=== PATIENT | male | born 1970 | race Caucasian/White ===

== ENCOUNTER → 2022-11-01 13:54 | Outpatient (BNVA) | payer OTHER, SELFPAY | PROVIDERS: PCP Internal Medicine; Visit Provider Internal Medicine Pulmonary Disease | DX: R93.89 Abnormal findings on diagnostic imaging of other specified body structures (principal); J43.9 Emphysema, unspecified | CPT/HCPCS: 99202 ==

== ENCOUNTER 2022-11-09 13:36 | Outpatient (REF) | payer OTHER, SELFPAY ==
--- NOTE | 2022-11-09 14:51 | PFT_ITS ---
FLOWS: FEV1 94% of predicted at 3.97 L. FVC 102% of predicted at 5.62 L. FEV1 to FVC ratio of 0.71. The patient declined bronchodilator testing. LUNG VOLUMES: Total lung capacity 105% of predicted at 8.03 L. Residual volume 102% of predicted at 2.32 L. Slow vital capacity 107% of predicted at 5.70 L. Expiratory reserve volume 110% of predicted at 1.84 L. Diffusion capacity is mildly decreased. IMPRESSION: No obstructive or restrictive ventilatory defect. The patient declined bronchodilator testing. Decreased diffusion capacity suggests emphysema. Marvin Lopez MD AP/MODL / [id number]
== END 2022-11-09 13:37 | disposition home or self-care (01) ==
LOC: HO.RESP 13:36
PROVIDERS: PCP Internal Medicine; Visit Provider Internal Medicine Pulmonary Disease
DX: J43.9 Emphysema, unspecified (principal)
CPT/HCPCS: 94010; 94727; 94729

== ENCOUNTER 2022-11-22 15:00 | Outpatient (REF) | payer OTHER, SELFPAY ==
--- NOTE | ~2022-11-22 | CT_ITS ---
EXAMINATION: CT CHEST WITHOUT CONTRAST CLINICAL INFORMATION: Abnormal findings on diagnostic imaging of site. COMPARISON: None TECHNIQUE: Multidetector volumetric CT imaging of the chest was done. Axial MIP volume rendering provided. Sagittal and coronal reformatted images were obtained. This CT examination was performed using dose optimization techniques as appropriate, variously including the following: *Automated exposure control. *Adjustment of mA and/or kV according to patient size (this includes techniques or standardized protocols for targeted exams where dose is matched to indication/reason for exam; i.e. extremities or head). *Use of iterative reconstruction technique. DLP: 198 mGy-cm FINDINGS: FICTION AND NONFICTION AUTHOR: Unremarkable. LUNGS: The lungs are well expanded and clear of acute pneumonic process. There are 2 mm nodule right upper lobe axial image 200/7, 2 new nodule right upper lobe axial image 228/7, new punctate reticular nodular changes right upper lobe laterally axial image 224/7, scattered punctate calcifications in both lower lobe posterior segments. There is an ill-defined density right lower lobe posterior lung and subpleural location right posterior pleural thickening. The ill-defined density measures 2.8 x 2.40 cm on axial image 302/7 and approximately 5 cm in craniocaudal length. There is central focal air or necrosis. This may represent a resolving infiltrate or centrally necrotic nodule. Small bullous changes are seen in the left lower lobe. Chronic atelectatic changes are seen in the right lung base. MEDIASTINUM: Heart size and the great vessels are normal caliber. Thyroid gland appears surgically removed. Central trachea and the bronchi are widely patent. No abnormal size mediastinal lymph nodes seen. No pericardial effusion. CORONARY ARTERY CALCIFICATION: None visualized on this study. PLEURA: There is no pleural effusion. No pleural mass or thickening. AXILLA: There are small shotty lymph nodes in the axilla. The chest wall is unremarkable. UPPER ABDOMEN: Visualized liver, spleen, pancreas and bilateral adrenal glands unremarkable. OSSEOUS STRUCTURES: No lytic or sclerotic process seen. CT/CT chest wo IV con IMPRESSION: 1. Ill-defined nodule/mass-like density right lower lobe with central gas collection, question necrosis. Differential diagnosis includes resolving infiltrate versus underlying nodule. 2. There are several additional small nodules seen in the right upper lobe. There is scarring right lung base, bullous changes in the left lower lobe posterior segment. 3. No abnormal mediastinal or axillary lymphadenopathy. Fleischner guidelines were followed.
== END 2022-11-22 15:01 | disposition home or self-care (01) ==
LOC: HO.CT 15:00
PROVIDERS: PCP Internal Medicine; Visit Provider Internal Medicine Pulmonary Disease
DX: R93.89 Abnormal findings on diagnostic imaging of other specified body structures (principal)
CPT/HCPCS: 71250

== ENCOUNTER → 2022-12-12 11:22 | Outpatient (BNVA) | payer OTHER, SELFPAY | PROVIDERS: PCP Internal Medicine; Visit Provider Internal Medicine Pulmonary Disease | DX: J85.2 Abscess of lung without pneumonia (principal); J43.9 Emphysema, unspecified; R93.89 Abnormal findings on diagnostic imaging of other specified body structures | CPT/HCPCS: 99212 ==

== ENCOUNTER 2023-02-18 12:47 | Outpatient (REF) | payer OTHER, SELFPAY ==
--- NOTE | ~2023-02-18 | CT_ITS ---
EXAMINATION: CT CHEST WITHOUT CONTRAST CLINICAL INFORMATION: Follow-up right lower lobe nodule COMPARISON: Previous chest CT most October 2020 TECHNIQUE: Multidetector volumetric CT imaging of the chest was done. Axial MIP volume rendering provided. Sagittal and coronal reformatted images were obtained. This CT examination was performed using dose optimization techniques as appropriate, variously including the following: *Automated exposure control *Adjustment of mA and/or kV according to patient size (this includes techniques or standardized protocols for targeted exams where dose is matched to indication/reason for exam; i.e. extremities or head) *Use of iterative reconstruction technique DLP: 189 mGy-cm FINDINGS: LUNGS: There is an irregularly-shaped peripheral or subpleural nodule/mass in the posterior superior segment of the right lower lobe. Superiorly this measures 1.4 x 1.8 cm axial image 24 series 3 compared to 1.8 x 2.4 cm on prior exam and is still cavitary. More inferiorly this appears more solid with areas of central calcification measuring 0.6 x 0.8 cm axial image 28 series 4 compared to 1 x 1 cm in AP and transverse dimension on prior exam. Longitudinally this area measures 4.8 cm sagittal reconstructed image 79 compared to 5.5 cm on prior exam. There is volume loss to the right lower lobe. There is evidence of emphysema. There is a focal cystic change in the left lower lobe. There are small calcified and noncalcified nodules or micronodules that are stable. Largest nodule is a 3 mm calcified right middle lobe nodule axial image 326 series 5. MEDIASTINUM: The thyroid gland has been removed. The mediastinum is otherwise normal. CORONARY ARTERY CALCIFICATION: None visualized on this study. PLEURA: There is no pleural effusion. No pleural mass or thickening. AXILLA: No lymphadenopathy. UPPER ABDOMEN: Multiple left renal cysts. OSSEOUS STRUCTURES: Degenerative changes of the spine. CT/CT chest wo IV con IMPRESSION: Slight interval decrease in size in the irregularly-shaped elongated partially cavitary nodule/mass in the posterior superior segment of the right lower lobe compared to October 2022. Volume loss to the right lower lobe. Emphysema. Stable small pulmonary nodules. Fleischner guidelines were followed.
== END 2023-02-18 12:48 | disposition home or self-care (01) ==
LOC: HO.CT 12:47
PROVIDERS: PCP Internal Medicine; Visit Provider Internal Medicine Pulmonary Disease
DX: J85.2 Abscess of lung without pneumonia (principal); R93.89 Abnormal findings on diagnostic imaging of other specified body structures
CPT/HCPCS: 71250

== ENCOUNTER → 2023-03-01 11:19 | Outpatient (BNVA) | payer OTHER, SELFPAY | PROVIDERS: PCP Internal Medicine; Visit Provider Internal Medicine Pulmonary Disease | DX: J43.9 Emphysema, unspecified (principal); J85.2 Abscess of lung without pneumonia; R93.89 Abnormal findings on diagnostic imaging of other specified body structures; Z87.891 Personal history of nicotine dependence; Z80.1 Family history of malignant neoplasm of trachea, bronchus and lung; G47.33 Obstructive sleep apnea (adult) (pediatric); Z99.89 Dependence on other enabling machines and devices | CPT/HCPCS: 99212 ==

== ENCOUNTER 2023-04-12 10:19 | Outpatient (REF) | payer OTHER, SELFPAY ==
--- NOTE | ~2023-04-12 | CT_ITS ---
EXAMINATION: CT CHEST WITHOUT CONTRAST CLINICAL INFORMATION: Lung abscess COMPARISON: Previous chest CT October and January 2023 TECHNIQUE: Multidetector volumetric CT imaging of the chest was done. Axial MIP volume rendering provided. Sagittal and coronal reformatted images were obtained. This CT examination was performed using dose optimization techniques as appropriate, variously including the following: *Automated exposure control *Adjustment of mA and/or kV according to patient size (this includes techniques or standardized protocols for targeted exams where dose is matched to indication/reason for exam; i.e. extremities or head) *Use of iterative reconstruction technique DLP: 216 mGy-cm FINDINGS: LUNGS: There is a partially cavitary lesion in the superior segment of the right lower lobe. Superiorly this appears cavitary and does not appear changed in size. Inferiorly this appears more solid and is increased in size for example measuring maximum 2.7 x 1.8 cm in transverse and AP dimension axial image 293 series 5 compared to 1.4 x 2.5 cm in maximum AP and transverse dimension axial image 250 series 5 on January 2023 exam. There are small associated calcifications. There is associated bronchiectasis extending to this region. There is adjacent retraction of the right major fissure. There is evidence of emphysema. There are cystic or bullous changes seen in the lungs, largest in the peripheral or subpleural posterior left lower lobe. There are scattered areas of mild focal bronchiectasis, increased peribronchial attenuation and small peribronchial nodules just of airways disease. MEDIASTINUM: The thyroid gland has been removed. No enlarged hilar or mediastinal lymph nodes. Normal heart size. No pericardial effusion. CORONARY ARTERY CALCIFICATION: None visualized on this study. PLEURA: There is no pleural effusion. No pleural mass or thickening. AXILLA: No lymphadenopathy. UPPER ABDOMEN: Large multiloculated cyst in the upper pole of the left kidney. Small punctate 1 mm calcification in the upper pole of the left kidney. OSSEOUS STRUCTURES: Degenerative changes of the spine. CT/CT chest wo IV con IMPRESSION: Partially solid partially cystic or cavitary lesion in the superior segment of the right lower lobe. Interval increase in size in the inferior more solid component compared to most recent exam January 2023. There are small associated calcifications and focal bronchiectasis. Emphysema and cystic changes in the lungs. Evidence of mild airways disease. Fleischner guidelines were followed.
== END 2023-04-12 10:20 | disposition home or self-care (01) ==
LOC: HO.CT 10:19
PROVIDERS: PCP Internal Medicine; Visit Provider Internal Medicine Pulmonary Disease
DX: J85.2 Abscess of lung without pneumonia (principal)
CPT/HCPCS: 71250

== ENCOUNTER → 2023-04-16 10:17 | Outpatient (BNVA) | payer OTHER, SELFPAY | PROVIDERS: PCP Internal Medicine; Visit Provider Internal Medicine Pulmonary Disease | DX: R93.89 Abnormal findings on diagnostic imaging of other specified body structures (principal); J43.9 Emphysema, unspecified | CPT/HCPCS: 99212 ==

== ENCOUNTER → 2023-04-24 14:49 | Outpatient (BNVA) | payer OTHER, SELFPAY | PROVIDERS: PCP Internal Medicine; Referring Provider Internal Medicine Pulmonary Disease; Visit Provider Surgery | DX: R93.89 Abnormal findings on diagnostic imaging of other specified body structures (principal); J98.4 Other disorders of lung | CPT/HCPCS: 99202 ==

== ENCOUNTER 2023-05-07 09:51 | Day surgery (SDC) | payer OTHER, SELFPAY ==
[2023-05-07] VITALS (7 sets, daily range): BP systolic 110–127; BP diastolic 73–78; PULSE 68–84; RESP 14–18; TEMP 36.4–37.1; O2SAT 95–97; BMI 24.3
--- NOTE | ~2023-05-07 | XR_ITS ---
EXAMINATION: XR CHEST CLINICAL INFORMATION: Post right lung biopsy. COMPARISON: None available. TECHNIQUE: Frontal view of the chest was obtained. FINDINGS: There is no visible pneumothorax status post right lung biopsy. The lungs are well-expanded and clear. The heart size and pulmonary vascularity is normal. No gross bony abnormality seen. XR/XR chest 1V IMPRESSION: No visible pneumothorax status post right lung biopsy.
--- NOTE | ~2023-05-07 | XR_ITS ---
EXAMINATION: XR CHEST CLINICAL INFORMATION: 1 hour follow-up post right lung biopsy. COMPARISON: Immediate post lung biopsy chest x-ray at 2:10 PM TECHNIQUE: Frontal view of the chest was obtained. FINDINGS: Post right lung biopsy there is no visible pneumothorax. The lungs are clear. Heart size and the great vessels are normal caliber. No gross bony abnormality seen. XR/XR chest 1V IMPRESSION: Post right lung biopsy there is no visible pneumothorax. No change from the earlier chest x-ray.
--- NOTE | ~2023-05-07 | CT_ITS ---
PROCEDURE: CT GUIDED BIOPSY, LUNG CLINICAL INFORMATION: Right lower lobe lung mass COMPARISON: None available. TECHNIQUE: Patient was placed in a lateral decubitus position on the CT gantry. Cross-sectional images of the leg were obtained. A site on the right mid back was identified and marked and the area was sterilely prepped and draped. There was an unclear question of a lidocaine allergy. Since there were no lidocaine alternatives available at the time of the procedure, we elected to give a very small amount of lidocaine to start. There was no local or systemic reaction and we therefore proceeded to anesthetize with more lidocaine at the skin surface and up until the edge of the pleura. The right lower lobe lung mass was accessed with a 17-gauge coaxial needle under CT fluoroscopy guidance. 2 18-gauge core biopsy needle samples were then obtained. One sample was placed in formalin for pathology and the other simple was placed in a sterile container to be sent for culture and sensitivity. The needle was removed. Hemostasis was achieved with manual compression and a sterile dressing was applied. Post biopsy CT image does not demonstrate any evidence of pneumothorax or any other complication. The patient tolerated the procedure well. This CT examination was performed using dose optimization techniques as appropriate, variously including the following: *Automated exposure control *Adjustment of mA and/or kV according to patient size (this includes techniques or standardized protocols for targeted exams where dose is matched to indication/reason for exam; i.e. extremities or head) *Use of iterative reconstruction technique Medications for conscious sedation: The patient received intravenous conscious sedation under my direct supervision. A registered nurse monitored the patient and the patient's vital signs throughout the procedure. The total sedation was 30 minutes. A total of 0.5 mg of Versed and 25 mcg fentanyl was given for good effect. DLP: 119 mGy-cm FINDINGS: Right lower lobe lung mass biopsied as above. CT/CT biopsy lung RT IMPRESSION: Technically successful biopsy of right lower lobe lung mass as detailed above.
[2023-05-07 10:21] LABS: MANUAL DIFF FLAG NO
[2023-05-07 10:34] LABS: Basophils Absolute Auto 0.1 X10*3/uL (0.0-0.2); Eosinophils Absolute Auto 0.2 X10*3/uL (0.0-0.4); Eosinophils Percent Auto 2.9 % (0-4); Hemoglobin 17.9 g/dl (14.0-18.0); Imm Gran Abs Auto 0.01 X10*3/uL (0.00-0.03); Imm Gran Pct Auto 0.2 % (0.0-0.4); Lymphocytes Absolute Auto 1.2 X10*3/uL (1.2-4.9); Lymphocytes Percent Auto 19.2 % (20-40); Mean Corpuscular HGB Conc 33.8 g/dl (31.0-36.0); Mean Corpuscular Hemoglobin 28.5 pg (27.0-33.0); Mean Corpuscular Volume 84.3 fL (80.0-98.0); Mean Platelet Volume 10.3 fL (9.4-12.4); Monocytes Absolute Auto 0.6 X10*3/uL (0.1-1.2); Monocytes Percent Auto 9.5 % (2-11); Neutrophils Absolute Auto 4.3 x10*3/uL (2.0-8.3); Neutrophils Percent Auto 67.2 % (45-73); Platelet Count 146 X10*3/uL (160-400); Red Blood Count 6.29 X10*6/uL (4.60-5.80); Red Cell Distribution Width 13.2 % (11.0-16.0); White Blood Count 6.3 X10*3/uL (4.8-10.8)
[2023-05-07 10:35] LABS: Prothrombin Time 11.8 SEC (10.0-13.1)
[2023-05-07 10:38] LABS: Partial Thromboplastin Time 38.5 SEC (26.0-36.4)
[2023-05-07 10:47] LABS: Anion Gap 13 (12-20); Blood Urea Nitrogen 22 mg/dL (9-16); Carbon Dioxide 25 mmol/L (22-29); Chloride 107 mmol/L (96-108); Creatinine Clr Calc Pharmacy 87.7; Estimated Glomerular Filt Rate > 60; Potassium 3.9 mmol/L (3.3-5.1); Sodium 141 mmol/L (135-145)
== END 2023-05-07 15:50 | disposition home or self-care (01) ==
LOC: HO.SSS 09:52
PROVIDERS: Radiology Diagnostic Radiology; PCP Internal Medicine; Visit Provider Surgery
DX: R91.8 Other nonspecific abnormal finding of lung field (principal); Z87.891 Personal history of nicotine dependence
CPT/HCPCS: 32408; 36415; 71045; 80051; 82565; 84520; 85025; 85610; 85730; 87070; 87073; 87076; 87205; 88305; 99152; 99153; J2250; J3010

== ENCOUNTER → 2023-05-07 11:50 | Outpatient (BNV) | payer OTHER, SELFPAY | PROVIDERS: PCP Internal Medicine; Visit Provider Student in an Organized Health Care Education/Training Program | DX: R91.8 Other nonspecific abnormal finding of lung field (principal) | CPT/HCPCS: 32408 ==

== ENCOUNTER 2023-05-14 10:24 | Outpatient (AMB) | payer OTHER, SELFPAY ==
--- NOTE | 2023-05-14 10:37 | MHC.OFFVIS ---
Intake Vital Signs 05/14/23 10:38 Height 6 ft 1 in Weight 185 lb 3.013 oz BMI 24.4 BP 120/78 Pulse 102 H Pulse Oximetry (%) 98 Intake Visit Reasons: follow up CT scan Intake Note: pt was recently referred to thoracic surgeon. pt states he has been coughing up blood since he finished the antibiotics. Allergies diphenhydramine [From Benadryl] Allergy (Severe, Verified 05/14/23 10:38) sob lidocaine Adverse Reaction (Verified 05/14/23 10:38) Rash novacane Allergy (Uncoded 05/07/23 10:40) Rash HPI follow up CT scan HPI Details 52-year-old gentleman, 60 pack-year smoker, quit 2008, with underlying family history of lung cancer, referred for evaluation of abnormal CT chest obtained for evaluation of small volume hemoptysis that occurred in the beginning of September of 2022 associated with upper respiratory infection versus a as community-acquired pneumonia with no further recurrence of hemoptysis thereafter.? Patient denies prior episodes of hemoptysis.? Patient also denies any other pulmonary concerns complaints.? He does have underlying obstructive sleep apnea currently on CPAP therapy. After the last office visit patient was evaluated by thoracic surgery and had biopsy of his lung lesion that was negative for malignancy. Patient is scheduled to follow-up with thoracic surgery to discuss further treatment options. He does complain of recurrenceOf minor hemoptysis and worsening phlegm after finishing his antibiotic regimen. [facility] Surgical History (Updated 04/24/23 @ 15:35 by Daniel Holt MD) History of thyroidectomy Family History (Updated 04/24/23 @ 15:07 by DOUG Lacey) Maternal Grandfather Lung cancer Father Cancer of appendix Prostate cancer Paternal Uncle Prostate cancer Paternal Grandfather Prostate cancer Review of Systems Const Denies daytime sleepiness, Denies excessive sweating, Denies fatigue, Denies fever(s), Denies lethargy, Denies malaise, Denies night sweats, Denies snoring and Denies weight loss Eyes Denies blurry vision and Denies itchy eyes ENT Denies nasal congestion, Denies post nasal drip, Denies sinus pain, Denies sinus pressure and Denies other ( Thrush) Card Denies chest pain, Denies pedal edema, Denies dyspnea, Denies orthopnea and Denies paroxysmal nocturnal dyspnea Resp Reports cough, Reports hemoptysis ( Minor), Reports excessive phlegm production, Denies dyspnea, Denies snoring and Denies wheezing GI Denies abdominal pain and Denies heartburn Musc Denies myalgias, Denies arthralgias and Denies joint swelling Skin/Breast Denies rash Neuro Denies memory loss and Denies seizure-like activity Psych Denies abnormal sleep pattern, Denies anxiety and Denies memory loss Endo Denies excessive sweating, Denies fatigue and Denies heat intolerance Brendon/Lymph Denies easy bruising Aller/Immun Denies itchy eyes, Denies seasonal rhinorrhea and Denies wheezing Physical Exam Vital Signs: Last Vital Signs Pulse 102 H 05/14/23 10:38 BP 120/78 05/14/23 10:38 Pulse Ox 98 05/14/23 10:38 BMI result Body Mass Index 24.4 Const General: no acute distress and alert Nutritional Appearance: not obese Orientation/consciousness: Other orientation findings ( oriented) HEENT Head: Yes atraumatic Eyes General: appearance normal, both eyes and all related structures Sclerae: sclerae normal EOM: EOMs intact bilaterally Neck Neck: Yes supple Lymphatic: no lymphadenopathy noted Resp Effort & Inspection: normal respiratory effort and no use of accessory muscles Auscultation: clear to auscultation bilaterally Cardio Rate: regular rate Rhythm: regular rhythm Heart sounds: no gallops, no murmurs and no rubs Skin General skin exam: other ( warm) Extrem General: No clubbing, No cyanosis and No edema Assessment & Plan Assessment & Plan (1) Emphysema lung: Code(s): J43.9 - Emphysema, unspecified Plan: essentially symptomatic, will continue to monitor clinically. (2) Pulmonary abscess: Code(s): J85.2 - Abscess of lung without pneumonia Plan: suboptimal response so several courses of antibiotics. Now status post biopsy with no malignancy noted. Patient is scheduled to discuss further treatment options with thoracic surgery. Will restart on suppressive antibiotic at this time. Medications: New amoxicillin-pot clavulanate 875-125 mg 1 tab PO BID 56 tabs 0RF 28 days Discontinued cefuroxime axetil Discontinued Reason: Doctor's Order 500 mg PO BID 56 tabs 0RF 28 days Coding Level of Care Code Est Pt Level 4 (58305) Diagnoses Emphysema lung J43.9 Pulmonary abscess J85.2
[2023-05-14 10:38] VITALS: BP 120/78; PULSE 102; O2SAT 98; BMI 24.4
== END 2023-05-14 11:07 | disposition home or self-care (01) ==
PROVIDERS: PCP Internal Medicine; Visit Provider Internal Medicine Pulmonary Disease
DX: J43.9 Emphysema, unspecified (principal); J85.2 Abscess of lung without pneumonia
CPT/HCPCS: 99214

== ENCOUNTER → 2023-05-14 10:24 | Outpatient (BNVA) | payer OTHER, SELFPAY | PROVIDERS: PCP Internal Medicine; Visit Provider Internal Medicine Pulmonary Disease | DX: J43.9 Emphysema, unspecified (principal); J85.2 Abscess of lung without pneumonia; G47.33 Obstructive sleep apnea (adult) (pediatric); E89.0 Postprocedural hypothyroidism; Z80.1 Family history of malignant neoplasm of trachea, bronchus and lung; Z99.89 Dependence on other enabling machines and devices | CPT/HCPCS: 99212 ==

== ENCOUNTER 2023-05-17 10:53 | Outpatient (AMB) | payer OTHER, SELFPAY ==
--- NOTE | 2023-05-17 11:04 | MHC.OFFVIS ---
Intake Vital Signs 05/17/23 11:05 Height 6 ft 1 in Weight 186 lb BMI 24.5 BP 120/75 Blood Pressure Location Rt brachial Position Sitting Pulse 68 Intake Visit Reasons: Follow Up CT BX results Intake Note: Patient here for f/u CT scan. Lung bx 05-07-23. Audiology Director Required: No Accompanied by: Mother Allergies diphenhydramine [From Benadryl] Allergy (Severe, Verified 05/17/23 11:07) sob lidocaine Adverse Reaction (Verified 05/17/23 11:07) Rash novacane Allergy (Uncoded 05/17/23 11:07) Rash HPI HPI Comments History of Present Illness Details Patient presents with his follow-up. Status post IR lung biopsy was demonstrates no malignancy and inflammatory/infectious etiology. PFSH Surgical History History of thyroidectomy Family History Maternal Grandfather Lung cancer Father Cancer of appendix Prostate cancer Paternal Uncle Prostate cancer Paternal Grandfather Prostate cancer Physical Exam Vital Signs: Last Vital Signs Pulse 68 05/17/23 11:05 BP 120/75 05/17/23 11:05 BMI result Body Mass Index 24.5 Chest Other: Chest breath sounds bilaterally, HS 1 in 2 GI Other: Abdomen soft, benign Assessment & Plan Assessment & Plan (1) Cavitating mass in right lower lung lobe: Comment: Lengthy discussion was had with the patient's family regarding right thoracotomy, right lower lobe wedge resection or possible lobectomy based on intraoperative findings. The concern his to avoid entering this cavity during surgery to minimize spillage. This is why open approach is being undertaken as opposed to thoracoscopy. Risks, benefits, alternatives of the right mini thoracotomy and wedge resection/lobectomy reviewed with the patient and his family and included but not limited to bleeding, infection, recurrence, numbness, pain, scarring, and patient wishes to proceed. All questions were answered. Arrangements will be made for this. PFTs are currently ordered. Code(s): J98.4 - Other disorders of lung Orders: Orders PFT pulmonary function test Today J98.4 - Other disorders of lung Coding Level of Care Code New Pt Level 5 (39395) Diagnoses Cavitating mass in right lower lung lobe J98.4
[2023-05-17 11:05] VITALS: BP 120/75; PULSE 68; BMI 24.5
== END 2023-05-17 11:24 | disposition home or self-care (01) ==
PROVIDERS: PCP Internal Medicine; Visit Provider Surgery
DX: J98.4 Other disorders of lung (principal)
CPT/HCPCS: 99215

== ENCOUNTER → 2023-05-17 10:53 | Outpatient (BNVA) | payer OTHER, SELFPAY | PROVIDERS: PCP Internal Medicine; Visit Provider Surgery | DX: J98.4 Other disorders of lung (principal) | CPT/HCPCS: 99212 ==

== ENCOUNTER 2023-05-31 09:35 | Inpatient (IN) | payer OTHER, SELFPAY ==
[2023-05-24 13:28] VITALS: BP 124/73; PULSE 66; RESP 16; O2SAT 98; BMI 24.5
--- NOTE | 2023-05-24 13:48 | P.CONAN_ITS ---
Documented by User: Shalini Paige NP 05/24/23 14:31 HPI - Anesthesia Eval Consult details Narrative: 52yo M for Bronchoscopy Fiberoptic, Thoracotomy,RLL Lobectomy Nonmalignant RLL mass Reports + vague symptoms (body aches, fatigue, vertigo, rare chest pain) but able to exercise on treadmill. Recent PCP eval with EKG (pending fax) PONV as child. None after thyroidectomy and femur surgery PMFSH Active Problems Active Problems: All Active Problems (Updated 05/24/23 @ 13:43 by Aida Rogers RN) Abnormal CT scan, chest (Acute) Emphysema lung (Acute) Pulmonary abscess (Acute) Cavitating mass in right lower lung lobe (Acute) Past Medical History Medical History (Updated 05/24/23 @ 14:59 by Aida Rogers, JAMILAH) Constipation Coughing up blood Dermatitis Hx of bacterial pneumonia Hx of thyroid cancer Low vitamin D level OCD (obsessive compulsive disorder) LUDIN on CPAP PONV (postoperative nausea and vomiting) Schizoaffective disorder Vertigo Family History Family History Maternal Grandfather Lung cancer Father Cancer of appendix Prostate cancer Paternal Uncle Prostate cancer Paternal Grandfather Prostate cancer Family history of problems with anesthesia: No Surgical History Surgical History (Updated 05/24/23 @ 13:56 by Aida Rogers RN) History of lung biopsy History of surgery on lower extremity History of thyroidectomy Hx of colonoscopy History of Problems with Anesthesia: Yes (Remote hx PONV, Vertigo after colonoscopy) Social History Social History Are you a primary wound care center consultant to a significant other at home: No Do you presently have visiting nurse or other home services: Yes (3 x week mental health nurse visits) Patient Tobacco Use Status: Former Tobacco user Quit Date: 2009 Tobacco use type: Cigarette Advance Directives: No Advance Directives Information Provided: Yes Meds Allergies Allergy/AdvReac Type Severity Reaction Status Date / Time diphenhydramine Allergy Intermediate Shortness Verified 05/24/23 13:27 [From Benadryl] of Breath Home Medications Medication Instructions Recorded Confirmed Last Taken Type clozapine 100 mg tablet (Clozaril) 100 mg PO BEDTIME 11/01/22 05/24/23 05/30/23 History levothyroxine 125 mcg capsule 125 mcg PO DAILY 11/01/22 05/24/23 05/31/23 History montelukast 10 mg tablet 10 mg PO BEDTIME 11/01/22 05/31/23 Unknown History Fiber Gummies PO BEDTIME 05/24/23 Unknown History acetaminophen 325 mg tablet 650 mg PO Q4-6H PRN Pain 05/24/23 05/31/23 Unknown History cholecalciferol (vitamin D3) 1,250 1,250 mcg PO .QWEEKTUESDAY 05/24/23 05/31/23 Unknown History mcg (50,000 unit) capsule polyethylene glycol 3350 17 gram 17 g PO BEDTIME 05/24/23 05/31/23 Unknown History oral powder packet (Miralax) Exam Exam Date and Time: May 24, 2023 1348 Height,Weight and Vital Signs: Height 6 ft 1 in Weight 84.368 kg Last Vital Signs Pulse 66 05/24/23 13:28 Resp 16 05/24/23 13:28 BP 124/73 05/24/23 13:28 Pulse Ox 98 05/24/23 13:28 O2 Del Method Room Air 05/24/23 13:28 Pertinent Lab Results Pertinent Lab Results: Laboratory Tests 05/07/23 05/07/23 10:17 10:17 WBC 6.3 Hgb 17.9 Hct 53.0 H Plt Count 146 L Sodium 141 Potassium 3.9 Chloride 107 Carbon Dioxide 25 BUN 22 H Creatinine 1.10 Airway Mallampati Class: I TM Dist: >3cm Neck ROM: Full Loose/Missing/Broken Teeth: Yes (Upper right molar pulled) Heart: RRR Lungs: CTAB Assessment and Plan Assessment Anesthesia Assessment: Anesthesia Plan Discussed and PAT Visit Final Anesthetic Review Family History of Problems with Anesthesia: No History of Problems with Anesthesia: Yes (Remote hx PONV, Vertigo after colonoscopy) Documented by User: Delvis Ricci MD 05/31/23 09:20 [facility] Past Medical History Medical History (Updated 05/24/23 @ 14:59 by Aida Rogers RN) Constipation Coughing up blood Dermatitis Hx of bacterial pneumonia Hx of thyroid cancer Low vitamin D level OCD (obsessive compulsive disorder) LUDIN on CPAP PONV (postoperative nausea and vomiting) Schizoaffective disorder Vertigo Family History Family History Maternal Grandfather Lung cancer Father Cancer of appendix Prostate cancer Paternal Uncle Prostate cancer Paternal Grandfather Prostate cancer Surgical History Surgical History (Updated 05/24/23 @ 13:56 by Aida Rogers RN) History of lung biopsy History of surgery on lower extremity History of thyroidectomy Hx of colonoscopy Social History Social History Are you a primary wound care center consultant to a significant other at home: No Do you presently have visiting nurse or other home services: Yes (3 x week mental health nurse visits) Patient Tobacco Use Status: Former Tobacco user Quit Date: 2009 Tobacco use type: Cigarette Advance Directives: No Advance Directives Information Provided: Yes Meds Allergies Allergy/AdvReac Type Severity Reaction Status Date / Time diphenhydramine Allergy Intermediate Shortness Verified 05/24/23 13:27 [From Benadyuniorl] of Breath Home Medications Medication Instructions Recorded Confirmed Last Taken Type clozapine 100 mg tablet (Clozaril) 100 mg PO BEDTIME 11/01/22 05/24/23 05/30/23 History levothyroxine 125 mcg capsule 125 mcg PO DAILY 11/01/22 05/24/23 05/31/23 History montelukast 10 mg tablet 10 mg PO BEDTIME 11/01/22 05/31/23 Unknown History Fiber Gummies PO BEDTIME 05/24/23 Unknown History acetaminophen 325 mg tablet 650 mg PO Q4-6H PRN Pain 05/24/23 05/31/23 Unknown History cholecalciferol (vitamin D3) 1,250 1,250 mcg PO .QWEEKTDAY 05/24/23 05/31/23 Unknown History mcg (50,000 unit) capsule polyethylene glycol 3350 17 gram 17 g PO BEDTIME 05/24/23 05/31/23 Unknown History oral powder packet (Miralax) Assessment and Plan Assessment Anesthesia Assessment: Chart Reviewed Final Anesthetic Review NPO: Yes ASA Class: III Final Preanesthetic Review: No Changes in Pt Med Stat, Meds/Allgs Chart Reviewed, Consent Obtained/Reviewed and Anes Risks/Benef Reviewed Patient Risk: Intermediate Procedure Risk: Intermediate Anesthetic Plan Anesthetic Plan: GA, Epidural and Agree w/ Assess. and Plan Disposition: Standard PACU
[2023-05-31] VITALS (27 sets, daily range): BP systolic 91–165; BP diastolic 55–118; PULSE 66–110; RESP 12–18; TEMP 36.2–36.4; O2SAT 88–98
--- NOTE | ~2023-05-31 | XR_ITS ---
EXAMINATION: XR CHEST CLINICAL INFORMATION: Follow-up status post segmental lobectomy. COMPARISON: Previous day TECHNIQUE: Frontal view of the chest was obtained. FINDINGS: Right chest tube terminates slightly more superiorly within the right hemithorax. No appreciable pneumothorax. Chain sutures project over the right hilar region. No pleural effusion. Left basilar subsegmental atelectasis. No acute osseous abnormalities. XR/XR chest 1V IMPRESSION: * Right chest tube terminates slightly more superiorly within the right hemithorax. * No appreciable pneumothorax.
--- NOTE | ~2023-05-31 | CT_ITS ---
EXAMINATION: CT ANGIOGRAM OF THE CHEST WITH AND WITHOUT CONTRAST (CT PULMONARY ANGIOGRAM FOR PE) CLINICAL INFORMATION: Reason for Exam s/p left segmental lobectomy COMPARISON: Chest radiograph from 06/04/2023 TECHNIQUE: Prior to contrast administration, noncontrast localization images were obtained. Subsequently, multidetector volumetric imaging was performed from the thoracic inlet to below the diaphragms following the administration of 80 mL Omnipaque 350 intravenous contrast. No contrast reaction reported Sagittal, coronal, and MIP oblique sagittal reformatted images were obtained on the CT workstation, uploaded to PACS, and reviewed. This CT examination was performed using dose optimization techniques as appropriate, variously including the following: *Automated exposure control *Adjustment of mA and/or kV according to patient size (this includes techniques or standardized protocols for targeted exams where dose is matched to indication/reason for exam; i.e. extremities or head) *Use of iterative reconstruction technique Total exam dose-length product 203 mGy-cm FINDINGS: QUALITY OF STUDY/CONTRAST BOLUS: Satisfactory. PULMONARY ARTERIES: No pulmonary emboli. Main pulmonary disease enlarged suggesting elements of pulmonary arterial hypertension. THORACIC AORTA: No aneurysm. LUNG/PLEURA: Edematous changes. Postsurgical changes in the right infrahilar and right medial lung base. Interval development of consolidative opacities in the right lung base may reflect atelectasis versus evolving infectious/inflammatory etiology. Similar consolidative opacities noted in the posterior aspect of the left lower lobe. Redemonstration of small right apical pneumothorax. Right pleural effusion. Bronchiectasis redemonstrated. No new enlarged or suspicious pulmonary nodules or masses are noted. MEDIASTINUM: Heart is not enlarged. No pericardial effusion. Coronary artery calcifications are noted. No enlarged lymph nodes per size criteria. Thyroid appears surgically absent. No evidence of septal bowing or right heart strain. CHEST WALL/AXILLA: No axillary or internal mammary lymphadenopathy. Subcutaneous emphysema along the right chest wall, postsurgical in nature. OSSEOUS STRUCTURES: The level degenerative changes of the thoracolumbar spine. UPPER ABDOMEN: Redemonstration of partially visualized large multiloculated cystic focus involving the left renal upper. Small hiatal hernia. No reflux of contrast into the hepatic veins to suggest elevated right heart pressures. CT/CT angio chest PE protocol IMPRESSION: 1. No pulmonary emboli. 2. Postsurgical changes in the right infrahilar and right medial lung base. 3. Interval development of consolidative opacities in the right lung base may reflect atelectasis versus evolving infectious/inflammatory etiology. Similar consolidative opacities noted in the posterior aspect of the left lower lobe. 4. Redemonstration of small right apical pneumothorax. 5. Right pleural effusion. 6. Bronchiectasis redemonstrated. 7. Redemonstration of partially visualized large multiloculated cystic focus involving the left renal upper. 8. Small hiatal hernia.
--- NOTE | ~2023-05-31 | XR_ITS ---
EXAMINATION: XR CHEST CLINICAL INFORMATION: Follow-up chest tube removal COMPARISON: Examination of the previous day. TECHNIQUE: AP upright portable view of the chest was obtained. 0904 hours. FINDINGS: Previously noted right chest tube has been removed. There is evidence of a small right apical pneumothorax. There are postsurgical changes seen medially. Linear atelectasis noted at the right base. There are postsurgical changes at the left thoracic inlet. Small blunting in the left costophrenic angle is suggestive of a pleural reaction or effusion. Small subcutaneous emphysema observed in the right lateral chest wall at the thoracic inlet and more inferiorly, not appreciably changed. XR/XR chest 1V IMPRESSION: Right chest tube has been removed. Linear atelectatic change at the right base. Small right apical pneumothorax. Left basilar pleural thickening or effusion.
--- NOTE | ~2023-05-31 | XR_ITS ---
EXAMINATION: XR CHEST CLINICAL INFORMATION: Status post thoracotomy, follow-up. COMPARISON: 05/07/2023 and 05/31/2023 chest radiographs. TECHNIQUE: Frontal view of the chest was obtained. FINDINGS: Support devices: Right-sided chest tube with tip overlying of the right upper lobe medially. Mild linear markings are again seen in the right midlung without interval change. No overt pneumothorax. The left lung is clear. The heart and mediastinal structures are unremarkable. The right chest and neck subcutaneous emphysema is again seen without significant change. XR/XR chest 1V IMPRESSION: 1. Mild linear atelectasis versus scarring in the right midlung without significant change. No overt pneumothorax. 2. Right chest and neck subcutaneous emphysema without significant change.
--- NOTE | ~2023-05-31 | XR_ITS ---
EXAMINATION: XR CHEST CLINICAL INFORMATION: Chest tube removal. Follow-up. COMPARISON: Chest 06/04/2023 TECHNIQUE: Frontal view of the chest was obtained. FINDINGS: The lungs are hypoexpanded with tiny right apical residual pneumothorax suspected. The right chest tube has been removed. There is mild haziness in the right lung base likely pleural thickening or effusion. The left lung is clear. Heart size and pulmonary vascularity is normal. No gross bony abnormality seen. Very small right neck subcutaneous emphysema. XR/XR chest 1V IMPRESSION: Right chest tube has been removed with a tiny right apical pneumothorax suspected. Mild haziness in right lung base likely from pleural effusion or thickening..
--- NOTE | ~2023-05-31 | XR_ITS ---
EXAMINATION: XR CHEST CLINICAL INFORMATION: Chest tube COMPARISON: Previous chest x-ray most recent 06/01/2023 TECHNIQUE: Frontal view of the chest was obtained. FINDINGS: Right chest tube is unchanged in position. There is a small right apical pneumothorax. This measures 1.9 cm at the right lung apex. This does not appear appreciably changed in size from prior exam. There is a small amount of right neck and chest wall subcutaneous emphysema. The cardiac and mediastinal contours are stable. The lung volumes are low. Surgical clips over the right lung. Surgical clips in the cervicothoracic inlet region. There is bilateral airspace disease at the lung bases are suggestive of atelectasis or pneumonia. No pleural effusion. Degenerative changes of the spine. XR/XR chest 1V IMPRESSION: Stable position of right chest tube. Stable small right apical pneumothorax. Postsurgical changes to the right lung. Question bibasilar atelectasis or small infiltrates.
--- NOTE | 2023-05-31 04:40 | MHC.SHP ---
Pre-Procedural Eval Section A Date of Service: 05/31/23 The patient is an INPATIENT: Yes Changes since office visit: No Cold of Flu in the past 2 weeks, No New Medical Problems, No Changes in Medication and No Patient answered all questions The History & Physical has been completed within 30 days and I have reviewed it.: Yes Section B Chief Complaint: Other disorders of lung Allergies: Allergies Allergy/AdvReac Type Severity Reaction Status Date / Time diphenhydramine Allergy Intermediate Shortness Verified 05/24/23 13:27 [From Benadryl] of Breath Plan I have reviewed the history and physical and performed a pertinent physical examination on my patient. No changes have occurred unless specified. Time Spent With Patient Time: Total time managing care of this patient today ____ minutes.
--- NOTE | 2023-05-31 07:13 | PC.NURSE ---
pt with hx of ocd/schizoaffective disorder would not get undressed and stating he does not want to go through surgery. RN's x2 and family encouraging pt. Text to Dr. Holt to come see pt. will come to see him. here in waiting room. Pt sx of coughing up blood. explaining procedure. Pt still reluctant. encouraging to improvement of sx.
--- NOTE | 2023-05-31 07:20 | PC.NURSE ---
agreed to plan of one step at a time come into room, then to bathroom to void and undress.
[2023-05-31] MEDS: Lactated Ringers 1,000 ML 100 ML IVCONT (07:47)
[2023-05-31] MEDS: ceFAZolin Sodium/Dextrose,Iso 2 GM/50 ML PIGGYBACK IV (08:35)
--- OUTSIDE RECORDS SUMMARY | 2023-05-31 09:43 | XMS_ITS | Continuity of Care Document ---
Author Name Unknown Organization [facility] Address [address] [place] [address]- Care Team Providers Care Clarification Operator Name Role Phone Elijah Aguilar MD Primary Care Physician [phone] Encounter [facility] Date(s): 04/26/23 - 05/03/23 [facility] [address] [place], [place] [address] Encounter Diagnosis Lung mass; Dr Lopez; possible abscess(Discharge Diagnosis) - 04/26/23 Constipation(Discharge Diagnosis) - 04/26/23 Attending Physician: Elijah Aguilar MD Allergies, Adverse Reactions, Alerts Substance Reaction Severity Status diphenhydrAMINE Active Risperdal 1 Active Valium Active Trilafon Active Prozac Active Paxil Active Colace Rash Active Haldol Active Effexor Active Zyprexa Active Geodon Active Abilify Active Benedryl Allergy Sinus feels like hes ch oking vomiting Active clonazePAM Active LORazepam Active 1Reports only allergic to risperdal consta Immunizations Given and Recorded Vaccine Date Status Refusal Reason influenza virus vaccine, inactivated 08/15/22 Doug rded influenza virus vaccine, inactivated 07/23/21 Doug rded influenza virus vaccine, inactivated 07/20/20 Doug rded influenza virus vaccine, inactivated 08/27/19 Doug rded influenza virus vaccine, inactivated 07/17/18 Doug rded influenza virus vaccine, inactivated 08/02/16 Doug rded influenza virus vaccine, inactivated 08/26/15 Doug rded influenza virus vaccine, inactivated 07/30/14 Doug rded influenza virus vaccine, inactivated 09/08/13 Doug rded influenza virus vaccine, inactivated 07/23/12 Doug rded influenza virus vaccine, inactivated 07/18/11 Doug rded influenza virus vaccine, inactivated 1/10/11 Doug rded influenza virus vaccine, inactivated 08/02/10 Doug rded influenza virus vaccine, inactivated 07/19/09 Doug rded influenza virus vaccine, inactivated 1 10/01/06 Gi carlos enrique SARS-CoV-2 (COVID-19) mRNA BNT-162b2 vac 10/26/21 Recorded SARS-CoV-2 (COVID-19) mRNA-1273 vaccine 03/07/21 R ecorded SARS-CoV-2 (COVID-19) mRNA-1273 vaccine 02/07/21 R ecorded pneumococcal 23-valent vaccine 11/06/10 Recorded tetanus/diphtheria/pertussis, acel(Tdap) 11/06/10 Recorded Influenza Virus Vaccine (oldterm) 2 09/08/08 Given Influenza Inactive (IM) (oldterm) 3 09/08/07 Given 1Admin Note: sanofi pasteur no contraindications 2Admin Note: manager fine dining Sanofi Pasteur no contraindications 3Admin Note: SANOFI PASTEUR Medications acetaminophen 500 mg oral tablet 2 tablet = 1,000 mg, By Mouth, 2 times a day, PRN Pain , Mild, 1000 Unknown, Oral, 1 Refill(s), Take 2 Tablets by mouth 2 times daily as needed for Pain., # 100 tablet, 0 Refills, Maintenance, 03/15/22 9:50:00 EDT, Tablet, [facility]/pharmacy #[id number], Partial... Start Date: 03/15/22 Status: Ordered Clozaril 100 mg oral tablet 1 tablet = 100 mg, By Mouth, Daily at bedtime, 0 Refills, Maintenance, 03/01/19 20:34:52 EDT Start Date: 03/01/19 Status: Ordered Freestyle Lancets See Instructions, # 100 each, Refills 5, Tot. Refills 5, Maintenance, use once daily as directed for Type 2 Diabetes Mellitus, 01/19/23 10:56:00 EDT, Supply, 185, cm, 10/08/22 13:24:00 EST, Height, 84.8, kg, 10/02/22 23:42:00 EST, Dry Weight Start Date: 01/19/23 Stop Date: 07/18/23 Status: Ordered levothyroxine 125 mcg (0.125 mg) oral tablet 1 tablet = 125 mcg, By Mouth, Daily, # 90 tablet, 1 Refills, Maintenance, 02/22/23 15:57:00 EDT, Tablet, [facility]/pharmacy #[id number], Partial fill upon patient request if the prescription is for a schedule IIopioid drug., 185, cm, 10/08/22 13:24:00 EST, Heigh... Start Date: 02/22/23 Status: Ordered montelukast 10 mg oral tablet 10 mg, 1, tablet, By Mouth, Daily, 90 each, TAKE 1 TABLET BY MOUTH EVERYDAY AT BEDTIME, # 90 tablet, Refills 3, Tot. Refills 3, Maintenance, 08/23/22 17:59:00 EDT, Route to Pharmacy Electronically, [facility]/pharmacy #[id number], Partial fill upon patient request... Start Date: 08/23/22 Status: Ordered Polyethylene Glycol 3350 17 Unknown, Oral, 1 Refill(s), Take 17 g by mouth as needed., 0 Refills, 03/14/22 16:13:00 EDT, Partial fill upon patient request if the prescription is for a schedule II opioid drug. Start Date: 03/14/22 Status: Ordered triamcinolone 0.1% topical cream 1 application, Topically, 2 times a day, PRN rash, # 30 Gm, 0 Refills, Maintenance, 10/08/22 13:33:00 EST, Cream, [facility]/pharmacy #[id number], Partial fill upon patient request if the prescription is for a schedule II opioid drug., 1 application Topically 2 ti... Start Date: 10/08/22 Status: Ordered Problem List Condition Confirmation Course Effective Dates Status H ealth Status Informant Asthma Confirmed 03/28/09 Active Carpal tunnel syndrome Confirmed 10/29/11 Active Chronic back pain Confirmed Active Constipation Confirmed Active Gastritis - EGD 01/16 Confirmed Active History of diabetes mellitus Confirmed 10/13/13 Active Hearing loss Confirmed 02/26/19 Active H/o thyroid CA; Dr Maloney surgery, then radiactive remnant ablation Confirmed 09/02/09 Active Hyperlipidemia Confirmed 03/28/09 Active Hypothyroidism Confirmed 07/20/10 Active Mild cognitive impairment Confirmed Active Nephrolithiasis Confirmed Active Lung mass; Dr Lopez; possible abscess Confirmed Active Multiple nodules of lung Confirmed 09/25/10 Active Polyp of colon Confirmed 08/31/20 Active Colon polyp Confirmed Active Elevated red blood cell count; [facility] Confirmed Active Schizoaffective disorder Confirmed 03/25/09 Active Sleep apnea Confirmed 11/26/14 Active Tachycardia Confirmed 06/15/13 Active Diagnosis Diagnosis Type Effective Dates Health Status Clinical Service Informant Lung mass; Dr Lopez; possible abscess Discharge Diagnosis 04/26/23 Constipation Discharge Diagnosis 04/26/23 Vital Signs Most recent to oldest [Reference Range]: 1 Height 185 cm (04/26/23 9:44 AM) Weight 83.9 kg (04/26/23 9:44 AM) Oxygen Saturation [94-100 %] 97 % (04/26/23 9:44 AM) Pulse Rate [55-90 bpm] 62 bpm (04/26/23 9:44 AM) Body Mass Index [18.5-24.99 kg/m2] 24.51 kg/m2 (04/26/23 9:44 AM) Blood Pressure [90-138/55-84 mm Hg] 114/ 77mm Hg (04/26/23 9:44 AM) Respiratory Rate [16-30 br/min] 18 br/mi n (04/26/23 9:44 AM) Temperature [96.8-100.4 DegF] 97.8 DegF (04/26/23 9:44 AM) Mode of Delivery (Oxygen) Room air (04/26/23 9:44 AM) Blood pressure sites Arm, left (04/26/23 9:44 AM) Temperature Route Temporal (04/26/23 9:44 AM) Dry Weight 83.9 kg (04/26/23 9:44 AM) Weight Obtained Via Standing scale (04/26/23 9:44 AM) Dry Weight Obtained Via Standing scale (04/26/23 9:44 AM) Social History Social History Type Response Smoking Status Former smoker, quit more than 30 days ago; Tobacco use times per day: 3 pk/d; quit 09/05; entered on: 04/04/22 Sex EKG study * Event Display: ECG 12-Lead Authored Date: Please click on pdf link to open report * Event Display: ECG 12-Lead Authored Date: Ventricular Rate: 67 BPM Atrial Rate: 67 BPM P-R Interval: 180 ms QRS Duration: 94 ms Q-T Interval: 418 ms QTC Calculation(Bazett): 441 ms P [place]: 38 degrees R [place]: -21 degrees T [place]: 48 degrees Normal sinus rhythm Poor R wave progression in V1-V2 may be normal variant or due to septal infarct or misplaced leads Abnormal ECG When compared with ECG of 05-AUG-2020 17:19, No significant change was found Confirmed by KARLENE CUADRA MD ([id number]) on 04/28/2023 6:34:22 PM [place]: KARLENE CUADRA MD Patient Care team information Care Team Personnel Name: Elijah Aguilar MD Position: S Physician - Primary Care Member Role: PCP Address: Address: [address] [place] [address] Name: Rob Quijano RN Position: S RN Member Role: Primary Care Nurse Name: Peter Ceron RN Position: S RN Member Role: Primary Care Nurse Name: Sheryl Kumar RN Position: S RN Member Role: Primary Care Nurse Care Team Related Persons Name: KAI COOL Address: [address] [address] Name: DAISY COOL Address: [place] [address]
--- OUTSIDE RECORDS SUMMARY | 2023-05-31 09:43 | XMS_ITS | Continuity of Care Document ---
Author Name Unknown Organization [facility] Address [address] [place] [address]- Care Team Providers Care Plan Rep Name Role Phone Elijah Aguilar MD Primary Care Physician Encounter [facility] Date(s): 10/19/22 - 10/26/22 [facility] [address] [place] [address]- Encounter Diagnosis Hemoptysis(Discharge Diagnosis) - 10/20/22 Lung mass(Discharge Diagnosis) - 10/20/22 Rash(Discharge Diagnosis) - 10/20/22 Attending Physician: Elijah Aguilar MD Allergies, Adverse Reactions, Alerts Substance Reaction Severity Status diphenhydrAMINE Active Risperdal 1 Active Prozac Active Colace Rash Active Effexor Active LORazepam Active clonazePAM Active Valium Active Trilafon Active Paxil Active Haldol Active Zyprexa Active Geodon Active Abilify Active Benedryl Allergy Sinus feels like hes ch oking vomiting Active 1Reports only allergic to risperdal consta [...] 07/18/11 Doug rded influenza virus vaccine, inactivated 11/06/10 Doug rded influenza virus vaccine, inactivated 08/02/10 [...] Note: sanofi pasteur no contraindications 2Admin Note: 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 Start Date: 03/15/22 Status: Ordered Clozaril 100 mg oral tablet 1 tablet = 100 mg, By Mouth, Daily at bedtime, 0 Refills, Maintenance, 03/01/19 20:34:52 EDT Start Date: 03/01/19 Status: Ordered levothyroxine 125 mcg (0.125 mg) oral tablet 1 tablet = 125 mcg, By Mouth, Daily, # 90 tablet, 1 Refills, Maintenance, 06/21/22 19:27:00 EDT, Tablet, [facility]/pharmacy #[id number], Partial fill upon patient request if the prescription is for a schedule IIopioid drug., 186, cm, 06/12/22 10:37:00 EDT, Jacob... Start Date: 06/21/22 Status: Ordered montelukast 10 mg oral tablet 10 mg, 1, tablet, By Mouth, Daily, 90 each, TAKE 1 TABLET BY MOUTH EVERYDAY AT BEDTIME, # 90 tablet, Refills 3, Tot. Refills 3, Maintenance, 08/23/22 17:59:00 EDT, Route to Pharmacy Electronically, [facility]/pharmacy #[id number], Partial fill upon patient request... Start [...] 0 Refills, Maintenance, 10/08/22 13:33:00 EST, Cream, [facility]/pharmacy #[id number], Partial fill upon patient request if the prescription is for a schedule II opioid drug., 1 application Topically 2 ti... Start Date: 10/08/22 Status: Ordered Problem List Condition Confirmation Course Effective Dates Status H ealth Status Informant Asthma Confirmed 03/28/09 Active Carpal tunnel syndrome Confirmed 10/29/11 Active Chronic back pain Confirmed Active Constipation Confirmed Active Diabetes mellitus with renal manifestation Confirmed Active Gastritis - EGD 01/16 Confirmed Active Hearing loss Confirmed 02/26/19 Active H/o thyroid CA; Dr Maloney surgery, then radiactive remnant ablation Confirmed 09/02/09 Active Hyperlipidemia Confirmed 03/28/09 Active Hypothyroidism Confirmed 07/20/10 Active Mild cognitive impairment Confirmed Active Multiple nodules of lung Confirmed 09/25/10 Active Polyp of colon Confirmed 08/31/20 Active Colon polyp Confirmed Active Elevated red blood cell count Confirmed Active Retinopathy due to diabetes mellitus Confirmed 10/13/13 Active Schizoaffective disorder Confirmed 03/25/09 Active Sleep apnea Confirmed 11/26/14 Active Tachycardia Confirmed 06/15/13 Active Diagnosis Diagnosis Type Effective Dates Health Status Clini veto Service Informant Hemoptysis Discharge Diagnosis 10/20/22 Lung mass Discharge Diagnosis 10/20/22 Rash Discharge Diagnosis 10/20/22 Social History Social History Type Response Smoking Status Former smoker, quit more than 30 days ago; Tobacco use times per day: 3 pk/d; quit 09/05; entered on: 04/04/22 Sex Patient Care team information Care Team Personnel Name: Elijah Aguilar MD Position: [facility] Primary Care Physician Member Role: PCP Address: Address: [address] [place] [id number] Name: Rob Quijano RN Position: [facility] RN Member Role: Primary Care Nurse Name: Jie ASKEW, Peter Alegria Position: [facility] RN Member Role: Primary Care Nurse Name: Sheryl Kumar RN Position: [facility] RN Member Role: Primary Care Nurse Care Team Related Persons Name: KAI COOL Address: home [address] [place] [id number] Name: DAISY COOL Address: [place] [address]
--- OUTSIDE RECORDS SUMMARY | 2023-05-31 09:43 | XMS_ITS | Continuity of Care Document ---
Author Name Unknown Organization [facility] Address [address] [place] [address]- Care Team Providers Care Authorizer Name Role Phone Elijah Aguilar MD Primary Care Physician [phone] Encounter [facility] Date(s): 03/17/22 - 04/16/22 [facility] [address] [place], [place] [address] Allergies, Adverse Reactions, Alerts Substance Reaction Severity Status diphenhydrAMINE Active Risperdal Active Trilafon Active Prozac Active Paxil Active Colace Rash Active Haldol Active Effexor Active Zyprexa Active Geodon Active Abilify Active Benedryl Allergy Sinus feels like hes ch oking vomiting Active Immunizations Given and Recorded Vaccine Date Status Refusal Reason SARS-CoV-2 (COVID-19) mRNA BNT-162b2 vac 10/26/21 Recorded influenza virus vaccine, inactivated 07/23/21 Doug rded [...] 1 10/01/06 Gi carlos enrique SARS-CoV-2 (COVID-19) mRNA-1273 vaccine 03/07/21 R ecorded SARS-CoV-2 (COVID-19) mRNA-1273 vaccine 02/07/21 R ecorded pneumococcal 23-valent vaccine 11/06/10 Recorded tetanus/diphtheria/pertussis, acel(Tdap) 11/06/10 Recorded Influenza Virus Vaccine (oldterm) 2 09/08/08 Given Influenza Inactive (IM) (oldterm) 3 09/08/07 Given 1Admin Note: sanofi pasteur no contraindications 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 Start Date: 03/15/22 Status: Ordered Clozaril 100 mg oral tablet 1 tablet = 100 mg, By Mouth, Daily at bedtime, 0 Refills, Maintenance, 03/01/19 20:34:52 EDT Start Date: 03/01/19 Status: Ordered fluticasone-salmeterol 500 mcg-50 mcg inhalation powder 1 Unknown, Inhalation, 1 Refill(s), Inhale 1 Puff into the lungs every 12 hours for 360 days., Refills 0, 03/14/22 16:12:00 EDT Start Date: 03/14/22 Status: Ordered levothyroxine 0.137 mg oral tablet 1 tablet = 137 mcg, By Mouth, Daily, # 90 tablet, 1 Refills, Maintenance, 03/30/22 16:42:00 EDT, Tablet, [id number], Partial fill upon patient request if the prescription is for a schedule IIopioid drug., 183, cm, 03/14/22 15:32:00 EDT, Heigh... Start Date: 03/30/22 Status: Ordered levothyroxine 137 mcg (0.137 mg) oral capsule 1 capsule = 137 mcg, By Mouth, Daily, # 90 capsule, 0 Refills, Maintenance, 03/17/22 15:02:00 EDT, Capsule, [id number], Partial fill upon patient request if the prescription is for a scheduleII opioid drug., 183, cm, 03/14/22 15:32:00 EDT, He... Start Date: 03/17/22 Status: Ordered montelukast 10 mg oral tablet 90 each, TAKE 1 TABLET BY MOUTH EVERYDAY AT BEDTIME, Refills 0, 03/14/22 19:28:00 EDT, Partial fillupon patient request if the prescription is for a schedule II opioid drug. Start Date: 03/14/22 Status: Ordered Polyethylene Glycol 3350 17 Unknown, Oral, 1 Refill(s), Take 17 g by mouth as needed., 0 Refills, 03/14/22 16:13:00 EDT, Partial fill upon patient request if the prescription is for a schedule II opioid drug. Start Date: 03/14/22 Status: Ordered Problem List Condition Effective Dates Status Health Status Inform ant Allergic condition(Confirmed) 01/07/22 Active Asthma(Confirmed) 03/28/09 Active Carpal tunnel syndrome(Confirmed) 10/29/11 Active Chronic back pain(Confirmed) Active Constipation(Confirmed) Active Diabetes mellitus with renal manifestation(Confirmed) Active Gastritis - EGD 01/16(Confirmed) Active Hearing loss(Confirmed) 02/26/19 Active H/o thyroid CA; Dr Amara mello, then radiactive remnant ablation(Confirmed) 09/02/09 Active Hyperlipidemia(Confirmed) 03/28/09 Active Hypothyroidism(Confirmed) 07/20/10 Active Mild cognitive impairment(Confirmed) Active Multiple nodules of lung(Confirmed) 09/25/10 Active Polyp of colon(Confirmed) 08/31/20 Active Colon polyp(Confirmed) Active Elevated red blood cell count(Confirmed) Active 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) 10/13/13 Active Schizoaffective disorder(Confirmed) 03/25/09 Active Sleep apnea(Confirmed) 11/26/14 Active Tachycardia(Confirmed) 06/15/13 Active Social History Social History Type Response Smoking Status Former smoker, quit more than 30 days ago; Tobacco use times per day: 3 pk/d; quit 09/05; entered on: 04/04/22 Sex
--- OUTSIDE RECORDS SUMMARY | 2023-05-31 09:43 | XMS_ITS | Continuity of Care Document ---
Author Name Unknown Organization [facility] Address [address] [place] [address]- Care Team Providers Care Off Premise Service Representative Name Role Phone Elijah Aguilar MD Primary Care Physician [phone] Encounter [facility] Date(s): 03/14/22 - 03/21/22 [facility] [address] [place] [place] [address] Encounter Diagnosis Constipation(Discharge Diagnosis) - 03/14/22 Diabetes mellitus(Discharge Diagnosis) - 03/14/22 Schizoaffective disorder(Discharge Diagnosis) - 03/14/22 Attending Physician: Elijah Aguilar MD Allergies, Adverse Reactions, Alerts Substance Reaction Severity Status diphenhydrAMINE Active Risperdal Active Trilafon Active Prozac Active Paxil Active Colace Rash Active Haldol Active Effexor Active Zyprexa Active Geodon Active Abilify Active Benedryl Allergy Sinus feels like hes ch oking vomiting Active Immunizations Given and Recorded Vaccine Date Status Refusal Reason Influenza Virus Vaccine (oldterm) 1 09/08/08 Given Influenza Inactive (IM) (oldterm) 2 09/08/07 Given influenza virus vaccine, inactivated 3 10/01/06 Gi carlos enrique 1Admin Note: roads supervisor Sanofi Pasteur no contraindications 2Admin Note: SANOFI PASTEUR 3Admin Note: sanofi pasteur no contraindications Medications acetaminophen 500 mg oral tablet 2 [...] EDT Start Date: 03/14/22 Status: Ordered levothyroxine 137 mcg (0.137 mg) oral capsule 1 capsule = 137 mcg, By Mouth, Daily, # 90 capsule, 0 Refills, Maintenance, 03/17/22 15:02:00 EDT, Capsule, [facility]/pharmacy #[id number], Partial fill upon patient request [...] 03/28/09 Active Carpal tunnel syndrome(Confirmed) 10/29/11 Active Constipation(Confirmed) Active Cyst of kidney(Confirmed) 12/22/14 Active Diabetes mellitus(Confirmed) Active Gastroduodenitis(Confirmed) Active Hearing loss(Confirmed) 02/26/19 Active History of malignant neoplas m of thyroid(Confirmed) 09/02/09 Active Hyperlipidemia(Confirmed) 03/28/09 Active Hypothyroidism(Confirmed) 07/20/10 Active Multiple nodules of lung(Confirmed) 09/25/10 Active Polyp of colon(Confirmed) 08/31/20 Active Elevated red blood cell count(Confirmed) Active 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) 10/13/13 Active Schizoaffective disorder(Confirmed) 1994 Active Schizoaffective disorder(Confirmed) 03/25/09 Active Sleep apnea(Confirmed) 11/26/14 Active Tachycardia(Confirmed) 06/15/13 Active Diagnosis Diagnosis Type Effective Dates Health Status Clinical Service Informant Constipation Discharge Diagnosis 03/14/22 Diabetes mellitus Discharge Diagnosis 03/14/22 Schizoaffective disorder Discharge Diagnosis 03/14/22 Vital Signs Most recent to oldest [Reference Range]: 1 Height 183 cm (03/14/22 3:32 PM) Weight 85.5 kg (03/14/22 3:32 PM) Oxygen Saturation [94-100 %] 96 % (03/14/22 3:32 PM) Pulse Rate [55-90 bpm] 68 bpm (03/14/22 3:32 PM) Body Mass Index [18.5-24.99] 25.53 *H* (03/14/22 3:32 PM) Blood Pressure [90-138/55-84 mm Hg] 122/ 74mm Hg (03/14/22 3:32 PM) Blood pressure sites Arm, left (03/14/22 3:32 PM) Social History Social History Type Response Smoking Status Never (less than 100 in lifetime) entered on: 10/13/18 Sex
--- OUTSIDE RECORDS SUMMARY | 2023-05-31 09:43 | XMS_ITS | Continuity of Care Document ---
Author Name Unknown Organization [facility] Address [address] [place] [address]- Care Team Providers Care Hull Builder Name Role Phone Elijah Aguilar MD Primary Care Physician Encounter [facility] Date(s): 08/13/22 - 08/20/22 [facility] [address] [place], [place] [address] Attending Physician: Elijah Aguilar MD Allergies, Adverse Reactions, Alerts Substance Reaction Severity Status diphenhydrAMINE Active Risperdal 1 Active Valium Active Trilafon Active Prozac Active Paxil Active Colace Rash Active Haldol Active Effexor Active Zyprexa Active Geodon Active Abilify Active Benedryl Allergy Sinus feels like hes ch oking vomiting Active LORazepam Active clonazePAM Active 1Reports only allergic to risperdal consta [...] Note: sanofi pasteur no contraindications 2Admin Note: hall director Sanofi Pasteur no contraindications 3Admin Note: SANOFI PASTEUR Medications acetaminophen 500 mg oral tablet 2 tablet = 1,000 mg, By Mouth, 2 times a day, PRN Pain , Mild, 1000 Unknown, Oral, 1 Refill(s), Take 2 Tablets by mouth 2 times daily as needed for Pain., # 100 tablet, 0 Refills, Maintenance, 03/15/22 9:50:00 EDT, Tablet, [facility]/pharmacy #[id number], Partial... Start Date: 03/15/22 Status: Ordered Clozaril 100 mg oral tablet 1 tablet = 100 mg, By Mouth, Daily at bedtime, 0 Refills, Maintenance, 03/01/19 20:34:52 EDT Start Date: 03/01/19 Status: Ordered levothyroxine 125 mcg (0.125 mg) oral tablet 1 tablet = 125 mcg, By Mouth, Daily, # 90 tablet, 1 Refills, Maintenance, 06/21/22 19:27:00 EDT, Tablet, [facility]/pharmacy #[id number], Partial fill upon patient request if the prescription is for a schedule IIopioid drug., 186, cm, 06/12/22 10:37:00 EDT, aJcob... Start Date: 06/21/22 Status: Ordered montelukast 10 mg oral tablet 90 each, TAKE 1 TABLET BY MOUTH EVERYDAY AT BEDTIME, Refills 0, 03/14/22 19:28:00 EDT, Partial fillupon patient request if the prescription is for a schedule II opioid drug. Start Date: 03/14/22 Status: Ordered Nystop 555567 u/gm powder 1 application, Topically, 2 times a day, # 60 Gm, 0 Refills, Maintenance, 08/13/22 17:40:00 EDT, Powder, [facility]/pharmacy #[id number], Partial fill upon patient request if the prescription is for a schedule IIopioid drug., 1 application Topically 2 times a day... Start Date: 08/13/22 Status: Ordered Polyethylene Glycol 3350 17 Unknown, Oral, 1 Refill(s), Take 17 g by mouth as needed., 0 Refills, 03/14/22 16:13:00 EDT, Partial fill upon patient request if the prescription is for a schedule II opioid drug. Start Date: 03/14/22 Status: Ordered Problem List Condition Confirmation Course [...] Confirmed 11/26/14 Active Tachycardia Confirmed 06/15/13 Active Vital Signs Most recent to oldest [Reference Range]: 1 Height 186 cm (08/13/22 4:26 PM) Weight 84.6 kg (08/13/22 4:26 PM) Oxygen Saturation [94-100 %] 97 % (08/13/22 4:26 PM) Pulse Rate [55-90 bpm] 90 bpm (08/13/22 4:26 PM) Body Mass Index [18.5-24.99 kg/m2] 24.45 kg/m2 (08/13/22 4:26 PM) Blood Pressure [90-138/55-84 mm Hg] 106/ 62mm Hg (08/13/22 4:26 PM) Blood pressure sites Arm, left (08/13/22 4:26 PM) Social History Social History Type Response Smoking Status Former smoker, quit more than 30 days ago; Tobacco use times per day: 3 pk/d; quit 09/05; entered on: 04/04/22 Sex Patient Care team information Personnel Name: Elijah Aguilar MD Address: Address: [address] [place] [address]
--- OUTSIDE RECORDS SUMMARY | 2023-05-31 09:43 | XMS_ITS | Continuity of Care Document ---
Author Name Unknown Organization [facility] Address [address] [place] [address]- Care Team Providers Care Pre Press Manager Name Role Phone Elijah Aguilar MD Primary Care Physician Encounter [facility] Date(s): 12/03/22 - 01/02/23 [facility] [address] [place], [place] [address] Allergies, Adverse Reactions, Alerts Substance Reaction [...] Note: sanofi pasteur no contraindications 2Admin Note: claims manager Sanofi Pasteur no contraindications 3Admin Note: SANOFI PASTEUR Medications acetaminophen 500 mg oral tablet 2 tablet = 1,000 mg, By Mouth, 2 times a day, PRN Pain , Mild, 1000 Unknown, Oral, 1 Refill(s), Take 2 Tablets by mouth 2 times daily as needed for Pain., # 100 tablet, 0 Refills, Maintenance, 03/15/22 9:50:00 EDT, Tablet, [facility]/pharmacy #[id number], Partial... Start Date: 03/15/22 Status: Ordered Clozaril 100 mg oral tablet 1 tablet = 100 mg, By Mouth, Daily at bedtime, 0 Refills, Maintenance, 03/01/19 20:34:52 EDT Start Date: 03/01/19 Status: Ordered levothyroxine 125 mcg (0.125 mg) oral tablet 1 tablet = 125 mcg, By Mouth, Daily, # 90 tablet, 1 Refills, Maintenance, 06/21/22 19:27:00 EDT, Tablet, [facility]/pharmacy #[id number], Partial fill upon patient request [...] 08/23/22 17:59:00 EDT, Route to Pharmacy Electronically, [facility]/pharmacy #[id number], Partial fill upon patient request... [...] 0 Refills, Maintenance, 10/08/22 13:33:00 EST, Cream, [id number], Partial fill upon patient request if the prescription is for a schedule II opioid drug., 1 application Topically 2 ti... Start Date: 10/08/22 Status: Ordered Problem List Condition Confirmation Course Effective Dates Status H ealth Status Informant Asthma Confirmed 03/28/09 Active Carpal tunnel syndrome Confirmed 10/29/11 Active Chronic back pain Confirmed Active Constipation Confirmed Active Renal cyst Confirmed Active Diabetes mellitus with renal manifestation Confirmed Active Gastritis - EGD 01/16 Confirmed Active Hearing loss Confirmed 02/26/19 Active H/o thyroid CA; Dr Maloney surgery, then radiactive remnant ablation Confirmed 09/02/09 Active Hyperlipidemia Confirmed 03/28/09 Active Hypothyroidism Confirmed 07/20/10 Active Mild cognitive impairment Confirmed Active Lung mass; Dr Lopez; possible abscess Confirmed Active Multiple nodules of lung Confirmed 09/25/10 Active Polyp of colon Confirmed 08/31/20 Active Colon polyp Confirmed Active Elevated red blood cell count; [facility] Confirmed Active Retinopathy due to diabetes mellitus Confirmed 10/13/13 Active Schizoaffective disorder Confirmed 03/25/09 Active Sleep apnea Confirmed 11/26/14 Active Tachycardia Confirmed 06/15/13 Active Social History Social History Type Response Smoking Status Former smoker, quit more than 30 days ago; Tobacco use times per day: 3 pk/d; quit 09/05; entered on: 04/04/22 Sex Patient Care team information Care Team Personnel Name: Elijah Aguilar MD Position: [facility] Primary Care Physician Member Role: PCP Address: Address: [address] [place] [id number] Name: Rob Quijano RN Position: S RN Member Role: Primary Care Nurse Name: Peter Ceron RN Position: [facility] RN Member Role: Primary Care Nurse Name: Sheryl Kumar RN Position: [facility] RN Member Role: Primary Care Nurse Care Team Related Persons Name: KAI COOL Address: [address] [address] Name: DAISY COOL Address: [place] [address]
--- OUTSIDE RECORDS SUMMARY | 2023-05-31 09:43 | XMS_ITS | Continuity of Care Document ---
Author Name Unknown Organization [facility] Address [address] [place] [address]- Care Team Providers Care Haz Tech Name Role Phone Elijah Aguilar MD Primary Care Physician [phone] Encounter [facility] Date(s): 02/22/23 - 03/24/23 [facility] [address] [place], [place] [address] Allergies, Adverse Reactions, Alerts Substance Reaction Severity [...] Note: sanofi pasteur no contraindications 2Admin Note: historiography professor Sanofi Pasteur no contraindications 3Admin Note: SANOFI PASTEUR Medications acetaminophen 500 mg oral tablet 2 tablet = 1,000 mg, By Mouth, 2 times a day, PRN Pain , Mild, 1000 Unknown, Oral, 1 Refill(s), Take 2 Tablets by mouth 2 times daily as needed for Pain., # 100 tablet, 0 Refills, Maintenance, 03/15/22 9:50:00 EDT, Tablet, [facility]/pharmacy #[id number], Partial... Start Date: [...] 1 Refills, Maintenance, 02/22/23 15:57:00 EDT, Tablet, [id number], Partial fill upon [...] 08/23/22 17:59:00 EDT, Route to Pharmacy Electronically, [facility]/pharmacy #[id number], Partial fill upon [...] 0 Refills, Maintenance, 10/08/22 13:33:00 EST, Cream, [facility]/pharmacy #[id number], Partial fill upon [...] Confirmed Active Elevated red blood cell count; [facility] Hematology Confirmed Active Retinopathy due to diabetes [...] Team Personnel Name: Elijah Aguilar MD Position: [facility] Physician - Primary Care Member Role: PCP Address: Address: [address] [place] [id number] Name: Rob Quijano RN Position: S RN Member Role: Primary Care Nurse Name: Peter Ceron RN Position: [facility] RN Member Role: Primary Care Nurse Name: Sheryl Kumar RN Position: [facility] RN Member Role: Primary Care Nurse Care Team Related Persons Name: KAI COOL Address: [address] [address] Name: DAISY COOL Address: [place] [address]
--- OUTSIDE RECORDS SUMMARY | 2023-05-31 09:43 | XMS_ITS | Continuity of Care Document ---
Author Name Unknown Organization [facility] Address [address] [place] [address]- Care Team Providers Care Arts And Sciences Dean Name Role Phone Elijah Aguilar MD Primary Care Physician Encounter [facility] Date(s): 07/03/22 - 08/02/22 [facility] [address] [place], [place] [address] Attending Physician: Admtr, Ar8 Admitting Physician: Admtr, Ar8 Referring Physician: Admtr, Ar8 Allergies, Adverse Reactions, Alerts Substance Reaction Severity Status diphenhydrAMINE Active Risperdal 1 Active Valium Active clonazePAM Active Trilafon Active Prozac Active Paxil Active Colace Rash Active Haldol Active Effexor Active Zyprexa Active Geodon Active Abilify Active Benedryl Allergy Sinus feels like hes ch oking vomiting Active LORazepam Active 1Reports only allergic to [...] Note: sanofi pasteur no contraindications 2Admin Note: 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 Start Date: 06/21/22 Status: Ordered montelukast 10 [...] Personnel Name: Elijah Aguilar MD Address: Address: [address] [place] [address]
--- OUTSIDE RECORDS SUMMARY | 2023-05-31 09:43 | XMS_ITS | Continuity of Care Document ---
Author Name Unknown Organization [facility] Address [address] [place] [address]- Care Team Providers Care Manager Registration Name Role Phone Elijah Aguilar MD Primary Care Physician Encounter [facility] Date(s): 04/22/22 - 05/22/22 [facility] [address] [place], [place] [address] Allergies, Adverse Reactions, Alerts Substance Reaction Severity [...] Note: sanofi pasteur no contraindications 2Admin Note: book trimmer Sanofi Pasteur no contraindications 3Admin Note: SANOFI PASTEUR Medications acetaminophen 500 mg oral tablet 2 tablet = 1,000 mg, By Mouth, 2 times a day, PRN Pain , Mild, 1000 Unknown, Oral, 1 Refill(s), Take 2 Tablets by mouth 2 times daily as needed for Pain., # 100 tablet, 0 Refills, Maintenance, 03/15/22 9:50:00 EDT, Tablet, [facility] #[id number], Partial... Start Date: 03/15/22 Status: Ordered [...] mcg, By Mouth, Daily, # 90 tablet, 0 Refills, Maintenance, 04/22/22 17:22:00 EDT, Tablet, [facility]/pharmacy #[id number], Partial fill upon patient request if the prescription is for a schedule IIopioid drug., 183, cm, 04/04/22 8:10:00 EDT, Height... Start Date: 04/22/22 Status: Ordered montelukast 10 mg oral tablet [...]
--- OUTSIDE RECORDS SUMMARY | 2023-05-31 09:43 | XMS_ITS | Continuity of Care Document ---
Author Name Unknown Organization [facility] Address [address] [place] [address]- Care Team Providers Care Weight Count Operator Name Role Phone Elijah Aguilar MD Primary Care Physician En[place] [facility] Date(s): 11/10/19 - 11/17/[address] [address]- [facility] Attending Physician: Shnoa Jackson MD Allergies, Adverse Reactions, Alerts Substance Reaction Severity Status diphenhydrAMINE Active Risperdal Active Trilafon Active Prozac Active Paxil Active Haldol Active Effexor Active Zyprexa Active Geodon Active Abilify Active Benedryl Allergy Sinus feels like hes ch oking vomiting Active Immunizations Given and Recorded Vaccine Date Status Refusal Reason Influenza Virus Vaccine (oldterm) 1 09/08/08 Given Influenza Inactive (IM) (oldterm) 2 09/08/07 Given influenza virus vaccine, inactivated 3 10/01/06 Gi carlos enrique 1Admin Note: yoga teacher Sanofi Pasteur no contraindications 2Admin Note: SANOFI PASTEUR 3Admin Note: sanofi pasteur no contraindications Medications Advair Diskus 500 mcg-50 mcg inhalation powder 1 puffs, Inhalation, Every 12 hours, 0 Refills, Maintenance Start Date: 02/16/10 Status: Ordered clonazePAM 0.5 mg oral tablet 1 tablet = 0.5 mg, By Mouth, 2 times a day, take in AM and early-mid evening, # 60 tablet, 1 Refills, Maintenance, 05/28/17 11:10:26, Tablet Start Date: 05/28/17 Stop Date: 07/27/17 Status: Ordered Clozaril 100 mg oral tablet 1 tablet = 100 mg, By Mouth, Daily at bedtime, 0 Refills, Maintenance, 03/01/19 20:34:52 EDT Start Date: 03/01/19 Status: Ordered Clozaril 25 mg oral tablet 1/2 tab, By Mouth, Daily, PRN Anxiety, 0 Refills, Maintenance, 03/01/19 20:35:20 EDT Start Date: 03/01/19 Status: Ordered Diltiazem Hydrochloride CD 240 mg/24 hours oral capsule, extended release 1 capsule = 240 mg, By Mouth, Daily, # 30 capsule, 0 Refills, Maintenance Start Date: 07/04/11 Status: Ordered Flonase = 50 mcg, Daily, 0 Refills, Maintenance Start Date: 02/16/10 Status: Ordered ibuprofen 600 mg oral tablet 600 mg, 1, tablet, By Mouth, Every 6 hours, # 40 tablet, Refills 0, Maintenance, 05/24/16 10:35:31 Start Date: 05/24/16 Status: Ordered levothyroxine 175 mcg (0.175 mg) oral tablet See Instructions, 1 tablet By Mouth Saturday-, 1/2 tablet on Sundays, # 30 tablet, 5 Refills, Maintenance, 06/26/16 10:34:00, Tablet Start Date: 06/26/16 Status: Ordered montelukast 10 mg oral tablet 10 mg, 1, tablet, By Mouth, Daily in PM, # 30 tablet, Refills 0, Maintenance, 05/24/16 10:35:55 Start Date: 05/24/16 Status: Ordered multivitamin Multiple Vitamins oral liquid 1 tablet, By Mouth, Daily, # 30 tablet, 0 Refills, Maintenance, Tablet Start Date: 01/03/10 Status: Ordered Test Strips See Instructions, # 100 application, Refills 11, Tot. Refills 11, Maintenance, Strips for freestyleLite. Test 2-3 times a day, 11/28/11 10:23:56 Start Date: 11/28/11 Status: Ordered Tylenol 325 mg oral tablet 650 mg, 2, tablet, By Mouth, Every 6 hours, Refills 0, Maintenance, 05/24/16 10:37:47 Start Date: 05/24/16 Status: Ordered Problem List Condition Effective Dates Status Health Status Inform ant Asthma--persistent(Confirmed) 1993 Active Diabetes mellitus(Confirmed) Active Schizoaffective disorder(Confirmed) 1994 Active Schizoaffective Disorder, Ch ronic with Acute Exacerbation(Confirmed) 04/08/11 Active Sleep apnea(Confirmed) 2004 Active TOBACCO USE DISORDER(Confirmed) 1993 Active Schizophrenia 295.90(Confirmed) 04/06/11 Active Social History Social History Type Response Smoking Status Never (less than 100 in lifetime) entered on: 10/13/18 Sex
--- OUTSIDE RECORDS SUMMARY | 2023-05-31 09:43 | XMS_ITS | Continuity of Care Document ---
Author Name Unknown Organization [facility] Address [address] [place] [address]- Care Team Providers Care Freight Manager Name Role Phone Elijah Aguilar MD Primary Care Physician Encounter [facility] Date(s): 10/02/22 - 02/05/23 [facility] [address] [place] [address]- Discharge Disposition: A-D/C Home Attending Physician: Radha Ramos MD Admitting Physician: Radha Ramos MD Referring Physician: Elijah Aguilar MD Allergies, Adverse Reactions, Alerts Substance Reaction Severity Status diphenhydrAMINE Active Risperdal 1 Active Valium Active Geodon Active clonazePAM Active Trilafon Active Prozac Active Paxil Active Colace Rash Active Haldol Active Effexor Active Zyprexa Active Abilify Active Benedryl Allergy Sinus feels [...] Note: sanofi pasteur no contraindications 2Admin Note: 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 Start Date: [...] 1 Refills, Maintenance, 06/21/22 19:27:00 EDT, Tablet, [facility]/pharmacy #[id number], Partial fill upon [...] 08/23/22 17:59:00 EDT, Route to Pharmacy Electronically, [facility]/pharmacy #[id number], Partial fill upon [...] 0 Refills, Maintenance, 10/08/22 13:33:00 EST, Cream, [facility]/pharmacy #[id number], Partial fill upon [...] Confirmed Active Elevated red blood cell count; [facility] Confirmed Active Retinopathy due to [...] Team Personnel Name: Elijah Aguilar MD Position: [facility] Primary Care Physician Member Role: PCP Address: Address: [address] [place] [address] Name: Rob Quijano RN Position: [facility] RN Member Role: Primary Care Nurse Name: Peter Ceron RN Position: [facility] RN Member Role: Primary Care Nurse Name: Sheryl Kumar RN Position: [facility] RN Member Role: Primary Care Nurse Care Team Related Persons Name: KAI COOL Address: [address] [address] Name: DAISY COOL Address: [place] [address]
--- OUTSIDE RECORDS SUMMARY | 2023-05-31 09:43 | XMS_ITS | Continuity of Care Document ---
Author Name Unknown Organization [facility] Address [address] [place] [address]- Care Team Providers Care Command Post Superintendent Name Role Phone Elijah Aguilar MD Primary Care Physician [facility]counter [facility] Date(s): 04/18/22 - 05/18/22 [facility] [address] [place], [place] [address] Allergies, Adverse Reactions, Alerts [...] Note: sanofi pasteur no contraindications 2Admin Note: java programmer Sanofi Pasteur no contraindications 3Admin Note: SANOFI PASTEUR Medications acetaminophen 500 mg oral tablet 2 tablet = 1,000 mg, By Mouth, 2 times a day, PRN Pain , Mild, 1000 Unknown, Oral, 1 Refill(s), Take 2 Tablets by mouth 2 times daily as needed for Pain., # 100 tablet, 0 Refills, Maintenance, 03/15/22 9:50:00 EDT, Tablet, [facility]/pharmacy #[id number], Partial... Start Date: 03/15/22 Status: Ordered [...] 0 Refills, Maintenance, 04/22/22 17:22:00 EDT, Tablet, [facility]/pharmacy #[id number], Partial fill upon patient request if [...]
--- OUTSIDE RECORDS SUMMARY | 2023-05-31 09:43 | XMS_ITS | Continuity of Care Document ---
Author Name Unknown Organization [facility] Address [address] [place] [address]- Care Team Providers Care Hand Mixer Name Role Phone Elijah Aguilar MD Primary Care Physician Encounter [facility] Date(s): 10/02/22 - 11/01/[address] [address]- Attending Physician: Gold Call Admitting Physician: AdmGold olson Referring Physician: AdmtrGold Allergies, Adverse Reactions, Alerts Substance Reaction Severity Status diphenhydrAMINE Active Benedryl Allergy Sinus feels like hes ch oking vomiting Active clonazePAM Active Risperdal 1 Active Valium Active Trilafon Active Prozac Active Paxil Active Colace Rash Active Haldol Active Effexor Active Zyprexa Active Geodon Active Abilify Active LORazepam Active 1Reports only allergic to [...] Note: sanofi pasteur no contraindications 2Admin Note: condominium association manager Sanofi Pasteur no contraindications 3Admin Note: SANOFI PASTEUR Medications acetaminophen 500 mg oral tablet 2 tablet = 1,000 mg, By Mouth, 2 times a day, PRN Pain , Mild, 1000 Unknown, Oral, 1 Refill(s), Take 2 Tablets by mouth 2 times daily as needed for Pain., # 100 tablet, 0 Refills, Maintenance, 03/15/22 9:50:00 EDT, Tablet, [facility]/pharmacy #[id number], Partial... Start Date: 03/15/22 [...] 08/23/22 17:59:00 EDT, Route to Pharmacy Electronically, [facility]/pharmacy #[id number], Partial fill upon patient request... Start [...] 0 Refills, Maintenance, 10/08/22 13:33:00 EST, Cream, [facility]/pharmacy #[id number], Partial fill upon patient [...] Team Personnel Name: Elijah Aguilar MD Position: [facility] Primary Care Physician Member Role: PCP Address: Address: [address] [place] [address] Name: Rob Quijano RN Position: S RN Member Role: Primary Care Nurse Name: Jie ASKEW, Peter Alegria Position: S RN Member Role: Primary Care Nurse Name: Sheryl Kumar RN Position: [facility] RN Member Role: Primary Care Nurse Care Team Related Persons Name: KAI COOL Address: [address] [address] Name: DAISY COOL Address: [place] [address]
--- OUTSIDE RECORDS SUMMARY | 2023-05-31 09:43 | XMS_ITS | Continuity of Care Document ---
Author Name Unknown Organization [facility] Address [address] [place] [address]- Care Team Providers Care Community Health Worker Name Role Phone Elijah Aguilar MD Primary Care Physician [facility]counter [facility] Date(s): 09/30/22 - 10/30/22 [facility] [address] [place], [place] [address] Allergies, Adverse Reactions, Alerts Substance Reaction [...] Refusal Reason influenza virus vaccine, inactivated 08/15/22 Duog rded influenza virus vaccine, inactivated 07/23/21 Doug [...] Note: sanofi pasteur no contraindications 2Admin Note: spanisher Sanofi Pasteur no contraindications 3Admin Note: SANOFI PASTEUR Medications acetaminophen 500 mg oral tablet 2 tablet = 1,000 mg, By Mouth, 2 times a day, PRN Pain , Mild, 1000 Unknown, Oral, 1 Refill(s), Take 2 Tablets by mouth 2 times daily as needed for Pain., # 100 tablet, 0 Refills, Maintenance, 03/15/22 9:50:00 EDT, Tablet, [facility]/pharmacy #[id number], Partial... Start Date: 03/15/22 Status: Ordered Clozaril 100 mg oral tablet 1 tablet = 100 mg, By Mouth, Daily at bedtime, 0 Refills, Maintenance, 03/01/19 20:34:52 EDT Start Date: 03/01/19 Status: Ordered levothyroxine 125 mcg (0.125 mg) oral tablet 1 tablet = 125 mcg, By Mouth, Daily, # 90 tablet, 1 Refills, Maintenance, 06/21/22 19:27:00 EDT, Tablet, [facility]/pharmacy #[id number], Partial fill upon [...] 08/23/22 17:59:00 EDT, Route to Pharmacy Electronically, [facility]/pharmacy #[id number], Partial fill upon [...] Team Personnel Name: Elijah Aguilar MD Position: [facility] Primary Care Physician Member Role: PCP Address: Address: [address] [place] [id number] Name: Rob Quijano RN Position: S RN Member Role: Primary Care Nurse Name: Jie ASKEW, Peter Alegria Position: S RN Member Role: Primary Care Nurse Name: Sheryl Kumar RN Position: [facility] RN Member Role: Primary Care Nurse Care Team Related Persons Name: KAI COOL Address: [address] [address] Name: DAISY COOL Address: [place] [address]
--- OUTSIDE RECORDS SUMMARY | 2023-05-31 09:43 | XMS_ITS | Continuity of Care Document ---
Author Name Unknown Organization [facility] Address [address] [place] [address]- Care Team Providers Care Projection Welding Machine Operator Name Role Phone Elijah Aguilar MD Primary Care Physician Encounter [facility] Date(s): 03/19/22 - 04/18/22 [facility] [address] [place], [place] [address] Allergies, Adverse Reactions, Alerts Substance Reaction [...] Note: sanofi pasteur no contraindications 2Admin Note: hydraulic lift operator Sanofi Pasteur no contraindications 3Admin Note: SANOFI PASTEUR Medications acetaminophen 500 mg oral tablet 2 tablet = 1,000 mg, By Mouth, 2 times a day, PRN Pain , Mild, 1000 Unknown, Oral, 1 Refill(s), Take 2 Tablets by mouth 2 times daily as needed for Pain., # 100 tablet, 0 Refills, Maintenance, 03/15/22 9:50:00 EDT, Tablet, [facility]/pharmacy #[id number], Partial... Start Date: 03/15/22 Status: [...] 1 Refills, Maintenance, 03/30/22 16:42:00 EDT, Tablet, [facility]/pharmacy #[id number], Partial fill upon patient request if the prescription is for a schedule IIopioid drug., 183, cm, 03/14/22 15:32:00 EDT, Heigh... Start Date: 03/30/22 Status: Ordered montelukast 10 mg oral tablet [...]
--- OUTSIDE RECORDS SUMMARY | 2023-05-31 09:43 | XMS_ITS | Continuity of Care Document ---
Author Name Unknown Organization [facility] Address [address] [place] [address]- Care Team Providers Care Occupational Health Physiotherapist Name Role Phone Elijah Aguilar MD Primary Care Physician Encounter [facility] Date(s): 09/30/22 - 10/30/22 [facility] [address], [place] [address] Allergies, Adverse Reactions, Alerts Substance [...] Note: sanofi pasteur no contraindications 2Admin Note: core mounter Sanofi Pasteur no contraindications 3Admin Note: SANOFI PASTEUR Medications acetaminophen 500 mg oral tablet 2 tablet = 1,000 mg, By Mouth, 2 times a day, PRN Pain , Mild, 1000 Unknown, Oral, 1 Refill(s), Take 2 Tablets by mouth 2 times daily as needed for Pain., # 100 tablet, 0 Refills, Maintenance, 03/15/22 9:50:00 EDT, Tablet, [facility]/pharmacy #[id number], Partial... Start Date: 03/15/22 Status: Ordered Clozaril 100 mg oral tablet 1 tablet = 100 mg, By Mouth, Daily at bedtime, 0 Refills, Maintenance, 03/01/19 20:34:52 EDT Start Date: 03/01/19 Status: Ordered levothyroxine 125 mcg (0.125 mg) oral tablet 1 tablet = 125 mcg, By Mouth, Daily, # 90 tablet, 1 Refills, Maintenance, 06/21/22 19:27:00 EDT, Tablet, [facility]/pharmacy #[id number], Partial fill upon patient request if [...] 08/23/22 17:59:00 EDT, Route to Pharmacy Electronically, [facility]/pharmacy #[id number], Partial fill upon patient request... Start [...] Team Personnel Name: Elijah Aguilar MD Position: [facility] Primary Care Physician Member Role: PCP Address: Address: [address] [place] [id number] Name: Rob Quijano RN Position: S RN Member Role: Primary Care Nurse Name: Jie ASKEW, Peter Alegria Position: S RN Member Role: Primary Care Nurse Name: Sheryl Kumar RN Position: [facility] RN Member Role: Primary Care Nurse Care Team Related Persons Name: KAI COOL Address: [address] [address] Name: DAISY COOL Address: [place] [address]
--- OUTSIDE RECORDS SUMMARY | 2023-05-31 09:43 | XMS_ITS | Continuity of Care Document ---
Author Name Unknown Organization [facility] Address [address] [place] [address]- Care Team Providers Care Personal Financial Representative Name Role Phone Not on Staff, PCP Primary Care Physician Unavail able Encounter [facility] Date(s): 03/09/22 - 03/10/[address] [address]- Discharge Disposition: A-D/C Home Attending Physician: Ajit FRANCES, Lindsay Clayton Admitting Physician: Lindsay Fong MD Referring Physician: Not on Staff, Referring MD Allergies, Adverse Reactions, Alerts Substance Reaction [...] 3 10/01/06 Gi carlos enrique 1Admin Note: rough rounder machine Sanofi Pasteur no contraindications 2Admin Note: SANOFI [...] DISORDER(Confirmed) 1993 Active Schizophrenia 295.90(Confirmed) 04/06/11 Active Vital Signs Most recent to oldest [Reference Range]: 1 2 3 Height 183 cm (03/10/22 1:59 AM) 183 cm (03/10/22 12:35 AM) 183 cm (03/09/22 11:50 PM) Weight 87.4 kg (03/10/22 1:59 AM) 87.4 kg (03/10/22 12:35 AM) 87.4 kg (03/09/22 11:50 PM) Oxygen Saturation [94-100 %] 98 % (03/10/22 1:59 AM) 97 % (03/10/22 12:35 AM) 98 % (03/09/22 11:50 PM) Pulse Rate [55-90 bpm] 68 bpm (03/10/22 1:59 AM) 84 bpm (03/10/22 12:35 AM) 75 bpm (03/09/22 11:50 PM) Body Mass Index [18.5-24.99] 26.1 *H* (03/10/22 1:59 AM) 26.1 *H* (03/10/22 12:35 AM) 26.1 *H* (03/09/22 11:50 PM) Blood Pressure [90-138/55-84 mm Hg] 90/52mm Hg (03/10/22 1:59 AM) 134/80mm Hg (03/10/22 12:35 AM) 124/82mm Hg (03/09/22 11:50 PM) Respiratory Rate [16-30 br/min] 16 br/min (03/10/22 1:59 AM) 20 br/min (03/10/22 12:35 AM) 16 br/min (03/09/22 11:50 PM) Temperature [96.8-100.4 DegF] 97.7 DegF (03/10/22 1:59 AM) 97.9 DegF (03/09/22 9:17 PM) Liters per Minute 0 L/min (03/10/22 1:59 AM) 0 L/min (03/09/22 11:50 PM) Mode of Delivery (Oxygen) Room air (03/10/22 1:59 AM) Room air (03/10/22 12:35 AM) Room air (03/09/22 11:50 PM) Blood pressure sites Arm, right (03/10/22 1:59 AM) Arm, right (03/09/22 11:50 PM) Arm, left (03/09/22 9:15 PM) Temperature Route Oral (03/10/22 1:59 AM) Temporal (03/09/22 9:17 PM) Dry Weight 87.4 kg (03/10/22 1:59 AM) 87.4 kg (03/10/22 12:35 AM) 87.4 kg (03/09/22 11:50 PM) Weight Obtained Via Standing scale (03/09/22 9:15 PM) Dry Weight Obtained Via Standing scale (03/09/22 9:15 PM) Social History Social History Type Response Smoking Status Never (less than 100 in lifetime) entered on: 10/13/18 Sex
--- OUTSIDE RECORDS SUMMARY | 2023-05-31 09:44 | XMS_ITS | Continuity of Care Document ---
Author Name Unknown Organization [facility] Address [address] [place] [address]- Care Team Providers Care Meat Smoker Name Role Phone Elijah Aguilar MD Primary Care Physician [phone] [facility]counter [facility] Date(s): 04/25/22 - 05/25/22 [facility] [address] [place], [place] [address] Allergies, Adverse Reactions, Alerts Substance Reaction [...] Note: sanofi pasteur no contraindications 2Admin Note: target developer Sanofi Pasteur no contraindications 3Admin Note: SANOFI PASTEUR Medications acetaminophen 500 mg oral tablet 2 tablet = 1,000 mg, By Mouth, 2 times a day, PRN Pain , Mild, 1000 Unknown, Oral, 1 Refill(s), Take 2 Tablets by mouth 2 times daily as needed for Pain., # 100 tablet, 0 Refills, Maintenance, 03/15/22 9:50:00 EDT, Tablet, [facility]/pharmacy #[id number], Partial... Start Date: 03/15/22 Status: Ordered [...] 0 Refills, Maintenance, 04/22/22 17:22:00 EDT, Tablet, [facility]/pharmacy #[id number], Partial fill upon patient request if [...]
--- OUTSIDE RECORDS SUMMARY | 2023-05-31 09:44 | XMS_ITS | Continuity of Care Document ---
Author Name Unknown Organization [facility] Address [address] [place] [address]- Care Team Providers Care Weed Sprayer Name Role Phone Jeff FRANCES, Elijah Primary Care Physician [phone] Encounter [facility] Date(s): 10/19/22 - 11/18/22 [facility] [address] [place] [address]- Attending Physician: AdmGold olson Admitting Physician: AdmtrGold Referring Physician: Admtr, Ar8 Allergies, Adverse Reactions, Alerts Substance Reaction Severity Status diphenhydrAMINE Active Risperdal 1 Active clonazePAM Active LORazepam Active Valium Active Trilafon Active Prozac Active [...] Note: sanofi pasteur no contraindications 2Admin Note: human resources recruiter Sanofi Pasteur no contraindications 3Admin Note: SANOFI PASTEUR Medications acetaminophen 500 mg oral tablet 2 tablet = 1,000 mg, By Mouth, 2 times a day, PRN Pain , Mild, 1000 Unknown, Oral, 1 Refill(s), Take 2 Tablets by mouth 2 times daily as needed for Pain., # 100 tablet, 0 Refills, Maintenance, 03/15/22 9:50:00 EDT, Tablet, [facility]/pharmacy #[id number], Partial... Start Date: 03/15/22 Status: [...] 08/23/22 17:59:00 EDT, Route to Pharmacy Electronically, [facility]/pharmacy #[id number], Partial fill upon patient request... [...] 0 Refills, Maintenance, 10/08/22 13:33:00 EST, Cream, [facility]/pharmacy #[id number], Partial fill upon patient request [...] cognitive impairment Confirmed Active Lung mass; Dr Lopez Confirmed Active Multiple nodules of lung Confirmed [...] pk/d; quit 09/05; entered on: 04/04/22 Sex Note * Event Display: CT Scan Abdomen, Non- Authored Date: Patient Care team information Care Team Personnel Name: Elijah Aguilar MD Position: [facility] Primary Care Physician Member Role: PCP Address: Address: [address] [place] [address]- Name: Rob Quijano RN Position: S RN Member Role: Primary Care Nurse Name: Peter Ceron RN Position: S RN Member Role: Primary Care Nurse Name: Sheryl Kumar RN Position: S RN Member Role: Primary Care Nurse Care Team Related Persons Name: KAI COOL Address: [address] [address] Name: DAISY COOL Address: [place] [address]
--- OUTSIDE RECORDS SUMMARY | 2023-05-31 09:44 | XMS_ITS | Continuity of Care Document ---
Author Name Unknown Organization [facility] Address [address] [place] [address]- Care Team Providers Care Systems Integration Advisor Name Role Phone Jeff FRANCES, Elijah Primary Care Physician [facility]counter [facility] Date(s): 10/17/22 - 11/16/22 [facility] [address] [place], [place] [address] Allergies, Adverse Reactions, Alerts Substance Reaction Severity [...] Note: sanofi pasteur no contraindications 2Admin Note: baker operator automatic Sanofi Pasteur no contraindications 3Admin Note: SANOFI PASTEUR Medications acetaminophen 500 mg oral tablet 2 tablet = 1,000 mg, By Mouth, 2 times a day, PRN Pain , Mild, 1000 Unknown, Oral, 1 Refill(s), Take 2 Tablets by mouth 2 times daily as needed for Pain., # 100 tablet, 0 Refills, Maintenance, 03/15/22 9:50:00 EDT, Tablet, [facility]/pharmacy #[id number], Partial... Start Date: 03/15/22 Status: Ordered Clozaril 100 mg oral tablet 1 tablet = 100 mg, By Mouth, Daily at bedtime, 0 Refills, Maintenance, 03/01/19 20:34:52 EDT Start Date: 03/01/19 Status: Ordered levothyroxine 125 mcg (0.125 mg) oral tablet 1 tablet = 125 mcg, By Mouth, Daily, # 90 tablet, 1 Refills, Maintenance, 06/21/22 19:27:00 EDT, Tablet, [facility]/pharmacy #[id number], Partial fill upon patient request if the prescription is for a schedule IIopioid drug., 186, cm, 06/12/22 10:37:00 EDT, Hemable... Start Date: 06/21/22 Status: Ordered montelukast 10 mg oral tablet 10 mg, 1, tablet, By Mouth, Daily, 90 each, TAKE 1 TABLET BY MOUTH EVERYDAY AT BEDTIME, # 90 tablet, Refills 3, Tot. Refills 3, Maintenance, 08/23/22 17:59:00 EDT, Route to Pharmacy Electronically, [facility]/pharmacy #[id number], Partial fill upon patient request... Start [...] Team Personnel Name: Elijah Aguilar MD Position: [facility] Primary Care Physician Member Role: PCP Address: Address: [address] [place] [id number] Name: Rob Quijano RN Position: [facility] RN Member Role: Primary Care Nurse Name: Jie ASKEW, Peter Alegria Position: [facility] RN Member Role: Primary Care Nurse Name: Sheryl Kumar RN Position: [facility] RN Member Role: Primary Care Nurse Care Team Related Persons Name: KAI COOL Address: [address] [address] Name: DAISY COOL Address: [place] [address]
--- OUTSIDE RECORDS SUMMARY | 2023-05-31 09:44 | XMS_ITS | Continuity of Care Document ---
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 car welder Sanofi Pasteur no contraindications 3Admin Note: SANOFI [...] Team Personnel Name: Elijah Aguilar MD Position: [facility] Primary Care Physician Member Role: PCP Address: Address: [address] [place] [id number] Name: Rob Quijano RN Position: [facility] RN Member Role: Primary Care Nurse Name: Jie ASKEW, Peter Alegria Position: [facility] RN Member Role: Primary Care Nurse Name: Sheryl Kumar RN Position: [facility] RN Member Role: Primary Care Nurse Care Team Related Persons Name: KAI COOL Address: [address] [address] Name: DAISY COOL Address: [place] [address]
--- OUTSIDE RECORDS SUMMARY | 2023-05-31 09:44 | XMS_ITS | Continuity of Care Document ---
Author Name Unknown Organization [facility] Address [address] [place] [address]- Care Team Providers Care Substitute School Nurse Name Role Phone Elijah Aguilar MD Primary Care Physician Encounter [facility] Date(s): 04/12/22 - 05/12/22 [facility] [address] [place], [place] [address] Allergies, Adverse Reactions, Alerts [...] sanofi pasteur no contraindications 2Admin Note: java lead Sanofi Pasteur no contraindications 3Admin Note: SANOFI PASTEUR Medications acetaminophen 500 mg oral tablet 2 tablet = 1,000 mg, By Mouth, 2 times a day, PRN Pain , Mild, 1000 Unknown, Oral, 1 Refill(s), Take 2 Tablets by mouth 2 times daily as needed for Pain., # 100 tablet, 0 Refills, Maintenance, 03/15/22 9:50:00 EDT, Tablet, [facility]/pharmacy #[id number], Partial... Start Date: 03/15/22 Status: [...] 0 Refills, Maintenance, 04/22/22 17:22:00 EDT, Tablet, [facility]/pharmacy #[id number], Partial fill upon patient request [...]
--- OUTSIDE RECORDS SUMMARY | 2023-05-31 09:44 | XMS_ITS | Continuity of Care Document ---
Author Name Unknown Organization [facility] Address [address] [place] [address]- Care Team Providers Care Home Health Travel Pt Name Role Phone Elijah Aguilar MD Primary Care Physician [phone] Encounter [facility] Date(s): 07/03/22 - 07/10/22 [facility] [address] [place], [place] [address] Attending Physician: Geovanny Nichols MD Allergies, Adverse Reactions, Alerts Substance Reaction [...] Note: sanofi pasteur no contraindications 2Admin Note: doll surgeon Sanofi Pasteur no contraindications 3Admin Note: SANOFI PASTEUR Medications acetaminophen 500 mg oral tablet 2 tablet = 1,000 mg, By Mouth, 2 times a day, PRN Pain , Mild, 1000 Unknown, Oral, 1 Refill(s), Take 2 Tablets by mouth 2 times daily as needed for Pain., # 100 tablet, 0 Refills, Maintenance, 03/15/22 9:50:00 EDT, Tablet, [facility]/pharmacy #[id number], Partial... Start Date: 03/15/22 Status: Ordered [...] 1 Refills, Maintenance, 06/21/22 19:27:00 EDT, Tablet, [facility]/pharmacy #[id number], Partial fill upon patient request if [...] Effective Dates Status Health Status Inform ant Asthma(Confirmed) 03/28/09 Active Carpal tunnel syndrome(Confirmed) 10/29/11 [...] Sleep apnea(Confirmed) 11/26/14 Active Tachycardia(Confirmed) 06/15/13 Active Vital Signs Most recent to oldest [Reference Range]: 1 Height 186 cm (07/03/22 1:17 PM) Weight 88.2 kg (07/03/22 1:17 PM) Oxygen Saturation [94-100 %] 97 % (07/03/22 1:17 PM) Pulse Rate [55-90 bpm] 72 bpm (07/03/22 1:17 PM) Body Mass Index [18.5-24.99] 25.49 *H* (07/03/22 1:17 PM) Blood Pressure [90-138/55-84 mm Hg] 130/ 82mm Hg (07/03/22 1:17 PM) Blood pressure sites Arm, left (07/03/22 1:17 PM) Weight Obtained Via Standing scale (07/03/22 1:17 PM) Social History Social History Type Response Smoking Status Former smoker, quit more than 30 days ago; Tobacco use times per day: 3 pk/d; quit 09/05; entered on: 04/04/22 Sex Care Team Personnel Name: Elijah Aguilar MD Address: [address] [place] [address]
--- OUTSIDE RECORDS SUMMARY | 2023-05-31 09:44 | XMS_ITS | Continuity of Care Document ---
Author Name Unknown Organization [facility] Address [address] [place] [address]- Care Team Providers Care Tipple Worker Name Role Phone Elijah Aguilar MD Primary Care Physician [phone] Encounter [facility] Date(s): 10/10/22 - 11/09/22 [facility] [address] [place], [place] [address] Allergies, Adverse Reactions, Alerts Substance Reaction Severity Status diphenhydrAMINE Active Risperdal 1 Active Colace Rash Active Haldol Active Abilify Active Benedryl Allergy Sinus feels like hes ch oking vomiting Active LORazepam Active clonazePAM Active Valium Active Trilafon Active Prozac Active Paxil Active Effexor Active Zyprexa Active Geodon Active 1Reports only allergic to risperdal consta [...] Note: sanofi pasteur no contraindications 2Admin Note: speech language specialist Sanofi Pasteur no contraindications 3Admin Note: [...] Team Personnel Name: Elijah Aguilar MD Position: [facility] Primary Care Physician Member Role: PCP Address: Address: [address] [place] [id number] Name: Rob Quijano RN Position: [facility] RN Member Role: Primary Care Nurse Name: Peter Ceron RN Position: [facility] ED RN W/OE and Tasks Member Role: Primary Care Nurse Name: Sheryl Kumar RN Position: [facility] RN Member Role: Primary Care Nurse Care Team Related Persons Name: KAI COOL Address: [address] [address] Name: DAISY COOL Address: [place] [address]
--- OUTSIDE RECORDS SUMMARY | 2023-05-31 09:44 | XMS_ITS | Continuity of Care Document ---
Author Name Unknown Organization [facility] Address [address] [place] [address]- Care Team Providers Care Vending Machine Collector Name Role Phone Jeff FRANCES, Elijah Primary Care Physician [phone] Encounter [facility] Date(s): 08/21/22 - 09/20/22 [facility] [address] [place], [place] [address] Allergies, Adverse Reactions, [...] Note: sanofi pasteur no contraindications 2Admin Note: drawbridge tender Sanofi Pasteur no contraindications 3Admin Note: SANOFI PASTEUR Medications acetaminophen 500 mg oral tablet 2 tablet = 1,000 mg, By Mouth, 2 times a day, PRN Pain , Mild, 1000 Unknown, Oral, 1 Refill(s), Take 2 Tablets by mouth 2 times daily as needed for Pain., # 100 tablet, 0 Refills, Maintenance, 03/15/22 9:50:00 EDT, Tablet, [facility]/pharmacy #[id number], Partial... Start Date: 03/15/22 Status: Ordered Clozaril 100 mg oral tablet 1 tablet = 100 mg, By Mouth, Daily at bedtime, 0 Refills, Maintenance, 03/01/19 20:34:52 EDT Start Date: 03/01/19 Status: Ordered levothyroxine 125 mcg (0.125 mg) oral tablet 1 tablet = 125 mcg, By Mouth, Daily, # 90 tablet, 1 Refills, Maintenance, 06/21/22 19:27:00 EDT, Tablet, [facility]/pharmacy #[id number], Partial fill upon patient request [...] 08/23/22 17:59:00 EDT, Route to Pharmacy Electronically, [facility]/pharmacy #[id number], Partial fill upon patient request... Start Date: 08/23/22 Status: Ordered Nystop 042487 u/gm powder 1 application, Topically, 2 times a day, # 60 Gm, 0 Refills, Maintenance, 08/13/22 17:40:00 EDT, Powder, [facility]/pharmacy [id number], Partial fill upon patient request [...] Team Personnel Name: Elijah Aguilar MD Position: [facility] Primary Care Physician Member Role: PCP Address: Address: [address] [place] [id number] Name: Rob Quijano RN Position: S RN Member Role: Primary Care Nurse Name: Peter Ceron RN Position: S RN Member Role: Primary Care Nurse Name: Sheryl Kumar RN Position: S RN Member Role: Primary Care Nurse Care Team Related Persons Name: KAI COOL Address: [address] [address] Name: DAISY COOL Address: [place] [address]
--- OUTSIDE RECORDS SUMMARY | 2023-05-31 09:44 | XMS_ITS | Continuity of Care Document ---
Author Name Unknown Organization [facility] Address [address] [place] [address]- Care Team Providers Care Steep Tender Name Role Phone Elijah Aguilar MD Primary Care Physician Encounter [facility] Date(s): 08/13/22 - 01/24/23 [facility] [address] [place], [place] [address] Attending Physician: Elijah Aguilar MD Allergies, Adverse Reactions, Alerts Substance Reaction Severity Status diphenhydrAMINE Active Valium Active Geodon Active clonazePAM Active Risperdal 1 Active Trilafon Active Prozac Active Paxil Active [...] Note: sanofi pasteur no contraindications 2Admin Note: instructor dancing Sanofi Pasteur no contraindications 3Admin Note: SANOFI PASTEUR Medications acetaminophen 500 mg oral tablet 2 tablet = 1,000 mg, By Mouth, 2 times a day, PRN Pain , Mild, 1000 Unknown, Oral, 1 Refill(s), Take 2 Tablets by mouth 2 times daily as needed for Pain., # 100 tablet, 0 Refills, Maintenance, 03/15/22 9:50:00 EDT, Tablet, [facility]/pharmacy #[id number], Partial... Start Date: 03/15/22 [...] 1 Refills, Maintenance, 06/21/22 19:27:00 EDT, Tablet, [facility]/pharmacy #[id number], Partial fill upon patient [...] 08/23/22 17:59:00 EDT, Route to Pharmacy Electronically, [facility]/pharmacy #[id number], Partial fill upon patient [...] 0 Refills, Maintenance, 10/08/22 13:33:00 EST, Cream, [facility]/pharmacy #[id number], Partial fill upon patient [...] Confirmed Active Elevated red blood cell count; [facility] Hematology Confirmed Active Retinopathy due to [...] Team Personnel Name: Elijah Aguilar MD Position: [facility] Primary Care Physician Member Role: PCP Address: Address: [address] [place] [address] Name: Rob Quijano RN Position: [facility] RN Member Role: Primary Care Nurse Name: Jie ASKEW, Peter Alegria Position: [facility] RN Member Role: Primary Care Nurse Name: Sheryl Kumar RN Position: [facility] RN Member Role: Primary Care Nurse Care Team Related Persons Name: KAI COOL Address: [address] [address] Name: DAISY COOL Address: [place] [address]
--- OUTSIDE RECORDS SUMMARY | 2023-05-31 09:44 | XMS_ITS | Continuity of Care Document ---
Author Name Unknown Organization [facility] Address [address] [place] [address]- Care Team Providers Care Oral Hygienist Name Role Phone Elijah Aguilar MD Primary Care Physician Encounter [facility] Date(s): 01/07/23 - 02/06/23 [facility] [address] [place], [place] [address] Allergies, Adverse Reactions, Alerts Substance Reaction Severity [...] Note: sanofi pasteur no contraindications 2Admin Note: physician obstetrician Sanofi Pasteur no contraindications 3Admin Note: SANOFI PASTEUR Medications acetaminophen 500 mg oral tablet 2 tablet = 1,000 mg, By Mouth, 2 times a day, PRN Pain , Mild, 1000 Unknown, Oral, 1 Refill(s), Take 2 Tablets by mouth 2 times daily as needed for Pain., # 100 tablet, 0 Refills, Maintenance, 03/15/22 9:50:00 EDT, Tablet, [facility]/pharmacy #[id number], Partial... Start Date: 03/15/22 Status: [...] 08/23/22 17:59:00 EDT, Route to Pharmacy Electronically, [facility]/pharmacy #[id number], Partial fill upon patient request... [...] 0 Refills, Maintenance, 10/08/22 13:33:00 EST, Cream, [facility]/pharmacy #[id number], Partial fill upon patient request [...] Confirmed Active Elevated red blood cell count; [facility] Hematology Confirmed Active Retinopathy due [...] Team Personnel Name: Elijah Aguilar MD Position: [facility] Primary Care Physician Member Role: PCP Address: Address: [address] [place] [id number] Name: Rob Quijano RN Position: S RN Member Role: Primary Care Nurse Name: Peter Ceron RN Position: [facility] RN Member Role: Primary Care Nurse Name: Sheryl Kumar RN Position: [facility] RN Member Role: Primary Care Nurse Care Team Related Persons Name: KAI COOL Address: [address] [address] Name: DAISY COOL Address: [place] [address]
--- OUTSIDE RECORDS SUMMARY | 2023-05-31 09:44 | XMS_ITS | Continuity of Care Document ---
Author Name Unknown Organization [facility] Address [address] [place] [address]- Care Team Providers Care Medical Economics Consultant Name Role Phone Elijah Aguilar MD Primary Care Physician Encounter [facility] Date(s): 08/05/20 - 08/05/[address] [address]- [facility] Discharge Disposition: A-D/C Home Attending Physician: Lakhwinder Flores MD Admitting Physician: Lakhwinder Flores MD Referring Physician: Not on Staff, Referring [...] 3 10/01/06 Gi carlos enrique 1Admin Note: brine tank tender Sanofi Pasteur no contraindications 2Admin Note: SANOFI [...] oldest [Reference Range]: 1 2 3 Height 186 cm (08/05/20 6:50 PM) 186 cm (08/05/20 6:05 PM) 186 cm (08/05/20 3:20 PM) Weight 99.2 kg (08/05/20 6:50 PM) 99.2 kg (08/05/20 3:20 PM) Oxygen Saturation [94-100 %] 97 % (08/05/20 6:50 PM) 98 % (08/05/20 3:20 PM) Pulse Rate [55-90 bpm] 95 bpm *H* (08/05/20 6:50 PM) 80 bpm (08/05/20 3:20 PM) Body Mass Index [18.5-24.99] 28.67 *H* (08/05/20 6:50 PM) Blood Pressure [90-138/55-84 mm Hg] 131/82mm Hg (08/05/20 6:50 PM) 123/78mm Hg (08/05/20 3:20 PM) Respiratory Rate [16-30 br/min] 16 br/min (08/05/20 6:50 PM) 18 br/min (08/05/20 3:20 PM) Temperature [96.8-100.4 DegF] 98.3 DegF (08/05/20 3:20 PM) Mode of Delivery (Oxygen) Room air (08/05/20 6:50 PM) Temperature Route Temporal (08/05/20 3:20 PM) Dry Weight 99.2 kg (08/05/20 6:50 PM) 99.2 kg (08/05/20 3:20 PM) Dry Weight Obtained Via Standing scale (08/05/20 3:20 PM) Social History Social History Type Response Smoking Status Never (less than 100 in lifetime) entered on: 10/13/18 Sex
--- OUTSIDE RECORDS SUMMARY | 2023-05-31 09:44 | XMS_ITS | Continuity of Care Document ---
Author Name Unknown Organization [facility] Address [address] [place] [address]- Care Team Providers Care Parts Washer Name Role Phone Elijah Aguilar MD Primary Care Physician [facility]counter [facility] Date(s): 04/24/22 - 05/24/22 [facility] [address] [place], [place] [address] Allergies, Adverse Reactions, Alerts Substance [...] Note: sanofi pasteur no contraindications 2Admin Note: medical staff assistant Sanofi Pasteur no contraindications 3Admin Note: SANOFI PASTEUR Medications acetaminophen 500 mg oral tablet 2 tablet = 1,000 mg, By Mouth, 2 times a day, PRN Pain , Mild, 1000 Unknown, Oral, 1 Refill(s), Take 2 Tablets by mouth 2 times daily as needed for Pain., # 100 tablet, 0 Refills, Maintenance, 03/15/22 9:50:00 EDT, Tablet, [facility]/pharmacy #[id number], Partial... Start Date: 03/15/22 Status: Ordered [...] 0 Refills, Maintenance, 04/22/22 17:22:00 EDT, Tablet, [facility]/pharmacy #[id number], Partial fill upon patient request if [...]
--- OUTSIDE RECORDS SUMMARY | 2023-05-31 09:44 | XMS_ITS | Continuity of Care Document ---
Author Name Unknown Organization [facility] Address [address] [place] [address]- Care Team Providers Care Arts Administrator Or Manager Name Role Phone Elijah Aguilar MD Primary Care Physician [phone] Encounter [facility] Date(s): 10/01/22 - 10/31/22 [facility] [address] [place], [place] [address] Allergies, Adverse Reactions, Alerts Substance Reaction Severity Status diphenhydrAMINE Active Risperdal 1 Active Valium Active Trilafon Active Prozac Active Haldol Active Zyprexa Active Abilify Active clonazePAM Active Paxil Active Colace Rash Active Effexor Active Geodon Active Benedryl Allergy Sinus feels like hes [...] Note: sanofi pasteur no contraindications 2Admin Note: director of broadcast Sanofi Pasteur no contraindications 3Admin Note: SANOFI PASTEUR Medications acetaminophen 500 mg oral tablet 2 tablet = 1,000 mg, By Mouth, 2 times a day, PRN Pain , Mild, 1000 Unknown, Oral, 1 Refill(s), Take 2 Tablets by mouth 2 times daily as needed for Pain., # 100 tablet, 0 Refills, Maintenance, 03/15/22 9:50:00 EDT, Tablet, [facility]/pharmacy #[id number], Partial... Start Date: 03/15/22 Status: Ordered Clozaril 100 mg oral tablet 1 tablet = 100 mg, By Mouth, Daily at bedtime, 0 Refills, Maintenance, 03/01/19 20:34:52 EDT Start Date: 03/01/19 Status: Ordered levothyroxine 125 mcg (0.125 mg) oral tablet 1 tablet = 125 mcg, By Mouth, Daily, # 90 tablet, 1 Refills, Maintenance, 06/21/22 19:27:00 EDT, Tablet, [facility]/pharmacy #[id number], Partial fill upon patient [...] 08/23/22 17:59:00 EDT, Route to Pharmacy Electronically, [facility]/pharmacy #[id number], Partial fill upon patient [...] Team Personnel Name: Elijah Aguilar MD Position: [facility] Primary Care Physician Member Role: PCP Address: Address: [address] [place] [id number] Name: Rob Quijano RN Position: S RN Member Role: Primary Care Nurse Name: Jie ASKEW, Peter Alegria Position: S RN Member Role: Primary Care Nurse Name: Sheryl Kumar RN Position: [facility] RN Member Role: Primary Care Nurse Care Team Related Persons Name: KAI COOL Address: [address] [address] Name: DAISY COOL Address: [place] [address]
--- OUTSIDE RECORDS SUMMARY | 2023-05-31 09:44 | XMS_ITS | Continuity of Care Document ---
Author Name Unknown Organization [facility] Address [address] [place] [address]- Care Team Providers Care Cupola Patcher Helper Name Role Phone Elijah Aguilar MD Primary Care Physician [place] [facility] Date(s): 06/12/22 - 06/19/22 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 Sanofi Pasteur no contraindications 3Admin Note: SANOFI [...] 0 Refills, Maintenance, 04/22/22 17:22:00 EDT, Tablet, [id number], Partial fill upon [...] Effective Dates Health Status Clinical Service Informant Skin lesion Discharge Diagnosis 06/17/22 Hypothyroidism Discharge Diagnosis 06/17/22 Chronic back pain Discharge Diagnosis 06/17/22 Vital Signs Most recent to oldest [Reference Range]: 1 Height 186 cm (06/12/22 10:37 AM) Weight 86.2 kg (06/12/22 10:37 AM) Oxygen Saturation [94-100 %] 98 % (06/12/22 10:37 AM) Pulse Rate [55-90 bpm] 65 bpm (06/12/22 10:37 AM) Body Mass Index [18.5-24.99] 24.92 (06/12/22 10:37 AM) Blood Pressure [90-138/55-84 mm Hg] 122/ 72mm Hg (06/12/22 10:37 AM) Blood pressure sites Arm, left (06/12/22 10:37 AM) Social History Social History Type Response Smoking Status Former smoker, quit more than 30 days ago; Tobacco use times per day: 3 pk/d; quit 09/05; entered on: 04/04/22 Sex
--- OUTSIDE RECORDS SUMMARY | 2023-05-31 09:44 | XMS_ITS | Continuity of Care Document ---
Author Name Unknown Organization [facility] Address [address] [place] [address]- Care Team Providers Care Senior Care Manager Name Role Phone Elijah Aguilar MD Primary Care Physician Encounter [facility] Date(s): 04/28/22 - 04/28/[address] [address]- Discharge Disposition: A-D/C Home Attending Physician: Wilson Bearden MD Admitting Physician: Wilson Bearden MD Referring Physician: Not on Staff, Referring MD Allergies, Adverse Reactions, Alerts Substance Reaction Severity Status diphenhydrAMINE Active Risperdal 1 Active Valium Active Geodon Active Benedryl Allergy Sinus feels like hes ch oking vomiting Active Trilafon Active Prozac Active Paxil Active Colace Rash Active Haldol Active Effexor Active Zyprexa Active Abilify Active 1Reports only allergic to risperdal consta [...] Note: sanofi pasteur no contraindications 2Admin Note: 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 Start Date: 03/15/22 Status: Ordered Augmentin 875 mg-125 mg oral tablet 1 tablet, By Mouth, Every 12 hours, for 7 days, # 14 tablet, 0 Refills, Acute 05/05/22 16:31:00 EDT, 04/28/22 16:31:00 EDT, Tablet, [id number], Partial fill upon patient request if the prescription is for a schedule II opioid drug., 186, cm, 0... Start Date: 04/28/22 Stop Date: 05/05/22 Status: Ordered Clozaril 100 mg oral tablet [...] oldest [Reference Range]: 1 Height 186 cm (04/28/22 3:59 PM) Weight 85.5 kg (04/28/22 3:59 PM) Oxygen Saturation [94-100 %] 99 % (04/28/22 3:59 PM) Pulse Rate [55-90 bpm] 77 bpm (04/28/22 3:59 PM) Blood Pressure [90-138/55-84 mm Hg] 136/ 83mm Hg (04/28/22 3:59 PM) Respiratory Rate [16-30 br/min] 18 br/mi n (04/28/22 3:59 PM) Temperature [96.8-100.4 DegF] 97.5 DegF (04/28/22 3:59 PM) Mode of Delivery (Oxygen) Room air (04/28/22 3:59 PM) Temperature Route Temporal (04/28/22 3:59 PM) Dry Weight 85.5 kg (04/28/22 3:59 PM) Social History Social History Type Response Smoking Status Former smoker, quit more than 30 days ago; Tobacco use times per day: 3 pk/d; quit 09/05; entered on: 04/04/22 Sex
--- OUTSIDE RECORDS SUMMARY | 2023-05-31 09:44 | XMS_ITS | Continuity of Care Document ---
Author Name Unknown Organization [facility] Address [address] [place] [address]- Care Team Providers Care Retail Event Assistant Name Role Phone Jeff FRANCES, Elijah Primary Care Physician [facility] Date(s): 09/17/22 - 10/17/22 [facility] [address] [place], [place] [address] Allergies, Adverse Reactions, Alerts Substance [...] sanofi pasteur no contraindications 2Admin Note: medical appointment clerk Sanofi Pasteur no contraindications 3Admin Note: SANOFI PASTEUR Medications acetaminophen 500 mg oral tablet 2 tablet = 1,000 mg, By Mouth, 2 times a day, PRN Pain , Mild, 1000 Unknown, Oral, 1 Refill(s), Take 2 Tablets by mouth 2 times daily as needed for Pain., # 100 tablet, 0 Refills, Maintenance, 03/15/22 9:50:00 EDT, Tablet, [facility]/pharmacy #[id number], Partial... Start Date: 03/15/22 Status: Ordered Clozaril 100 mg oral tablet 1 tablet = 100 mg, By Mouth, Daily at bedtime, 0 Refills, Maintenance, 03/01/19 20:34:52 EDT Start Date: 03/01/19 Status: Ordered levothyroxine 125 mcg (0.125 mg) oral tablet 1 tablet = 125 mcg, By Mouth, Daily, # 90 tablet, 1 Refills, Maintenance, 06/21/22 19:27:00 EDT, Tablet, [facility]/pharmacy #[id number], Partial fill upon patient request [...] 08/23/22 17:59:00 EDT, Route to Pharmacy Electronically, [id number], Partial fill upon patient request... Start [...] Care Physician Member Role: PCP Address: Address: [address] [place] [id number] Name: Rob Quijano RN Position: S RN Member Role: Primary Care Nurse Name: Peter Ceron RN Position: S RN Member Role: Primary Care Nurse Name: Sheryl Kumar RN Position: [facility] RN Member Role: Primary Care Nurse Care Team Related Persons Name: KAI COOL Address: [address] [address] Name: DAISY COOL Address: [place] [address]
--- OUTSIDE RECORDS SUMMARY | 2023-05-31 09:44 | XMS_ITS | Continuity of Care Document ---
Author Name Unknown Organization [facility] ter Address [address] [place] [address]- Care Team Providers Care Casing Builder Name Role Phone Elijah Aguilar MD Primary Care Physician [phone] Encounter [facility] [place] Date(s): 12/09/19 - 12/09/[address] [address] [facility] Attending Physician: Shona Jackson MD Allergies, Adverse Reactions, Alerts Substance [...] 3 10/01/06 Gi carlos enrique 1Admin Note: fundraiser Sanofi Pasteur no contraindications 2Admin Note: SANOFI [...]
--- OUTSIDE RECORDS SUMMARY | 2023-05-31 09:44 | XMS_ITS | Continuity of Care Document ---
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) - 01/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 Attending Physician: Elijah Aguilar MD Allergies, Adverse Reactions, Alerts Substance Reaction Severity Status diphenhydrAMINE Active Risperdal 1 Active Valium Active clonazePAM Active LORazepam Active Trilafon Active Prozac Active Paxil Active [...] Note: sanofi pasteur no contraindications 2Admin Note: 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 [...] 0 Refills, Maintenance, 10/08/22 13:33:00 EST, Cream, [facility]/pharmacy #[id number], Partial fill upon patient [...] Confirmed Active Elevated red blood cell count; [facility] Hematology Confirmed Active Retinopathy due to diabetes mellitus Confirmed 10/13/13 Active Schizoaffective disorder Confirmed 03/25/09 Active Sleep apnea Confirmed 11/26/14 Active Tachycardia Confirmed 06/15/13 Active Diagnosis Diagnosis Type Effective Dates Health Status Clinical Service Informant Lung mass; Dr Lopez; possible abscess Discharge Diagnosis 01/18/23 Dizziness Discharge Diagnosis 01/19/23 Renal cyst Discharge Diagnosis 01/19/23 Retinopathy due to diabetes mellitus Discharge Diagnosis 01/19/23 Social History Social History Type Response Smoking Status Former smoker, quit more than 30 days ago; Tobacco use times per day: 3 pk/d; quit 09/05; entered on: 04/04/22 Sex Patient Care team information Care Team Personnel Name: Elijah Aguilar MD Position: [facility] Primary Care Physician Member Role: PCP Address: Address: [address] [place] [address] Name: Rob Quijano RN Position: [facility] RN Member Role: Primary Care Nurse Name: Peter Ceron RN Position: [facility] RN Member Role: Primary Care Nurse Name: Sheryl Kumar RN Position: [facility] RN Member Role: Primary Care Nurse Care Team Related Persons Name: KAI COOL Address: [address] [address] Name: DAISY COOL Address: [place] [address]
--- OUTSIDE RECORDS SUMMARY | 2023-05-31 09:44 | XMS_ITS | Continuity of Care Document ---
Author Name Unknown Organization [facility] Address [address] [place] [address]- Care Team Providers Care Rubber Curer Name Role Phone Elijah Aguilar MD Primary Care Physician Encounter [facility] Date(s): 05/03/22 - 06/02/22 [facility] [address] [place], [place] [address] Attending Physician: Admtr, Ar8 Admitting Physician: Admtr, Ar8 Referring Physician: Admtr, Ar8 Allergies, Adverse Reactions, Alerts Substance Reaction Severity Status diphenhydrAMINE Active Risperdal 1 Active Valium Active Geodon Active LORazepam Active clonazePAM Active Benedryl Allergy Sinus feels like hes [...] Note: sanofi pasteur no contraindications 2Admin Note: 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
--- OUTSIDE RECORDS SUMMARY | 2023-05-31 09:44 | XMS_ITS | Continuity of Care Document ---
Author Name Unknown Organization [facility] ter Address [address] [place] [address]- Care Team Providers Care Anime Artist Name Role Phone Elijah Aguilar MD Primary Care Physician [place] [facility] [place] 09/15/20 - 10/21/[address] [address]- Attending Physician: Elijah Aguilar MD Admitting Physician: Elijah Aguilar MD Referring Physician: Elijah Aguilar MD Allergies, Adverse Reactions, Alerts Substance Reaction Severity Status diphenhydrAMINE Active Risperdal Active Prozac Active Paxil Active Haldol Active Zyprexa Active Abilify Active Benedryl Allergy Sinus feels like hes ch oking vomiting Active Geodon Active Trilafon Active Effexor Active Immunizations Given and Recorded Vaccine Date Status Refusal Reason Influenza Virus Vaccine (oldterm) 1 09/08/08 Given Influenza Inactive (IM) (oldterm) 2 09/08/07 Given influenza virus vaccine, inactivated 3 10/01/06 Gi carlos enrique 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
--- OUTSIDE RECORDS SUMMARY | 2023-05-31 09:44 | XMS_ITS | Continuity of Care Document ---
Author Name Unknown Organization [facility] Address [address] [place] [address]- Care Team Providers Care Filer And Sander Name Role Phone Elijah Aguilar MD Primary Care Physician [phone] Encounter [facility] Date(s): 01/07/23 - 02/06/23 [facility] [address] [place], [place] [address] Allergies, Adverse Reactions, Alerts Substance Reaction Severity Status diphenhydrAMINE Active Valium Active Paxil Active Colace Rash Active Benedryl Allergy Sinus feels like hes ch oking vomiting Active LORazepam Active clonazePAM Active Risperdal 1 Active Trilafon Active Prozac Active Haldol Active Effexor Active Zyprexa Active Geodon Active Abilify Active 1Reports only allergic to [...] Note: sanofi pasteur no contraindications 2Admin Note: optical dispenser Sanofi Pasteur no contraindications 3Admin Note: SANOFI PASTEUR Medications acetaminophen 500 mg oral tablet 2 tablet = 1,000 mg, By Mouth, 2 times a day, PRN Pain , Mild, 1000 Unknown, Oral, 1 Refill(s), Take 2 Tablets by mouth 2 times daily as needed for Pain., # 100 tablet, 0 Refills, Maintenance, 03/15/22 9:50:00 EDT, Tablet, [facility]/pharmacy #[id number], Partial... Start Date: 03/15/22 Status: [...] 17:59:00 EDT, Route to Pharmacy Electronically, [facility]/pharmacy #[id number], Partial fill upon patient request... [...] 0 Refills, Maintenance, 10/08/22 13:33:00 EST, Cream, [facility]/pharmacy #[id number], Partial fill upon patient request [...] Confirmed Active Elevated red blood cell count; [facility] Hematology Confirmed Active Retinopathy due to [...] Team Personnel Name: Elijah Aguilar MD Position: [facility] Primary Care Physician Member Role: PCP Address: Address: [address] [place] [address] Name: Rob Quijano RN Position: S RN Member Role: Primary Care Nurse Name: Peter Ceron RN Position: [facility] RN Member Role: Primary Care Nurse Name: Sheryl Kumar RN Position: [facility] RN Member Role: Primary Care Nurse Care Team Related Persons Name: KAI COOL Address: [address] [address] Name: DAISY COOL Address: [place] [address]
--- OUTSIDE RECORDS SUMMARY | 2023-05-31 09:45 | XMS_ITS | Continuity of Care Document ---
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/pharmacy #[id number], Partial... Start Date: 03/15/22 Status: Ordered Clozaril 100 mg oral tablet 1 tablet = 100 mg, By Mouth, Daily at bedtime, 0 Refills, Maintenance, 03/01/19 20:34:52 EDT Start Date: 03/01/19 Status: Ordered levothyroxine 125 mcg (0.125 mg) oral tablet 1 tablet = 125 mcg, By Mouth, Daily, # 90 tablet, 1 Refills, Maintenance, 06/21/22 19:27:00 EDT, Tablet, [facility]/pharmacy #[id number], Partial fill upon patient request if [...] 08/23/22 17:59:00 EDT, Route to Pharmacy Electronically, [facility]/pharmacy #[id number], Partial fill upon patient request... Start Date: 08/23/22 Status: Ordered Nystop 207882 u/gm powder 1 application, Topically, 2 times a day, # 60 Gm, 0 Refills, Maintenance, 08/13/22 17:40:00 EDT, Powder, [facility]/pharmacy #[id number], Partial fill upon patient request if [...] Personnel Name: Elijah Aguilar MD Position: [facility] Primary Care Physician Member Role: PCP Address: Address: [address], [place] [address] Name: Rob Quijano RN Position: S RN Member Role: Primary Care Nurse Name: Peter Ceron RN Position: S RN Member Role: Primary Care Nurse Name: Sheryl Kumar RN Position: [facility] RN Member Role: Primary Care Nurse Care Team Related Persons Name: KAI COOL Address: [address] [address] Name: DAISY COOL Address: [place] [address]
--- OUTSIDE RECORDS SUMMARY | 2023-05-31 09:45 | XMS_ITS | Continuity of Care Document ---
Author Name Unknown Organization [facility] Address [address] [address]- Care Team Providers Care Route Carrier Name Role Phone Elijah Aguilar MD Primary Care Physician Encounter [facility] [id number] Date(s): 12/18/22 - 01/17/23 [facility] [address] [facility] [address] [place] [address] Attending Physician: Admtr, Ar8 Admitting [...] Note: sanofi pasteur no contraindications 2Admin Note: staff developer Sanofi Pasteur no contraindications 3Admin Note: [...] Refills, Maintenance, 06/21/22 19:27:00 EDT, Tablet, [facility]/pharmacy #[id number], Partial [...] Confirmed Active Elevated red blood cell count; [facility] Hematology Confirmed Active Retinopathy due to [...] Personnel Name: Elijah Aguilar MD Position: S Primary Care Physician Member Role: PCP Address: Address: [address] Name: Rob Quijano RN Position: S RN Member Role: Primary Care Nurse Name: Peter Ceron RN Position: S RN Member Role: Primary Care Nurse Name: Sheryl Kumar RN Position: S RN Member Role: Primary Care Nurse Care Team Related Persons Name: KAI COOL Address: [address] [address] Name: DAISY COOL Address: [place] [address]
--- OUTSIDE RECORDS SUMMARY | 2023-05-31 09:45 | XMS_ITS | Continuity of Care Document ---
Author Name Unknown Organization [facility] Address [address] [place] [address]- Care Team Providers Care Dolly Pusher Name Role Phone Elijah Aguilar MD Primary Care Physician [phone] Encounter [facility] Date(s): 05/01/22 - 05/31/22 [facility] [address] [place], [place] [address] Allergies, Adverse Reactions, Alerts Substance [...] Note: sanofi pasteur no contraindications 2Admin Note: fluxer Sanofi Pasteur no contraindications 3Admin Note: SANOFI PASTEUR Medications acetaminophen 500 mg oral tablet 2 tablet = 1,000 mg, By Mouth, 2 times a day, PRN Pain , Mild, 1000 Unknown, Oral, 1 Refill(s), Take 2 Tablets by mouth 2 times daily as needed for Pain., # 100 tablet, 0 Refills, Maintenance, 03/15/22 9:50:00 EDT, Tablet, [facility]/pharmacy #[id number], Partial... Start Date: 03/15/22 Status: Ordered [...] 0 Refills, Maintenance, 04/22/22 17:22:00 EDT, Tablet, [facility]/pharmacy #[id number], Partial fill upon patient request if [...]
--- OUTSIDE RECORDS SUMMARY | 2023-05-31 09:45 | XMS_ITS | Continuity of Care Document ---
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 Start Date: 03/15/22 Status: Ordered Augmentin 875 mg-125 mg oral tablet 1 tablet, By Mouth, Every 12 hours, for 7 days, # 14 tablet, 0 Refills, Acute 05/05/22 16:31:00 EDT, 04/28/22 16:31:00 EDT, Tablet, [facility]/pharmacy #[id number], Partial fill upon patient request [...] 0 Refills, Maintenance, 04/22/22 17:22:00 EDT, Tablet, [facility]/pharmacy #[id number], Partial fill upon patient request [...]
--- OUTSIDE RECORDS SUMMARY | 2023-05-31 09:45 | XMS_ITS | Continuity of Care Document ---
Author Name Unknown Organization [facility] Address [address] [place] [address]- Care Team Providers Care Swimming Pool Serviceperson Name Role Phone Elijah Aguilar MD Primary Care Physician [phone] Encounter [facility] Date(s): 05/03/22 - 05/10/22 [facility] [address] [place], [place] [address] Encounter Diagnosis Cellulitis of sacral region(Discharge Diagnosis) - 05/03/22 Attending Physician: Forrest Guerra Allergies, Adverse Reactions, Alerts Substance Reaction Severity [...] Doug rded influenza virus vaccine, inactivated 08/02/16 Dogu rded influenza virus vaccine, inactivated 08/26/15 Doug [...] Note: sanofi pasteur no contraindications 2Admin Note: vp ad sales west Sanofi Pasteur no contraindications 3Admin Note: SANOFI [...] Effective Dates Health Status Clinical Service Informant Cellulitis of sacral region Discharge Diagnosis 05/03/22 Vital Signs Most recent to oldest [Reference Range]: 1 Height 186 cm (05/03/22 4:10 PM) Weight 85.8 kg (05/03/22 4:10 PM) Oxygen Saturation [94-100 %] 99 % (05/03/22 4:10 PM) Pulse Rate [55-90 bpm] 72 bpm (05/03/22 4:10 PM) Body Mass Index [18.5-24.99] 24.8 (05/03/22 4:10 PM) Blood Pressure [90-138/55-84 mm Hg] 130/ 74mm Hg (05/03/22 4:10 PM) Respiratory Rate [16-30 br/min] 16 br/mi n (05/03/22 4:10 PM) Temperature [96.8-100.4 DegF] 97.7 DegF (05/03/22 4:10 PM) Mode of Delivery (Oxygen) Room air (05/03/22 4:10 PM) Blood pressure sites Arm, left (05/03/22 4:10 PM) Temperature Route Temporal (05/03/22 4:10 PM) Weight Obtained Via Standing scale (05/03/22 4:10 PM) Social History Social History Type Response Smoking Status Former smoker, quit more than 30 days ago; Tobacco use times per day: 3 pk/d; quit 09/05; entered on: 04/04/22 Sex
--- OUTSIDE RECORDS SUMMARY | 2023-05-31 09:45 | XMS_ITS | Continuity of Care Document ---
Author Name Unknown Organization [facility] Address [address] [place] [address]- Care Team Providers Care Waxed Bag Machine Operator Name Role Phone Elijah Aguilar MD Primary Care Physician Encounter [facility] Date(s): 01/27/23 - 02/26/23 [facility] [address] [place], [place] [address] Allergies, Adverse Reactions, Alerts Substance Reaction Severity Status diphenhydrAMINE Active Valium Active Colace Rash Active clonazePAM Active Risperdal 1 Active Trilafon [...] Note: sanofi pasteur no contraindications 2Admin 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 Start Date: [...] 08/23/22 17:59:00 EDT, Route to Pharmacy Electronically, [facility]/pharmacy #[id number], Partial fill upon [...] 0 Refills, Maintenance, 10/08/22 13:33:00 EST, Cream, [facility]/pharmacy #[id number], Partial fill upon [...] Confirmed Active Elevated red blood cell count; [facility] Hematology Confirmed Active Retinopathy due to [...] Team Personnel Name: Elijah Aguilar MD Position: [facility] Primary Care Physician Member Role: PCP Address: Address: [address] [place] [id number] Name: Rob Quijano RN Position: S RN Member Role: Primary Care Nurse Name: Peter Ceron RN Position: [facility] RN Member Role: Primary Care Nurse Name: Sheryl Kumar RN Position: [facility] RN Member Role: Primary Care Nurse Care Team Related Persons Name: KAI COOL Address: [address] [address] Name: DAISY COOL Address: [place] [address]
--- OUTSIDE RECORDS SUMMARY | 2023-05-31 09:45 | XMS_ITS | Continuity of Care Document ---
Author Name Unknown Organization [facility] Address [address] [place] [address]- Care Team Providers Care Epic Cadence Specialists Name Role Phone Elijah Aguilar MD Primary Care Physician Encounter [facility] Date(s): 12/29/22 - 01/28/23 [facility] [address] [place], [place] [address] Allergies, Adverse Reactions, Alerts Substance Reaction Severity Status diphenhydrAMINE Active Risperdal 1 Active Valium Active Trilafon Active Prozac Active Colace Rash Active Haldol Active Zyprexa Active Geodon Active Benedryl Allergy Sinus feels like hes ch oking vomiting Active LORazepam Active clonazePAM Active Abilify Active Paxil Active Effexor Active 1Reports only allergic to risperdal consta Immunizations Given and Recorded Vaccine Date Status Refusal Reason influenza virus vaccine, inactivated 08/15/22 Doug rded influenza virus vaccine, inactivated 07/23/21 Doug rded influenza virus vaccine, inactivated 07/20/20 Doug rded influenza virus vaccine, inactivated 08/27/19 Doug rded influenza virus vaccine, inactivated 07/17/18 Doug rded influenza virus vaccine, inactivated 08/02/16 Odug rded influenza virus vaccine, inactivated 08/26/15 Doug rded influenza virus vaccine, inactivated 07/30/14 Dogu rded influenza virus vaccine, inactivated 09/08/13 Doug [...] Note: sanofi pasteur no contraindications 2Admin Note: 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 Start Date: 03/15/22 Status: [...] EDT, Route to Pharmacy Electronically, [facility]/pharmacy #[id number], Partial fill upon patient request... [...] Maintenance, 10/08/22 13:33:00 EST, Cream, [facility]/pharmacy #[id number], Partial fill upon patient request [...] Confirmed Active Elevated red blood cell count; [facility] Hematology Confirmed Active Retinopathy due to [...] Team Personnel Name: Elijah Aguilar MD Position: [facility] Primary Care Physician Member Role: PCP Address: Address: [address] [place] [address] [address] Name: Rob Quijano RN Position: S RN Member Role: Primary Care Nurse Name: Peter Ceron RN Position: [facility] RN Member Role: Primary Care Nurse Name: Sheryl Kumar RN Position: [facility] RN Member Role: Primary Care Nurse Care Team Related Persons Name: KAI COOL Address: [address] [address] Name: DAISY COOL Address: [place] [address]
--- OUTSIDE RECORDS SUMMARY | 2023-05-31 09:45 | XMS_ITS | Continuity of Care Document ---
Author Name Unknown Organization [facility] Address [address] [place] [address]- Care Team Providers Care Tenderizer Tender Name Role Phone Elijah Aguilar MD Primary Care Physician [phone] Encounter [facility] Date(s): 03/13/22 - 04/12/22 [facility] [address] [place], [place] [address] Allergies, Adverse Reactions, Alerts Substance Reaction [...] Note: sanofi pasteur no contraindications 2Admin Note: nursing program coordinator Sanofi Pasteur no contraindications 3Admin Note: [...]
--- OUTSIDE RECORDS SUMMARY | 2023-05-31 09:45 | XMS_ITS | Continuity of Care Document ---
Author Name Unknown Organization [facility] Address [address] [address]- Care Team Providers Care Investigator Cash Shortage Name Role Phone Elijah Aguilar MD Primary Care Physician Encounter [facility] Date(s): 10/26/22 - 01/17/23 [facility] [address] [place] [address] Attending Physician: Bronwyn Maxwell MD Admitting Physician: Bronwyn Maxwell MD Referring Physician: Elijah Aguilar MD Allergies, [...] Note: sanofi pasteur no contraindications 2Admin Note: 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 cementer Sanofi Pasteur no contraindications 3Admin Note: SANOFI [...] 0 Refills, Maintenance, 10/08/22 13:33:00 EST, Cream, [facility]/pharmacy #[id number], Partial fill upon [...] Confirmed Active Elevated red blood cell count; [facility] Hematology Confirmed Active Retinopathy due to [...] Care Physician Member Role: PCP Address: Address: [address] [address]- [place] Name: Rob Quijano RN Position: S RN Member Role: Primary Care Nurse Name: Jie ASKEW, Peter Alegria Position: S RN Member Role: Primary Care Nurse Name: Sheryl Kumar RN Position: S RN Member Role: Primary Care Nurse Care Team Related Persons Name: KAI COOL Address: [address] [address] Name: DAISY COOL Address: [place] [address]
--- OUTSIDE RECORDS SUMMARY | 2023-05-31 09:45 | XMS_ITS | Continuity of Care Document ---
Author Name Unknown Organization [facility] Address [address] [place] [address]- Care Team Providers Care Interior Horticulturist Name Role Phone Elijah Aguilar MD Primary Care Physician Encounter [facility] Date(s): 04/22/22 - 05/22/22 [facility] [address] [place], [place] [address] Allergies, Adverse Reactions, Alerts Substance Reaction Severity [...] Note: sanofi pasteur no contraindications 2Admin Note: fuel assembler Sanofi Pasteur no contraindications 3Admin Note: SANOFI PASTEUR Medications acetaminophen 500 mg oral tablet 2 tablet = 1,000 mg, By Mouth, 2 times a day, PRN Pain , Mild, 1000 Unknown, Oral, 1 Refill(s), Take 2 Tablets by mouth 2 times daily as needed for Pain., # 100 tablet, 0 Refills, Maintenance, 03/15/22 9:50:00 EDT, Tablet, [facility]/pharmacy #[id number], Partial... Start Date: 03/15/22 Status: Ordered [...] 0 Refills, Maintenance, 04/22/22 17:22:00 EDT, Tablet, [facility]/pharmacy #[id number], Partial fill upon patient request if [...]
--- OUTSIDE RECORDS SUMMARY | 2023-05-31 09:45 | XMS_ITS | Continuity of Care Document ---
Author Name Unknown Organization [facility] Address [address] [place] [address]- Care Team Providers Care Infectious Disease Physician Name Role Phone Elijah Aguilar MD Primary Care Physician Encounter [facility] Date(s): 10/02/22 - 10/02/[address] [address]- Discharge Disposition: A-D/C Home Attending Physician: Claudine Voss MD Admitting Physician: Claudine Voss MD Referring Physician: Not on Staff, Referring [...] Note: sanofi pasteur no contraindications 2Admin Note: mechanical oxidizer Sanofi Pasteur no contraindications 3Admin Note: SANOFI PASTEUR Medications acetaminophen 500 mg oral tablet 2 tablet = 1,000 mg, By Mouth, 2 times a day, PRN Pain , Mild, 1000 Unknown, Oral, 1 Refill(s), Take 2 Tablets by mouth 2 times daily as needed for Pain., # 100 tablet, 0 Refills, Maintenance, 03/15/22 9:50:00 EDT, Tablet, [facility]/pharmacy #[id number], Partial... Start Date: 03/15/22 Status: Ordered Augmentin 500 mg-125 mg oral tablet 1 tablet, By Mouth, Every 8 hours, for 7 days, # 21 tablet, 0 Refills, Acute 10/09/22 23:25:00 EST,10/02/22 23:25:00 EST, Tablet, [facility]/pharmacy #[id number], Partial fill upon patient request if the prescription is for a schedule II opioid drug., 185, cm, 12... Start Date: 10/02/22 Stop Date: 10/09/22 Status: Ordered Clozaril 100 mg oral tablet 1 tablet = 100 mg, By Mouth, Daily at bedtime, 0 Refills, Maintenance, 03/01/19 20:34:52 EDT Start Date: 03/01/19 Status: Ordered doxycycline hyclate 100 mg oral capsule 1 capsule = 100 mg, By Mouth, Every 12 hours, for 7 days, # 14 capsule, 0 Refills, Acute 10/09/22 23:25:00 EST, 10/02/22 23:25:00 EST, Capsule, [facility]/pharmacy #[id number], Partial fill upon patient request if the prescription is for a schedule II opioid drug.... Start Date: 10/02/22 Stop Date: 10/09/22 Status: Ordered levothyroxine 125 mcg (0.125 mg) oral tablet 1 tablet = 125 mcg, By Mouth, Daily, # 90 tablet, 1 Refills, Maintenance, 06/21/22 19:27:00 EDT, Tablet, [facility]/pharmacy #[id number], Partial fill upon patient request if the prescription is for a schedule IIopioid drug., 186, cm, 06/12/22 10:37:00 EDT, [facility] Start Date: 06/21/22 Status: Ordered montelukast 10 mg oral tablet 10 mg, 1, tablet, By Mouth, Daily, 90 each, TAKE 1 TABLET BY MOUTH EVERYDAY AT BEDTIME, # 90 tablet, Refills 3, Tot. Refills 3, Maintenance, 08/23/22 17:59:00 EDT, Route to Pharmacy Electronically, [facility]/pharmacy #[id number], Partial fill upon patient [...] Active Retinopathy due to diabetes mellitus Confirmed 12/17/13 Active Schizoaffective disorder Confirmed 03/25/09 Active Sleep apnea Confirmed 11/26/14 Active Tachycardia Confirmed 06/15/13 Active Results Radiology Reports * Exam Date Time Procedure Performing Provider Status 10/02/22 7:19 PM Chest 2 Views Frontal and Lat Maribell Dodge; Rowena (Verified) Notes: (Chest 2 Views Frontal and Lat) Reason For Exam: Cough RESULT: Chest 2 Views Frontal and Lat Chest 2 Views Frontal and Lat Hx of Present Illness: Pt arrives with cough, fatigue, abd pain and hemoptysis for 2 weeks. Pt denies faver chills. Pt also reports LLQ pain.; Reason: Cough; Clinical Question(s): Other: COMPARISON: 05/17/2018 FINDINGS: LINES AND TUBES: None. LUNGS AND PLEURA: Low lung volumes with mild basilar atelectasis. Lungs are otherwise clear with no consolidation. No pleural effusion. No pneumothorax. HEART, MEDIASTINUM AND JONAS: Heart is normal in size. Normal mediastinal and hilar contour. BONES AND SOFT TISSUES: No acute abnormality. IMPRESSION: No acute abnormality. WSN: [id number] Ordering Physician: Ke Sarmiento Dictated By: Naga Taveras MD Dictated Date/Time: 10/02/22 7:23 pm Reviewed By: Naga Taveras MD Signed By: Naga Taveras MD Signed Date/Time: 10/02/22 7:23 pm Transcribed By: RAMON Transcribed Date/Time: 10/02/22 7:22 pm Vital Signs Most recent to oldest [Reference Range]: 1 2 3 Height 185 cm (10/02/22 11:42 PM) 185 cm (10/02/22 8:54 PM) 185 cm (10/02/22 5:45 PM) Weight 84.8 kg (10/02/22 11:42 PM) 84.8 kg (10/02/22 8:54 PM) 84.8 kg (10/02/22 5:45 PM) Oxygen Saturation [94-100 %] 94 % (10/02/22 11:42 PM) 94 % (10/02/22 8:54 PM) 96 % (10/02/22 5:44 PM) Pulse Rate [55-90 bpm] 81 bpm (10/02/22 11:42 PM) 79 bpm (10/02/22 8:54 PM) 89 bpm (10/02/22 5:44 PM) Body Mass Index [18.5-24.99 kg/m2] 24.78 kg/m2 (10/02/22 11:42 PM) 24.78 kg/m2 (10/02/22 8:54 PM) 24.78 kg/m2 (10/02/22 5:44 PM) Blood Pressure [90-138/55-84 mm Hg] 115/79mm Hg (10/02/22 11:42 PM) 118/76mm Hg (10/02/22 8:54 PM) 138/74mm Hg (10/02/22 5:44 PM) Respiratory Rate [16-30 br/min] 17 br/min (10/02/22 11:42 PM) 16 br/min (10/02/22 8:54 PM) 16 br/min (10/02/22 5:44 PM) Temperature [96.8-100.4 DegF] 97.8 DegF (10/02/22 11:42 PM) 97.6 DegF (10/02/22 8:54 PM) 98 DegF (10/02/22 5:44 PM) Mode of Delivery (Oxygen) Room air (10/02/22 11:42 PM) Room air (10/02/22 8:54 PM) Room air (10/02/22 5:44 PM) Blood pressure sites Arm, left (10/02/22 11:42 PM) Arm, left (10/02/22 8:54 PM) Arm, left (10/02/22 5:44 PM) Temperature Route Temporal (10/02/22 11:42 PM) Temporal (10/02/22 8:54 PM) Oral (10/02/22 5:44 PM) Dry Weight 84.8 kg (10/02/22 11:42 PM) 84.8 kg (10/02/22 8:54 PM) 84.8 kg (10/02/22 5:45 PM) Weight Obtained Via Standing scale (10/02/22 5:44 PM) Social History Social History Type Response Smoking Status Former smoker, quit more than 30 days ago; Tobacco use times per day: 3 pk/d; quit 09/05; entered on: 04/04/22 Sex Note * Claudine Voss MD: PERFORM, SIGN, VERIFY Event Display: Patient Education Handout Authored Date: * Claudine Voss MD: PERFORM Event Display: Patient Education Leaflets Authored Date: What Is Pneumonia? ?? [id number] What Is Pneumonia? Pneumonia is a serious lung infection. It can affect 1 or both lungs. Many cases of pneumonia are caused by bacteria or viruses. Fungi may also cause pneumonia, but this is less common. You may get pneumonia??after an illness, such as a cold, flu, or bronchitis. Those most at risk forpneumonia include babies, children, older adults, smokers, and people with long-term (chronic) health problems or weak immune systems. Healthy lungs ??? Air travels in and out of the lungs through tubes called airways. ??? The tubes branch into smaller passages called bronchioles.??These end in tiny sacs called alveoli. ??? Blood vessels surrounding the alveoli??take oxygen into the bloodstream. At the same time, the alveoli remove carbon dioxide (a waste gas) from the blood. The carbon dioxide is then exhaled. ?? When you have pneumonia ??? Pneumonia causes the bronchioles and the alveoli to fill with excess mucus or pus and become inflamed. ??? Your body???s response may be to cough. This can help clear out the fluid. ??? The fluid (mucus) you cough up may look green or dark yellow. ??? The excess mucus may make you feel short of breath. ??? The inflammation and infection may give you a fever. ?? What are the symptoms? Symptoms of pneumonia can come without warning. At first, you may think you have a cold or flu. But??symptoms may get worse quickly,??turning into pneumonia. Symptoms can be different for bacterial and viral pneumonia. They may be mild or severe. Common symptoms may include: ??? Severe cough with green or yellow mucus that doesn't get better, or gets worse ??? Fever and chills ??? Upset stomach (n ausea), vomiting or diarrhea ??? Loss of appetite ??? Shortness of breath with normal daily activities ??? Increased heart rate ??? Chest pain or discomfort??when breathing in or coughing ??? Headache ??? A lot of sweating and clammy skin ??? Severe tiredness (fatigue) ?? Last Reviewed Date: 2021 ?? [employer]. All rights reserved. This information is not intended as a substitute for professional medical care. Always follow your healthcare professional's instructions. ?? * Bipin FRANCES, Claudine Borja: PERFORM Event Display: Patient Education Leaflets Authored Date: [id number] Pneumonia (Adult) ?? [id number] Pneumonia (Adult) Pneumonia is an infection inside the lungs. It's in the small air sacs (alveoli). It may be caused by a virus, fungus, or bacteria. Pneumonia caused by bacteria??is treated with an antibiotic medicine. Severe cases may need to be treated in the hospital. Milder cases can be treated at home. Symptoms may include fever, chills, and cough (dry or with phlegm). You may have a headache, muscle weakness, trouble breathing, and pain. These symptoms often get worse in the first 2 days. But they often start to get better in the first week of treatment. Home care Follow these guidelines when caring for yourself at home: ??? Get plenty of rest. Take naps as needed. Don???t let yourself get too tired when you go back to your activities. Go back to activities asdirected by your healthcare provider. ??? Stop smoking. This is the most important step you can take to help treat pneumonia. If you need help to stop, talk with your healthcare provider. ??? Stay away from secondhand smoke. Don???t let anyone smoke in your home or your car. ??? Wash your hands often with soap and clean, running water. Rub for at least 20 seconds. Make sure to clean under your nails and between your fingers. When you can't wash your hands, use hand director of sleep with at least 60% al cohol. ??? Cover your mouth and nose when coughing or sneezing. Use a tissue or the inside of your elbow. Don't cough or sneeze into your hands. Throw used tissues away. Be sure to wash your hands after coughing, sneezing, or blowing your nose. ??? Limit close contact with other people while you are sick. ??? Stay away from crowds during cold and flu season. Consider wearing a mask in crowds. ???Use pain medicine as directed. You may use acetaminophen or ibuprofen to control fever or pain, unless another medicine was prescribed. If you have chronic liver or kidney disease, talk with your healthcare provider before using these medicines. Also talk with your provider if you???ve had a stomach ulcer or bleeding in your stomach or intestines. Don???t give aspirin to a child younger than age 19 unless directed by the provider. Taking aspirin can put a child at risk for Miguel Angel syndrome. This is a rare but very serious disorder. It most often affects the brain and the liver. ??? Drink plenty of water and other fluids. This can make mucus thinner and easier to cough up. Ask your healthcare provider how much water you should drink. For many people, 6 to 8 glasses (8 ounces each) a day is a good goal. Other fluids include sport drinks, sodas without caffeine, juices, tea, or soup. If you also have heart or kidney disease, check with your provider before you drink extra fluids. ??? Eat asyou are able. You may not feel hungry, so a light diet is fine. Follow the treatment plan as advised by your healthcare provider. ??? Take medicines as instructed by your healthcare provider. If you were given an antibiotic medicine, take it until it's all gone, even if you are feeling better aftera few days. ??? Try to stay away from air pollution. If you live in an area with air pollution, track the Air Quality Index (AQI) reports. Plan your outdoor activities when air quality is OK. ?? Follow-up care Follow up with your healthcare provider in the next 2 to 3 days, or as advised. Following up with your provider as directed is important to make sure you are getting better. You may need more tests if you aren't getting better. Take steps to prevent future infections. Ask your healthcare provider what vaccines are right for you and when to get them. This may include the influenza (flu), COVID-19, and pneumococcal vaccines. ?? Call 911 Call 911if any of these occur: ??? Unable to speak or swallow ??? Lips or skin looks blue, purple, or tony ??? Feeling dizzy ??? Fainting ??? Unable to be awake or aware ??? Feeling of doom ??? Trouble breathing or wheezing ??? Shortness of breath gets worse or doesn't get better with treatment ???Rapid breathing (more than 25 breaths per minute) ??? Coughing up blood ??? Chest pain gets worse with breathing or doesn't get better with treatment ?? When to get medical advice Call your healthcare provider right away if any of these occur: ??? You don???t get better in the first 2 to 3 days of treatment ??? Fever of??100.4??F (38??C) or higher, or as directed by your healthcare provider ??? Shaking chills ??? Cough with phlegm that doesn't get better, or get worse ??? Shortness of breath with activities ??? Weakness, dizziness, or fainting that gets worse ??? Thirst ordry mouth that gets worse ??? Sinus pain, headache, or a stiff neck ??? Chest pain with breathing or coughing ??? Symptoms that get worse or don't get better ?? Last Reviewed Date: 2021 ?? [id number] [employer]. All rights reserved. This information is not intended as a substitute for professional medical care. Always follow your healthcare professional's instructions. ?? * BHSPowerscribe , CIS S: TRANSCRIBE Naga Taveras MD: VERIFY Event Display: Result: Authored Date: [id number] Chest 2 Views Frontal and Lat Hx of Present Illness: Pt arrives with cough, fatigue, abd pain and hemoptysis for 2 weeks. Pt denies faver chills. Pt also reports LLQ pain.; Reason: Cough; Clinical Question(s): Other: COMPARISON: 05/17/2018 FINDINGS: LINES AND TUBES: None. LUNGS AND PLEURA: Low lung volumes with mild basilar atelectasis. Lungs are otherwise clear with no consolidation. No pleural effusion. No pneumothorax. HEART, MEDIASTINUM AND JONAS: Heart is normal in size. Normal mediastinal and hilar contour. BONES AND SOFT TISSUES: No acute abnormality. IMPRESSION: No acute abnormality. WSN: [id number] Ordering Physician: Ke Sarmiento Dictated By: Naga Taveras MD Dictated Date/Time: 10/02/22 7:23 pm Reviewed By: Naga Taveras MD Signed By: Naga Taveras MD Signed Date/Time: 10/02/22 7:23 pm Transcribed By: RAMON Transcribed Date/Time: 10/02/22 7:22 pm Patient Care team information Care Team Personnel Name: Elijah Aguilar MD Position: [facility] Primary Care Physician Member Role: PCP Address: Address: [address] [place] [address]- Name: Rob Quijano RN Position: [facility] RN Member Role: Primary Care Nurse Name: Peter Ceron RN Position: [facility] RN Member Role: Primary Care Nurse Name: Sheryl Kumar RN Position: [facility] RN Member Role: Primary Care Nurse Name: Alaina Toledo Position: [facility] ED OA Member Role: ED Associate Name: Marlen Jimenez RN Position: [facility] ED RN W/OE and Tasks Member Role: Patient Care Provider Name: Claudine Voss MD Position: [facility] ED Medicine MD Member Role: Admitting Physician Address: Address: [address] [place] [address] [place] [address]- Care Team Related Persons Name: KAI COOL Address: home [address] [place] [id number] Name: DAISY COOL Address: [place] [address]
--- OUTSIDE RECORDS SUMMARY | 2023-05-31 09:45 | XMS_ITS | Continuity of Care Document ---
Author Name Unknown Organization [facility] [place] [place] [facility] Address [address] [place] [address]- Care Team Providers Care Desulfurizer Operator Name Role Phone Elijah Aguilar MD Primary Care Physician [phone] [facility]counter [facility] Date(s): 10/08/22 - 10/15/[address] [facility] [address] [place] [address]- Encounter Diagnosis Abnormal chest CT(Discharge Diagnosis) - 10/08/22 Elevated red blood cell count(Discharge Diagnosis) - 10/08/22 Weight loss(Discharge Diagnosis) - 10/08/22 Rash(Discharge Diagnosis) - 10/08/22 Constipation(Discharge Diagnosis) - 10/08/22 Attending Physician: Elijah Aguilar MD Allergies, Adverse [...] Doug rded influenza virus vaccine, inactivated 07/23/12 Duog rded influenza virus vaccine, inactivated 07/18/11 Doug [...] Note: sanofi pasteur no contraindications 2Admin Note: first assistant Sanofi Pasteur no contraindications 3Admin Note: [...] 08/23/22 17:59:00 EDT, Route to Pharmacy Electronically, [facility]/pharmacy #[id number], Partial fill upon patient request... [...] 0 Refills, Maintenance, 10/08/22 13:33:00 EST, Cream, [facility]/pharmacy #[id number], Partial fill upon patient request [...] Effective Dates Health Status Clinical Service Informant Abnormal chest CT Discharge Diagnosis 10/08/22 Elevated red blood cell count Discharge Diagnosis 10/08/22 Weight loss Discharge Diagnosis 10/08/22 Rash Discharge Diagnosis 10/08/22 Constipation Discharge Diagnosis 10/08/22 Vital Signs Most recent to oldest [Reference Range]: 1 2 Height 185 cm (10/08/22 1:24 PM) 185 cm (10/08/22 1:15 PM) Weight 84.0 kg (10/08/22 1:15 PM) Oxygen Saturation [94-100 %] 96 % (10/08/22 1:24 PM) 68 % *L* (10/08/22 1:15 PM) Pulse Rate [55-90 bpm] 68 bpm (10/08/22 1:24 PM) 96 bpm *H* (10/08/22 1:15 PM) Body Mass Index [18.5-24.99 kg/m2] 24.54 kg/m2 (10/08/22 1:15 PM) Blood Pressure [90-138/55-84 mm Hg] 104/ 72mm Hg (10/08/22 1:15 PM) Blood pressure sites Arm, left (10/08/22 1:15 PM) Social History Social History Type Response Smoking Status Former smoker, quit more than 30 days ago; Tobacco use times per day: 3 pk/d; quit 09/05; entered on: 04/04/22 Sex Note * Ptaricia Almendarez: PERFORM, SIGN, VERIFY Event Display: Patient Education/Instruction Authored Date: [id number] [facility] *[facility] Clinical Summary Name MARLEN COOL Age 52 Years 1970 PCP Elijah Aguilar MD PCP Visit Date 10/08/2022 13:00:00 Additional Instructions: Scheduled Appointments?? Future Appointments ?*[facility] ?[address]??[place],??[place],??[address] ?Phone:??--?Fax:??-- ?Appt. Date:??11/19/2022?2:00 PM ?Scheduled Provider:??Elijah Aguilar MD ?*[facility] ?[address]??[place],??[place],??[address] ?Phone:??--?Fax:??-- ?Appt. Date:??12/25/2022?11:15 AM ?Scheduled Provider:??Elijah Aguilar MD Follow-Up Instructions ?? Diagnosis Abnormal weight loss; Other abnormality of red blood cells; Rash and other nonspecific skin eruption; Abnormal findings on diagnostic imaging of other specified body structures; Constipation, unspecified Medications: Please continue your medications until treatment is completed or stopped by your provider. Discuss any questions related to medications with your provider. New Medications [facility]/pharmacy #[id number], [address] [place], [place] [id number], [phone] Triamcinolone Topical (triamcinolone 0.1% topical cream) 1 bob Topically twice a day as needed rash. Refills: 0. Next Dose: Medications to Continue with No Changes These medications were not printed or sent to your pharmacy Acetaminophen (acetaminophen 500 mg oral tablet) 2 tab(s) Oral twice a day as needed Pain , Mild. 1000 Unknown, Oral, 1 Refill(s), Take 2 Tablets by mouth 2 times daily as needed for Pain.. Refills: 0. Next Dose: Amoxicillin-Clavulanate (Augmentin 500 mg-125 mg oral tablet) 1 tab(s) Oral every 8 hours for 7 Days. Refills: 0. Next Dose: Clozapine (Clozaril 100 mg oral tablet) 1 tab(s) Oral Daily at Bedtime. Next Dose: Doxycycline (doxycycline hyclate 100 mg oral capsule) 1 capsule Oral every 12 hours for 7 Days. Refills: 0. Next Dose: Levothyroxine (levothyroxine 125 mcg (0.125 mg) oral tablet) 1 tab(s) Oral Daily. Refills: 1. Next Dose: Montelukast (montelukast 10 mg oral tablet) 1 tab(s) Oral Daily. 90 each, TAKE 1 TABLET BY MOUTH EVERYDAY AT BEDTIME. Refills: 3. Next Dose: Polyethylene Glycol 3350 17 Unknown, Oral, 1 Refill(s), Take 17 g by mouth as needed.. Next Dose: Allergy Info:?? clonazePAM; LORazepam; Benedryl Allergy Sinus; Abilify; Geodon; Zyprexa; Effexor; Haldol; Colace; Paxil; Prozac; Trilafon; Valium; Risperdal; diphenhydrAMINE Medications Given This Visit Future Orders ?No future orders Vital Signs Height 185 cm Weight 84.0 kg BMI 24.54 kg/m2 Blood Pressure 104 mm Hg/72 mm Hg Temperature Pulse Rate 68 bpm Respiratory Rate 02 Sat Mode of Delivery 96 %/ You can now view a summary of your hospital visit from the comfort of your home through a free online portal called [employer]. [employer] is a website that allows you to securely view your medical information including discharge summary, medications and follow-up visits. ??You can alsosend a secure electronic message to your doctor???s office to request appointments, renew medications or just ask a question. You can enroll at [email or web address] or register during your next office visit. Disclaimer:?? The information provided is of a general nature and is intended to be used in conjunction with the recommendations and advice of your health care practitioner. ??Every effort has been made to ensure that the information provided is accurate and complete at the time it is provided to you however, as your needs change, or, as new ??information becomes available, different or additional instructions may be required. If you have questions, please consult with your primary care provider or pharmacist, as appropriate. ??This information is not intended to serve as substitution for assessment and evaluation by a qualified health care provider. If you do not have a primary care provider, you may find a [facility] provider by calling [facility] [employer] at [phone]. For information about the plan of care including goals and instructions for your diagnosis, please see the patient education orders section of this document. Patient Education Materials?? The content of this educational material or handout may have been modified, supplemented, or adapted from its original content and format to support your individualized medical care. Patient Care team information Care Team Personnel Name: Elijah Aguilar MD Position: [facility] Primary Care Physician Member Role: PCP Address: Address: [address] [place] [address] Name: Rob Quijano RN Position: S RN Member Role: Primary Care Nurse Name: Peter Ceron RN Position: S RN Member Role: Primary Care Nurse Name: Sheryl Kumar RN Position: S RN Member Role: Primary Care Nurse Care Team Related Persons Name: KAI COOL Address: home [address] [place] [id number] Name: DAISY COOL Address: [place] [address]
--- OUTSIDE RECORDS SUMMARY | 2023-05-31 09:45 | XMS_ITS | Continuity of Care Document ---
Author Name Unknown Organization [facility] Address [address] [place] [address]- Care Team Providers Care House Principal Name Role Phone Elijah Aguilar MD Primary Care Physician [facility]counter [facility] Date(s): 10/03/22 - 11/02/22 [facility] [address] [place], [place] [address] Allergies, Adverse Reactions, Alerts Substance Reaction [...] Note: sanofi pasteur no contraindications 2Admin Note: oncology coordinator Sanofi Pasteur no contraindications 3Admin Note: [...] 1 Refills, Maintenance, 06/21/22 19:27:00 EDT, Tablet, [facility]/pharmacy #[id number], Partial fill [...] Team Personnel Name: Elijah Aguilar MD Position: [facility] Primary Care Physician Member Role: PCP Address: Address: [address] [place] [id number] Name: Rob Quijano RN Position: S RN Member Role: Primary Care Nurse Name: Jie ASKEW, Peter Alegria Position: S RN Member Role: Primary Care Nurse Name: Sheryl Kumar RN Position: [facility] RN Member Role: Primary Care Nurse Care Team Related Persons Name: KAI COOL Address: [address] [address] Name: DAISY COOL Address: [place] [address]
--- OUTSIDE RECORDS SUMMARY | 2023-05-31 09:45 | XMS_ITS | Continuity of Care Document ---
Author Name Unknown Organization [facility] Address [address] [place] [address]- Care Team Providers Care Veneer Clipper Name Role Phone Elijah Aguilar MD Primary Care Physician [phone] Encounter [facility] [place] Date(s): 12/10/22 - 01/09/23 [facility] [address] [place] [address] Allergies, Adverse Reactions, Alerts Substance Reaction Severity Status diphenhydrAMINE Active Risperdal 1 Active Valium Active Haldol Active Zyprexa Active Geodon Active Benedryl Allergy Sinus feels like hes ch oking vomiting Active LORazepam Active clonazePAM Active Trilafon Active Prozac Active Paxil Active Colace Rash Active Effexor Active Abilify Active 1Reports only allergic to [...] Doug rded influenza virus vaccine, inactivated 1 12/5/06 Gi carlos enrique SARS-CoV-2 (COVID-19) mRNA BNT-162b2 vac 10/26/21 Recorded SARS-CoV-2 (COVID-19) mRNA-1273 vaccine 03/07/21 R ecorded SARS-CoV-2 (COVID-19) mRNA-1273 vaccine 02/07/21 R ecorded pneumococcal 23-valent vaccine 11/06/10 Recorded tetanus/diphtheria/pertussis, acel(Tdap) 11/06/10 Recorded Influenza Virus Vaccine (oldterm) 2 09/08/08 Given Influenza Inactive (IM) (oldterm) 3 09/08/07 Given 1Admin Note: sanofi pasteur no contraindications 2Admin Note: consulting networking engineer Sanofi Pasteur no contraindications 3Admin Note: SANOFI PASTEUR Medications acetaminophen 500 mg oral tablet 2 tablet = 1,000 mg, By Mouth, 2 times a day, PRN Pain , Mild, 1000 Unknown, Oral, 1 Refill(s), Take 2 Tablets by mouth 2 times daily as needed for Pain., # 100 tablet, 0 Refills, Maintenance, 03/15/22 9:50:00 EDT, Tablet, [facility]/pharmacy #[id number], Partial... Start Date: 03/15/22 Status: Ordered Clozaril 100 mg oral tablet 1 tablet = 100 mg, By Mouth, Daily at bedtime, 0 Refills, Maintenance, 03/01/19 20:34:52 EDT Start Date: 03/01/19 Status: Ordered levothyroxine 125 mcg (0.125 mg) oral tablet 1 tablet = 125 mcg, By Mouth, Daily, # 90 tablet, 1 Refills, Maintenance, 06/21/22 19:27:00 EDT, Tablet, [facility]/pharmacy #[id number], Partial fill upon patient request [...] 08/23/22 17:59:00 EDT, Route to Pharmacy Electronically, [facility]/pharmacy #[id number], Partial fill upon patient request... [...] Confirmed Active Elevated red blood cell count; [facility] Confirmed Active Retinopathy due [...] Name: Elijah Aguilar MD Position: [facility] Primary Care Physician Member Role: PCP Address: Address: [address] [place] [address] Name: Rob Quijano RN Position: S RN Member Role: Primary Care Nurse Name: Jie ASKEW, Peter Alegria Position: S RN Member Role: Primary Care Nurse Name: Sheryl Kumar RN Position: S RN Member Role: Primary Care Nurse Care Team Related Persons Name: KAI COOL Address: [address] [address] Name: DAISY COOL Address: [place] [address]
--- OUTSIDE RECORDS SUMMARY | 2023-05-31 09:45 | XMS_ITS | Continuity of Care Document ---
Author Name Unknown Organization [facility] Address [address] [place] [address]- Care Team Providers Care Tube Splicer Name Role Phone Elijah Aguilar MD Primary Care Physician Encounter [facility] [place] Date(s): 04/04/22 - 04/11/22 [facility] [address] [place] [address]- Encounter Diagnosis Constipation(Discharge Diagnosis) - 04/08/22 Chronic back pain(Discharge Diagnosis) - 04/08/22 Dry skin(Discharge Diagnosis) - 04/08/22 Diabetes mellitus with renal manifestation(Discharge Diagnosis) - 04/08/22 Hypothyroidism(Discharge Diagnosis) - 04/08/22 Attending Physician: Elijah Aguilar MD Allergies, Adverse [...] Note: sanofi pasteur no contraindications 2Admin Note: commission sales associate Sanofi Pasteur no contraindications 3Admin Note: SANOFI [...] 03/25/09 Active Sleep apnea(Confirmed) 11/26/14 Active Tachycardia(Confirmed) 8/19/13 Active Diagnosis Diagnosis Type Effective Dates Health Status Clinical Service Informant Constipation Discharge Diagnosis 04/08/22 Chronic back pain Discharge Diagnosis 04/08/22 Dry skin Discharge Diagnosis 04/08/22 Diabetes mellitus with renal manifestation Discharge Diagnosis 04/08/22 Hypothyroidism Discharge Diagnosis 04/08/22 Procedures Procedure Date Related Diagnosis Body Site Status Excision of dermatofibroma - L shoulder 02/06/19 Completed Completion thyroidectomy 04/21/10 Completed Right lobectomy of thyroid gland 2009 Completed Operative procedure on femur - L Completed Vital Signs Most recent to oldest [Reference Range]: 1 Height 183 cm (04/04/22 8:10 AM) Weight 87.7 kg (04/04/22 8:10 AM) Oxygen Saturation [94-100 %] 98 % (04/04/22 8:10 AM) Pulse Rate [55-90 bpm] 88 bpm (04/04/22 8:10 AM) Body Mass Index [18.5-24.99] 26.19 *H* (04/04/22 8:10 AM) Blood Pressure [90-138/55-84 mm Hg] 108/ 68mm Hg (04/04/22 8:10 AM) Mode of Delivery (Oxygen) Room air (04/04/22 8:10 AM) Blood pressure sites Arm, left (04/04/22 8:10 AM) Weight Obtained Via Standing scale (04/04/22 8:10 AM) Social History Social History Type Response Smoking Status Former smoker, quit more than 30 days ago; Tobacco use times per day: 3 pk/d; quit 09/05; entered on: 04/04/22 Sex
--- OUTSIDE RECORDS SUMMARY | 2023-05-31 09:45 | XMS_ITS | Continuity of Care Document ---
Author Name Unknown Organization [facility] Address [address] [place] [address]- Care Team Providers Care Lining Stitcher Name Role Phone Elijah Aguilar MD Primary Care Physician [place] [facility] [place] 03/12/22 - 04/11/22 [facility] [address] [place], [place] [address] Allergies, Adverse Reactions, Alerts Substance Reaction [...] Note: sanofi pasteur no contraindications 2Admin Note: optimization manager Sanofi Pasteur no contraindications 3Admin Note: [...]
--- OUTSIDE RECORDS SUMMARY | 2023-05-31 09:45 | XMS_ITS | Continuity of Care Document ---
Author Name Unknown Organization [facility] Address [address] [place] [address]- Care Team Providers Care Pcas Name Role Phone Elijah Aguilar MD Primary Care Physician [phone] [place] [facility] [place]s): 10/08/22 - 01/27/23 [facility] [address] [place], [place] [address] Attending Physician: Elijah Aguilar MD Allergies, Adverse Reactions, Alerts Substance Reaction Severity Status diphenhydrAMINE Active Valium Active Trilafon Active Geodon Active Benedryl Allergy Sinus feels like hes ch oking vomiting Active clonazePAM Active Risperdal 1 Active Prozac Active Paxil Active Colace Rash Active Haldol Active Effexor Active Zyprexa Active Abilify Active LORazepam Active 1Reports only [...] Note: sanofi pasteur no contraindications 2Admin Note: customer logistics manager Sanofi Pasteur no contraindications 3Admin Note: SANOFI PASTEUR Medications acetaminophen 500 mg oral tablet 2 tablet = 1,000 mg, By Mouth, 2 times a day, PRN Pain , Mild, 1000 Unknown, Oral, 1 Refill(s), Take 2 Tablets by mouth 2 times daily as needed for Pain., # 100 tablet, 0 Refills, Maintenance, 03/15/22 9:50:00 EDT, Tablet, [facility]/pharmacy #[id number], Partial... Start Date: 03/15/22 Status: [...] 1 Refills, Maintenance, 06/21/22 19:27:00 EDT, Tablet, [facility]/pharmacy #[id number], Partial fill upon patient request [...] 08/23/22 17:59:00 EDT, Route to Pharmacy Electronically, [facility]/pharmacy #[id number], Partial fill upon patient request... [...] 0 Refills, Maintenance, 10/08/22 13:33:00 EST, Cream, [facility]/pharmacy #[id number], Partial fill upon patient request [...] Confirmed Active Elevated red blood cell count; [facility] Confirmed Active Retinopathy due to diabetes mellitus Confirmed 10/13/13 Active Schizoaffective disorder Confirmed 03/25/09 Active Sleep apnea Confirmed 11/26/14 Active Tachycardia Confirmed 8/19/13 Active Social History Social History Type Response Smoking Status Former smoker, quit more than 30 days ago; Tobacco use times per day: 3 pk/d; quit 09/05; entered on: 04/04/22 Sex Patient Care team information Care Team Personnel Name: Elijah Aguilar MD Position: [facility] Primary Care Physician Member Role: PCP Address: Address: [address] [place] [address] Name: Rob Quijano RN Position: [facility] RN Member Role: Primary Care Nurse Name: Jie ASKEW, Peter Alegria Position: [facility] RN Member Role: Primary Care Nurse Name: Sheryl Kumar RN Position: [facility] RN Member Role: Primary Care Nurse Care Team Related Persons Name: KAI COOL Address: [address] [address] Name: DAISY COOL Address: [place] [address]
--- OUTSIDE RECORDS SUMMARY | 2023-05-31 09:45 | XMS_ITS | Continuity of Care Document ---
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 Start Date: 03/15/22 Status: [...] 1 Refills, Maintenance, 06/21/22 19:27:00 EDT, Tablet, [facility]/pharmacy #[id number], Partial fill upon patient request [...] Team Personnel Name: Elijah Aguilar MD Address: [address] [place] [address]
--- OUTSIDE RECORDS SUMMARY | 2023-05-31 09:45 | XMS_ITS | Continuity of Care Document ---
Author Name Unknown Organization [facility] Address [address] [place] [address]- Care Team Providers Care Inseamer Name Role Phone Elijah Aguilar MD Primary Care Physician Encounter [facility] [place] Date(s): 03/16/22 - 04/15/22 [facility] [address] [place], [place] [address] Allergies, Adverse Reactions, Alerts Substance [...] Note: sanofi pasteur no contraindications 2Admin Note: dye stand loader Sanofi Pasteur no contraindications 3Admin Note: SANOFI [...]
--- OUTSIDE RECORDS SUMMARY | 2023-05-31 09:46 | XMS_ITS | Continuity of Care Document ---
Author Name Unknown Organization [facility] Address [address] [place] [address]- Care Team Providers Care Marketing Development Representative Name Role Phone Elijah Aguilar MD Primary Care Physician [phone] Encounter [facility] [place] Date(s): 10/02/22 - 11/01/22 [facility] [address] [place], [place] [address] Allergies, Adverse Reactions, Alerts Substance Reaction [...] Note: sanofi pasteur no contraindications 2Admin Note: molecular pathologist Sanofi Pasteur no contraindications 3Admin Note: SANOFI PASTEUR Medications acetaminophen 500 mg oral tablet 2 tablet = 1,000 mg, By Mouth, 2 times a day, PRN Pain , Mild, 1000 Unknown, Oral, 1 Refill(s), Take 2 Tablets by mouth 2 times daily as needed for Pain., # 100 tablet, 0 Refills, Maintenance, 03/15/22 9:50:00 EDT, Tablet, [facility]/pharmacy #[id number], Partial... Start Date: 03/15/22 Status: Ordered Clozaril 100 mg oral tablet 1 tablet = 100 mg, By Mouth, Daily at bedtime, 0 Refills, Maintenance, 03/01/19 20:34:52 EDT Start Date: 03/01/19 Status: Ordered levothyroxine 125 mcg (0.125 mg) oral tablet 1 tablet = 125 mcg, By Mouth, Daily, # 90 tablet, 1 Refills, Maintenance, 06/21/22 19:27:00 EDT, Tablet, [facility]/pharmacy #[id number], Partial fill upon patient [...] EDT, Route to Pharmacy Electronically, [facility]/pharmacy #[id number], Partial fill upon patient [...] Physician Member Role: PCP Address: Address: [address] [place] [id number] Name: Rob Quijano RN Position: S RN Member Role: Primary Care Nurse Name: Jie ASKEW, Peter Alegria Position: S RN Member Role: Primary Care Nurse Name: Sheryl Kumar RN Position: [facility] RN Member Role: Primary Care Nurse Care Team Related Persons Name: KAI COOL Address: [address] [address] Name: DAISY COOL Address: [place] [address]
--- OUTSIDE RECORDS SUMMARY | 2023-05-31 09:46 | XMS_ITS | Continuity of Care Document ---
Author Name Unknown Organization [facility] Address [address] [place] [address]- Care Team Providers Care Medical Information Officer Name Role Phone Elijah Aguilar MD Primary Care Physician [phone] Encounter [facility] Date(s): 09/25/22 - 10/02/22 [facility] [address] [place] [address]- Encounter Diagnosis Elevated red blood cell count(Discharge Diagnosis) - 09/25/22 Weight loss(Discharge Diagnosis) - 09/30/22 Attending Physician: Elijah Aguilar MD Allergies, Adverse [...] Note: sanofi pasteur no contraindications 2Admin Note: egg caser Sanofi Pasteur no contraindications 3Admin Note: SANOFI PASTEUR Medications acetaminophen 500 mg oral tablet 2 tablet = 1,000 mg, By Mouth, 2 times a day, PRN Pain , Mild, 1000 Unknown, Oral, 1 Refill(s), Take 2 Tablets by mouth 2 times daily as needed for Pain., # 100 tablet, 0 Refills, Maintenance, 03/15/22 9:50:00 EDT, Tablet, [facility]/pharmacy #[id number], Partial... Start Date: 03/15/22 Status: Ordered Augmentin 500 mg-125 mg oral tablet 1 tablet, By Mouth, Every 8 hours, for 7 days, # 21 tablet, 0 Refills, Acute 10/09/22 23:25:00 EST,10/02/22 23:25:00 EST, Tablet, [facility]/pharmacy #[id number], Partial fill upon patient [...] 10/09/22 23:25:00 EST, 10/02/22 23:25:00 EST, Capsule, [facility]/pharmacy #[id number], Partial fill upon patient request if the prescription is for a schedule II opioid drug.... Start Date: 10/02/22 Stop Date: 10/09/22 Status: Ordered levothyroxine 125 mcg (0.125 mg) oral tablet 1 tablet = 125 mcg, By Mouth, Daily, # 90 tablet, 1 Refills, Maintenance, 06/21/22 19:27:00 EDT, Tablet, [facility]/pharmacy #[id number], Partial fill upon patient [...] 17:59:00 EDT, Route to Pharmacy Electronically, [facility]/pharmacy #[id number], Partial fill upon patient [...] Diagnosis Diagnosis Type Effective Dates Health Status Cl inical Service Informant Elevated red blood cell count Discharge Diagnosis 09/25/22 Weight loss Discharge Diagnosis 09/30/22 Vital Signs Most recent to oldest [Reference Range]: 1 Height 186 cm (09/25/22 4:37 PM) Weight 85.3 kg (09/25/22 4:37 PM) Oxygen Saturation [94-100 %] 97 % (09/25/22 4:37 PM) Pulse Rate [55-90 bpm] 75 bpm (09/25/22 4:37 PM) Body Mass Index [18.5-24.99 kg/m2] 24.66 kg/m2 (09/25/22 4:37 PM) Blood Pressure [90-138/55-84 mm Hg] 108/ 73mm Hg (09/25/22 4:37 PM) Mode of Delivery (Oxygen) Room air (09/25/22 4:37 PM) Blood pressure sites Arm, left (09/25/22 4:37 PM) Weight Obtained Via Standing scale (09/25/22 4:37 PM) Social History Social History Type Response Smoking Status Former smoker, quit more than 30 days ago; Tobacco use times per day: 3 pk/d; quit 09/05; entered on: 04/04/22 Sex Patient Care team information Care Team Personnel Name: Elijah Aguilar MD Position: [facility] Primary Care Physician Member Role: PCP Address: Address: [address] [place] [address] Name: Rob Quijano RN Position: S RN Member Role: Primary Care Nurse Name: Peter Ceron RN Position: S RN Member Role: Primary Care Nurse Name: Sheryl Kumar RN Position: S RN Member Role: Primary Care Nurse Care Team Related Persons Name: KAI COOL Address: home [address] [place] [id number] Name: DAISY COOL Address: [place] [address]
--- OUTSIDE RECORDS SUMMARY | 2023-05-31 09:46 | XMS_ITS | Continuity of Care Document ---
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 Start Date: 03/15/22 [...] 1 Refills, Maintenance, 06/21/22 19:27:00 EDT, Tablet, [facility]/pharmacy #[id number], Partial fill upon patient [...] Team Personnel Name: Elijah Aguilar MD Address: [address] [place] [address]
--- NOTE | 2023-05-31 10:51 | PHA.MEDREC ---
Pharmacy Consult ? Medication Reconciliation Pharmacy has completed the medication reconciliation. Reviewed med rec done by nursing.
[2023-05-31] MEDS: fentaNYL citrate/PF 100 MCG/2 ML VIAL 25 MCG IVPUSH ×3 (11:21→12:13)
--- NOTE | 2023-05-31 12:13 | P.OP_ITS ---
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 Type of Anesth. Double-lumen general Indication for surgery: [] Patient underwent bronchoscopy which helped assist anesthesia and placement of a double-lumen tube. Also no gross endoluminal pathology was demonstrated. Intraoperative findings demonstrated an isolated mass type process involving the superior segment right lower lobe. No other gross intrathoracic pathology demonstrated. Findings: [] Patient brought to the operating room, placed on operative table supine position, after adequate level of double-lumen general anesthesia was induced, patient was placed in left lateral decubitus position. Bronchoscopy was performed with findings noted above. Right chest was prepped and draped in usual sterile fashion. A small posterior lateral incision approximately 2 fingerbreadths below the scapular tip, this carried down through skin, subcutaneous tissue, and latissimus dorsi muscle. Serratus anterior muscle was retracted anteriorly and preserved throughout the procedure. Sixth intercostal space was opened along the of her margin the 7th rib and packs and retractors placed to enhance exposure along with transection of the posterior 6th rib. Findings were as noted. Inferior pulmonary ligament was taken down using Bovie and inferior pulmonary vein was identified. The tributary to this from the superior segment right lower lobe was identified, skeletonized, isolated, and transected using endoscopic vascular stapler. Next the bronchus intermedius was identified and 2 segments of superior segmenta l bronchi were identified, skeletonized, and transected using heavy wire green TA staplers, and uneventfully transected. Next the superior segmental arterial branch to the superior segment from the main pulmonary artery was identified, skeletonized, and uneventfully transected using vascular stapler. Fissures and segmentectomy were completed using PAM staplers. Specimen was sent to pathology. Chest cavity was filled with saline and remaining lung reinflated with no obvious air leaks demonstrated. Through a separate anterior stab wound incision, 28 Latvian chest tube was entered into the thoracic cavity and this was secured to skin using 0 silk suture. Chest wound was closed the following manner; over and over 1. Dexon sutures x4 were used to reapproximate the ribs. 1. Running 1 Dexon was used to reapproximate latissimus dorsi muscle. Running deep dermal 2-0 Vicryl sutures followed by running subcuticular 4-0 Vicryl suture were placed. Steri-Strips and dressings were applied. Chest tube was connected to Pleur-evac and lung re- expanded with no air leak demonstrated. Sponge, needle, instrument counts reported correct. Patient tolerated the procedure well and was uneventfully extubated and transferred directly to recovery room in stable condition. EBL minimal
[2023-05-31] MEDS: Lactated Ringers 1,000 ML 80 ML IVCONT (16:14)
[2023-05-31] MEDS: Acetaminophen 1,000 MG/100 ML PIGGYBACK 400 MG IV ×2 (16:15→19:43)
[2023-05-31 16:30] LABS: Glucose, Whole Blood 139 mg/dL (60-115)
--- NOTE | 2023-05-31 18:58 | PC.NURSE ---
Addendum entered by Esteban Nielsen RN 05/31/23 19:22: @ approx 1600, patient coughed up a quarter size red blood clot. Dr Holt made aware - to be expected to cough up small amt from trauma of surgery and intubation. Original Note: Received patient at approx 1300 from PACU to room 253. patient alert and oriented, pain tolerable at 6 or 7 out of 10. Slow speech. Vitals stable. Dressing viewed with DOLL SURGEON Yelitza, small blood stain noted on window dressing / epidural insertion site. Also, small stain noted on back of right chest dressing. Right lateral chest tube draining bloody drainage. Chest tube to -20 cm suction. 02sat mid to high 90's on 2 liters nasal cannula. Monitoring patient per policy and MD order for epidural med being given.
--- NOTE | 2023-05-31 19:34 | PC.NURSE ---
18:00 Dr. Wright administered bupivacaine bolus via epidural to test epidural function and placement. Epidural placement confirmed by anesthesia MD. 18:32 Epidural fentanyl gtt titrated by Dr. Wright at bedside, rate increased to 10. Pharmacy notified.
--- NOTE | 2023-05-31 19:52 | P.HPCC_ITS ---
History of Present Illness Date of Service: 05/31/23 Chief Complaint: pain management The patient is a 52-year-old male, Past medical history of? history of thyroid cancer, emphysema, LUDIN, 60 pack-year smoker, quit 2008,? who presented today for a right mini thoracotomy, right lower lobe superior segmentectomy, bronchoscopy with Dr Holt for lung mass. Post procedure on epidural drip.? Due to drip patient required ICU admission Review of Systems Review of Systems: Constitutional: No weight loss, fever, chills, weakness or fatigue. Eyes: No visual loss, blurred vision, double vision or yellow sclera ENT: No hearing loss, sneezing, congestion, runny nose or sore throat. Respiratory: (+)Dyspnea, + hemoptysis. No cough Cardiovascular: No chest pain,. No palpitations, edema. Gastrointestinal: No anorexia, nausea, vomiting or diarrhea. No abdominal pain or blood in stool. Genitourinary: No burning micturition. No urinary frequency or incontinence. Neurologic: No headache, dizziness, syncope, unilateral weakness, ataxia, numbness or tingling in the extremities. No change in bowel or bladder control. Musculoskeletal: No muscle pain, back pain, joint pain or stiffness. Hematologic/Lymphatics: No bleeding or bruising. No painful lymph nodes. Skin: No rash or itching. Endocrine: No reports of sweating. No cold or heat intolerance. No polyuria or polydipsia. [facility] Past Medical History Medical History (Updated 05/31/23 @ 20:09 by Phoenix Palma NP) Constipation Coughing up blood Dermatitis Hx of bacterial pneumonia Hx of thyroid cancer Low vitamin D level OCD (obsessive compulsive disorder) LUDIN on CPAP PONV (postoperative nausea and vomiting) Schizoaffective disorder Vertigo Family History Family History Maternal Grandfather Lung cancer Father Cancer of appendix Prostate cancer Paternal Uncle Prostate cancer Paternal Grandfather Prostate cancer Surgical History Surgical History (Updated 05/24/23 @ 13:56 by Aida Rogers RN) History of lung biopsy History of surgery on lower extremity History of thyroidectomy Hx of colonoscopy Social History Social History Household Members: None Housing: Apartment Are you a primary healthcare insurance sales agent to a significant other at home: No Do you presently have visiting nurse or other home services: Yes (3 DAYS A WEEK) Patient Tobacco Use Status: Former Tobacco user Quit Date: 2009 Tobacco use type: Cigarette Use of substances other than those prescribed or required for medical reasons: No Have you been hit, kicked, punched, or otherwise hurt by someone within the past year? If so, by whom?: No Do you feel safe in your current relationship?: No Current Relationship Is there a partner from a previous relationship who is making you feel unsafe now?: No Are you made to feel afraid or neglected: No Spiritual Healthcare Practices: N/A Islam Healthcare Practices: N/A Cultural Healthcare Practices: N/A Are you DNR?: No Advance Directives: No Advance Directives Information Provided: Yes Advance Directives on File: No Do you have thoughts of harming others: None Do you have a plan to hurt others: No Plan Recently lost weight without trying: Yes How much weight loss: 34pounds or more Eating poorly because of decreased appetite: Yes Nutrition screen score: 7 Nutrition Risks: No Nutritional Risk Poor oral hygiene: No Meds Allergies Allergy/AdvReac Type Severity Reaction Status Date / Time diphenhydramine Allergy Intermediate Shortness Verified 05/24/23 13:27 [From Benadryl] of Breath Active Medications: Current Medications Docusate Sodium (Docusate Sodium 100 Mg Capsule) 100 mg PO BID PRN PRN Reason: Constipation Acetaminophen (Ofirmev) 1,000 mg in 100 mls @ 400 mls/hr IV Q6H [facility] Last Admin: 05/31/23 19:43 Dose: 400 mls/hr Lactated Ringer's (Lr) 1,000 mls @ 80 mls/hr IVCONT .[id number] [facility] Last Admin: 05/31/23 16:14 Dose: 80 mls/hr Fentanyl/Bupivacaine HCl (Epidural Fentanyl 500 Mcg/Bupiv 0.0625%) 250 mls @ 0 mls/hr EPIDURAL .Q0M [facility]; Protocol Last Admin: 05/31/23 18:32 Dose: 10 mls/hr Levothyroxine Sodium (Levothyroxine Sodium 125 Mcg Tablet) 125 mcg PO DAILY@0600 [facility] Montelukast Sodium (Montelukast Sodium 10 Mg Tablet) 10 mg PO BEDTIME [facility] Naloxone HCl (Naloxone Hcl 0.4 Mg/Ml Vial) 0.4 mg IVPUSH Q5M PRN PRN Reason: resp depression or unresponsiv Psyllium Hydrophilic Mucilloid (Psyllium Seed 3.4 Gm Powd.Pack) 3.4 gm PO BEDTIME [facility] Home Medications Medication Instructions Recorded Confirmed Last Taken Type clozapine 100 mg tablet (Clozaril) 100 mg PO BEDTIME 11/01/22 05/24/23 05/30/23 History levothyroxine 125 mcg capsule 125 mcg PO DAILY 11/01/22 05/24/23 05/31/23 History montelukast 10 mg tablet 10 mg PO BEDTIME 11/01/22 05/31/23 Unknown History Fiber Gummies 1 tab PO BEDTIME 05/24/23 05/31/23 Unknown History acetaminophen 325 mg tablet 650 mg PO Q4-6H PRN Pain 05/24/23 05/31/23 Unknown History cholecalciferol (vitamin D3) 1,250 1,250 mcg PO .QWEEKT05/24/23 05/31/23 Unknown History mcg (50,000 unit) capsule polyethylene glycol 3350 17 gram 17 g PO BEDTIME 05/24/23 05/31/23 Unknown History oral powder packet (Miralax) Physical Exam Vital Signs: Vital Signs: Last Vital Signs Temp 97.2 F 05/31/23 12:55 Pulse 75 05/31/23 19:00 Resp 13 05/31/23 19:00 BP 95/65 05/31/23 19:00 Pulse Ox 94 05/31/23 19:00 O2 Del Method Room Air 05/31/23 19:00 O2 Flow Rate 35 05/31/23 14:00 FiO2 30 05/31/23 14:00 BMI result Body Mass Index 24.5 ?General:? Alert oriented x3 no acute distress.? Speaking full sentences.? Speech is well articulated, thought process is coherent.? Following all commands. ?HEENT:? Head is normocephalic, atraumatic, pupils equal round reactive to light accommodation bilaterally.? Extraocular movements appear intact.? Buccal mucosa is normal, Neck is supple without lymphadenopathy. ?Cardiac:? Clear S1-S2, no murmurs rubs or gallops. ?Pulmonary:? Dim Right lower,all other lobes Clear to auscultation, no wheezes, rales or rhonchi. ?Abdomen:? ?Abdomen soft, non-tender, non-distended. Normal bowel sounds. No pulsatile mass. No hepatosplenomegaly. ?Musculoskeletal:Decrease sensation to lower extremities, unable to move due to epidural drip. ?Neurologic:? No other focal deficits ?Skin:? Intact, no lesions, edema, erythema, clubbing or cyanosis.? No ulcers. Vascular:? 2+ pulses upper and lower extremities distally.? Results Labs Labs: Laboratory Results - last 24 hr 05/31/23 05/31/23 08:04 16:25 POC Glucose 139 H Blood Type A Positive Antibody Screen NEGATIVE Assessment and Plan (1) Cavitating mass in right lower lung lobe: Status: Acute (2) Acute post-thoracotomy pain: Status: Acute (3) Pulmonary abscess: Status: Acute (4) Emphysema lung: Status: Acute Plan Right Lung Mass: status post right mini thoracotomy, right lower lobe superior segmentectomy, bronchoscopy with Dr Holt. Final pathology pending. On epidural drip, being managed by anesthesia Critical care time x 30 min Discussed with attending Dr Mcghee Time Spent With Patient Time: Total time managing care of this patient today ____ minutes.
[2023-05-31] MEDS: Montelukast Sodium 10 MG TABLET PO (20:31)
[2023-05-31] MEDS: polyethylene glycoL 3350 17 GM POWD.PACK PO (20:32)
[2023-06-01] VITALS (27 sets, daily range): BP systolic 90–115; BP diastolic 50–74; PULSE 54–87; RESP 10–17; TEMP 36–36.7; O2SAT 90–98; BMI 28.4
[2023-06-01 00:03] LABS: Glucose, Whole Blood 141 mg/dL (60-115)
[2023-06-01] MEDS: Acetaminophen 1,000 MG/100 ML PIGGYBACK 400 MG IV ×4 (01:14→22:04)
[2023-06-01] MEDS: Lactated Ringers 1,000 ML 80 ML IVCONT ×2 (04:25→16:13)
[2023-06-01 05:21] LABS: VBG Base Excess 1.4 mmol/L; VBG HCO3 25 mmol/L (22-26); VBG pCO2 39 mmHg; VBG pH 7.41 (7.32-7.43); VBG pO2 63 mmHg
[2023-06-01 05:23] LABS: MANUAL DIFF FLAG NO
[2023-06-01 05:26] LABS: Venous Blood Gas Refer to POC result
[2023-06-01 05:27] LABS: Basophils Percent Auto 0.1 % (0-2); Eosinophils Percent Auto 0.1 % (0-4); Hematocrit 43.3 % (42.0-52.0); Hemoglobin 14.7 g/dl (14.0-18.0); Imm Gran Abs Auto 0.05 X10*3/uL (0.00-0.03); Imm Gran Pct Auto 0.3 % (0.0-0.4); Lymphocytes Absolute Auto 0.5 X10*3/uL (1.2-4.9); Lymphocytes Percent Auto 3.2 % (20-40); Mean Corpuscular HGB Conc 33.9 g/dl (31.0-36.0); Mean Corpuscular Hemoglobin 28.9 pg (27.0-33.0); Mean Corpuscular Volume 85.1 fL (80.0-98.0); Mean Platelet Volume 10.5 fL (9.4-12.4); Monocytes Absolute Auto 1.1 X10*3/uL (0.1-1.2); Monocytes Percent Auto 6.3 % (2-11); Neutrophils Absolute Auto 15.1 x10*3/uL (2.0-8.3); Platelet Count 142 X10*3/uL (160-400); Red Blood Count 5.09 X10*6/uL (4.60-5.80); Red Cell Distribution Width 13.3 % (11.0-16.0); White Blood Count 16.8 X10*3/uL (4.8-10.8)
[2023-06-01 05:41] LABS: Anion Gap 14 (12-20); Blood Urea Nitrogen 17 mg/dL (9-16); Calcium 8.7 mg/dL (8.4-10.2); Carbon Dioxide 22 mmol/L (22-29); Chloride 108 mmol/L (96-108); Creatinine Clr Calc Pharmacy 107.2; Estimated Glomerular Filt Rate > 60; Glucose Fasting 144 mg/dL (60-99); Glucose Random 143 mg/dL (60-115); Magnesium 2.1 mg/dL (1.6-2.6); Phosphorus 3.7 mg/dL (2.7-4.5); Potassium 4.1 mmol/L (3.3-5.1); Sodium 140 mmol/L (135-145)
[2023-06-01] MEDS: HYDROmorphone HCl 0.5 MG/0.5 ML SYRINGE 0.25 MG IVPUSH ×2 (05:43→06:34)
[2023-06-01] MEDS: Hydrocortisone Sod Succ/PF 100 MG VIAL 25 MG IVPUSH (06:34)
[2023-06-01] MEDS: Levothyroxine Sodium 125 MCG TABLET PO (07:10)
--- NOTE | 2023-06-01 08:00 | HO.POSTANES ---
Post Anesthesia Evaluation Post Anesthesia Evaluation Date of Service: 06/01/23 Vital Signs: Vital Signs Temp Pulse Resp BP Pulse Ox O2 Del Method O2 Flow Rate 06/01/23 07:00 98 F 66 15 101/64 94 CPAP 21 06/01/23 02:00 64 15 98/57 L 93 CPAP 06/01/23 01:00 98.1 F 69 17 101/59 L 93 CPAP 06/01/23 00:00 69 15 110/60 94 Room Air 05/31/23 23:00 69 14 102/58 L 94 Room Air 05/31/23 22:00 74 17 106/63 93 Room Air 05/31/23 21:01 69 15 105/62 93 Room Air 06/01/23 06:00 59 12 98/58 L 94 CPAP 06/01/23 05:00 97.3 F 61 13 90/53 L 92 CPAP 06/01/23 04:00 60 12 92/55 L 93 CPAP 06/01/23 03:00 60 12 97/57 L 92 CPAP FiO2 06/01/23 07:00 06/01/23 02:00 21 06/01/23 01:00 21 06/01/23 00:00 05/31/23 23:00 05/31/23 22:00 05/31/23 21:01 06/01/23 06:00 21 06/01/23 05:00 21 06/01/23 04:00 21 06/01/23 03:00 21 Anesthesia: General Endotracheal-GETA Mental Status: Awake Pain Control: Satisfactory (Thoracic epidural running, the basal rate increased from 7ml/h to 10ml/h, bolus of 10 ml bupivacaine 0.125% was given at 7:50 am to address the pain increasing from 5/10 to 8/10, also 2 doses of 0.25 mg dilaudid were given previously, pt remains stable with good response in pain scores) Nausea/Vomiting: None Hydration: Adequate Anesthesia-Related Issues: No Anes. Related Issues
--- NOTE | 2023-06-01 08:04 | PC.NURSE ---
Addendum entered by Kamaljit Rangel RN 06/01/23 19:02: Patient transferred to recliner with three assistants, some mild lightheadedness once in chair, associated sinus bradycardia in range 54-59, some associated mild nausea, SPO2 dropped to 89% on RA, placed to 2 LPM nasal cannula, and discussed with quinten FRANCES and critical care MD, and notified surgery MD that 160 ccs of sanguineous drainage had drained to CT from 07:00 to 17:00. CBC checked per MD, Hgb stable. Kera-carlo with effect. Recommendations to recline chair were refused by patient, reported feeling better. Respiratory rate dropped to 9 times per minute while patient napping, 12-14 while awake, MD notified, continue to monitor. Addendum entered by Kamaljit Rangel RN 06/01/23 14:34: After pain had lowered to 0 for 13:00, pain increased about 13:45, notified Dr. Kyle FRANCES with new order for 0.5 mg IVP dilaudid, adminisered with effect. Original Note: Assumed care at 07:00. Patient alert and oriented x4, pain reported to be 8/10 right distal chest, tight, worse with anxiety and movement. MD notified, Dr. Wright to bedside and bolused patient with 10 ccs of epidural 0.125% Bupivacaine with effect, f/u vital signs stable, and patient reports no pain. Continuing to monitor.
--- NOTE | 2023-06-01 09:02 | P.PNGS_ITS ---
Subjective Subjective Date of Service: 06/01/23 Interval history: postoperative day 1 following right mini thoracotomy, right inferior lobe superior segmentectomy and bronchoscopy for a right lower lobe abscess with bronchiectasis. Patient reports feeling comfortable minimal incisional pain at this time. Physical Exam Vital Signs: Vital Signs: Last Vital Signs Temp 97 F 06/01/23 08:00 Pulse 68 06/01/23 08:00 Resp 17 06/01/23 08:00 BP 98/61 06/01/23 08:00 Pulse Ox 92 06/01/23 08:00 O2 Del Method Room Air 06/01/23 08:00 O2 Flow Rate 21 06/01/23 07:00 FiO2 21 06/01/23 06:00 BMI result Body Mass Index 28.4 Const: General: comfortable Nutritional Appearance: well nourished Orientation/consciousness: patient oriented x3 HEENT: Head: Yes normocephalic Chest: Other: Chest incision is clean, dry, and intact. Chest tube site intact without drainage. No air leak identified. Serosanguineous discharge within pleural VAC. Resp: Effort & Inspection: normal respiratory effort, no audible wheezes, no cough and no respiratory distress Skin: General skin exam: no rashes or lesions noted Neuro: General: patient oriented x3 Extrem: General: No edema Objective Data Active Medications Clozapine (Clozapine 100 Mg Tablet) 100 mg PO BEDTIME [facility] Docusate Sodium (Docusate Sodium 100 Mg Capsule) 100 mg PO BID PRN PRN Reason: Constipation Hydromorphone HCl (Hydromorphone Hcl 0.5 Mg/0.5 Ml Syringe) 0.25 mg IVPUSH ONCE PRN; Protocol PRN Reason: If pain is > 6 after initial dos Last Admin: 06/01/23 06:34 Dose: 0.25 mg Documented By: ANTHONY Acetaminophen (Ofirmev) 1,000 mg in 100 mls @ 400 mls/hr IV Q6H [facility] Last Infusion: 06/01/23 06:28 Dose: 0 mls/hr Documented By: ANTHONY Lactated Ringer's (Lr) 1,000 mls @ 80 mls/hr IVCONT .[id number] [facility] Last Admin: 06/01/23 04:25 Dose: 80 mls/hr Documented By: ANTHONY Fentanyl/Bupivacaine HCl (Epidural Fentanyl 500 Mcg/Bupiv 0.0625%) 250 mls @ 0 mls/hr EPIDURAL .Q0M [facility]; Protocol Last Admin: 05/31/23 18:32 Dose: 10 mls/hr Documented By: EUGENIE Comments: titrated by Dr. Dewey, Anesthesia MD Levothyroxine Sodium (Levothyroxine Sodium 125 Mcg Tablet) 125 mcg PO DAILY@0600 [facility] Last Admin: 06/01/23 07:10 Dose: 125 mcg Documented By: NERISSA Montelukast Sodium (Montelukast Sodium 10 Mg Tablet) 10 mg PO BEDTIME [facility] Last Admin: 05/31/23 20:31 Dose: 10 mg Documented By: ANTHONY Naloxone HCl (Naloxone Hcl 0.4 Mg/Ml Vial) 0.4 mg IVPUSH Q5M PRN PRN Reason: resp depression or unresponsiv Polyethylene Glycol (Polyethylene Glycol 3350 17 Gm Powd.Pack) 17 gm PO DAILY PRN PRN Reason: Constipation Last Admin: 05/31/23 20:32 Dose: 17 gm Documented By: ANTHONY Psyllium Hydrophilic Mucilloid (Psyllium Seed 3.4 Gm Powd.Pack) 3.4 gm PO BEDTIME [facility] Last Admin: 05/31/23 20:31 Dose: 3.4 gm Documented By: ANTHONY Labs 06/01/23 05:16 06/01/23 05:16 Labs: Laboratory Results - last 24 hr 05/31/23 05/31/23 06/01/23 16:25 23:59 05:11 MCV MCH MCHC RDW Plt Count MPV Immature Gran % (Auto) Neut % (Auto) Lymph % (Auto) [place] % (Auto) Eos % (Auto) Baso % (Auto) Lymph # (Auto) [place] # (Auto) Eos # (Auto) Baso # (Auto) Abs Immat Gran (auto) Absolute Neuts (auto) Absolute Nucleated RBC Nucleated RBC % (auto) VBG pH 7.41 VBG pCO2 39 VBG pO2 63 VBG HCO3 25 VBG O2 Saturation 91.0 VBG Base Excess 1.4 Anion Gap Estim Creat Clear Calc Estimated GFR POC Glucose 139 H 141 H Random Glucose Fasting Glucose Calcium Phosphorus Magnesium 06/01/23 06/01/23 05:16 05:16 MCV 85.1 MCH 28.9 MCHC 33.9 RDW 13.3 Plt Count 142 L MPV 10.5 Immature Gran % (Auto) 0.3 Neut % (Auto) 90.0 H Lymph % (Auto) 3.2 L [place] % (Auto) 6.3 Eos % (Auto) 0.1 Baso % (Auto) 0.1 Lymph # (Auto) 0.5 L [place] # (Auto) 1.1 Eos # (Auto) 0.0 Baso # (Auto) 0.0 Abs Immat Gran (auto) 0.05 H Absolute Neuts (auto) 15.1 H Absolute Nucleated RBC 0.000 Nucleated RBC % (auto) 0.0 VBG pH VBG pCO2 VBG pO2 VBG HCO3 VBG O2 Saturation VBG Base Excess Anion Gap 14 Estim Creat Clear Calc 107.2 Estimated GFR > 60 POC Glucose Random Glucose 143 H Fasting Glucose 144 H Calcium 8.7 Phosphorus 3.7 Magnesium 2.1 Procedures Date of Service Date of Service: 06/01/23 Progress Note: A&P Assessment and plan (1) Pulmonary abscess: Status: Acute Plan 53-year-old male patient with a right lower lobe lung abscess status post mini thoracotomy with right lower lobe superior segmentectomy and bronchoscopy. Patient tolerated the procedure well. Epidural remains in place and is functioning well. Encouraged incentive spirometry. Will stay in ICU for pain control with epidural in place. Time Spent With Patient Time: Total time managing care of this patient today ____ minutes. Quality Stroke Does the patient have a stroke diagnosis?: No VTE Prior VTE?: No VTE Risk Level:: Surgical - moderate VTE Device Contraindication: N/A - Device Ordered VTE Drug Contraindication: Treatment Not Indicated
--- NOTE | 2023-06-01 12:00 | MHC.CM.PN ---
Met w/pt to discuss d/c planning needs: pt is s/p thoracotomy receiving post op care in ICU. He has a chest tube and is making good clinical progress. Pt states he resides alone, has [facility] for skilled RN visits, has no DME and self describes as independent w/ADL's. His mother and sister assist w/transportation needs. Pt requesting a return to home w/existing VNA services: referral made. HCP at home and at PCP (Dr. Prater) office. Family to transport to home. CM to follow for changes in d/c needs.
[2023-06-01 12:02] LABS: Glucose, Whole Blood 142 mg/dL (60-115)
[2023-06-01] MEDS: HYDROmorphone HCl 0.5 MG/0.5 ML SYRINGE IVPUSH (13:58)
[2023-06-01 17:22] LABS: MANUAL DIFF FLAG NO
[2023-06-01 18:04] LABS: Glucose, Whole Blood 118 mg/dL (60-115)
[2023-06-01 18:15] LABS: Basophils Percent Auto 0.1 % (0-2); Eosinophils Percent Auto 0.2 % (0-4); Hematocrit 44.1 % (42.0-52.0); Hemoglobin 14.5 g/dl (14.0-18.0); Imm Gran Abs Auto 0.06 X10*3/uL (0.00-0.03); Imm Gran Pct Auto 0.4 % (0.0-0.4); Lymphocytes Absolute Auto 0.9 X10*3/uL (1.2-4.9); Lymphocytes Percent Auto 5.4 % (20-40); Mean Corpuscular HGB Conc 32.9 g/dl (31.0-36.0); Mean Corpuscular Hemoglobin 28.4 pg (27.0-33.0); Mean Corpuscular Volume 86.3 fL (80.0-98.0); Mean Platelet Volume 10.6 fL (9.4-12.4); Monocytes Absolute Auto 1.3 X10*3/uL (0.1-1.2); Monocytes Percent Auto 7.5 % (2-11); Neutrophils Absolute Auto 14.4 x10*3/uL (2.0-8.3); Neutrophils Percent Auto 86.4 % (45-73); Platelet Count 148 X10*3/uL (160-400); Red Blood Count 5.11 X10*6/uL (4.60-5.80); Red Cell Distribution Width 13.9 % (11.0-16.0); White Blood Count 16.7 X10*3/uL (4.8-10.8)
--- NOTE | 2023-06-01 20:01 | P.PNCC_ITS ---
Subjective Subjective Date of Service: 06/01/23 Interval History: The patient is a 52-year-old male, Past medical history of? history of thyroid cancer, emphysema, LUDIN, 60 pack-year smoker, quit 2008, ? postoperative day 1 following right mini thoracotomy, right? inferior lobe superior segmentectomy and bronchoscopy by Dr Holt for a right lower lobe abscess with bronchiectasis. In ICU for pain management requiring Epidural drip No acute overnight events Critical Care Time (minutes): 30 Physical Exam Vital Signs: Vital Signs: Last Vital Signs Temp 97 F 06/01/23 11:47 Pulse 68 06/01/23 19:00 Resp 13 06/01/23 19:00 BP 106/57 L 06/01/23 19:00 Pulse Ox 98 06/01/23 19:00 O2 Del Method Room Air 06/01/23 19:00 O2 Flow Rate 21 06/01/23 07:00 FiO2 21 06/01/23 06:00 BMI result Body Mass Index 28.4 ?General:? Alert oriented x3 no acute distress.? Speaking full sentences.? Speech is well articulated, thought process is coherent.? Following all commands. ?HEENT:? Head is normocephalic, atraumatic, pupils equal round reactive to light accommodation bilaterally.? Extraocular movements appear intact.? Buccal mucosa is normal, Neck is supple without lymphadenopathy. ?Cardiac:? Clear S1-S2, no murmurs rubs or gallops. ?Pulmonary:? Dim Right lower,all other lobes Clear to auscultation, no wheezes, rales or rhonchi. Right chest tube intact, draining serosang fluid ?Abdomen:? ?Abdomen soft, non-tender, non-distended. Normal bowel sounds. No pulsatile mass. No hepatosplenomegaly. ?Musculoskeletal: Up in chair, moving extremities bilaterally. ?Neurologic:? No other focal deficits ?Skin:? Intact, no lesions, edema, erythema, clubbing or cyanosis.? No ulcers. Vascular:? 2+ pulses upper and lower extremities distally.? Objective Data Labs 06/01/23 17:11 06/01/23 05:16 Labs: Laboratory Results - last 24 hr 05/31/23 06/01/23 06/01/23 23:59 05:11 05:16 WBC 16.8 H RBC 5.09 Hgb 14.7 Hct 43.3 MCV 85.1 MCH 28.9 MCHC 33.9 RDW 13.3 Plt Count 142 L MPV 10.5 Immature Gran % (Auto) 0.3 Neut % (Auto) 90.0 H Lymph % (Auto) 3.2 L [place] % (Auto) 6.3 Eos % (Auto) 0.1 Baso % (Auto) 0.1 Lymph # (Auto) 0.5 L [place] # (Auto) 1.1 Eos # (Auto) 0.0 Baso # (Auto) 0.0 Abs Immat Gran (auto) 0.05 H Absolute Neuts (auto) 15.1 H Absolute Nucleated RBC 0.000 Nucleated RBC % (auto) 0.0 VBG pH 7.41 VBG pCO2 39 VBG pO2 63 VBG HCO3 25 VBG O2 Saturation 91.0 VBG Base Excess 1.4 Sodium Potassium Chloride Carbon Dioxide Anion Gap BUN Creatinine Estim Creat Clear Calc Estimated GFR POC Glucose 141 H Random Glucose Fasting Glucose Calcium Phosphorus Magnesium 06/01/23 06/01/23 06/01/23 05:16 11:53 17:11 WBC 16.7 H RBC 5.11 Hgb 14.5 Hct 44.1 MCV 86.3 MCH 28.4 MCHC 32.9 RDW 13.9 Plt Count 148 L MPV 10.6 Immature Gran % (Auto) 0.4 Neut % (Auto) 86.4 H Lymph % (Auto) 5.4 L [place] % (Auto) 7.5 Eos % (Auto) 0.2 Baso % (Auto) 0.1 Lymph # (Auto) 0.9 L [place] # (Auto) 1.3 H Eos # (Auto) 0.0 Baso # (Auto) 0.0 Abs Immat Gran (auto) 0.06 H Absolute Neuts (auto) 14.4 H Absolute Nucleated RBC 0.000 Nucleated RBC % (auto) 0.0 VBG pH VBG pCO2 VBG pO2 VBG HCO3 VBG O2 Saturation VBG Base Excess Sodium 140 Potassium 4.1 Chloride 108 Carbon Dioxide 22 Anion Gap 14 BUN 17 H Creatinine 0.89 Estim Creat Clear Calc 107.2 Estimated GFR > 60 POC Glucose 142 H Random Glucose 143 H Fasting Glucose 144 H Calcium 8.7 Phosphorus 3.7 Magnesium 2.1 06/01/23 18:00 WBC RBC Hgb Hct MCV MCH MCHC RDW Plt Count MPV Immature Gran % (Auto) Neut % (Auto) Lymph % (Auto) [place] % (Auto) Eos % (Auto) Baso % (Auto) Lymph # (Auto) [place] # (Auto) Eos # (Auto) Baso # (Auto) Abs Immat Gran (auto) Absolute Neuts (auto) Absolute Nucleated RBC Nucleated RBC % (auto) VBG pH VBG pCO2 VBG pO2 VBG HCO3 VBG O2 Saturation VBG Base Excess Sodium Potassium Chloride Carbon Dioxide Anion Gap BUN Creatinine Estim Creat Clear Calc Estimated GFR POC Glucose 118 H Random Glucose Fasting Glucose Calcium Phosphorus Magnesium Progress Note: A&P Assessment and plan (1) Acute post-thoracotomy pain: Status: Acute (2) Cavitating mass in right lower lung lobe: Status: Acute (3) Emphysema lung: Status: Acute Plan Right lower lobe lung abscess- Postop day 1 post mini thoracotomy with right lower lobe superior segmentectomy and bronchoscopy byDr Holt. Epidural drip remains in place.? Will stay in ICU for pain control with epidural in place. Quality Stroke Does the patient have a stroke diagnosis?: No VTE Prior VTE?: No VTE Risk Level:: Surgical - moderate VTE Device Contraindication: N/A - Device Ordered VTE Drug Contraindication: Treatment Not Indicated
[2023-06-01] MEDS: polyethylene glycoL 3350 17 GM POWD.PACK PO (22:01)
[2023-06-01] MEDS: Montelukast Sodium 10 MG TABLET PO (22:02)
[2023-06-01] MEDS: cloZAPine 100 MG TABLET PO (22:08)
[2023-06-02] VITALS (27 sets, daily range): BP systolic 96–121; BP diastolic 58–77; PULSE 52–85; RESP 10–24; TEMP 36.1–36.9; O2SAT 90–96; BMI 28.4
[2023-06-02 00:41] LABS: Glucose, Whole Blood 112 mg/dL (60-115)
[2023-06-02] MEDS: Lactated Ringers 1,000 ML 80 ML IVCONT ×2 (04:30→15:57)
[2023-06-02] MEDS: Acetaminophen 1,000 MG/100 ML PIGGYBACK 400 MG IV ×4 (04:31→22:30)
[2023-06-02 05:12] LABS: VBG Base Excess 4.2 mmol/L; VBG HCO3 29 mmol/L (22-26); VBG pCO2 47 mmHg; VBG pO2 51 mmHg
[2023-06-02 05:13] LABS: Venous Blood Gas Refer to POC result
[2023-06-02 05:17] LABS: MANUAL DIFF FLAG NO
[2023-06-02 05:22] LABS: Basophils Percent Auto 0.2 % (0-2); Eosinophils Absolute Auto 0.2 X10*3/uL (0.0-0.4); Eosinophils Percent Auto 1.2 % (0-4); Hematocrit 39.5 % (42.0-52.0); Hemoglobin 13.1 g/dl (14.0-18.0); Imm Gran Abs Auto 0.05 X10*3/uL (0.00-0.03); Imm Gran Pct Auto 0.4 % (0.0-0.4); Lymphocytes Absolute Auto 1.1 X10*3/uL (1.2-4.9); Lymphocytes Percent Auto 8.5 % (20-40); Mean Corpuscular HGB Conc 33.2 g/dl (31.0-36.0); Mean Corpuscular Hemoglobin 28.4 pg (27.0-33.0); Mean Corpuscular Volume 85.7 fL (80.0-98.0); Mean Platelet Volume 10.4 fL (9.4-12.4); Monocytes Absolute Auto 1.1 X10*3/uL (0.1-1.2); Monocytes Percent Auto 8.9 % (2-11); Neutrophils Absolute Auto 10.4 x10*3/uL (2.0-8.3); Neutrophils Percent Auto 80.8 % (45-73); Platelet Count 131 X10*3/uL (160-400); Red Blood Count 4.61 X10*6/uL (4.60-5.80); White Blood Count 12.8 X10*3/uL (4.8-10.8)
[2023-06-02 05:39] LABS: Anion Gap 13 (12-20); Blood Urea Nitrogen 17 mg/dL (9-16); Calcium 8.2 mg/dL (8.4-10.2); Carbon Dioxide 25 mmol/L (22-29); Chloride 107 mmol/L (96-108); Creatinine Clr Calc Pharmacy 125.2; Estimated Glomerular Filt Rate > 60; Glucose Random 127 mg/dL (60-115); Phosphorus 2.5 mg/dL (2.7-4.5); Potassium 4.1 mmol/L (3.3-5.1); Sodium 141 mmol/L (135-145)
[2023-06-02] MEDS: Levothyroxine Sodium 125 MCG TABLET PO (06:03)
--- NOTE | 2023-06-02 08:11 | PM.PNGS ---
Subjective Subjective Date of Service: 06/02/23 Interval history: Patient had a reasonably good night reports pain of 1-2/10 this morning. Physical Exam Vital Signs: Vital Signs: Last Vital Signs Temp 97.0 F 06/02/23 06:00 Pulse 63 06/02/23 07:00 Resp 20 06/02/23 07:00 BP 96/59 L 06/02/23 07:00 Pulse Ox 92 06/02/23 07:00 O2 Del Method CPAP 06/02/23 07:00 O2 Flow Rate 2 06/02/23 01:00 FiO2 21 06/01/23 06:00 BMI result Body Mass Index 28.4 Const: General: no acute distress Nutritional Appearance: well nourished Orientation/consciousness: patient oriented x3 Chest: Other: Chest wounds are clean and intact, small amount of staining around the chest tube. No air leak and minimal serosang output in pleurevac. GI: Inspection: Yes normal to inspection Neuro: General: patient oriented x3 Extrem: General: No edema Objective Data Active Medications Clozapine (Clozapine 100 Mg Tablet) 100 mg PO BEDTIME [facility] Last Admin: 06/01/23 22:08 Dose: 100 mg Documented By: ANTHONY Docusate Sodium (Docusate Sodium 100 Mg Capsule) 100 mg PO BID PRN PRN Reason: Constipation Hydromorphone HCl (Hydromorphone Hcl 0.5 Mg/0.5 Ml Syringe) 0.25 mg IVPUSH ONCE PRN; Protocol PRN Reason: If pain is > 6 after initial dos Last Admin: 06/01/23 06:34 Dose: 0.25 mg Documented By: ANTHONY Lactated Ringer's (Lr) 1,000 mls @ 80 mls/hr IVCONT .[id number] [facility] Last Admin: 06/02/23 04:30 Dose: 80 mls/hr Documented By: ANTHONY Fentanyl/Bupivacaine HCl (Epidural Fentanyl 500 Mcg/Bupiv 0.0625%) 250 mls @ 0 mls/hr EPIDURAL .Q0M [facility]; Protocol Last Admin: 06/01/23 11:01 Dose: 10 mls/hr Documented By: NERISSA Acetaminophen (Ofirmev) 1,000 mg in 100 mls @ 400 mls/hr IV Q6H [facility] Last Infusion: 06/02/23 04:51 Dose: 0 mls/hr Documented By: ANTHONY Levothyroxine Sodium (Levothyroxine Sodium 125 Mcg Tablet) 125 mcg PO DAILY@0600 [facility] Last Admin: 06/02/23 06:03 Dose: 125 mcg Documented By: ANTHONY Montelukast Sodium (Montelukast Sodium 10 Mg Tablet) 10 mg PO BEDTIME [facility] [place] Last Admin: 06/01/23 22:02 Dose: 10 mg Documented By: ANTHONY Naloxone HCl (Naloxone Hcl 0.4 Mg/Ml Vial) 0.4 mg IVPUSH Q5M PRN PRN Reason: resp depression or unresponsiv Polyethylene Glycol (Polyethylene Glycol 3350 17 Gm Powd.Pack) 17 gm PO DAILY PRN PRN Reason: Constipation Last Admin: 06/01/23 22:01 Dose: 17 gm Documented By: ANTHONY Psyllium Hydrophilic Mucilloid (Psyllium Seed 3.4 Gm Powd.Pack) 3.4 gm PO BEDTIME [facility] [place] Last Admin: 06/01/23 22:01 Dose: 3.4 gm Documented By: ANTHONY Labs 06/02/23 05:06 06/02/23 05:06 Labs: Laboratory Results - last 24 hr 06/01/23 06/01/23 06/01/23 11:53 17:11 18:00 MCV 86.3 MCH 28.4 MCHC 32.9 RDW 13.9 Plt Count 148 L MPV 10.6 Immature Gran % (Auto) 0.4 Neut % (Auto) 86.4 H Lymph % (Auto) 5.4 L [place] % (Auto) 7.5 Eos % (Auto) 0.2 Baso % (Auto) 0.1 Lymph # (Auto) 0.9 L [place] # (Auto) 1.3 H Eos # (Auto) 0.0 Baso # (Auto) 0.0 Abs Immat Gran (auto) 0.06 H Absolute Neuts (auto) 14.4 H Absolute Nucleated RBC 0.000 Nucleated RBC % (auto) 0.0 VBG pH VBG pCO2 VBG pO2 VBG HCO3 VBG O2 Saturation VBG Base Excess Anion Gap Estim Creat Clear Calc Estimated GFR POC Glucose 142 H 118 H Random Glucose Calcium Phosphorus Magnesium 06/02/23 06/02/23 06/02/23 00:37 05:01 05:06 MCV 85.7 MCH 28.4 MCHC 33.2 RDW 14.0 Plt Count 131 L MPV 10.4 Immature Gran % (Auto) 0.4 Neut % (Auto) 80.8 H Lymph % (Auto) 8.5 L [place] % (Auto) 8.9 Eos % (Auto) 1.2 Baso % (Auto) 0.2 Lymph # (Auto) 1.1 L [place] # (Auto) 1.1 Eos # (Auto) 0.2 Baso # (Auto) 0.0 Abs Immat Gran (auto) 0.05 H Absolute Neuts (auto) 10.4 H Absolute Nucleated RBC 0.000 Nucleated RBC % (auto) 0.0 VBG pH 7.40 VBG pCO2 47 VBG pO2 51 VBG HCO3 29 H VBG O2 Saturation 83.0 VBG Base Excess 4.2 Anion Gap Estim Creat Clear Calc Estimated GFR POC Glucose 112 Random Glucose Calcium Phosphorus Magnesium 06/02/23 05:06 MCV MCH MCHC RDW Plt Count MPV Immature Gran % (Auto) Neut % (Auto) Lymph % (Auto) [place] % (Auto) Eos % (Auto) Baso % (Auto) Lymph # (Auto) [place] # (Auto) Eos # (Auto) Baso # (Auto) Abs Immat Gran (auto) Absolute Neuts (auto) Absolute Nucleated RBC Nucleated RBC % (auto) VBG pH VBG pCO2 VBG pO2 VBG HCO3 VBG O2 Saturation VBG Base Excess Anion Gap 13 Estim Creat Clear Calc 125.2 Estimated GFR > 60 POC Glucose Random Glucose 127 H Calcium 8.2 L Phosphorus 2.5 L Magnesium 2.0 Procedures Date of Service Date of Service: 06/02/23 Progress Note: A&P Assessment and plan (1) Pulmonary abscess: Status: Acute Plan 53-year-old male patient with a right lower lobe lung abscess POD # 2 status post mini thoracotomy with right lower lobe superior segmentectomy and bronchoscopy. Patient tolerated the procedure well. Epidural remains in place and is functioning well. Chest tube output is minimal and no air leak is identified. Encouraged incentive spirometry. Will stay in ICU for pain control with epidural in place. Time Spent With Patient Time: Total time managing care of this patient today ____ minutes. Quality Stroke Does the patient have a stroke diagnosis?: No VTE Prior VTE?: No VTE Risk Level:: Surgical - moderate VTE Device Contraindication: N/A - Device Ordered VTE Drug Contraindication: Treatment Not Indicated
--- NOTE | 2023-06-02 08:53 | PC.NURSE ---
Addendum entered by Debra Bain RN 06/02/23 10:47: 10:[address] Wright pt states 2/10 pain, no changes. Also states no change in mild itching. Per Dr. Wright, continue to hold epidural infusion and reassess pain. Pharmacy notified. ICU MD notified Original Note: 08:30 Pt states pain 2/10 meeting pain management goal. Pt states mild itching. Epidural site and dsg intact. anesthesia notified. Per Dr. Wright, HOLD epidural infusion for 2 hours and reassess pain level, symptoms of itching. 08:41 epidural infusion placed on Hold rate 0 ml/hr.
[2023-06-02 11:33] LABS: Glucose, Whole Blood 128 mg/dL (60-115)
--- NOTE | 2023-06-02 12:39 | HO.POSTANES ---
Post Anesthesia Evaluation Post Anesthesia Evaluation Date of Service: 06/02/23 Vital Signs: Vital Signs Temp Pulse Resp BP Pulse Ox O2 Del Method O2 Flow Rate 06/02/23 12:00 79 13 111/63 94 Nasal Cannula 2 06/02/23 11:00 78 16 102/58 L 90 L Nasal Cannula 2 06/02/23 10:00 74 20 111/65 91 L Nasal Cannula 2 06/02/23 09:00 75 20 115/70 91 L Nasal Cannula 2 06/02/23 08:00 98.5 F 81 15 110/68 91 L Room Air 06/02/23 07:00 63 20 96/59 L 92 CPAP 06/02/23 01:00 74 16 111/72 93 Nasal Cannula 2 06/02/23 06:00 97.0 F 57 12 103/65 92 CPAP 06/02/23 05:00 60 10 L 103/59 L 92 CPAP 06/02/23 04:00 62 10 L 115/63 95 CPAP 06/02/23 03:00 62 12 110/65 95 CPAP 06/02/23 02:00 57 15 104/62 94 CPAP Anesthesia: General Endotracheal-GETA Mental Status: Awake Pain Control: Satisfactory (Low-grade pain at the chest tube site. Pt. complains of pruritus. I turned the epidural infusion off at 8:30 am. 4 hours later the pain is 4/10 and the itch has gone. Plan: to bolus epidural at night with 10 ml of bupi 0.125% and removed the catheter) Nausea/Vomiting: None Hydration: Adequate
[2023-06-02] MEDS: HYDROmorphone HCl 0.5 MG/0.5 ML SYRINGE 0.25 MG IVPUSH ×2 (13:53→14:36)
[2023-06-02] MEDS: HYDROmorphone HCl 0.5 MG/0.5 ML SYRINGE IVPUSH ×3 (16:41→22:54)
[2023-06-02 16:54] LABS: Glucose, Whole Blood 127 mg/dL (60-115)
--- NOTE | 2023-06-02 18:53 | P.PNCC_ITS ---
Subjective Subjective Date of Service: 06/02/23 Interval History: The patient is a 52-year-old male, Past medical history of? history of thyroid cancer, emphysema, LUDIN, 60 pack-year smoker, quit 2008, ? postoperative day 2 following right mini thoracotomy, right? inferior lobe superior segmentectomy and bronchoscopy by Dr Holt for a right lower lobe abscess with bronchiectasis. In ICU for pain management requiring Epidural drip no acute overnight events. Plan to DC epidural drip today Critical Care Time (minutes): 30 Physical Exam Vital Signs: Vital Signs: Last Vital Signs Temp 98.5 F 06/02/23 08:00 Pulse 85 06/02/23 18:00 Resp 13 06/02/23 18:00 BP 105/72 06/02/23 18:00 Pulse Ox 94 06/02/23 18:00 O2 Del Method Nasal Cannula 06/02/23 18:00 O2 Flow Rate 2 06/02/23 18:00 FiO2 21 06/01/23 06:00 BMI result Body Mass Index 28.4 ?General:? Alert oriented x3 no acute distress.? Speaking full sentences.? Speech is well articulated, thought process is coherent.? Following all commands. ?HEENT:? Head is normocephalic, atraumatic, pupils equal round reactive to light accommodation bilaterally.? Extraocular movements appear intact.? Buccal mucosa is normal, Neck is supple without lymphadenopathy. ?Cardiac:? Clear S1-S2, no murmurs rubs or gallops. ?Pulmonary:? Dim Right lower,all other lobes Clear to auscultation, no wheezes, rales or rhonchi. Right chest tube intact, draining serosang fluid ?Abdomen: ? Abdomen soft, non-tender, non-distended. Normal bowel sounds. No pulsatile mass. No hepatosplenomegaly. ?Musculoskeletal: Up in chair, moving extremities bilaterally. ?Neurologic:? No other focal deficits ?Skin:? Intact, no lesions, edema, erythema, clubbing or cyanosis.? No ulcers. Vascular:? 2+ pulses upper and lower extremities distally. Objective Data Labs 06/02/23 05:06 06/02/23 05:06 Labs: Laboratory Results - last 24 hr 06/02/23 06/02/23 06/02/23 00:37 05:01 05:06 WBC 12.8 H RBC 4.61 Hgb 13.1 L Hct 39.5 L MCV 85.7 MCH 28.4 MCHC 33.2 RDW 14.0 Plt Count 131 L MPV 10.4 Immature Gran % (Auto) 0.4 Neut % (Auto) 80.8 H Lymph % (Auto) 8.5 L [place] % (Auto) 8.9 Eos % (Auto) 1.2 Baso % (Auto) 0.2 Lymph # (Auto) 1.1 L [place] # (Auto) 1.1 Eos # (Auto) 0.2 Baso # (Auto) 0.0 Abs Immat Gran (auto) 0.05 H Absolute Neuts (auto) 10.4 H Absolute Nucleated RBC 0.000 Nucleated RBC % (auto) 0.0 VBG pH 7.40 VBG pCO2 47 VBG pO2 51 VBG HCO3 29 H VBG O2 Saturation 83.0 VBG Base Excess 4.2 Sodium Potassium Chloride Carbon Dioxide Anion Gap BUN Creatinine Estim Creat Clear Calc Estimated GFR POC Glucose 112 Random Glucose Calcium Phosphorus Magnesium 06/02/23 06/02/23 06/02/23 05:06 11:29 16:40 WBC RBC Hgb Hct MCV MCH MCHC RDW Plt Count MPV Immature Gran % (Auto) Neut % (Auto) Lymph % (Auto) [place] % (Auto) Eos % (Auto) Baso % (Auto) Lymph # (Auto) [place] # (Auto) Eos # (Auto) Baso # (Auto) Abs Immat Gran (auto) Absolute Neuts (auto) Absolute Nucleated RBC Nucleated RBC % (auto) VBG pH VBG pCO2 VBG pO2 VBG HCO3 VBG O2 Saturation VBG Base Excess Sodium 141 Potassium 4.1 Chloride 107 Carbon Dioxide 25 Anion Gap 13 BUN 17 H Creatinine 0.83 Estim Creat Clear Calc 125.2 Estimated GFR > 60 POC Glucose 128 H 127 H Random Glucose 127 H Calcium 8.2 L Phosphorus 2.5 L Magnesium 2.0 Progress Note: A&P Assessment and plan (1) Acute post-thoracotomy pain: Status: Acute (2) Pulmonary abscess: Status: Acute (3) Cavitating mass in right lower lung lobe: Status: Acute (4) Emphysema lung: Status: Acute Plan Right lower lobe lung abscess- Postop day 2 post mini thoracotomy with right lower lobe superior segmentectomy and bronchoscopy byDr Holt. Epidural drip remains in place, plan to dc today. Will stay in ICU for pain control Quality Stroke Does the patient have a stroke diagnosis?: No VTE Prior VTE?: No VTE Risk Level:: Surgical - moderate VTE Device Contraindication: N/A - Device Ordered VTE Drug Contraindication: Treatment Not Indicated
[2023-06-02] MEDS: Montelukast Sodium 10 MG TABLET PO (19:59)
[2023-06-02] MEDS: cloZAPine 100 MG TABLET PO (19:59)
--- NOTE | 2023-06-02 21:05 | PM.EVENT ---
Event Note Date of Service: 06/02/23 Event Note: Epidural catheter removed wth the tip intact after a bolus of 10 ml bupi 01.125% at 21:07 Time Spent With Patient Time: Total time managing care of this patient today __10__ minutes.
[2023-06-02 23:57] LABS: Glucose, Whole Blood 93 mg/dL (60-115)
[2023-06-03] VITALS (18 sets, daily range): BP systolic 110–126; BP diastolic 65–81; PULSE 70–87; RESP 11–20; TEMP 36.4–37.1; O2SAT 91–96; BMI 28.4
[2023-06-03] MEDS: HYDROmorphone HCl 0.5 MG/0.5 ML SYRINGE IVPUSH ×5 (01:35→18:00)
--- NOTE | 2023-06-03 02:51 | PC.NURSE ---
Epidural infusion on hold prior to beginning of shift at 1900. MD Wright to unit at approx 2100- given Bupivacaine 0.25% 10 mL IVP by provider via epidural then catheter removed. Pt tolerated well. Pain currently managed by PRN Dilaudid 0.5 mg IVP q2hr.
[2023-06-03] MEDS: Lactated Ringers 1,000 ML 80 ML IVCONT (03:37)
[2023-06-03 03:42] LABS: Basophils Absolute Auto 0.1 X10*3/uL (0.0-0.2); Basophils Percent Auto 0.6 % (0-2); Hemoglobin 13.3 g/dl (14.0-18.0); PLT CLUMP 1; SCAN SMEAR FLAG 1
[2023-06-03 03:44] LABS: Eosinophils Absolute Auto 0.3 X10*3/uL (0.0-0.4); Eosinophils Percent Auto 2.4 % (0-4); Hematocrit 40.7 % (42.0-52.0); Imm Gran Abs Auto 0.02 X10*3/uL (0.00-0.03); Imm Gran Pct Auto 0.2 % (0.0-0.4); Lymphocytes Absolute Auto 1.4 X10*3/uL (1.2-4.9); Lymphocytes Percent Auto 13.2 % (20-40); Mean Corpuscular HGB Conc 32.7 g/dl (31.0-36.0); Mean Corpuscular Hemoglobin 28.7 pg (27.0-33.0); Mean Corpuscular Volume 87.9 fL (80.0-98.0); Mean Platelet Volume 10.5 fL (9.4-12.4); Monocytes Absolute Auto 1.1 X10*3/uL (0.1-1.2); Monocytes Percent Auto 10.7 % (2-11); Neutrophils Absolute Auto 7.6 x10*3/uL (2.0-8.3); Neutrophils Percent Auto 72.9 % (45-73); Red Blood Count 4.63 X10*6/uL (4.60-5.80); Red Cell Distribution Width 14.2 % (11.0-16.0)
[2023-06-03 03:48] LABS: VBG Base Excess 6.7 mmol/L; VBG HCO3 32 mmol/L (22-26); VBG pCO2 50 mmHg; VBG pH 7.41 (7.32-7.43); VBG pO2 40 mmHg
[2023-06-03 03:51] LABS: MANUAL DIFF FLAG NO; Platelet Count 138 X10*3/uL (160-400); White Blood Count 10.5 X10*3/uL (4.8-10.8)
[2023-06-03 04:01] LABS: Albumin Level 3.3 g/dL (3.5-5.0); Anion Gap 14 (12-20); Blood Urea Nitrogen 13 mg/dL (9-16); Calcium 8.5 mg/dL (8.4-10.2); Carbon Dioxide 26 mmol/L (22-29); Chloride 107 mmol/L (96-108); Creatinine Clr Calc Pharmacy 116.7; Estimated Glomerular Filt Rate > 60; Glucose Random 104 mg/dL (60-115); Magnesium 1.8 mg/dL (1.6-2.6); Phosphorus 3.1 mg/dL (2.7-4.5); Potassium 3.7 mmol/L (3.3-5.1); Sodium 143 mmol/L (135-145)
[2023-06-03 04:15] LABS: Venous Blood Gas Refer to POC result
[2023-06-03] MEDS: Acetaminophen 1,000 MG/100 ML PIGGYBACK 400 MG IV ×3 (05:55→21:51)
[2023-06-03] MEDS: Levothyroxine Sodium 125 MCG TABLET PO (05:55)
--- NOTE | 2023-06-03 10:00 | P.PNCC_ITS ---
Subjective Subjective Date of Service: 06/03/23 Interval History: 53-year-old gentleman with underlying history of thyroid cancer, emphysema, LUDIN, right lower lobe abscess with poor response to antibiotic treatment, now status post elective right lower lobe superior segmentectomy on 05/31/2023 monitored in intensive care unit postprocedure secondary to postprocedure epidural anesthesia discontinued on 06/02/2023. Recovering well. No events overnight. Critical Care Time (minutes): 0 Physical Exam Vital Signs: Vital Signs: Last Vital Signs Temp 97.6 F 06/03/23 07:00 Pulse 77 06/03/23 09:00 Resp 15 06/03/23 09:00 BP 119/81 06/03/23 09:00 Pulse Ox 94 06/03/23 09:00 O2 Del Method Nasal Cannula 06/03/23 09:00 O2 Flow Rate 2 06/03/23 09:00 FiO2 21 06/01/23 06:00 BMI result Body Mass Index 28.4 Const: General: no acute distress, alert and awake Eyes: Sclerae: sclerae normal EOM: EOMs intact bilaterally Neck: Neck: Yes no lymphadenopathy, Yes trachea midline and Yes supple Chest: Other: Right-sided chest tube with serosanguineous output, tidling. Resp: Effort & Inspection: normal respiratory effort and no respiratory distress Auscultation: clear to auscultation bilaterally Cardio: Rate: regular rate Rhythm: regular rhythm Heart sounds: no gallops, no murmurs and no rubs GI: Palpation (GI): Soft to palpation and Other GI palpation findings present ( Nontender) Auscultation: normal bowel sounds Extrem: General: Yes no pedal edema, No clubbing and No cyanosis Objective Data Labs 06/03/23 03:34 06/03/23 03:34 Labs: Laboratory Results - last 24 hr 06/02/23 06/02/23 06/02/23 11:29 16:40 23:54 WBC RBC Hgb Hct MCV MCH MCHC RDW Plt Count MPV Immature Gran % (Auto) Neut % (Auto) Lymph % (Auto) [place] % (Auto) Eos % (Auto) Baso % (Auto) Lymph # (Auto) [place] # (Auto) Eos # (Auto) Baso # (Auto) Abs Immat Gran (auto) Absolute Neuts (auto) Absolute Nucleated RBC Nucleated RBC % (auto) VBG pH VBG pCO2 VBG pO2 VBG HCO3 VBG O2 Saturation VBG Base Excess Sodium Potassium Chloride Carbon Dioxide Anion Gap BUN Creatinine Estim Creat Clear Calc Estimated GFR POC Glucose 128 H 127 H 93 Random Glucose Calcium Phosphorus Magnesium Albumin 06/03/23 06/03/23 06/03/23 03:34 03:34 03:38 WBC 10.5 RBC 4.63 Hgb 13.3 L Hct 40.7 L MCV 87.9 MCH 28.7 MCHC 32.7 RDW 14.2 Plt Count 138 L MPV 10.5 Immature Gran % (Auto) 0.2 Neut % (Auto) 72.9 Lymph % (Auto) 13.2 L [place] % (Auto) 10.7 Eos % (Auto) 2.4 Baso % (Auto) 0.6 Lymph # (Auto) 1.4 [place] # (Auto) 1.1 Eos # (Auto) 0.3 Baso # (Auto) 0.1 Abs Immat Gran (auto) 0.02 Absolute Neuts (auto) 7.6 Absolute Nucleated RBC 0.000 Nucleated RBC % (auto) 0.0 VBG pH 7.41 VBG pCO2 50 VBG pO2 40 VBG HCO3 32 H VBG O2 Saturation 69.0 VBG Base Excess 6.7 Sodium 143 Potassium 3.7 Chloride 107 Carbon Dioxide 26 Anion Gap 14 BUN 13 Creatinine 0.89 Estim Creat Clear Calc 116.7 Estimated GFR > 60 POC Glucose Random Glucose 104 Calcium 8.5 Phosphorus 3.1 Magnesium 1.8 Albumin 3.3 L Progress Note: A&P Assessment and plan (1) Acute post-thoracotomy pain: Status: Acute (2) Abnormal CT scan, chest: Status: Acute (3) Emphysema lung: Status: Acute (4) Pulmonary abscess: Status: Acute (5) Cavitating mass in right lower lung lobe: Status: Acute (6) LUDIN on CPAP: Status: Acute (7) Schizoaffective disorder: Status: Acute Plan Assessment: 53-year-old gentleman status post elective right lower lobe superior segmentectomy on 06/01/2023 with postprocedure epidural anesthesia removed on 06/02/2023, recovering well. Plan: Neuro: No acute issues. Cardiac: No acute issues. Pulmonary: Status post right lower lobe superior segmentectomy. Thoracic surgery service care appreciated. Right-sided chest tube management per th oracic surgery. Pathology is pending. Renal: No acute issues. Endo: No acute issues. GI: No acute issues. ID: No acute issues Heme/Onc: No acute issues. Psych: No acute issues. Underlying schizoaffective disorder. Miscellaneous: No acute issues. Prophylaxis: Pneumatic compression Diet: regular Quality Stroke Does the patient have a stroke diagnosis?: No VTE Prior VTE?: No VTE Risk Level:: Surgical - moderate VTE Device Contraindication: N/A - Device Ordered VTE Drug Contraindication: Treatment Not Indicated
--- NOTE | 2023-06-03 10:53 | PM.PNTS ---
Subjective Subjective Date of Service: 06/03/23 Interval history: Patient had uneventful evening. Pain under control. no BM or flatus yet. No acute respiratory symptoms. Physical Exam Vital Signs: Vital Signs: Last Vital Signs Temp 97.6 F 06/03/23 07:00 Pulse 78 06/03/23 10:51 Resp 18 06/03/23 10:51 BP 124/76 06/03/23 10:51 Pulse Ox 92 06/03/23 10:51 O2 Del Method Nasal Cannula 06/03/23 10:51 O2 Flow Rate 2 06/03/23 10:51 FiO2 21 06/01/23 06:00 BMI result Body Mass Index 28.4 Chest: Other: dressing removed, incision clean dry and intact. chest tube dressing site change. Pleur-evac minimal output, no air leak. Procedures Date of Service Date of Service: 06/03/23 Progress Note: A&P Assessment and plan (1) Pulmonary abscess: Status: Acute (2) Cavitating mass in right lower lung lobe: Status: Acute Plan Chest tube to water seal, out of bed, incentive spirometry, tentative transfer to floor. Probably DC chest tube tomorrow am, +/_ D/C home later tomorrow. Time Spent With Patient Time: Total time managing care of this patient today ____ minutes. Quality Stroke Does the patient have a stroke diagnosis?: No VTE Prior VTE?: No VTE Risk Level:: Surgical - moderate VTE Device Contraindication: N/A - Device Ordered VTE Drug Contraindication: Treatment Not Indicated
[2023-06-03 11:45] LABS: Glucose, Whole Blood 132 mg/dL (60-115)
--- NOTE | 2023-06-03 11:55 | PM.EVENT ---
Event Note Date of Service: 06/03/23 Event Note: Transfer out of icu today, discussed with Dr. Lopez, stable, no acute issue at moment, will follow with surgery Time Spent With Patient Time: Total time managing care of this patient today ____ minutes.
--- NOTE | 2023-06-03 14:02 | MHC.CM.PN ---
EMR reviewed and per MD rounds, pt is not medically cleared for D/C, pt s/p right lower lobe superior segmentectomy with chest tube in place. Pt transferred [place] [facility] [place]. CM will continue to follow.
[2023-06-03] MEDS: oxyCODONE HCl Immed Release 5 MG TABLET 10 MG PO ×2 (15:20→20:52)
[2023-06-03 18:59] LABS: Glucose, Whole Blood 110 mg/dL (60-115)
[2023-06-03] MEDS: Montelukast Sodium 10 MG TABLET PO (19:57)
[2023-06-03] MEDS: polyethylene glycoL 3350 17 GM POWD.PACK PO (20:52)
[2023-06-03] MEDS: cloZAPine 100 MG TABLET PO (20:52)
[2023-06-04] VITALS: BP 120/70; PULSE 91; RESP 16; TEMP 36.2; O2SAT 91
[2023-06-04] MEDS: Acetaminophen 1,000 MG/100 ML PIGGYBACK 400 MG IV ×2 (03:48→10:30)
[2023-06-04] MEDS: oxyCODONE HCl Immed Release 5 MG TABLET 10 MG PO ×2 (03:54→20:19)
[2023-06-04 04:00] VITALS: BP 133/77; PULSE 78; RESP 16; TEMP 37.2; O2SAT 94
[2023-06-04] MEDS: Levothyroxine Sodium 125 MCG TABLET PO (05:30)
--- NOTE | 2023-06-04 05:46 | PC.NURSE ---
Assumed care at 0545am. Report taken from previous nurse. Pt is sleeping in bed. unable to do full assessment.
[2023-06-04 07:25] LABS: Glucose, Whole Blood 113 mg/dL (60-115)
[2023-06-04 07:27] LABS: MANUAL DIFF FLAG NO
[2023-06-04 07:31] LABS: Basophils Absolute Auto 0.1 X10*3/uL (0.0-0.2); Basophils Percent Auto 0.5 % (0-2); Eosinophils Absolute Auto 0.4 X10*3/uL (0.0-0.4); Hematocrit 43.2 % (42.0-52.0); Hemoglobin 14.5 g/dl (14.0-18.0); Imm Gran Abs Auto 0.02 X10*3/uL (0.00-0.03); Imm Gran Pct Auto 0.2 % (0.0-0.4); Lymphocytes Absolute Auto 1.1 X10*3/uL (1.2-4.9); Lymphocytes Percent Auto 11.5 % (20-40); Mean Corpuscular HGB Conc 33.6 g/dl (31.0-36.0); Mean Corpuscular Hemoglobin 29.3 pg (27.0-33.0); Mean Corpuscular Volume 87.3 fL (80.0-98.0); Mean Platelet Volume 10.3 fL (9.4-12.4); Monocytes Percent Auto 10.6 % (2-11); Neutrophils Percent Auto 73.2 % (45-73); Platelet Count 147 X10*3/uL (160-400); Red Blood Count 4.95 X10*6/uL (4.60-5.80); White Blood Count 9.5 X10*3/uL (4.8-10.8)
[2023-06-04 07:34] VITALS: BP 118/70; PULSE 82; RESP 16; TEMP 36.3; O2SAT 90
[2023-06-04 07:51] LABS: Albumin Level 3.4 g/dL (3.5-5.0); Anion Gap 12 (12-20); Blood Urea Nitrogen 13 mg/dL (9-16); Calcium 8.7 mg/dL (8.4-10.2); Carbon Dioxide 28 mmol/L (22-29); Chloride 106 mmol/L (96-108); Creatinine Clr Calc Pharmacy 128.3; Estimated Glomerular Filt Rate > 60; Glucose Random 118 mg/dL (60-115); Magnesium 1.8 mg/dL (1.6-2.6); Phosphorus 4.7 mg/dL (2.7-4.5); Potassium 3.5 mmol/L (3.3-5.1); Sodium 142 mmol/L (135-145)
--- NOTE | 2023-06-04 09:25 | HO.PM.IMPN ---
Subjective Subjective Date of Service: 06/04/23 Interval History: 53-year-old gentleman with underlying history of thyroid cancer, emphysema, LUDIN, right lower lobe abscess with poor response to antibiotic treatment, now status post elective right lower lobe superior segmentectomy on 05/31/2023 monitored in intensive care unit postprocedure secondary to postprocedure epidural anesthesia discontinued on 06/02/2023.? Doing well with no new issues, chest tube still in no fever Physical Exam Vital Signs: Vital Signs: Last Vital Signs Temp 97.4 F 06/04/23 07:34 Pulse 82 06/04/23 07:34 Resp 16 06/04/23 07:34 BP 118/70 06/04/23 07:34 Pulse Ox 90 L 06/04/23 07:34 O2 Del Method CPAP 06/04/23 07:34 O2 Flow Rate 3 06/04/23 07:34 FiO2 21 06/01/23 06:00 BMI result Body Mass Index 28.4 Const: Other: General: AO X 3, no acute distress Resp: CTA bilateral, right chesttube CVS: S1,S2,RRR GI: +BS, NT, no distention Skin: No rash Neuro: motor grossly intact Psych: appropriate affect Objective Data Active Medications Clozapine (Clozapine 100 Mg Tablet) 100 mg PO BEDTIME [facility] Last Admin: 06/03/23 20:52 Dose: 100 mg Documented By: DENEEN Docusate Sodium (Docusate Sodium 100 Mg Capsule) 100 mg PO BID PRN PRN Reason: Constipation Hydromorphone HCl (Hydromorphone Hcl 0.5 Mg/0.5 Ml Syringe) 0.5 mg IVPUSH Q2H PRN; Protocol PRN Reason: Pain, Severe (Pain Scale 7-10) Last Admin: 06/03/23 18:00 Dose: 0.5 mg Documented By: DENEEN Acetaminophen (Ofirmev) 1,000 mg in 100 mls @ 400 mls/hr IV Q6H [facility] Last Infusion: 06/04/23 04:03 Dose: 0 mls/hr Documented By: NIXON Levothyroxine Sodium (Levothyroxine Sodium 125 Mcg Tablet) 125 mcg PO DAILY@0600 [facility] Last Admin: 06/04/23 05:30 Dose: 125 mcg Documented By: NIXON Montelukast Sodium (Montelukast Sodium 10 Mg Tablet) 10 mg PO BEDTIME [facility] Last Admin: 06/03/23 19:57 Dose: 10 mg Documented By: DENEEN Naloxone HCl (Naloxone Hcl 0.4 Mg/Ml Vial) 0.4 mg IVPUSH Q5M PRN PRN Reason: resp depression or unresponsiv Oxycodone HCl (Oxycodone Hcl Immed Release 5 Mg Tablet) 5 mg PO Q4H PRN PRN Reason: Pain, Moderate(Pain Scale 4-6) Oxycodone HCl (Oxycodone Hcl Immed Release 5 Mg Tablet) 10 mg PO Q4H PRN PRN Reason: Pain, Severe (Pain Scale 7-10) Last Admin: 06/04/23 03:54 Dose: 10 mg Documented By: NIXON Polyethylene Glycol (Polyethylene Glycol 3350 17 Gm Powd.Pack) 17 gm PO DAILY PRN PRN Reason: Constipation Last Admin: 06/03/23 20:52 Dose: 17 gm Documented By: DENEEN Psyllium Hydrophilic Mucilloid (Psyllium Seed 3.4 Gm Powd.Pack) 3.4 gm PO BEDTIME [facility] Last Admin: 06/03/23 19:57 Dose: 3.4 gm Documented By: DENEEN Labs 06/04/23 07:11 06/04/23 07:11 Labs: Laboratory Results - last 24 hr 06/03/23 06/03/23 06/04/23 11:41 18:54 07:11 MCV 87.3 MCH 29.3 MCHC 33.6 RDW 14.0 Plt Count 147 L MPV 10.3 Immature Gran % (Auto) 0.2 Neut % (Auto) 73.2 H Lymph % (Auto) 11.5 L Bucks % (Auto) 10.6 Eos % (Auto) 4.0 Baso % (Auto) 0.5 Lymph # (Auto) 1.1 L [place] # (Auto) 1.0 Eos # (Auto) 0.4 Baso # (Auto) 0.1 Abs Immat Gran (auto) 0.02 Absolute Neuts (auto) 7.0 Absolute Nucleated RBC 0.000 Nucleated RBC % (auto) 0.0 Anion Gap Estim Creat Clear Calc Estimated GFR POC Glucose 132 H 110 Random Glucose Calcium Phosphorus Magnesium Albumin 06/04/23 06/04/23 07:11 07:21 MCV MCH MCHC RDW Plt Count MPV Immature Gran % (Auto) Neut % (Auto) Lymph % (Auto) Bucks % (Auto) Eos % (Auto) Baso % (Auto) Lymph # (Auto) Bucks # (Auto) Eos # (Auto) Baso # (Auto) Abs Immat Gran (auto) Absolute Neuts (auto) Absolute Nucleated RBC Nucleated RBC % (auto) Anion Gap 12 Estim Creat Clear Calc 128.3 Estimated GFR > 60 POC Glucose 113 Random Glucose 118 H Calcium 8.7 Phosphorus 4.7 H Magnesium 1.8 Albumin 3.4 L Assessment and Plan (1) Schizoaffective disorder: Status: Acute (2) LUDIN on CPAP: Status: Acute Plan 53-year-old gentleman with underlying history of thyroid cancer, emphysema, LUDIN, right lower lobe abscess with poor response to antibiotic treatment, now status post elective right lower lobe superior segmentectomy on 05/31/2023 monitored in intensive care unit postprocedure secondary to postprocedure epidural anesthesia discontinued on 06/02/2023 and transfered to [facility] floor on 06/03 chest tube management per surgery Hypothyroidism continue Leveothyroxine LUDIN CPAP ordered for bedtime use Schizoaffective desorder --continue cloazine Time Spent With Patient Time: Total time managing care of this patient today ____ minutes. Quality Stroke Does the patient have a stroke diagnosis?: No VTE Prior VTE?: No VTE Risk Level:: Surgical - moderate VTE Device Contraindication: N/A - Device Ordered VTE Drug Contraindication: Treatment Not Indicated
[2023-06-04 11:07] LABS: Glucose, Whole Blood 124 mg/dL (60-115)
[2023-06-04 11:13] VITALS: BP 119/72; PULSE 95; RESP 16; TEMP 36.9; O2SAT 92
[2023-06-04 15:31] VITALS: BP 122/72; PULSE 93; RESP 20; TEMP 36.9; O2SAT 91
--- NOTE | 2023-06-04 16:49 | PC.NURSE ---
per Dr Holt , tele monitor dc'd
[2023-06-04 18:00] LABS: Glucose, Whole Blood 155 mg/dL (60-115)
[2023-06-04 19:33] VITALS: BP 127/79; PULSE 97; RESP 20; TEMP 37.9; O2SAT 92
[2023-06-04] MEDS: Acetaminophen 325 MG TABLET 650 MG PO (20:20)
[2023-06-04] MEDS: Montelukast Sodium 10 MG TABLET PO (20:20)
[2023-06-04 20:54] LABS: Lactic Acid 1.5 mmol/L (0.5-2.0)
[2023-06-04 20:58] LABS: Appearance Urine Clear; Color Urine Yellow; Glucose Urine UA Negative (Negative); Leukocyte Esterase Urine Negative (Negative); Nitrite Urine Negative (Negative); Specific Gravity - Urine 1.015 (1.005-1.025); Urine Blood Negative (Negative); Urine Ketones Negative (Negative); Urine Protein Negative (Neg-Trace)
[2023-06-04] MEDS: cloZAPine 100 MG TABLET PO (21:54)
[2023-06-05] VITALS (7 sets, daily range): BP systolic 114–124; BP diastolic 66–74; PULSE 76–92; RESP 16–20; TEMP 36.5–37.1; O2SAT 90–95; BMI 26.8
[2023-06-05 00:28] LABS: Glucose, Whole Blood 168 mg/dL (60-115)
[2023-06-05] MEDS: HYDROmorphone HCl 0.5 MG/0.5 ML SYRINGE IVPUSH (02:39)
[2023-06-05] MEDS: Levothyroxine Sodium 125 MCG TABLET PO (06:13)
[2023-06-05 06:16] LABS: Glucose, Whole Blood 123 mg/dL (60-115)
[2023-06-05] MEDS: Acetaminophen 325 MG TABLET 650 MG PO (08:36)
[2023-06-05] MEDS: iohexoL 350 MG/ML 100 ML INFUS..BTL IV (09:31)
--- NOTE | 2023-06-05 09:50 | P.PNTS_ITS ---
Subjective Subjective Date of Service: 06/05/23 <Agnes Mckeon PA-C - Last Filed: 06/05/23 09:59> 06/05/23 <Daniel Holt MD - Last Filed: 06/05/23 11:39> Interval history: Chest tube removed yesterday. Feels ok this morning, weak. Continues to cough up bloody secretions. Does not feel like the amount is lessening. Pain controlled. Has only ambulated to bathroom. Using incentive spirometer hourly. <Agnes Mckeon PA-C - Last Filed: 06/05/23 09:59> Physical Exam Vital Signs: Vital Signs: Last Vital Signs Temp 97.7 F 06/05/23 07:27 Pulse 90 06/05/23 07:27 Resp 20 06/05/23 07:27 BP 119/72 06/05/23 07:27 Pulse Ox 94 06/05/23 07:27 O2 Del Method CPAP 06/05/23 07:27 O2 Flow Rate 5 06/04/23 15:31 FiO2 21 06/01/23 06:00 BMI result Body Mass Index 26.8 <Agnes Mckeon PA-C - Last Filed: 06/05/23 09:59> Const: General: no acute distress and alert <SLOAN Johnson Last Filed: 06/05/23 09:59> Orientation/consciousness: patient oriented x3 <Agnes Mckeon PA-C - Last Filed: 06/05/23 09:59> Chest: Other: right thoractomy incision well approximated and clean, steris intact; chest tube site removal dressing dry and in place <Agnes Mckeon PA-C - Last Filed: 06/05/23 09:59> Resp: Effort & Inspection: normal respiratory effort <SLOAN Johnson Last Filed: 06/05/23 09:59> Auscultation: clear to auscultation bilaterally and diminished lung sounds (right lower ) <SLOAN Johnson Last Filed: 06/05/23 09:59> Cardio: Rate: regular rate <SLOAN Johnson Last Filed: 08/09/23 09:59> Skin: General skin exam: no rashes or lesions noted <Agnes Mckeon PA-C - Last Filed: 06/05/23 09:59> Neuro: General: patient oriented x3 <Agnes Mckeon PA-C - Last Filed: 06/05/23 09:59> Procedures Date of Service Date of Service: 06/05/23 <Agnes Mckeon PA-C - Last Filed: 06/05/23 09:59> 06/05/23 <Daniel Holt MD - Last Filed: 06/05/23 11:39> Progress Note: A&P Assessment and plan (1) Cavitating mass in right lower lung lobe: Status: Acute <Agnes Mckeon PA-C - Last Filed: 06/05/23 09:59> Assessment and Plan: POD #4 s/p right mini thoracotomy, right lower lobe superior se gmentectomy, bronchoscopy Chest tube removed yesterday, f/u CXR showed tiny right apical pneumothorax. Vitals stable. He continues to cough up bloody secretions. Will obtain chest CTA today. Further plan dependent on imaging. Continue incentive spirometer, encouraged ambulation today. Pathology- acute and chronic bronchiolitis and features of bronchiectasis; negative for malignancy. <Agnes Mckeon PA-C - Last Filed: 06/05/23 09:59> POD #4 s/p right mini thoracotomy, right lower lobe superior segmentectomy, bronchoscopy Chest tube removed yesterday, f/u CXR showed tiny right apical pneumothorax. Vitals stable. He continues to cough up bloody secretions. Will obtain chest CTA today. Further plan dependent on imaging. Continue incentive spirometer, encouraged ambulation today. Pathology- acute and chronic bronchiolitis and features of bronchiectasis; negative for malignancy. CTA demonstrates no evidence of active bleeding and consistent with postoperative changes. Encourage incentive spirometry, out of bed, pulmonary therapy. In discussing the patient's status with his sister by phone yesterday, the tenta tive plan is for the patient , when ready for discharge, to do so in his mother's care at her home with VNA services. <Daniel Holt MD - Last Filed: 06/05/23 11:39> Time Spent With Patient Time: Total time managing care of this patient today ____ minutes. <Agnes Mckeon PA-C - Last Filed: 06/05/23 09:59> Quality Stroke Does the patient have a stroke diagnosis?: No <Agnes Mckeon PA-C - Last Filed: 06/05/23 09:59> VTE Prior VTE?: No <Agnes Mckeon PA-C - Last Filed: 06/05/23 09:59> VTE Risk Level:: Surgical - moderate <Agnes Mckeon PA-C - Last Filed: 06/05/23 09:59> VTE Device Contraindication: N/A - Device Ordered <Agnes Mckeon PA-C - Last Filed: 06/05/23 09:59> VTE Drug Contraindication: Treatment Not Indicated <Agnes Mckeon PA-C - Last Filed: 06/05/23 09:59>
--- NOTE | 2023-06-05 11:02 | P.PNIM_ITS ---
Subjective Subjective Date of Service: 06/05/23 Interval History: Doing well, chest tube removed. Physical Exam Vital Signs: Vital Signs: Last Vital Signs Temp 97.7 F 06/05/23 07:27 Pulse 90 06/05/23 07:27 Resp 20 06/05/23 07:27 BP 119/72 06/05/23 07:27 Pulse Ox 94 06/05/23 07:27 O2 Del Method CPAP 06/05/23 07:27 O2 Flow Rate 5 06/04/23 15:31 FiO2 21 06/01/23 06:00 BMI result Body Mass Index 26.8 Const: Other: General: AO X 3, no acute distress Resp: CTA bilateral, right chesttube CVS: S1,S2,RRR GI: +BS, NT, no distention Skin: No rash Neuro: motor grossly intact Psych: appropriate affect Objective Data Active Medications Acetaminophen (Acetaminophen 325 Mg Tablet) 650 mg PO Q8H PRN PRN Reason: Fever Last Admin: 06/05/23 08:36 Dose: 650 mg Documented By: JAKE Clozapine (Clozapine 100 Mg Tablet) 100 mg PO BEDTIME [facility] Last Admin: 06/04/23 21:54 Dose: 100 mg Documented By: DENEEN Docusate Sodium (Docusate Sodium 100 Mg Capsule) 100 mg PO BID PRN PRN Reason: Constipation Hydromorphone HCl (Hydromorphone Hcl 0.5 Mg/0.5 Ml Syringe) 0.5 mg IVPUSH Q2H PRN; Protocol PRN Reason: Pain, Severe (Pain Scale 7-10) Last Admin: 06/05/23 02:39 Dose: 0.5 mg Documented By: ARTURO Levothyroxine Sodium (Levothyroxine Sodium 125 Mcg Tablet) 125 mcg PO DAILY@060 0 [facility] Last Admin: 06/05/23 06:13 Dose: 125 mcg Documented By: ARTURO Montelukast Sodium (Montelukast Sodium 10 Mg Tablet) 10 mg PO BEDTIME [facility] Last Admin: 06/04/23 20:20 Dose: 10 mg Documented By: DENEEN Naloxone HCl (Naloxone Hcl 0.4 Mg/Ml Vial) 0.4 mg IVPUSH Q5M PRN PRN Reason: resp depression or unresponsiv Oxycodone HCl (Oxycodone Hcl Immed Release 5 Mg Tablet) 5 mg PO Q4H PRN PRN Reason: Pain, Moderate(Pain Scale 4-6) Oxycodone HCl (Oxycodone Hcl Immed Release 5 Mg Tablet) 10 mg PO Q4H PRN PRN Reason: Pain, Severe (Pain Scale 7-10) Last Admin: 06/04/23 20:19 Dose: 10 mg Documented By: DENEEN Polyethylene Glycol (Polyethylene Glycol 3350 17 Gm Powd.Pack) 17 gm PO DAILY PRN PRN Reason: Constipation Last Admin: 06/03/23 20:52 Dose: 17 gm Documented By: DENEEN Psyllium Hydrophilic Mucilloid (Psyllium Seed 3.4 Gm Powd.Pack) 3.4 gm PO BEDTIME [facility] Last Admin: 06/04/23 20:22 Dose: 3.4 gm Documented By: DENEEN Labs 06/04/23 07:11 06/04/23 07:11 Labs: Laboratory Results - last 24 hr 06/04/23 06/04/23 06/04/23 10:55 17:55 20:28 POC Glucose 124 H 155 H Lactic Acid Urine Color Yellow Urine Appearance Clear Urine pH 7.0 Ur Specific Grace 1.015 Urine Protein Negative Urine Glucose (UA) Negative Urine Ketones Negative Urine Blood Negative Urine Nitrite Negative Ur Leukocyte Esterase Negative 06/04/23 06/05/23 06/05/23 20:33 00:21 06:06 POC Glucose 168 H 123 H Lactic Acid 1.5 Urine Color Urine Appearance Urine pH Ur Specific Grace Urine Protein Urine Glucose (UA) Urine Ketones Urine Blood Urine Nitrite Ur Leukocyte Esterase Assessment and Plan (1) LUDIN on CPAP: Status: Acute (2) Schizoaffective disorder: Status: Acute Plan 53-year-old gentleman with underlying history of thyroid cancer, emphysema, LUDIN, right lower lobe abscess with poor response to antibiotic treatment, now status post elective right lower lobe superior segmentectomy on 05/31/2023 monitored in intensive care unit postprocedure secondary to postprocedure epidural anesthesia discontinued on 06/02/2023 and transfered to [facility] floor on 06/03 chest tube management per surgery Hypothyroidism continue Leveothyroxine LUDIN CPAP ordered for bedtime use Schizoaffective desorder --continue cloazine Time Spent With Patient Time: Total time managing care of this patient today ____ minutes. Quality Stroke Does the patient have a stroke diagnosis?: No VTE Prior VTE?: No VTE Risk Level:: Surgical - moderate VTE Device Contraindication: N/A - Device Ordered VTE Drug Contraindication: Treatment Not Indicated
--- NOTE | 2023-06-05 12:05 | MHC.CM.PN ---
EMR REVIEWED, PER [facility] PT REMAINS WEAK W/BLOODY SECRETIONS, NO PLAN FOR D/C AT THIS TIME, CM WILL CONT TO FOLLOW D/C NEEDS, CM CONTACTED [facility] THEY HAD NOT RESPONDED TO REFERRAL IN [facility] FROM 06/01, PER [facility] THE LIAISON IS OUT THIS WEEK AND REQUESTED CM TO CALL [phone] WHEN PT READY FOR D/C AND FAX D/C SUMMARY TO [phone] WHEN READY FOR D/C. CM WILL CONT TO FOLLOW D/C NEEDS.
[2023-06-05] MEDS: polyethylene glycoL 3350 17 GM POWD.PACK PO (13:24)
[2023-06-05] MEDS: oxyCODONE HCl Immed Release 5 MG TABLET PO ×2 (17:25→21:55)
[2023-06-05] MEDS: Montelukast Sodium 10 MG TABLET PO (20:23)
[2023-06-05] MEDS: cloZAPine 100 MG TABLET PO (20:23)
[2023-06-06 03:19] VITALS: BP 117/69; PULSE 89; RESP 18; TEMP 36.7; O2SAT 97
[2023-06-06 04:53] LABS: Glucose, Whole Blood 122 mg/dL (60-115)
[2023-06-06 06:00] VITALS: BMI 26.8
[2023-06-06] MEDS: Levothyroxine Sodium 125 MCG TABLET PO (06:14)
[2023-06-06 07:34] VITALS: BP 100/62; PULSE 79; RESP 17; TEMP 36.6; O2SAT 94
--- NOTE | 2023-06-06 08:37 | P.PNIM_ITS ---
Subjective Subjective Date of Service: 06/06/23 Interval History: Doing well, no issues overnight, breathing ok Physical Exam Vital Signs: Vital Signs: Last Vital Signs Temp 97.8 F 06/06/23 07:34 Pulse 79 06/06/23 07:34 Resp 17 06/06/23 07:34 BP 100/62 06/06/23 07:34 Pulse Ox 94 06/06/23 07:34 O2 Del Method Nasal Cannula 06/06/23 07:34 O2 Flow Rate 2 06/06/23 07:34 FiO2 21 06/01/23 06:00 BMI result Body Mass Index 26.8 Const: Other: General: AO X 3, no acute distress Resp: CTA bilateral, CVS: S1,S2,RRR GI: +BS, NT, no distention Skin: No rash Neuro: motor grossly intact Psych: appropriate affect Objective Data Active Medications Acetaminophen (Acetaminophen 325 Mg Tablet) 650 mg PO Q8H PRN PRN Reason: Fever Last Admin: 06/05/23 08:36 Dose: 650 mg Documented By: JAKE Clozapine (Clozapine 100 Mg Tablet) 100 mg PO BEDTIME [facility] Last Admin: 06/05/23 20:23 Dose: 100 mg Documented By: SPEEDY Docusate Sodium (Docusate Sodium 100 Mg Capsule) 100 mg PO BID PRN PRN Reason: Constipation Hydromorphone HCl (Hydromorphone Hcl 0.5 Mg/0.5 Ml Syringe) 0.5 mg IVPUSH Q2H PRN; Protocol PRN Reason: Pain, Severe (Pain Scale 7-10) Last Admin: 06/05/23 02:39 Dose: 0.5 mg Documented By: ARTURO Levothyroxine Sodium (Levothyroxine Sodium 125 Mcg Tablet) 125 mcg PO DAILY@060 0 [facility] Last Admin: 06/06/23 06:14 Dose: 125 mcg Documented By: SPEEDY Montelukast Sodium (Montelukast Sodium 10 Mg Tablet) 10 mg PO BEDTIME [facility] Last Admin: 06/05/23 20:23 Dose: 10 mg Documented By: SPEEDY Naloxone HCl (Naloxone Hcl 0.4 Mg/Ml Vial) 0.4 mg IVPUSH Q5M PRN PRN Reason: resp depression or unresponsiv Oxycodone HCl (Oxycodone Hcl Immed Release 5 Mg Tablet) 5 mg PO Q4H PRN PRN Reason: Pain, Moderate(Pain Scale 4-6) Last Admin: 06/05/23 21:55 Dose: 5 mg Documented By: SPEEDY Oxycodone HCl (Oxycodone Hcl Immed Release 5 Mg Tablet) 10 mg PO Q4H PRN PRN Reason: Pain, Severe (Pain Scale 7-10) Last Admin: 06/04/23 20:19 Dose: 10 mg Documented By: DENEEN Polyethylene Glycol (Polyethylene Glycol 3350 17 Gm Powd.Pack) 17 gm PO DAILY PRN PRN Reason: Constipation Last Admin: 06/05/23 13:24 Dose: 17 gm Documented By: JAKE Psyllium Hydrophilic Mucilloid (Psyllium Seed 3.4 Gm Powd.Pack) 3.4 gm PO BEDTIME [facility] Last Admin: 06/05/23 20:23 Dose: 3.4 gm Documented By: SPEEDY Labs 06/04/23 07:11 06/04/23 07:11 Labs: Laboratory Results - last 24 hr 06/06/23 04:50 POC Glucose 122 H Microbiology Microbiology Results: Microbiology 06/04/23 20:33 Blood Culture - Preliminary Blood - Venous No growth after 24 hours. 06/04/23 20:33 Blood Culture - Preliminary Blood - Venous No growth after 24 hours. Assessment and Plan (1) LUDIN on CPAP: Status: Acute (2) Schizoaffective disorder: Status: Acute Plan 53-year-old gentleman with underlying history of thyroid cancer, emphysema, LUDIN, right lower lobe abscess with poor response to antibiotic treatment, now status post elective right lower lobe superior segmentectomy on 05/31/2023 monitored in intensive care unit postprocedure secondary to postprocedure epidural anesthesia discontinued on 06/02/2023 and transfered to [facility] floor on 06/03 chest tube, removed Hypothyroidism continue Leveothyroxine LUDIN CPAP ordered for bedtime use Schizoaffective desorder --continue cloazine medically ok to discharge, check O2 on room air Time Spent With Patient Time: Total time managing care of this patient today ____ minutes. Quality Stroke Does the patient have a stroke diagnosis?: No VTE Prior VTE?: No VTE Risk Level:: Surgical - moderate VTE Device Contraindication: N/A - Device Ordered VTE Drug Contraindication: Treatment Not Indicated
[2023-06-06 11:35] VITALS: BP 124/67; PULSE 89; RESP 17; TEMP 36.9; O2SAT 93
[2023-06-06 13:05] LABS: Glucose, Whole Blood 150 mg/dL (60-115)
--- NOTE | 2023-06-06 14:16 | P.DS_ITS ---
DS: Providers Provider Date of Service: 06/06/23 Date of admission: 05/31/23 09:35 Date of discharge: 06/06/23 Primary care physician: Elijah Aguilar MD Attending physician on admission: Daniel Holt Consults: 06/03/23 11:32 Consult to Hospitalist Routine Comment: Consulting Provider: Hospitalist Reason For Exam: Medical comanagement Attending physician on discharge: Daniel Holt DS: Diagnosis Discharge Diagnosis (1) LUDIN on CPAP: Status: Acute (2) Schizoaffective disorder: Status: Acute DS: Summary Hospital Course Hospital Course: HPI AT ADMISSION: Patient presents for evaluation of a cavitary enlarging right lower lobe lung mass.? Patient was initially evaluated September and was treated for a right lower lobe pneumonia.? He has had persistent symptoms of weight loss, and streaky hemoptysis, and general constitutional symptoms of feeling unwell.? Sequential CT scans while on antibiotics show enlargement of this right lower lobe superior segment cavitary process. Status post IR lung biopsy was demonstrates no malignancy and inflammatory/infectious etiology. Due to persistent symptoms and enlarging nature of the mass, it was recommended to proceed with right thoracotomy, right lower lobe wedge resection or possible lobectomy based on intraoperative findings. The concern is to avoid entering this cavity during surgery to minimize spillage. This is why open approach is being undertaken as opposed to thoracoscopy. HOSPITAL COURSE: On 05/31/23, a right mini thoracotomy, right lower lobe superior segmentectomy, bronchoscopy was performed by Dr. Holt without complication. 28F chest tube was placed. The patient was extubated uneventfully and recovered in PACU and observed in the ICU for pain control with his epidural in place. He had an uneventful post operative course. He had great pain control with his epidural in place. His pleur-evac output was minimal with no air leak. He was using his incentive spirometer hourly. He remained in ICU through POD #2 and his epidural was removed that night. He was transferred to the telemetry floor and [facility] was consulted for medical management. His chest tube was placed to water seal on POD #3. He was ambulated. The following day, there was no air leak. His chest tube was removed uneventfully. Follow up CXR showed a very small right pneumothorax. He continued to cough up bloody secretions through POD #5 and therefore chest CTA was performed which revealed postsurgical changes. His pain control remained adequate on oral analgesics. His vitals were stable and his thoractomy site clean. His bloody secretions decreased. He was discharged to home in stable condition with VNA services on 06/06/23. He is to follow up in office with Dr. Holt in 1 week. VNA dressing change: chest tube site- xeroform followed by 4x4 dressing and silk tape. Change every other day. Status at Discharge Functional status at discharge: independent ambulation Overall status at discharge: patient is progressing back to baseline Time Spent with Patient Time attestation: Total time managing care of this patient today ____ minutes. Discharge coordination time: Less than 30 minutes Quality: Safe Use of Opioids Does Pt have an Active Cancer Diagnosis on the Problem List?: No Quality: Stroke Does the patient have a stroke diagnosis?: No Physical Exam Vital Signs: Vital Signs: Last Vital Signs Temp 98.5 F 06/06/23 11:35 Pulse 89 06/06/23 11:35 Resp 17 06/06/23 11:35 BP 124/67 06/06/23 11:35 Pulse Ox 93 06/06/23 11:35 O2 Del Method Nasal Cannula 06/06/23 11:35 O2 Flow Rate 2 06/06/23 11:35 FiO2 21 06/01/23 06:00 BMI result Body Mass Index 26.8 Const: General: comfortable, no acute distress and alert Orientation/consciousness: patient oriented x3 Chest: Other: right thoractomy incision clean chest tube site dressing clean Resp: Effort & Inspection: normal respiratory effort Skin: General skin exam: no rashes or lesions noted Neuro: General: patient oriented x3 and moves all extremities DS: Data Data Completed and Pending Completed studies during hospitalization [Text1]: 05/31/23 10:16 Surgical Path [Surgical] [PTH] Routine Lung, right lower lobe superior segment, resection: Acute and chronic bro nchiolitis and features of bronchiectasis; negative for malignancy. Labs on day of discharge: Laboratory Results - last 24 hr 06/06/23 06/06/23 04:50 12:57 POC Glucose 122 H 150 H Preliminary micro results at discharge 06/04/23 20:33 Blood Culture - Preliminary Blood - Venous No growth after 24 hours. 06/04/23 20:33 Blood Culture - Preliminary Blood - Venous No growth after 24 hours. Discharge Plan Discharge Anticipated Discharge Date/Time: 06/06/23 10:30 Patient Disposition: Home Health Service Discharge Diagnosis: RLL cavitating mass Referrals: [facility] [Outside] - 1 Day (RESUMPTION OF SNF) Elijah Aguilar MD [Primary Care Provider] - 1 Week Daniel Holt MD [Physician] - 1 Week Discharge Medications: New docusate sodium [Colace] 100 mg capsule 100 mg PO BID PRN (Reason: constipation) Qty: 30 0RF oxycodone 5 mg tablet 5 mg PO Q4H PRN (Reason: pain (scale score 7-10)) Qty: 30 0RF Rx Instructions: Partial Fill upon patient request. Take 1-2 tablets as needed every 4-6 hours for pain. Continued polyethylene glycol 3350 [Miralax] 17 gram Powder In Packet 17 g PO BEDTIME Fiber Gummies 1 tab PO BEDTIME Patient Comments: Metamucil Fiber Gummies 5 grams 3 at bedtime acetaminophen 325 mg Tablet 650 mg PO Q4-6H PRN (Reason: Pain) cholecalciferol (vitamin D3) 1,250 mcg (50,000 unit) capsule 1,250 mcg PO .QWEEKTUESDAY clozapine [Clozaril] 100 mg tablet 100 mg PO BEDTIME Patient Comments: Mylan brand only levothyroxine 125 mcg capsule 125 mcg PO DAILY montelukast 10 mg tablet 10 mg PO BEDTIME Discharge Orders: Discharge Order (Routine); Ordered 06/06/23 Ordered By: Agnes Mckeon Diet: Advance to usual diet Activity on Discharge: No heavy lifting Stand Alone Forms: Patient Portal Discharge page Activity Restrictions/Additional Instructions: Continue to use your incentive spirometer 10x an hour every day. Ok to shower 48 hours after your surgery. You have steri strips (small white cloth strips) cove ring your incision- these will fall off ~1 week. Chest tube site dressing change with xeroform, 4x4 sponge and silk tape. Change every other day. Follow up in office with Dr. Holt in 1 week. ([phone]) No heavy lifting (>10lbs) or strenuous activity! Call Your Doctor If: -Your temperature exceeds 101.5? F -You experience excessive pain or swelling -You have an unexpected reaction to medication -You have excessive bleeding -You experience continued vomiting/nausea -Your incision begins to separate -Your incision shows signs of infection such as increased redness, swelling, excessive pain, drainage (light blood or clear fluid is normal) or heat Care Plan Goals: Return to baseline health and resume normal activities following recovery period. Health Concerns: Cavitating mass RLL Plan of Treatment: s/p thoractomy, Assessment: Doing well post op
[2023-06-06] MEDS: oxyCODONE HCl Immed Release 5 MG TABLET PO (16:24)
[2023-06-06] MEDS: polyethylene glycoL 3350 17 GM POWD.PACK PO (16:24)
== END 2023-06-06 17:44 | disposition home health service (06) | DRG 165 ==
LOC: HO.SSSA 09:41 → HO.ICU 11:26 → HO.IMC 06-03 13:57
PROVIDERS: Internal Medicine; Internal Medicine Pulmonary Disease; Physician Assistant Surgical; Registered Nurse Community Health; Surgery; Admitting Provider Surgery; PCP Internal Medicine; Visit Provider Surgery
PROC: 0BBF0ZZ Excision of Right Lower Lung Lobe, Open Approach (ICD-10-PCS; 2023-05-31 07:30)
DX: J85.2 Abscess of lung without pneumonia (principal); J47.9 Bronchiectasis, uncomplicated; G47.33 Obstructive sleep apnea (adult) (pediatric); F42.9 Obsessive-compulsive disorder, unspecified; F25.9 Schizoaffective disorder, unspecified; J98.4 Other disorders of lung; G89.18 Other acute postprocedural pain; J43.9 Emphysema, unspecified; E89.0 Postprocedural hypothyroidism; Z85.850 Personal history of malignant neoplasm of thyroid; Z92.3 Personal history of irradiation; Z87.891 Personal history of nicotine dependence; Z79.890 Hormone replacement therapy; Z79.899 Other long term (current) drug therapy
CPT/HCPCS: 36415; 71045; 71275; 80048; 81003; 82040; 82803; 82947; 83605; 83735; 84100; 85025; 86850; 86900; 86901; 87040; 88307; 88309; 99499; C1758; J0131; J0690; J1100; J1170; J1885; J2250; J2371; J2405; J2795; J3010; J3370; Q9967

== ENCOUNTER → 2023-05-31 09:35 | Outpatient (BNV) | payer OTHER, SELFPAY | PROVIDERS: Admitting Provider Surgery; Visit Provider Surgery | DX: G47.33 Obstructive sleep apnea (adult) (pediatric) (principal); F25.9 Schizoaffective disorder, unspecified | CPT/HCPCS: 32484; 99024 ==

== ENCOUNTER → 2023-05-31 09:35 | Outpatient (BNV) | payer OTHER, SELFPAY | PROVIDERS: Admitting Provider Surgery; Visit Provider Internal Medicine Pulmonary Disease | DX: G89.12 Acute post-thoracotomy pain (principal); R93.89 Abnormal findings on diagnostic imaging of other specified body structures; J43.9 Emphysema, unspecified; J85.2 Abscess of lung without pneumonia | CPT/HCPCS: 99232 ==

== ENCOUNTER → 2023-05-31 09:35 | Outpatient (BNV) | payer OTHER, SELFPAY | PROVIDERS: Admitting Provider Surgery; Visit Provider Internal Medicine | DX: G47.33 Obstructive sleep apnea (adult) (pediatric) (principal); F25.9 Schizoaffective disorder, unspecified | CPT/HCPCS: 99232; 99499 ==

== ENCOUNTER 2023-06-12 08:29 | Inpatient (IN) | payer OTHER, SELFPAY ==
[2023-06-12] VITALS (8 sets, daily range): BP systolic 100–121; BP diastolic 55–69; PULSE 75–94; RESP 12–22; TEMP 36.9–39.1; O2SAT 92–95; BMI 24.4; BMI 24.3
--- NOTE | ~2023-06-12 | XR_ITS ---
EXAMINATION: XR CHEST CLINICAL INFORMATION: Follow-up right lower lobe pneumonia. 3 weeks post right lower lobe superior segmentectomy. COMPARISON: Previous outside chest CT 06/05/2023 and chest x-ray 06/04/2023. Some images from outside chest CT 06/12/2023. All images not available. TECHNIQUE: Frontal view of the chest was obtained. FINDINGS: The cardiac and mediastinal contours are stable. The lung volumes are low. There is still airspace disease or consolidation seen at the right lung base. There is probably not appreciably changed from previous chest CT scans. There is atelectasis at the left lung base. There is a small right hydropneumothorax. There is right chest wall and neck subcutaneous emphysema. These findings are not appreciably changed from chest CT 06/05/2023. No pneumothorax or subcutaneous emphysema is appreciated on available images from outside most recent chest CT May 2023. There are degenerative changes of the spine. Surgical clips in the midline lower neck from previous thyroidectomy. XR/XR chest 1V IMPRESSION: Consolidation at the right lung base probably not appreciably changed. Small right hydropneumothorax and right neck and chest wall subcutaneous emphysema. This appears similar to chest CT 06/05/2023. This is not appreciated on available images from outside chest CT 06/12/2023. Findings will be communicated by the [place] work flow broker.
--- NOTE | ~2023-06-12 | US_ITS ---
EXAMINATION: US ABDOMEN LIMITED CLINICAL INFORMATION: Abnormal LFTs. COMPARISON: None available. TECHNIQUE: Real-time imaging of the right upper quadrant abdominal viscera. FINDINGS: PANCREAS: Visualized portions unremarkable. LIVER: Unremarkable. GALLBLADDER: Minimal dependent sludge without mural thickening or pericholecystic fluid. COMMON BILE DUCT: Normal in caliber measuring 0.2 cm in diameter. RIGHT KIDNEY: 14.6 cm. An interpolar anechoic cyst measures 2.5 cm. Color Doppler showed no abnormal vascular flow. No hydronephrosis. FREE FLUID: None. US/US abdomen limited IMPRESSION: 1. Gallbladder minimal dependent sludge without evidence for acute cholecystitis. 2. Right renal cyst demonstrates benign features not requiring follow-up.
--- NOTE | 2023-06-12 08:41 | ED.FEVER ---
HPI - Fever General Chief Complaint: Fever Stated Complaint: Lung Abscess Time Seen by Provider: 06/12/23 08:32 Source: patient, EMS and old records reviewed Mode of arrival: EMS Limitations: no limitations History of Present Illness HPI Narrative: 53 yo male with hx of schizoaffective disorder, LUDIN on CPAP, pulmonary abscess s/p R lower lobe resection superior segment on 05/31 - had chest tube at that time. He went to [place] in the middle of the night and reported fevers at home up to 100 and not feeling well. He reports intermittent uchanged hemoptysis and states he just doesn't feel well. He has no n/v/d. He notes he has been eating less. He was seen at [place] had WBC count of 15 CT chest showed R lower lobe 4 cm lesion with air in it and started on vanco and zosyn. He was transferred here given his surgeon was Dr. Holt who was made aware by Dr. Ricardo. MD elicited complaint: fever and malaise Pertinent past history: other (recent R lung surgery ) Onset (ago): day(s) (3) Context: recent procedure Exacerbating factors: nothing Relieving factors: acetaminophen Associated symptoms: chills, myalgias and cough Treatments prior to arrival fever: antibiotics Related Data Home Medications Medication Instructions Recorded Confirmed clozapine 100 mg tablet (Clozaril) 100 mg PO BEDTIME 11/01/22 05/24/23 levothyroxine 125 mcg capsule 125 mcg PO DAILY 11/01/22 05/24/23 montelukast 10 mg tablet 10 mg PO BEDTIME 11/01/22 05/31/23 Fiber Gummies 1 tab PO BEDTIME 05/24/23 05/31/23 acetaminophen 325 mg tablet 650 mg PO Q4-6H PRN Pain 05/24/23 05/31/23 cholecalciferol (vitamin D3) 1,250 1,250 mcg PO .QWEEKTUESDAY 05/24/23 05/31/23 mcg (50,000 unit) capsule polyethylene glycol 3350 17 gram 17 g PO BEDTIME 05/24/23 05/31/23 oral powder packet (Miralax) Previous Rx's Medication Instructions Recorded docusate sodium 100 mg capsule 100 mg PO BID PRN constipation #30 06/06/23 (Colace) caps hydrocodone 5 mg-acetaminophen 325 1 tab PO Q4-6H PRN pain #30 tabs 06/06/23 mg tablet oxycodone 5 mg tablet 5 mg PO Q4H PRN pain (scale score 06/06/23 7-10) #30 tabs Allergies Allergy/AdvReac Type Severity Reaction Status Date / Time diphenhydramine Allergy Intermediate Shortness Verified 05/24/23 13:27 [From Benadryl] of Breath Review of Systems Review of Systems: Constitutional : pos Fever, pos Chills ENT/Mouth : No sore throat, No Rhinorrhea, No Swallowing Difficulty Eyes: No Eye Pain, No Swelling, No Redness Cardiovascular : No Chest Pain, positive SOB, No Orthopnea, no Edema Respiratory : pos Cough, pos Sputum, No Wheezing, positive dyspnea Gastrointestinal : No Nausea, No Vomiting, No Diarrhea, No abdominal Pain, No Hematochezia, No Melena Genitourinary : No Dysuria, No Urinary Frequency, No Hematuria Musculoskeletal : No joint pain, No Myalgias Skin : No Skin Lesions, No rash Neuro : pos Weakness, No Numbness, No Dizziness, No Headache Psych : No Anxiety/Panic, No Depression All other systems reviewed and are negative [facility] Past Medical History Attestation statement: The following information was validated with the patient. Medical History Constipation Coughing up blood Dermatitis Hx of bacterial pneumonia Hx of thyroid cancer Low vitamin D level OCD (obsessive compulsive disorder) LUDIN on CPAP PONV (postoperative nausea and vomiting) Schizoaffective disorder Vertigo Surgical History History of lung biopsy History of surgery on lower extremity History of thyroidectomy Hx of colonoscopy Family History Family History Maternal Grandfather Lung cancer Father Cancer of appendix Prostate cancer Paternal Uncle Prostate cancer Paternal Grandfather Prostate cancer Social History Social History Household Members: None Housing: Apartment Are you a primary primary care nurse to a significant other at home: No Do you presently have visiting nurse or other home services: Yes (3 DAYS A WEEK) Alcohol intake: never Patient Tobacco Use Status: Former Tobacco user Quit Date: 2009 Tobacco use type: Cigarette Smoked in Last 30 Days: No Use of substances other than those prescribed or required for medical reasons: No Advance Directives: No service: No Physical Exam Vital Signs: Vital Signs: Last Vital Signs Temp 100.1 F 06/12/23 10:11 Pulse 89 06/12/23 10:11 Resp 19 06/12/23 10:11 BP 108/63 06/12/23 10:11 Pulse Ox 94 06/12/23 10:11 O2 Del Method Room Air 06/12/23 10:11 BMI result Body Mass Index 24.4 Appearance: Alert. Oriented X3. No acute distress. Eyes: Pupils equal, round and reactive to light. ENT: Pharynx normal. Neck: Normal inspection. Neck supple. CVS: Normal heart rate and rhythm. Pulses normal. Respiratory: No respiratory distress. Breath sounds diminished R side, incision sites are c/d/i Abdomen: Soft and nontender. Skin: Skin warm and dry. Normal skin color. Normal skin turgor. Extremities: No lower extremity edema. No calf ttp Neuro: Oriented X 3. No motor deficit. No sensory deficit. Course Course Course Narrative: US given abnormal LFTs Medications Administered Generic Name Dose Route Start Last Admin Trade Name Freq PRN Reason Stop Dose Admin Lactated Ringer's 1,000 mls @ 100 mls/hr 06/12/23 10:15 06/12/23 10:13 Lr IVCONT 100 mls/hr .Q10H CRISPIN Administration Discontinued Medications Generic Name Dose Route Start Last Admin Trade Name Freq PRN Reason Stop Dose Admin Piperacillin Sod/Tazobactam 50 mls @ 100 mls/hr 06/12/23 08:53 06/12/23 10:13 Sod 3.375 gm/ Sodium Chloride IV 06/12/23 09:22 100 mls/hr ONCE ONE Administration Medical Decision Making Medical Decision Making MDM Narrative: 53 yo male with hx of schizoaffective disorder, LUDIN on CPAP, pulmonary abscess s/p R lower lobe resection superior segment on 05/31 here with fevers, persistent cough dx with R sided lesion and air out [facility] at this time he had labs showing 15 WBC count I see no cultures in list though doctor did document it - will repeat labs and cultures and start on 2nd dose of zosyn. He is going to be admitted for treatment and I will notify surgery of his arrival. Differential Diagnosis Differential Diagnoses: The differential diagnosis associated with the presentation includes pneumonia, COVID, abscess Admission/Observation Consideration of admission/observation: Escalation of care including admission/observation considered admit for IV antibiotics Consult Healthcare Provider Management of the patient was discussed with: Orthodontist Assistant surgery aware and will admit Lab Data [facility] Lab Attestation statement: I reviewed the patient's lab results. 06/12/23 09:26 06/12/23 09:26 Labs: Lab Results 06/12/23 06/12/23 06/12/23 Range/Units 09:26 09: 09:26 WBC 17.2 H (4.8-10.8) X10*3/uL RBC 4.62 (4.60-5.80) X10*6/uL Hgb 13.0 L (14.0-18.0) g/dl Hct 38.3 L (42.0-52.0) % MCV 82.9 (80.0-98.0) fL MCH 28.1 (27.0-33.0) pg MCHC 33.9 (31.0-36.0) g/dl RDW 13.2 (11.0-16.0) % Plt Count 275 D (160-400) X10*3/uL MPV 9.7 (9.4-12.4) fL Immature Gran % (Auto) 0.5 H (0.0-0.4) % Neut % (Auto) 86.7 H (45-73) % Lymph % (Auto) 3.2 L (20-40) % Phillips % (Auto) 8.7 (2-11) % Eos % (Auto) 0.6 (0-4) % Baso % (Auto) 0.3 (0-2) % Lymph # (Auto) 0.6 L (1.2-4.9) X10*3/uL Phillips # (Auto) 1.5 H (0.1-1.2) X10*3/uL Eos # (Auto) 0.1 (0.0-0.4) X10*3/uL Baso # (Auto) 0.1 (0.0-0.2) X10*3/uL Abs Immat Gran (auto) 0.08 H (0.00-0.03) X10*3/uL Absolute Neuts (auto) 14.9 H (2.0-8.3) x10*3/uL Absolute Nucleated RBC 0.000 (0.0-0.012) X10*3/uL Nucleated RBC % (auto) 0.0 (0.0-0.2) /100WBC Sodium 138 (135-145) mmol/L Potassium 3.6 (3.3-5.1) mmol/L Chloride 102 (96-108) mmol/L Carbon Dioxide 27 (22-29) mmol/L Anion Gap 13 (12-20) BUN 14 (9-16) mg/dL Creatinine 0.98 (0.5-1.4) mg/dL Estim Creat Clear Calc 97.3 Estimated GFR > 60 Random Glucose 141 H (60-115) mg/dL Lactic Acid 0.9 (0.5-2.0) mmol/L Calcium 8.7 (8.4-10.2) mg/dL Magnesium 2.5 (1.6-2.6) mg/dL Total Bilirubin 3.1 H (0.0-1.0) mg/dL Direct Bilirubin 1.6 H (0.0-0.5) mg/dL AST 38 H (5-37) U/L ALT 54 H (0-40) U/L Alkaline Phosphatase 114 (39-117) U/L Total Protein 6.8 (6.5-8.0) g/dL Albumin 3.4 L (3.5-5.0) g/dL Procalcitonin 0.40 ng/mL COVID-19 ([facility]) (Negative) COVID-19 Clin Com 06/12/23 Range/Units 09:26 WBC (4.8-10.8) X10*3/uL RBC (4.60-5.80) X10*6/uL Hgb (14.0-18.0) g/dl Hct (42.0-52.0) % MCV (80.0-98.0) fL MCH (27.0-33.0) pg MCHC (31.0-36.0) g/dl RDW (11.0-16.0) % Plt Count (160-400) X10*3/uL MPV (9.4-12.4) fL Immature Gran % (Auto) (0.0-0.4) % Neut % (Auto) (45-73) % Lymph % (Auto) (20-40) % Phillips % (Auto) (2-11) % Eos % (Auto) (0-4) % Baso % (Auto) (0-2) % Lymph # (Auto) (1.2-4.9) X10*3/uL Phillips # (Auto) (0.1-1.2) X10*3/uL Eos # (Auto) (0.0-0.4) X10*3/uL Baso # (Auto) (0.0-0.2) X10*3/uL Abs Immat Gran (auto) (0.00-0.03) X10*3/uL Absolute Neuts (auto) (2.0-8.3) x10*3/uL Absolute Nucleated RBC (0.0-0.012) X10*3/uL Nucleated RBC % (auto) (0.0-0.2) /100WBC Sodium (135-145) mmol/L Potassium (3.3-5.1) mmol/L Chloride (96-108) mmol/L Carbon Dioxide (22-29) mmol/L Anion Gap (12-20) BUN (9-16) mg/dL Creatinine (0.5-1.4) mg/dL Estim Creat Clear Calc Estimated GFR Random Glucose (60-115) mg/dL Lactic Acid (0.5-2.0) mmol/L Calcium (8.4-10.2) mg/dL Magnesium (1.6-2.6) mg/dL Total Bilirubin (0.0-1.0) mg/dL Direct Bilirubin (0.0-0.5) mg/dL AST (5-37) U/L ALT (0-40) U/L Alkaline Phosphatase (39-117) U/L Total Protein (6.5-8.0) g/dL Albumin (3.5-5.0) g/dL Procalcitonin ng/mL COVID-19 ([facility]) Negative (Negative) COVID-19 Clin Com See Note Independent Interpretation I performed an independent interpretation of an: Ultrasound and CT Scan Radiology Impression Discussion of test interpretation with radiology: I have reviewed the radiologist's reading. Independent Historian Clinical information obtained from an independent historian. History obtained from or confirmed by: EMS External Record Review External record reviewed: Inpatient record and Outpatient record Discharge Plan Discharge Clinical Impression: Pneumonia Qualifiers: Pneumonia type: due to unspecified organism Laterality: right Lung location: lower lobe of lung Qualified Code(s): J18.9 - Pneumonia, unspecified organism Leukocytosis Qualifiers: Leukocytosis type: unspecified Qualified Code(s): D72.829 - Elevated white blood cell count, unspecified Patient Disposition: Admitted As Inpatient
--- NOTE | 2023-06-12 08:58 | PC.NURSE ---
PT IS A/O X 4, NO SOB/CHELSEY NOTED. LUNGS - DIMINISHED SPEAKS IN FULL SENTENCES. PT SEEN BY ED MD. PT AWARE OF PLAN OF CARE.
[2023-06-12 09:36] LABS: MANUAL DIFF FLAG NO
[2023-06-12 09:37] LABS: Basophils Absolute Auto 0.1 X10*3/uL (0.0-0.2); Basophils Percent Auto 0.3 % (0-2); Eosinophils Absolute Auto 0.1 X10*3/uL (0.0-0.4); Eosinophils Percent Auto 0.6 % (0-4); Hematocrit 38.3 % (42.0-52.0); Imm Gran Abs Auto 0.08 X10*3/uL (0.00-0.03); Imm Gran Pct Auto 0.5 % (0.0-0.4); Lymphocytes Absolute Auto 0.6 X10*3/uL (1.2-4.9); Lymphocytes Percent Auto 3.2 % (20-40); Mean Corpuscular HGB Conc 33.9 g/dl (31.0-36.0); Mean Corpuscular Hemoglobin 28.1 pg (27.0-33.0); Mean Corpuscular Volume 82.9 fL (80.0-98.0); Mean Platelet Volume 9.7 fL (9.4-12.4); Monocytes Absolute Auto 1.5 X10*3/uL (0.1-1.2); Monocytes Percent Auto 8.7 % (2-11); Neutrophils Absolute Auto 14.9 x10*3/uL (2.0-8.3); Neutrophils Percent Auto 86.7 % (45-73); Platelet Count 275 X10*3/uL (160-400); Red Blood Count 4.62 X10*6/uL (4.60-5.80); Red Cell Distribution Width 13.2 % (11.0-16.0); White Blood Count 17.2 X10*3/uL (4.8-10.8)
[2023-06-12 09:58] LABS: Lactic Acid 0.9 mmol/L (0.5-2.0)
[2023-06-12 10:00] LABS: COVID-19 Test Negative (Negative); IDNOW Serial# BCCEAD1C
[2023-06-12 10:10] LABS: Alanine Aminotransferase 54 U/L (0-40); Albumin Level 3.4 g/dL (3.5-5.0); Alkaline Phosphatase 114 U/L (39-117); Anion Gap 13 (12-20); Aspartate Amino Transferase 38 U/L (5-37); Bilirubin Direct 1.6 mg/dL (0.0-0.5); Bilirubin Total 3.1 mg/dL (0.0-1.0); Blood Urea Nitrogen 14 mg/dL (9-16); Calcium 8.7 mg/dL (8.4-10.2); Carbon Dioxide 27 mmol/L (22-29); Chloride 102 mmol/L (96-108); Creatinine Clr Calc Pharmacy 97.3; Estimated Glomerular Filt Rate > 60; Glucose Random 141 mg/dL (60-115); Magnesium 2.5 mg/dL (1.6-2.6); Potassium 3.6 mmol/L (3.3-5.1); Sodium 138 mmol/L (135-145); Total Protein 6.8 g/dL (6.5-8.0)
[2023-06-12] MEDS: Piperacillin Sodium/Tazobactam 3.375 GM in 0.9 % Sodium Chloride 50 ML IV ×3 (10:13→20:53)
[2023-06-12] MEDS: Lactated Ringers 1,000 ML 100 ML IVCONT (10:13)
[2023-06-12 10:53] LABS: Appearance Urine Clear; Color Urine Dark Yellow; Glucose Urine UA Negative (Negative); Leukocyte Esterase Urine Negative (Negative); Nitrite Urine Negative (Negative); Specific Gravity - Urine >= 1.030 (1.005-1.025); UMIC TRIGGER UACC YES; Urine Blood Moderate (2+) (Negative); Urine Ketones Negative (Negative); Urine Protein 100 (2+) mg/dL (Neg-Trace)
[2023-06-12 10:55] LABS: Bacteria Urine None Seen (None Seen); Hyaline Casts Urine 0-2 /LPF (0-2); RBC Urine >20 /HPF (0-2); Squamous Epithelial Cell Urine 0-2 /HPF (0-2); WBC Urine 0-5 /HPF (0-5)
--- NOTE | 2023-06-12 11:00 | PC.NURSE ---
pt aware of plan of care for admission to hosp.
[2023-06-12] MEDS: Acetaminophen 325 MG TABLET 650 MG PO ×2 (11:20→17:59)
--- NOTE | 2023-06-12 11:32 | PC.NURSE ---
pt aware of plan of care for admission to hosp.
--- NOTE | 2023-06-12 11:52 | HO.THORH&P_ITS ---
History of Present Illness History of Present Illness Date of Service: 06/13/23 Chief complaint: RLL Pneumonia Narrative: Ilir Vázquez is a 53 year old male with PMH schizoaffective disorder, LUDIN, hypothyroidism who is almost 2 weeks s/p right mini thoracotomy, right lower lobe superior segmentectomy for right lower lobe lung abscess with associated bronchiectasis. The surgery and recovery was uncomplicated; his chest tube was removed on POD #4. He was discharged to home on 06/06/23. He reports feeling overall well until 2-3 days ago when he developed low grade fevers, anorexia and malaise. He developed a fever of 100.4 last night and therefore presented to the ED at [facility] where he had a leukocytosis and imaging was consistent with RLL pneumonia. He was started on IV vanco and zosyn. Given his recent surgery, he was transferred to [facility]. He has not been very active at home and has not been using his incentive spirometer. He is still coughing up a little blood but this is overall improved. Sputum is now only blood tinged. He denies chest pain, shortness of breath. Aditi harper reports a mild upper abdominal discomfort as well. He is a poor historian and unclear to give a timeline. He denies nausea, vomiting. Review of Systems Constitutional: Constitutional: Reports as per HPI, Denies chills, Reports fever(s), Reports malaise and Reports poor appetite ENT: Denies dizziness Cardiovascular: Cardiovascular: Denies chest pain, Denies palpitations and Denies dyspnea Respiratory: Respiratory: Reports cough, Reports hemoptysis and Denies dyspnea Gastrointestinal: Gastrointestinal: Reports as per HPI, Reports abdominal pain, Denies nausea and Denies vomiting Genitourinary: Genitourinary: Denies hematuria and Denies dysuria Integumentary/Breasts: Skin/Breast: Denies rash and Denies jaundice Neurologic: Denies dizziness Endocrine: Endocrine: Denies palpitations [facility] Past Medical History Medical History (Updated 06/12/23 @ 10:02 by Ayah Palafox DO) Constipation Coughing up blood Dermatitis Hx of bacterial pneumonia Hx of thyroid cancer Low vitamin D level OCD (obsessive compulsive disorder) LUDIN on CPAP PONV (postoperative nausea and vomiting) Schizoaffective disorder Vertigo Family History Family History Maternal Grandfather Lung cancer Father Cancer of appendix Prostate cancer Paternal Uncle Prostate cancer Paternal Grandfather Prostate cancer Surgical History Surgical History (Updated 06/12/23 @ 12:27 by Agnes Mckeon PA-C) History of lung biopsy History of surgery on lower extremity History of thyroidectomy Hx of colonoscopy S/P thoracotomy Social History Social History Household Members: None Housing: Apartment Are you a primary healthcare specialist to a significant other at home: No Do you presently have visiting nurse or other home services: Yes Alcohol intake: never Patient Tobacco Use Status: Former Tobacco user Quit Date: 2009 Tobacco use type: Cigarette Smoked in Last 30 Days: No Use of substances other than those prescribed or required for medical reasons: No Have you been hit, kicked, punched, or otherwise hurt by someone within the past year? If so, by whom?: No Do you feel safe in your current relationship?: No Current Relationship Is there a partner from a previous relationship who is making you feel unsafe now?: No Are you made to feel afraid or neglected: No Taoist Healthcare Practices: Confucianism Advance Directives: No Do you have thoughts of harming others: None Do you have a plan to hurt others: No Plan Recently lost weight without trying: Yes How much weight loss: 14-23 pounds Eating poorly because of decreased appetite: Yes Nutrition screen score: 5 Nutrition Risks: Anorexia Poor oral hygiene: No service: No Meds Allergies Allergy/AdvReac Type Severity Reaction Status Date / Time diphenhydramine Allergy Intermediate Shortness Verified 05/24/23 13:27 [From Benadryl] of Breath Active Medications: Current Medications Acetaminophen (Acetaminophen 325 Mg Tablet) 650 mg PO Q6H PRN PRN Reason: (Pain Scale 1-3); fever Last Admin: 06/12/23 11:20 Dose: 650 mg Docusate Sodium (Docusate Sodium 100 Mg Capsule) 100 mg PO DAILY PRN PRN Reason: Constipation Lactated Ringer's (Lr) 1,000 mls @ 100 mls/hr IVCONT .Q10H CRISPIN Last Admin: 06/12/23 10:13 Dose: 100 mls/hr Piperacillin Sod/Tazobactam (Sod 3.375 gm/ Sodium Chloride) 50 mls @ 100 mls/hr IV Q6H [facility] Melatonin (Melatonin 3 Mg Tablet) 6 mg PO BEDTIME PRN PRN Reason: Insomnia Morphine Sulfate (Morphine Sulfate 4 Mg/Ml Cartridge) 4 mg IVPUSH Q4H PRN; Protocol PRN Reason: Pain, Severe (Pain Scale 7-10) Ondansetron HCl (Ondansetron Hcl 4 Mg/2 Ml Vial) 4 mg IVPUSH Q8H PRN PRN Reason: Nausea and Vomiting Oxycodone HCl (Oxycodone Hcl Immed Release 5 Mg Tablet) 5 mg PO Q6H PRN PRN Reason: Pain, Moderate(Pain Scale 4-6) Sodium Chloride (0.9 % Sodium Chloride Flush 3 Ml Syringe) 3 [facility] Medications Medication Instructions Recorded Confirmed Last Taken Type clozapine 100 mg tablet (Clozaril) 100 mg PO BEDTIME 11/01/22 06/12/23 06/10/23 History levothyroxine 125 mcg capsule 125 mcg PO MOTUWETHFRSA 11/01/22 06/12/23 05/31/23 History montelukast 10 mg tablet 10 mg PO BEDTIME 11/01/22 06/12/23 Unknown History Fiber Gummies 1 tab PO BEDTIME PRN Constipation 05/24/23 06/12/23 Unknown History polyethylene glycol 3350 17 gram 17 g PO BEDTIME PRN Constipation 05/24/23 06/12/23 Unknown History oral powder packet (Miralax) Physical Exam Vital Signs: Vital Signs: Last Vital Signs Temp 102.3 F H 06/12/23 11:33 Pulse 94 06/12/23 11:33 Resp 22 H 06/12/23 11:33 BP 111/69 06/12/23 11:33 Pulse Ox 92 06/12/23 11:33 O2 Del Method Room Air 06/12/23 11:33 BMI result Body Mass Index 24.4 Const: General: comfortable, no acute distress and alert Orientation/consciousness: patient oriented x3 Chest: Other: thoractomy incision site clean appearing; chest tube site healed; large amount of ecchymosis on right lateral inferior chest extending into flank Resp: Effort & Inspection: normal respiratory effort and able to speak in complete sentences Auscultation: rales (faint RLL) and diminished lung sounds (right lower lobe) Cardio: Rate: regular rate Rhythm: regular rhythm GI: Inspection: No distended Palpation (GI): Soft to palpation and Tenderness to palpation present (GI) in the RUQ (mild); Roberto's sign negative Skin: General skin exam: no rashes or lesions noted and no jaundice Neuro: General: patient oriented x3 and moves all extremities Results Results Labs: Short CBC 06/12/23 Range/Units 09:26 WBC 17.2 H (4.8-10.8) X10*3/uL Hgb 13.0 L (14.0-18.0) g/dl Hct 38.3 L (42.0-52.0) % Plt Count 275 D (160-400) X10*3/uL BMP 06/12/23 09:26 Sodium 138 Potassium 3.6 Chloride 102 Carbon Dioxide 27 BUN 14 Creatinine 0.98 Calcium 8.7 Liver Function 06/12/23 Range/Units 09:26 Total Bilirubin 3.1 H (0.0-1.0) mg/dL Direct Bilirubin 1.6 H (0.0-0.5) mg/dL AST 38 H (5-37) U/L ALT 54 H (0-40) U/L Alkaline Phosphatase 114 (39-117) U/L Albumin 3.4 L (3.5-5.0) g/dL Urine 06/12/23 Range/Units 10:44 Urine Color Dark Yellow Urine Appearance Clear Urine pH 6.0 (5.0-9.0) Ur Specific [place] >= 1.030 H (1.005-1.025) Urine Protein 100 (2+) H (Neg-Trace) mg/dL Urine Glucose (UA) Negative (Negative) mg/dL CT scan - chest: report reviewed and image reviewed Assessment and Plan (1) Pneumonia: Qualifiers: Laterality: right Lung location: lower lobe of lung Pneumonia type: due to unspecified organism Qualified Code(s): J18.9 - Pneumonia, unspecified organism Status: Acute Plan 53 year old male almost 2 weeks s/p uncomplicated right mini thoracotomy, right lower lobe superior segmentectomy for right lower lobe lung abscess now presenting with fever, leukocytosis and RLL consolidation on imaging. Patient was admitted for further treatment of the RLL pneumonia. He was started on IV zosyn and vanco. He was strongly encouraged to use the incentive spirometer 10x hourly, get OOB and ambulate at least 4x daily and ordered for chest percussion therapy. He was incidentally found to have elevated bilirubin on labs with mild RUQ tenderness on exam. ABD US dependent sludge without mural thickening or pericholecystic fluid, no ductal dilation. Will advance diet. Repeat labs in AM. Time Spent With Patient Time: Total time managing care of this patient today ____ minutes. Quality Stroke Does the patient have a stroke diagnosis?: No VTE Prior VTE?: No VTE Risk Level:: Medical - moderate - high VTE Device Contraindication: N/A - Device Ordered VTE Drug Contraindication: N/A - Med Ordered Procedures Date of Service Date of Service: 06/13/23
--- NOTE | 2023-06-12 12:22 | PHA.MEDREC ---
Pharmacy Consult ? Medication Reconciliation Pharmacy has completed the medication reconciliation. spoke with patient to confirm medications. He reports taking levothyroxine everyday except for Sundays. Patient has a prescription for weekly vitamin d3 but patient has not taken since before his surgery. He also has a prescription for Augmentin that was a 28 DS picked up on 05/17 but patient says he is not taking it nor was it on most recent med rec from surgery. [employer] MARKETING MANAGER was checked for pain meds and only showed hydrocodone with tylenol.
[2023-06-12] MEDS: vancomycin/NS 2,000 MG/500 ML PLAST..BAG 250 MG IV (13:00)
--- NOTE | 2023-06-12 13:22 | PHA.PROG ---
Admission Date/Time: June 12, 2023 10:50 Indication: Respiratory Weight in k.8 kg Adjusted body weight in Kg: [place] body weight in Kg: Obesity Dosing Indication % IBW: Serum Creatinine - Last 168 Hours 06/12/23 09:26 Creatinine 0.98 Estimated CrCl and GFR - Last 168 Hours 06/12/23 09:26 Estim Creat Clear Calc 97.3 Estimated GFR > 60 Vancomycin Loading Dose: 2000mg x 1 Current Vancomycin Dosing Regimen: 1000mg Q12H Vancomycin Monitoring using AUC goal of 400 - 600 range with trough as surrogate marker: 500 mg/L Date and Time for next Vancomycin Level to be drawn: 06/13 @2100 Pharmacist Comments on Vancomycin Plan: Predicted trough of 15.9 mg/L. Will continue to monitor renal function Vancomycin dosing will take advantage of [employer] as a clinical decision support tool that uses Bayesian modeling to calculate individual patient's pharmacokinetic parameters and forecast the patient's drug concentration time course with the target goal AUC 24 range of 400 - 600 mg/L/hr.
--- NOTE | 2023-06-12 13:24 | PC.NURSE ---
per admission order, pt is npo.
--- NOTE | 2023-06-12 14:05 | MHC.EDTECH ---
Assisted PT to bathroom. Pt incontinent of stool while voiding. Cleaned pt and got new hospital pants. RN Sophia aware. Assisted pt back to bed and placed commode at bedside. Call saavedra within reach.
[2023-06-12] MEDS: 0.9 % Sodium Chloride Flush 3 ML SYRINGE IVFLUSH ×2 (15:01→20:54)
--- NOTE | 2023-06-12 15:07 | PC.NURSE ---
pt's family at bedside. pt is a little tearful at this time.
--- NOTE | 2023-06-12 16:38 | MHC.EDTECH ---
Brought patient tuna sandwich and snacks.
--- NOTE | 2023-06-12 17:11 | PC.NURSE ---
rn to rn report given to sigrid. pt/family aware of plan of care for transfer to room 472 via stretcher.
[2023-06-12] MEDS: Lactated Ringers 1,000 ML 125 ML IVCONT (18:00)
[2023-06-12] MEDS: cloZAPine 100 MG TABLET PO (20:54)
[2023-06-12] MEDS: vancomycin HCL 1,000 MG in 0.9 % Sodium Chloride 250 ML 270 MG IV (22:48)
[2023-06-12] MEDS: Montelukast Sodium 10 MG TABLET PO (22:49)
--- NOTE | 2023-06-13 | ECG_ITS ---
Test Reason : chest pain Blood Pressure : / mmHG Vent. Rate : 090 BPM Atrial Rate : 090 BPM P-R Int : 162 ms QRS Dur : 094 ms QT Int : 348 ms P-R-T Axes : 034 -12 058 degrees QTc Int : 425 ms Normal sinus rhythm Low voltage QRS Borderline ECG No previous ECGs available Referred By: Timmy Rhodes Electronically Signed By:BILL WEN
[2023-06-13] MEDS: Acetaminophen 325 MG TABLET 650 MG PO ×2 (02:29→23:34)
[2023-06-13] MEDS: Piperacillin Sodium/Tazobactam 3.375 GM in 0.9 % Sodium Chloride 50 ML IV ×4 (02:31→19:58)
[2023-06-13] MEDS: Lactated Ringers 1,000 ML 125 ML IVCONT ×3 (02:36→20:02)
[2023-06-13 05:47] LABS: MANUAL DIFF FLAG NO
[2023-06-13 05:52] LABS: Basophils Absolute Auto 0.1 X10*3/uL (0.0-0.2); Basophils Percent Auto 0.4 % (0-2); Eosinophils Absolute Auto 0.1 X10*3/uL (0.0-0.4); Eosinophils Percent Auto 0.6 % (0-4); Hematocrit 32.7 % (42.0-52.0); Imm Gran Abs Auto 0.09 X10*3/uL (0.00-0.03); Imm Gran Pct Auto 0.6 % (0.0-0.4); Lymphocytes Absolute Auto 0.7 X10*3/uL (1.2-4.9); Lymphocytes Percent Auto 4.8 % (20-40); Mean Corpuscular HGB Conc 33.6 g/dl (31.0-36.0); Mean Corpuscular Hemoglobin 27.8 pg (27.0-33.0); Mean Corpuscular Volume 82.8 fL (80.0-98.0); Mean Platelet Volume 9.6 fL (9.4-12.4); Monocytes Absolute Auto 1.2 X10*3/uL (0.1-1.2); Monocytes Percent Auto 8.3 % (2-11); Neutrophils Absolute Auto 12.3 x10*3/uL (2.0-8.3); Neutrophils Percent Auto 85.3 % (45-73); Platelet Count 259 X10*3/uL (160-400); Red Blood Count 3.95 X10*6/uL (4.60-5.80); Red Cell Distribution Width 13.1 % (11.0-16.0); White Blood Count 14.5 X10*3/uL (4.8-10.8)
[2023-06-13 06:20] LABS: Alanine Aminotransferase 57 U/L (0-40); Albumin Level 2.7 g/dL (3.5-5.0); Alkaline Phosphatase 82 U/L (39-117); Aspartate Amino Transferase 42 U/L (5-37); Bilirubin Total 1.9 mg/dL (0.0-1.0); Creatinine Clr Calc Pharmacy 119.2; Estimated Glomerular Filt Rate > 60; Total Protein 5.4 g/dL (6.5-8.0)
[2023-06-13 07:46] VITALS: BP 98/57; PULSE 77; RESP 20; TEMP 37.2; O2SAT 94
[2023-06-13] MEDS: Levothyroxine Sodium 125 MCG TABLET PO (07:57)
[2023-06-13] MEDS: 0.9 % Sodium Chloride Flush 3 ML SYRINGE IVFLUSH ×3 (08:06→20:02)
--- NOTE | 2023-06-13 09:00 | MHC.CM.PN ---
IMM 06/13. Pt admitted with dx RLL pneumonia. Pt lives at home with his mother and is active with [facility], he uses a walker. D/C plan is to return home with mother and resume [facility] services. Pts mother or sister to transport. No HCP, offered assistance to complete, pt declined. PCP: Elijah Aguilar
[2023-06-13] MEDS: oxyCODONE HCl Immed Release 5 MG TABLET PO (09:03)
--- NOTE | 2023-06-13 09:12 | PM.PNTS ---
Subjective Subjective Date of Service: 06/13/23 <SLOAN Johnson Last Filed: 06/13/23 09:22> 06/13/23 <Daniel Holt MD - Last Filed: 06/13/23 09:24> Interval history: RN notified this morning blood cultures came back from [place] ED positive for gram positive cocci. Feels a little better this morning. Anxious regarding his recovery. C/o pain at incision site. When asked how often he is using the incentive spirometer he responds a few . OOB to the bathroom. Tolerating solid diet. <SLOAN Johnson Last Filed: 06/13/23 09:22> Physical Exam Vital Signs: Vital Signs: Last Vital Signs Temp 99.0 F 06/13/23 07:46 Pulse 77 06/13/23 07:46 Resp 20 06/13/23 07:46 BP 98/57 L 06/13/23 07:46 Pulse Ox 94 06/13/23 07:46 O2 Del Method Room Air 06/13/23 07:46 BMI result Body Mass Index 24.3 <SLOAN Johnson Last Filed: 06/13/23 09:22> Const: General: comfortable, no acute distress, alert and anxious <SLOAN Johnson Last Filed: 06/13/23 09:22> Orientation/consciousness: patient oriented x3 <SLOAN Johnson Last Filed: 06/13/23 09:22> Chest: Other: thoractomy incision site clean appearing; chest tube site healed; large amount of ecchymosis on right lateral chest extending into flank <SLOAN Johnson Last Filed: 06/13/23 09:22> Resp: Effort & Inspection: normal respiratory effort <SLOAN Johnson Last Filed: 06/13/23 09:22> Skin: General skin exam: no rashes or lesions noted and no jaundice <SLOAN Johnson Last Filed: 06/13/23 09:22> Neuro: General: patient oriented x3 and moves all extremities <SLOAN Johnson Last Filed: 06/13/23 09:22> Extrem: General: Yes no clubbing, cyanosis or edema <Agnes Mckeon PA-C - Last Filed: 06/13/23 09:22> Procedures Date of Service Date of Service: 06/13/23 <Agnes Mckeon PA-C - Last Filed: 06/13/23 09:22> 06/13/23 <Daniel Holt MD - Last Filed: 06/13/23 09:24> Progress Note: A&P Assessment and plan (1) Pneumonia: Status: Acute <Agnes Mckeon PA-C - Last Filed: 06/13/23 09:22> (2) Cavitating mass in right lower lung lobe: Status: Acute <Agnes Mckeon PA-C - Last Filed: 06/13/23 09:22> (3) LUDIN on CPAP: Status: Acute <SLOAN Johnson Last Filed: 06/13/23 09:22> Assessment and Plan: 53 year old male almost 2 weeks s/p uncomplicated right mini thoracotomy, right lower lobe superior segmentectomy for right lower lobe lung abscess admitted with RLL pneumonia. On vanco and zosyn. WBC downtrending. Cont IV abx. He was strongly encouraged to use the incentive spirometer 10x hourly, get OOB and ambulate at least 4x daily and ordered for chest percussion therapy. His H/H has downtrended slightly, ?dilutional. Will hold off on anticoagulation given large amount of ecchymosis on right lateral chest. Repeat labs in am. Consult hospitalist service for gram positive bacteremia, [place] [facility] [place] Bili improved this am, tolerating diet. <Agnes Mckeon PA-C - Last Filed: 06/13/23 09:22> 53 year old male almost 2 weeks s/p uncomplicated right mini thoracotomy, right lower lobe superior segmentectomy for right lower lobe lung abscess admitted with RLL pneumonia. On vanco and zosyn. WBC downtrending. Cont IV abx. He was strongly encouraged to use the incentive spirometer 10x hourly, get OOB and ambulate at least 4x daily and ordered for chest percussion therapy. His H/H has downtrended slightly, ?dilutional. Will hold off on anticoagulation given large amount of ecchymosis on right lateral chest. Repeat labs in am. Consult hospitalist service for gram positive bacteremia, [place] [facility] [place]. Bili improved this am, tolerating diet. Ultrasound negative for acute cholecystitis. <Daniel Holt MD - Last Filed: 06/13/23 09:24> Time Spent With Patient Time: Total time managing care of this patient today ____ minutes. <Agnes Mckeon PA-C - Last Filed: 06/13/23 09:22> Quality Stroke Does the patient have a stroke diagnosis?: No <Agnes Mckeon PA-C - Last Filed: 06/13/23 09:22> VTE Prior VTE?: No <Agnes Mckeon PA-C - Last Filed: 06/13/23 09:22> VTE Risk Level:: Medical - moderate - high <Agnes Mckeon PA-C - Last Filed: 06/13/23 09:22> VTE Device Contraindication: N/A - Device Ordered <Agnes Mckeon PA-C - Last Filed: 06/13/23 09:22> VTE Drug Contraindication: N/A - Med Ordered <Agnes Mckeon PA-C - Last Filed: 06/13/23 09:22>
[2023-06-13] MEDS: vancomycin HCL 1,000 MG in 0.9 % Sodium Chloride 250 ML 270 MG IV ×2 (10:41→23:11)
[2023-06-13] MEDS: Morphine Sulfate 4 MG/ML CARTRIDGE IVPUSH (11:00)
[2023-06-13 15:36] VITALS: BP 98/51; PULSE 87; RESP 17; TEMP 36.9; O2SAT 92
--- NOTE | 2023-06-13 16:00 | PM.IMCN ---
History of Present Illness Data of Consult Service Date: 06/13/23 Requesting physician: Agnes Mckeon Primary Care Provider: Elijah Aguilar MD HPI Reason for consult: s/p RLL segmentectomy, RLL PNA, bacteremia This is a 53 year old male with PMH schizoaffective disorder, LUDIN, hypothyroidism who is almost 2 weeks s/p right mini thoracotomy, right lower lobe superior segmentectomy for right lower lobe lung abscess with associated bronchiectasis. The surgery and recovery was uncomplicated; his chest tube was removed on POD #4. He was discharged home on 06/06/23. He was doing well until 2-3 days ago when he developed low grade fevers and malaise. He developed a fever of 100.4 last night and presented to the ED at [facility] where he was found to have imaging consistent with RLL pneumonia. Given his recent surgery, he was transferred to [facility] ED and re-admitted under the surgical service. He was started on IV vanco and zosyn. The hospital was notified that his blood cultures from [facility] were growing gram positive cocci. The hospitalist service was consulted for assistance in medical management. The patient states that he has intermittent cough, primarily non-productive, continues to feel feverish, no shortness of breath. Review of Systems Review of Systems: Yes all other systems are reviewed and are negative Constitutional: Constitutional: Denies chills and Reports fever(s) ENT: Denies dizziness Cardiovascular: Cardiovascular: Denies chest pain and Denies palpitations Respiratory: Respiratory: Reports cough Gastrointestinal: Gastrointestinal: Denies abdominal pain, Denies nausea and Denies vomiting Neurologic: Denies dizziness Endocrine: Endocrine: Denies palpitations [facility] Medical History Constipation Coughing up blood Dermatitis Hx of bacterial pneumonia Hx of thyroid cancer Low vitamin D level OCD (obsessive compulsive disorder) LUDIN on CPAP PONV (postoperative nausea and vomiting) Schizoaffective disorder Vertigo Family History Maternal Grandfather Lung cancer Father Cancer of appendix Prostate cancer Paternal Uncle Prostate cancer Paternal Grandfather Prostate cancer Surgical History History of lung biopsy History of surgery on lower extremity History of thyroidectomy Hx of colonoscopy S/P thoracotomy Social History Household Members: None Housing: Apartment Are you a primary critical care specialist to a significant other at home: No Do you presently have visiting nurse or other home services: Yes Alcohol intake: never Patient Tobacco Use Status: Former Tobacco user Quit Date: 2009 Tobacco use type: Cigarette Smoked in Last 30 Days: No Use of substances other than those prescribed or required for medical reasons: No Currently Displaying Signs/Symptoms of Drug Intoxication Withdrawal: No Have you been hit, kicked, punched, or otherwise hurt by someone within the past year? If so, by whom?: No Do you feel safe in your current relationship?: No Current Relationship Is there a partner from a previous relationship who is making you feel unsafe now?: No Are you made to feel afraid or neglected: No Taoism Healthcare Practices: Congregational Advance Directives: No Do you have thoughts of harming others: None Do you have a plan to hurt others: No Plan Recently lost weight without trying: Yes How much weight loss: 14-23 pounds Eating poorly because of decreased appetite: Yes Nutrition screen score: 5 Nutrition Risks: Anorexia Poor oral hygiene: No service: No Meds Allergies Allergy/AdvReac Type Severity Reaction Status Date / Time diphenhydramine Allergy Intermediate Shortness Verified 05/24/23 13:27 [From Benadryl] of Breath Active Medications: Current Medications Acetaminophen (Acetaminophen 325 Mg Tablet) 650 mg PO Q6H PRN PRN Reason: (Pain Scale 1-3); fever Last Admin: 06/13/23 02:29 Dose: 650 mg Clozapine (Clozapine 100 Mg Tablet) 100 mg PO BEDTIME [facility] Last Admin: 06/12/23 20:54 Dose: 100 mg Docusate Sodium (Docusate Sodium 100 Mg Capsule) 100 mg PO DAILY PRN PRN Reason: Constipation Lactated Ringer's (Lr) 1,000 mls @ 125 mls/hr IVCONT .Q8H [facility] Last Admin: 06/13/23 12:17 Dose: 125 mls/hr Piperacillin Sod/Tazobactam (Sod 3.375 gm/ Sodium Chloride) 50 mls @ 100 mls/hr IV Q6H [facility] Last Admin: 06/13/23 15:35 Dose: 100 mls/hr Vancomycin HCl 1,000 mg/ (Sodium Chloride) 270 mls @ 270 mls/hr IV Q12H [facility] Last Infusion: 06/13/23 11:45 Dose: Infused Levothyroxine Sodium (Levothyroxine Sodium 125 Mcg Tablet) 125 mcg PO MoTuWeThFrSa@0600 [facility] Last Admin: 06/13/23 07:57 Dose: 125 mcg Melatonin (Melatonin 3 Mg Tablet) 6 mg PO BEDTIME PRN PRN Reason: Insomnia Montelukast Sodium (Montelukast Sodium 10 Mg Tablet) 10 mg PO BEDTIME [facility] Last Admin: 06/12/23 22:49 Dose: 10 mg Morphine Sulfate (Morphine Sulfate 4 Mg/Ml Cartridge) 4 mg IVPUSH Q4H PRN; Protocol PRN Reason: Pain, Severe (Pain Scale 7-10) Last Admin: 06/13/23 11:00 Dose: 4 mg Ondansetron HCl (Ondansetron Hcl 4 Mg/2 Ml Vial) 4 mg IVPUSH Q8H PRN PRN Reason: Nausea and Vomiting Oxycodone HCl (Oxycodone Hcl Immed Release 5 Mg Tablet) 5 mg PO Q6H PRN PRN Reason: Pain, Moderate(Pain Scale 4-6) Last Admin: 06/13/23 09:03 Dose: 5 mg Pharmacy Consult (Consult Rx Vancomycin Dosing) 1 each MISCELLANE DAILY PRN PRN Reason: Consult order Sodium Chloride (0.9 % Sodium Chloride Flush 3 Ml Syringe) 3 ml IVFLUSH [facility] Last Admin: 06/13/23 15:35 Dose: 3 ml Home Medications Medication Instructions Recorded Confirmed Last Taken Type clozapine 100 mg tablet (Clozaril) 100 mg PO BEDTIME 11/01/22 06/12/23 06/10/23 History levothyroxine 125 mcg capsule 125 mcg PO MOTUWETHFRSA 11/01/22 06/12/23 05/31/23 History montelukast 10 mg tablet 10 mg PO BEDTIME 11/01/22 06/12/23 Unknown History Fiber Gummies 1 tab PO BEDTIME PRN Constipation 05/24/23 06/12/23 Unknown History polyethylene glycol 3350 17 gram 17 g PO BEDTIME PRN Constipation 05/24/23 06/12/23 Unknown History oral powder packet (Miralax) Physical Exam Vital Signs and Narrative: Vital Signs: Last Vital Signs Temp 98.5 F 06/13/23 15:36 Pulse 87 06/13/23 15:36 Resp 17 06/13/23 15:36 BP 98/51 L 06/13/23 15:36 Pulse Ox 92 06/13/23 15:36 O2 Del Method Room Air 06/13/23 15:36 BMI result Body Mass Index 24.3 Const: General: comfortable, alert and awake Nutritional Appearance: average body habitus Orientation/consciousness: patient oriented x3 Chest: Other: right thoracotomy incision site clean, appears to be healing well Resp: Effort & Inspection: normal respiratory effort, able to speak in complete sentences, no respiratory distress and no use of accessory muscles Cardio: Rate: regular rate Heart sounds: S1 normal heart sound present and S2 normal heart sound present GI: Inspection: No distended Palpation (GI): Soft to palpation and nontender Skin: Other: warm, dry Neuro: General: patient oriented x3, moves all extremities and CN's II-XI intact bilaterally Extrem: General: Yes no pedal edema Results Labs 06/13/23 05:35 06/13/23 05:35 Labs: Laboratory Results - last 24 hr 06/13/23 06/13/23 05:35 05:35 MCV 82.8 MCH 27.8 MCHC 33.6 RDW 13.1 Plt Count 259 MPV 9.6 Immature Gran % (Auto) 0.6 H Neut % (Auto) 85.3 H Lymph % (Auto) 4.8 L [place] % (Auto) 8.3 Eos % (Auto) 0.6 Baso % (Auto) 0.4 Lymph # (Auto) 0.7 L [place] # (Auto) 1.2 Eos # (Auto) 0.1 Baso # (Auto) 0.1 Abs Immat Gran (auto) 0.09 H Absolute Neuts (auto) 12.3 H Absolute Nucleated RBC 0.000 Nucleated RBC % (auto) 0.0 Estim Creat Clear Calc 119.2 Estimated GFR > 60 Total Bilirubin 1.9 H Direct Bilirubin 1.0 H AST 42 H ALT 57 H Alkaline Phosphatase 82 Total Protein 5.4 L Albumin 2.7 L Assessment and Plan (1) Cavitating mass in right lower lung lobe: Status: Acute (2) Pneumonia: Qualifiers: Laterality: right Lung location: lower lobe of lung Pneumonia type: due to unspecified organism Qualified Code(s): J18.9 - Pneumonia, unspecified organism Status: Acute Plan 53 year old male almost 2 weeks s/p uncomplicated right mini thoracotomy, right lower lobe superior segmentectomy for right lower lobe lung abscess now presenting with fever, leukocytosis and RLL consolidation on imaging and concern for bacteremia sepsis secondary to RLL pneumonia in the setting of recent right mini thoracotomy, right lower lobe superior segmentectomy for right lower lobe lung abscess met sepsis criteria with leukocytosis, fever 102, tachypnea. lactic acid WNL. currently afebrile, white count trending down continue IV vancomycin and zosyn no hypoxia bacteremia upon review of records from [facility], blood culture is growing staph epidermadis - likely contaminant repeat blood cultures from 06/12 negative x2 with no growth x 24 hours hypothyroidism continue synthroid mood continue clozaril LUDIN continue CPAP thank you for allowing us to participate in the care of this patient, we will follow along with you Time Spent With Patient Time: Total time managing care of this patient today ____ minutes.
[2023-06-13] MEDS: cloZAPine 100 MG TABLET PO (19:57)
[2023-06-13] MEDS: Montelukast Sodium 10 MG TABLET PO (19:57)
[2023-06-13 21:28] LABS: Vancomycin Trough 11.6 mcg/mL (10.0-20.0)
--- NOTE | 2023-06-13 21:39 | HE.PHANOTE ---
RE: Vanco Patients level came back this evening at 11.6. Increasing dose to 1250 mg Q12h, predicted AUC 477. Next draw 06/14 @2100.
[2023-06-13 23:29] VITALS: BP 106/54; PULSE 83; RESP 26; TEMP 39.3; O2SAT 92
[2023-06-14] MEDS: Piperacillin Sodium/Tazobactam 3.375 GM in 0.9 % Sodium Chloride 50 ML IV ×4 (03:07→20:22)
[2023-06-14] MEDS: Lactated Ringers 1,000 ML 125 ML IVCONT ×2 (03:11→09:29)
[2023-06-14] MEDS: Levothyroxine Sodium 125 MCG TABLET PO (05:19)
[2023-06-14 07:37] VITALS: BP 108/63; PULSE 73; RESP 20; TEMP 36.7; O2SAT 92
--- NOTE | 2023-06-14 08:02 | PM.PNTS ---
Subjective Subjective Date of Service: 06/14/23 Interval history: Patient had uneventful evening. No respiratory issues. Did not have a productive cough or hemoptysis. White count trending down on yesterday's labs. Repeat blood cultures negative today. Physical Exam Vital Signs: Vital Signs: Last Vital Signs Temp 98.0 F 06/14/23 07:37 Pulse 73 06/14/23 07:37 Resp 20 06/14/23 07:37 BP 108/63 06/14/23 07:37 Pulse Ox 92 06/14/23 07:37 O2 Del Method CPAP 06/14/23 07:37 BMI result Body Mass Index 24.3 Chest: Other: Chest incision and chest tube sites clean dry and intact healing uneventfully. Right hip ecchymosis status quo. GI: Other: Abdomen soft, benign Procedures Date of Service Date of Service: 06/14/23 Progress Note: A&P Assessment and plan (1) Pneumonia: Status: Acute (2) Leukocytosis: Status: Acute (3) Schizoaffective disorder: Status: Acute Plan Continue current plan; out of bed/ambulate, physical therapy, encourage incentive spirometry, diet as tolerated Time Spent With Patient Time: Total time managing care of this patient today ____ minutes. Quality Stroke Does the patient have a stroke diagnosis?: No VTE Prior VTE?: No VTE Risk Level:: Medical - moderate - high VTE Device Contraindication: N/A - Device Ordered VTE Drug Contraindication: N/A - Med Ordered
[2023-06-14 09:20] LABS: Creatinine Clr Calc Pharmacy 117.8; Estimated Glomerular Filt Rate > 60
[2023-06-14] MEDS: vancomycin HCL 1,000 MG in 0.9 % Sodium Chloride 250 ML 270 MG IV ×2 (10:49→23:42)
--- NOTE | 2023-06-14 12:03 | PC.NURSE ---
report received from overnight RN, medical records administrator per DEC. Pt noted to be lethargic, wakes to name, alert and orientedx3. Surgeon to bedside to assess surgical site. Surgeon discussed with pt and this RN that the patient shower today. Hospitalist to bedside and request the pt get OOB. This RN and CORE DRILL OPERATOR request to help pt to shower and OOB before lunch, pt declines and says I will later , pt agrees to shower after lunch and sit in the chair for dinner. IS at bedside, pt tolerates activity well. Safety precautions remain in place, call saavedra within reach. Pt encouraged to call for help.
[2023-06-14] MEDS: Acetaminophen 325 MG TABLET 650 MG PO (13:20)
--- NOTE | 2023-06-14 14:00 | P.PNIM_ITS ---
Subjective Subjective Date of Service: 06/14/23 Interval History: seen and examined this morning follow up for pneumonia fever 102 overnight still coughing, no sob; doesn't seem to be using IS Review of Systems Review of Systems: Yes all other systems are reviewed and are negative Constitutional Constitutional: Denies chills and Denies fever(s) Cardiovascular Cardiovascular: Denies chest pain, Denies palpitations and Denies dyspnea Respiratory Respiratory: Reports cough and Denies dyspnea Gastrointestinal Gastrointestinal: Denies abdominal pain, Denies nausea and Denies vomiting Endocrine Endocrine: Denies palpitations Physical Exam Vital Signs: Vital Signs: Last Vital Signs Temp 98.0 F 06/14/23 07:37 Pulse 73 06/14/23 07:37 Resp 20 06/14/23 07:37 BP 108/63 06/14/23 07:37 Pulse Ox 92 06/14/23 07:37 O2 Del Method CPAP 06/14/23 07:37 BMI result Body Mass Index 24.3 Const: General: comfortable, alert and awake Nutritional Appearance: average body habitus Orientation/consciousness: patient oriented x3 Chest: Other: right thoracotomy incision site clean, appears to be healing well Resp: Effort & Inspection: normal respiratory effort, able to speak in complete sentences, no respiratory distress and no use of accessory muscles Cardio: Rate: regular rate Heart sounds: S1 normal heart sound present and S2 normal heart sound present GI: Inspection: No distended Palpation (GI): Soft to palpation and nontender Skin: Other: warm, dry Neuro: General: patient oriented x3, moves all extremities and CN's II-XI intact bilaterally Extrem: General: Yes no pedal edema Objective Data Active Medications Acetaminophen (Acetaminophen 325 Mg Tablet) 650 mg PO Q6H PRN PRN Reason: (Pain Scale 1-3); fever Last Admin: 06/14/23 13:20 Dose: 650 mg Documented By: SERENE Clozapine (Clozapine 100 Mg Tablet) 100 mg PO BEDTIME [facility] Last Admin: 06/13/23 19:57 Dose: 100 mg Documented By: TRACY Docusate Sodium (Docusate Sodium 100 Mg Capsule) 100 mg PO DAILY PRN PRN Reason: Constipation Piperacillin Sod/Tazobactam (Sod 3.375 gm/ Sodium Chloride) 50 mls @ 100 mls/hr IV Q6H [facility] Last Infusion: 06/14/23 13:50 Dose: 0 mls/hr Documented By: SERENE Vancomycin HCl 1,000 mg/ (Sodium Chloride) 270 mls @ 270 mls/hr IV Q12H [facility] Last Infusion: 06/14/23 12:02 Dose: 0 mls/hr Documented By: SERENE Levothyroxine Sodium (Levothyroxine Sodium 125 Mcg Tablet) 125 mcg PO MoTuWeThFrSa@0600 [facility] Last Admin: 06/14/23 05:19 Dose: 125 mcg Documented By: TRACY Melatonin (Melatonin 3 Mg Tablet) 6 mg PO BEDTIME PRN PRN Reason: Insomnia Montelukast Sodium (Montelukast Sodium 10 Mg Tablet) 10 mg PO BEDTIME [facility] Last Admin: 06/13/23 19:57 Dose: 10 mg Documented By: TRACY Morphine Sulfate (Morphine Sulfate 4 Mg/Ml Cartridge) 4 mg IVPUSH Q4H PRN; Protocol PRN Reason: Pain, Severe (Pain Scale 7-10) Last Admin: 06/13/23 11:00 Dose: 4 mg Documented By: HIMANSHU Ondansetron HCl (Ondansetron Hcl 4 Mg/2 Ml Vial) 4 mg IVPUSH Q8H PRN PRN Reason: Nausea and Vomiting Oxycodone HCl (Oxycodone Hcl Immed Release 5 Mg Tablet) 5 mg PO Q6H PRN PRN Reason: Pain, Moderate(Pain Scale 4-6) Last Admin: 06/13/23 09:03 Dose: 5 mg Documented By: HIMANSHU Pharmacy Consult (Consult Rx Vancomycin Dosing) 1 each MISCELLANE DAILY PRN PRN Reason: Consult order Sodium Chloride (0.9 % Sodium Chloride Flush 3 Ml Syringe) 3 ml IVFLUSH QSHIFT [facility] Last Admin: 06/14/23 09:28 Dose: Not Given Documented By: SERENE Non-Admin Reason: IV Running Labs 06/13/23 05:35 06/14/23 08:26 Labs: Laboratory Results - last 24 hr 06/13/23 06/14/23 06/14/23 20:57 08:26 08:26 Estim Creat Clear Calc Cancelled 117.8 Estimated GFR Cancelled > 60 Vancomycin Trough 11.6 Microbiology Microbiology Results: Microbiology 06/12/23 09:26 Blood Culture - Preliminary Blood - Venous No growth after 48 hours. 06/12/23 09:26 Blood Culture - Preliminary Blood - Venous No growth after 48 hours. Assessment and Plan (1) Pneumonia: Status: Acute Plan 53 year old male almost 2 weeks s/p uncomplicated right mini thoracotomy, right lower lobe superior segmentectomy for right lower lobe lung abscess now present ing with fever, leukocytosis and RLL consolidation on imaging and concern for bacteremia sepsis secondary to RLL pneumonia in the setting of recent right mini thoracotomy, right lower lobe superior segmentectomy for right lower lobe lung abscess met sepsis criteria with leukocytosis, fever 102, tachypnea. lactic acid WNL. white count trending down fever overnight but still within 48 of starting abx continue IV vancomycin and zosyn, started 06/13 no hypoxia bacteremia upon review of records from [facility], blood culture is growing staph epidermadis - likely contaminant repeat blood cultures from 06/12 negative x2 with no growth x 48 hours hypothyroidism continue synthroid mood continue clozaril LUDIN continue CPAP thank you for allowing us to participate in the care of this patient, we will follow along with you Time Spent With Patient Time: Total time managing care of this patient today ____ minutes. Quality Stroke Does the patient have a stroke diagnosis?: No VTE Prior VTE?: No VTE Risk Level:: Medical - moderate - high VTE Device Contraindication: N/A - Device Ordered VTE Drug Contraindication: N/A - Med Ordered
[2023-06-14 15:16] VITALS: BP 112/69; PULSE 81; RESP 16; TEMP 37.1; O2SAT 95
[2023-06-14 19:28] VITALS: BP 127/69; PULSE 85; RESP 16; TEMP 36.6; O2SAT 96
[2023-06-14] MEDS: Montelukast Sodium 10 MG TABLET PO (20:06)
[2023-06-14] MEDS: oxyCODONE HCl Immed Release 5 MG TABLET PO (20:06)
--- NOTE | 2023-06-14 21:43 | PC.NURSE ---
PT TO BE TRANSFERRED TO MED SURG ROOM 384. PT IS AWARE OF THIS. REPORT GIVEN TO ROXANA.
[2023-06-14] MEDS: cloZAPine 100 MG TABLET PO (22:22)
[2023-06-14] MEDS: 0.9 % Sodium Chloride Flush 3 ML SYRINGE IVFLUSH (22:27)
[2023-06-14 23:10] LABS: Vancomycin Random 8.8 mcg/mL (15-20)
[2023-06-15] VITALS: BP 115/61; PULSE 76; RESP 16; TEMP 36.9; O2SAT 93
[2023-06-15] MEDS: Piperacillin Sodium/Tazobactam 3.375 GM in 0.9 % Sodium Chloride 50 ML IV ×4 (03:44→20:34)
[2023-06-15] MEDS: Levothyroxine Sodium 125 MCG TABLET PO (06:09)
[2023-06-15 07:32] VITALS: BP 111/61; PULSE 80; RESP 16; TEMP 36.5; O2SAT 93
[2023-06-15 09:37] LABS: Hematocrit 35.2 % (42.0-52.0); Hemoglobin 11.9 g/dl (14.0-18.0); Mean Corpuscular HGB Conc 33.8 g/dl (31.0-36.0); Mean Corpuscular Volume 82.8 fL (80.0-98.0); Mean Platelet Volume 9.7 fL (9.4-12.4); Platelet Count 357 X10*3/uL (160-400); Red Blood Count 4.25 X10*6/uL (4.60-5.80); Red Cell Distribution Width 13.4 % (11.0-16.0); White Blood Count 12.1 X10*3/uL (4.8-10.8)
[2023-06-15 09:50] LABS: Creatinine Clr Calc Pharmacy 101.5; Estimated Glomerular Filt Rate > 60
[2023-06-15 10:03] LABS: Vancomycin Random 10.8 mcg/mL (15-20)
--- NOTE | 2023-06-15 10:54 | PM.PNGS ---
Subjective Subjective Date of Service: 06/15/23 Patient reports: no new complaints and feels better Interval history: The patient is seen in coverage for Dr. Holt Patient denies any changes, difficulty breathing, shortness of breath. Per nursing staff, he appears to be at his baseline Physical Exam Vital Signs: Vital Signs: Last Vital Signs Temp 97.7 F 06/15/23 07:32 Pulse 80 06/15/23 07:32 Resp 16 06/15/23 07:32 BP 111/61 06/15/23 07:32 Pulse Ox 93 06/15/23 07:32 O2 Del Method CPAP 06/15/23 07:32 BMI result Body Mass Index 24.3 On exam, the patient is anicteric He is wearing his BiPAP His lungs are clear and equal anteriorly and heart is regular Objective Data Active Medications Acetaminophen (Acetaminophen 325 Mg Tablet) 650 mg PO Q6H PRN PRN Reason: (Pain Scale 1-3); fever Last Admin: 06/14/23 13:20 Dose: 650 mg Documented By: SERENE Clozapine (Clozapine 100 Mg Tablet) 100 mg PO BEDTIME [facility] Last Admin: 06/14/23 22:22 Dose: 100 mg Documented By: LEIGHANN Docusate Sodium (Docusate Sodium 100 Mg Capsule) 100 mg PO DAILY PRN PRN Reason: Constipation Piperacillin Sod/Tazobactam (Sod 3.375 gm/ Sodium Chloride) 50 mls @ 100 mls/hr IV Q6H [facility] Last Infusion: 06/15/23 08:50 Dose: 0 mls/hr Documented By: KARMA Vancomycin HCl 1,250 mg/ (Sodium Chloride) 250 mls @ 166.667 mls/hr IV Q12H [facility] Levothyroxine Sodium (Levothyroxine Sodium 125 Mcg Tablet) 125 mcg PO MoTuWeThFrSa@0600 [facility] Last Admin: 06/15/23 06:09 Dose: 125 mcg Documented By: LEIGHANN Melatonin (Melatonin 3 Mg Tablet) 6 mg PO BEDTIME PRN PRN Reason: Insomnia Montelukast Sodium (Montelukast Sodium 10 Mg Tablet) 10 mg PO BEDTIME [facility] Last Admin: 06/14/23 20:06 Dose: 10 mg Documented By: JOSE Morphine Sulfate (Morphine Sulfate 4 Mg/Ml Cartridge) 4 mg IVPUSH Q4H PRN; Protocol PRN Reason: Pain, Severe (Pain Scale 7-10) Last Admin: 06/13/23 11:00 Dose: 4 mg Documented By: HIMANSHU Ondansetron HCl (Ondansetron Hcl 4 Mg/2 Ml Vial) 4 mg IVPUSH Q8H PRN PRN Reason: Nausea and Vomiting Oxycodone HCl (Oxycodone Hcl Immed Release 5 Mg Tablet) 5 mg PO Q6H PRN PRN Reason: Pain, Moderate(Pain Scale 4-6) Last Admin: 06/14/23 20:06 Dose: 5 mg Documented By: JOSE Pharmacy Consult (Consult Rx Vancomycin Dosing) 1 each MISCELLANE DAILY PRN PRN Reason: Consult order Sodium Chloride (0.9 % Sodium Chloride Flush 3 Ml Syringe) 3 ml IVFLUSH QSHIFT [facility] Last Admin: 06/15/23 08:16 Dose: Not Given Documented By: KARMA Non-Admin Reason: IV Running Labs 06/15/23 09:18 06/15/23 09:18 Labs: Laboratory Results - last 24 hr 06/14/23 06/15/23 06/15/23 22:40 09:18 09:18 MCV MCH MCHC RDW Plt Count MPV Absolute Nucleated RBC Nucleated RBC % (auto) Estim Creat Clear Calc 101.5 Estimated GFR > 60 Random Vancomycin 8.8 L 10.8 L 06/15/23 09:18 MCV 82.8 MCH 28.0 MCHC 33.8 RDW 13.4 Plt Count 357 D MPV 9.7 Absolute Nucleated RBC 0.000 Nucleated RBC % (auto) 0.0 Estim Creat Clear Calc Estimated GFR Random Vancomycin Imaging Chest x-ray: Radiologist's impression: Impressions Chest X-Ray 06/14/23 08:20 IMPRESSION: Consolidation at the right lung base probably not appreciably changed. Small right hydropneumothorax and right neck and chest wall subcutaneous emphysema. This appears similar to chest CT 06/05/2023. This is not appreciated on available images from outside chest CT 06/12/2023. Findings will be communicated by the [place] work flow cover seamer. Patient appeared stable when evaluated. Microbiology Microbiology Results: Microbiology 06/12/23 09:26 Blood Culture - Preliminary Blood - Venous No growth after 48 hours. 06/12/23 09:26 Blood Culture - Preliminary Blood - Venous No growth after 48 hours. Procedures Date of Service Date of Service: 06/15/23 Progress Note: A&P Assessment and plan (1) Pneumonia: Status: Acute (2) Leukocytosis: Status: Acute (3) Schizoaffective disorder: Status: Acute (4) LUDIN on CPAP: Status: Acute (5) Emphysema lung: Status: Acute Plan Continue present management Time Spent With Patient Time: Total time managing care of this patient today ____ minutes. Quality Stroke Does the patient have a stroke diagnosis?: No VTE Prior VTE?: No VTE Risk Level:: Medical - moderate - high VTE Device Contraindication: N/A - Device Ordered VTE Drug Contraindication: N/A - Med Ordered
--- NOTE | 2023-06-15 10:58 | HO.PM.IMPN ---
Subjective Subjective Date of Service: 06/15/23 Interval History: seen and examined this morning follow up for pneumonia still coughing, no sob Review of Systems Review of Systems: Yes all other systems are reviewed and are negative Constitutional Constitutional: Denies chills and Denies fever(s) Cardiovascular Cardiovascular: Denies chest pain, Denies palpitations and Denies dyspnea Respiratory Respiratory: Reports cough and Denies dyspnea Gastrointestinal Gastrointestinal: Denies abdominal pain, Denies nausea and Denies vomiting Endocrine Endocrine: Denies palpitations Physical Exam Vital Signs: Vital Signs: Last Vital Signs Temp 97.7 F 06/15/23 07:32 Pulse 80 06/15/23 07:32 Resp 16 06/15/23 07:32 BP 111/61 06/15/23 07:32 Pulse Ox 93 06/15/23 07:32 O2 Del Method CPAP 06/15/23 07:32 BMI result Body Mass Index 24.3 Appearing in no acute distress lung sounds are clear to auscultation heart regular rate rhythm, clear S1, S2 positive bowel sounds, abdomen is soft, nontender neuro patient is alert x3, no focal deficits Objective Data Active Medications Acetaminophen (Acetaminophen 325 Mg Tablet) 650 mg PO Q6H PRN PRN Reason: (Pain Scale 1-3); fever Last Admin: 06/14/23 13:20 Dose: 650 mg Documented By: SERENE Clozapine (Clozapine 100 Mg Tablet) 100 mg PO BEDTIME [facility], [facility] Last Admin: 06/14/23 22:22 Dose: 100 mg Documented By: LEIGHANN Docusate Sodium (Docusate Sodium 100 Mg Capsule) 100 mg PO DAILY PRN PRN Reason: Constipation Piperacillin Sod/Tazobactam (Sod 3.375 gm/ Sodium Chloride) 50 mls @ 100 mls/hr IV Q6H [facility], [facility] Last Infusion: 06/15/23 08:50 Dose: 0 mls/hr Documented By: KARMA Vancomycin HCl 1,250 mg/ (Sodium Chloride) 250 mls @ 166.667 mls/hr IV Q12H [facility] Levothyroxine Sodium (Levothyroxine Sodium 125 Mcg Tablet) 125 mcg PO MoTuWeThFrSa@0600 [facility], [facility] Last Admin: 06/15/23 06:09 Dose: 125 mcg Documented By: LEIGHANN Melatonin (Melatonin 3 Mg Tablet) 6 mg PO BEDTIME PRN PRN Reason: Insomnia Montelukast Sodium (Montelukast Sodium 10 Mg Tablet) 10 mg PO BEDTIME [facility] Last Admin: 06/14/23 20:06 Dose: 10 mg Documented By: JOSE Morphine Sulfate (Morphine Sulfate 4 Mg/Ml Cartridge) 4 mg IVPUSH Q4H PRN; Protocol PRN Reason: Pain, Severe (Pain Scale 7-10) Last Admin: 06/13/23 11:00 Dose: 4 mg Documented By: HIMANSHU Ondansetron HCl (Ondansetron Hcl 4 Mg/2 Ml Vial) 4 mg IVPUSH Q8H PRN PRN Reason: Nausea and Vomiting Oxycodone HCl (Oxycodone Hcl Immed Release 5 Mg Tablet) 5 mg PO Q6H PRN PRN Reason: Pain, Moderate(Pain Scale 4-6) Last Admin: 06/14/23 20:06 Dose: 5 mg Documented By: JOSE Pharmacy Consult (Consult Rx Vancomycin Dosing) 1 each MISCELLANE DAILY PRN PRN Reason: Consult order Sodium Chloride (0.9 % Sodium Chloride Flush 3 Ml Syringe) 3 ml IVFLUSH [facility] Last Admin: 06/15/23 08:16 Dose: Not Given Documented By: KARMA Non-Admin Reason: IV Running Labs 06/15/23 09:18 06/15/23 09:18 Labs: Laboratory Results - last 24 hr 06/14/23 06/15/23 06/15/23 22:40 09:18 09:18 MCV MCH MCHC RDW Plt Count MPV Absolute Nucleated RBC Nucleated RBC % (auto) Estim Creat Clear Calc 101.5 Estimated GFR > 60 Random Vancomycin 8.8 L 10.8 L 06/15/23 09:18 MCV 82.8 MCH 28.0 MCHC 33.8 RDW 13.4 Plt Count 357 D MPV 9.7 Absolute Nucleated RBC 0.000 Nucleated RBC % (auto) 0.0 Estim Creat Clear Calc Estimated GFR Random Vancomycin Microbiology Microbiology Results: Microbiology 06/12/23 09:26 Blood Culture - Preliminary Blood - Venous No growth after 48 hours. 06/12/23 09:26 Blood Culture - Preliminary Blood - Venous No growth after 48 hours. Assessment and Plan (1) Pneumonia: Status: Acute Plan 53 year old male almost 2 weeks s/p uncomplicated right mini thoracotomy, right lower lobe superior segmentectomy for right lower lobe lung abscess now presenting with fever, leukocytosis and RLL consolidation on imaging and concern for bacteremia Sepsis secondary to RLL pneumonia in the setting of recent right mini thoracotomy, right lower lobe superior segmentectomy for right lower lobe lung abscess met sepsis criteria with leukocytosis, fever 102, tachypnea. lactic acid WNL. white count trending down continue IV vancomycin and zosyn, started 06/13 no hypoxia bacteremia records from [facility], blood culture is growing staph epidermadis - likely contaminant repeat blood cultures from 06/12 negative x2 with no growth x 48 hours hypothyroidism continue synthroid mood continue clozaril LUDIN continue CPAP DVT prophylaxis with Attending Dr. Rhodes Full code medical consultation complete. Will sign off Time Spent With Patient Time: Total time managing care of this patient today ____ minutes. Quality Stroke Does the patient have a stroke diagnosis?: No VTE Prior VTE?: No VTE Risk Level:: Medical - moderate - high VTE Device Contraindication: N/A - Device Ordered VTE Drug Contraindication: N/A - Med Ordered
[2023-06-15] MEDS: vancomycin HCL 1,250 MG in 0.9 % Sodium Chloride 250 ML 166.67 MG IV ×2 (11:15→22:41)
[2023-06-15 16:00] VITALS: BP 114/59; PULSE 87; RESP 18; TEMP 36.5; O2SAT 95
[2023-06-15] MEDS: polyethylene glycoL 3350 17 GM POWD.PACK PO (20:34)
[2023-06-15] MEDS: Montelukast Sodium 10 MG TABLET PO (20:34)
[2023-06-15] MEDS: 0.9 % Sodium Chloride Flush 3 ML SYRINGE IVFLUSH (20:34)
[2023-06-15] MEDS: cloZAPine 100 MG TABLET PO (21:57)
[2023-06-15 23:08] VITALS: BP 121/63; PULSE 76; RESP 17; TEMP 36.3; O2SAT 93
[2023-06-15] MEDS: oxyCODONE HCl Immed Release 5 MG TABLET PO (23:29)
--- NOTE | 2023-06-16 02:32 | PC.NURSE ---
Pt in room 384, Ilir Vázquez, has PRN colace but refused. Instead he wants miralax. Dr. Kelly was notified.
[2023-06-16] MEDS: Piperacillin Sodium/Tazobactam 3.375 GM in 0.9 % Sodium Chloride 50 ML IV ×4 (03:07→21:48)
[2023-06-16 06:38] LABS: Creatinine Clr Calc Pharmacy 108.4; Estimated Glomerular Filt Rate > 60
[2023-06-16 07:37] VITALS: BP 115/69; PULSE 79; RESP 17; TEMP 36.4; O2SAT 93
[2023-06-16] MEDS: 0.9 % Sodium Chloride Flush 3 ML SYRINGE IVFLUSH (08:49)
[2023-06-16 09:25] LABS: Vancomycin Random 11.5 mcg/mL (15-20)
--- NOTE | 2023-06-16 10:32 | P.PNGS_ITS ---
Subjective Subjective Date of Service: 06/16/23 Patient reports: no new complaints and feels better Interval history: The patient is seen in coverage for Dr. Holt Patient denies any changes, difficulty breathing, shortness of breath. Per nursing staff, he appears to be at his baseline Physical Exam Vital Signs: Vital Signs: Last Vital Signs Temp 97.6 F 06/16/23 07:37 Pulse 79 06/16/23 07:37 Resp 17 06/16/23 07:37 BP 115/69 06/16/23 07:37 Pulse Ox 93 06/16/23 07:37 O2 Del Method CPAP 06/16/23 07:37 BMI result Body Mass Index 24.3 On exam, the patient is anicteric He is eating breakfast without difficulty or shortness of breath Subcu emphysema/crepitance is noted on the patient's left chest, about the same as yesterday His lungs are clear and equal anteriorly and heart is regular Objective Data Active Medications Acetaminophen (Acetaminophen 325 Mg Tablet) 650 mg PO Q6H PRN PRN Reason: (Pain Scale 1-3); fever Last Admin: 06/14/23 13:20 Dose: 650 mg Documented By: SERENE Clozapine (Clozapine 100 Mg Tablet) 100 mg PO BEDTIME [facility] Last Admin: 06/15/23 21:57 Dose: 100 mg Documented By: KARMA Docusate Sodium (Docusate Sodium 100 Mg Capsule) 100 mg PO DAILY PRN PRN Reason: Constipation Piperacillin Sod/Tazobactam (Sod 3.375 gm/ Sodium Chloride) 50 mls @ 100 mls/hr IV Q6H [facility] Last Infusion: 06/16/23 09:27 Dose: 0 mls/hr Documented By: KARMA Vancomycin HCl 1,500 mg/ (Sodium Chloride) 500 mls @ 333.333 mls/hr IV Q12H [facility] Levothyroxine Sodium (Levothyroxine Sodium 125 Mcg Tablet) 125 mcg PO MoTuWeThFrSa@0600 [facility] Last Admin: 06/15/23 06:09 Dose: 125 mcg Documented By: LEIGHANN Melatonin (Melatonin 3 Mg Tablet) 6 mg PO BEDTIME PRN PRN Reason: Insomnia Montelukast Sodium (Montelukast Sodium 10 Mg Tablet) 10 mg PO BEDTIME [facility] Last Admin: 08/19/23 20:34 Dose: 10 mg Documented By: AKRMA Morphine Sulfate (Morphine Sulfate 4 Mg/Ml Cartridge) 4 mg IVPUSH Q4H PRN; Protocol PRN Reason: Pain, Severe (Pain Scale 7-10) Last Admin: 06/13/23 11:00 Dose: 4 mg Documented By: HIMANSHU Ondansetron HCl (Ondansetron Hcl 4 Mg/2 Ml Vial) 4 mg IVPUSH Q8H PRN PRN Reason: Nausea and Vomiting Oxycodone HCl (Oxycodone Hcl Immed Release 5 Mg Tablet) 5 mg PO Q6H PRN PRN Reason: Pain, Moderate(Pain Scale 4-6) Last Admin: 06/15/23 23:29 Dose: 5 mg Documented By: GLORY Pharmacy Consult (Consult Rx Vancomycin Dosing) 1 each MISCELLANE DAILY PRN PRN Reason: Consult order Sodium Chloride (0.9 % Sodium Chloride Flush 3 Ml Syringe) 3 ml IVFLUSH QSHIFT [facility] Last Admin: 06/16/23 08:49 Dose: 3 ml Documented By: KARMA Labs 06/15/23 09:18 06/16/23 05:34 Labs: Laboratory Results - last 24 hr 06/16/23 06/16/23 05:34 08:46 Estim Creat Clear Calc 108.4 Estimated GFR > 60 Random Vancomycin 11.5 L Imaging Chest x-ray: Radiologist's impression: Increasing subcu air and persistent consolidation. See Dr. Chavira's report from Saturday, 06/14 Procedures Date of Service Date of Service: 06/16/23 Progress Note: A&P Assessment and plan (1) Pneumonia: Status: Acute (2) Leukocytosis: Status: Acute (3) Schizoaffective disorder: Status: Acute (4) LUDIN on CPAP: Status: Acute (5) Emphysema lung: Status: Acute Plan The patient remains clinically stable Continue present management Dr. Holt to resume care 06/17 Time Spent With Patient Time: Total time managing care of this patient today ____ minutes. Quality Stroke Does the patient have a stroke diagnosis?: No VTE Prior VTE?: No VTE Risk Level:: Medical - moderate - high VTE Device Contraindication: N/A - Device Ordered VTE Drug Contraindication: N/A - Med Ordered
[2023-06-16] MEDS: vancomycin HCL 1,500 MG in 0.9 % Sodium Chloride 500 ML 333.33 MG IV ×2 (12:30→22:32)
[2023-06-16 15:41] VITALS: BP 122/61; PULSE 85; RESP 16; TEMP 37.2; O2SAT 91
[2023-06-16 20:00] VITALS: BP 114/63; PULSE 77; RESP 18; TEMP 37.3; O2SAT 91
[2023-06-16] MEDS: cloZAPine 100 MG TABLET PO (21:48)
[2023-06-16] MEDS: Montelukast Sodium 10 MG TABLET PO (21:48)
[2023-06-16] MEDS: polyethylene glycoL 3350 17 GM POWD.PACK PO (21:57)
[2023-06-17] VITALS: BP 119/59; PULSE 78; RESP 17; TEMP 36.7; O2SAT 94
[2023-06-17] MEDS: 0.9 % Sodium Chloride Flush 3 ML SYRINGE IVFLUSH ×2 (00:05→08:15)
[2023-06-17 03:06] VITALS: BP 120/62; PULSE 80; RESP 17; TEMP 36.6; O2SAT 94
[2023-06-17] MEDS: Piperacillin Sodium/Tazobactam 3.375 GM in 0.9 % Sodium Chloride 50 ML IV ×2 (03:11→08:15)
[2023-06-17] MEDS: Levothyroxine Sodium 125 MCG TABLET PO (05:50)
[2023-06-17 07:22] LABS: Creatinine Clr Calc Pharmacy 99.4; Estimated Glomerular Filt Rate > 60
[2023-06-17 07:34] VITALS: BP 119/62; PULSE 77; RESP 15; TEMP 36.1; O2SAT 94
[2023-06-17 09:35] LABS: Vancomycin Random 14.6 mcg/mL (15-20)
--- NOTE | 2023-06-17 09:44 | HE.PHANOTE ---
Re: vanco dosing Trough today 14.6. Still expecting a slight rise according to insight so will keep current regimen and recheck level again tomorrow to ensure therapeutic level.
--- NOTE | 2023-06-17 09:51 | PM.PNTS ---
Subjective Subjective Date of Service: 06/17/23 Interval history: Overall feels a little better but still feels weak. Asking for walker. Coughing up clearish sputum, nonbloody. Has been ambulating to bathroom. Physical Exam Vital Signs: Vital Signs: Last Vital Signs Temp 97.0 F 06/17/23 07:34 Pulse 77 06/17/23 07:34 Resp 15 06/17/23 07:34 BP 119/62 06/17/23 07:34 Pulse Ox 94 06/17/23 07:34 O2 Del Method CPAP 06/17/23 07:34 BMI result Body Mass Index 24.3 Const: General: comfortable, no acute distress and alert Orientation/consciousness: patient oriented x3 Chest: Other: right thoractomy incision and chest tube site well healed Resp: Effort & Inspection: normal respiratory effort Skin: General skin exam: no rashes or lesions noted Neuro: General: patient oriented x3 and moves all extremities Procedures Date of Service Date of Service: 06/17/23 Progress Note: A&P Assessment and plan (1) Pneumonia: Status: Acute Plan Much improved. VSS, afebrile >24h. Right thoractomy incision and chest tube site well healed. WBC has consistently downtrended. Stable for discharge to home today. STRONGLY encouraged to ambulate at least 4x daily, use incentive spirometer 10x/hr. Dc on PO Augmentin, VNA services. Can f/u in 1 week in office with Dr. Holt. Time Spent With Patient Time: Total time managing care of this patient today ____ minutes. Quality Stroke Does the patient have a stroke diagnosis?: No VTE Prior VTE?: No VTE Risk Level:: Medical - moderate - high VTE Device Contraindication: N/A - Device Ordered VTE Drug Contraindication: N/A - Med Ordered
--- NOTE | 2023-06-17 09:54 | MHC.CM.PN ---
Addendum entered by Stefani Duarte 06/17/23 12:06: CM RECEIVED A RETURN CALL FROM VISHAL ASKEW SHE REQUESTED PTS DCS AND F2F BE FAXED TO HER AT [phone] OR [phone] IF THE FIRST WAS BUSY DC ORDERS REVIEWED VIA T/C WELL AND SHE CONFIRMS THEY ARE ABLE TO RESUME SN SERVICES CM MET WITH PTS MOTHER X 2, SHE EXPRESSES CONCERNS THAT THE PT WILL NOT WANT TO GET OUT OF BED ONCE HOME SHE IS AWARE NURSING SERVICES WILL RESUME SHE ALSO EXPRESSED CONCERN THAT THE PTS DEPRESSION SEEMS TO BE INCREASING CM ASKED PTS MOTHER TO CLARIFY WHAT TYPE OF HELP SHE FELT THE PT NEEDED SHE REPORTS PT IS INVOLVED WITH [facility] AND SHE WOULD LIKE THEM TO INCREASE SERVICES CM DID LEAVE A VM MESSAGE FOR [facility] [phone] ON [facility] IN [place], INFORMING THEM OF MOTHERS STATED CONCERNS AND REQUESTING THEY F/U WITH PATIENT PT WILL DC HOME WITH RESUMPTION OF [facility] VNA FOR SN AND [facility] FOR MH SERVICES PTS MOTHER AND SISTER WILL TRANSPORT Original Note: PER ELOISE NOTES, PT IS ACTIVE WITH [facility] HOME CARE REFERRAL WAS SENT ON 06/13/23, THERE HAS BEEN NO RESPONSE FROM VNA ELOISE CALLED [phone] AND LEFT A VM REQUESTING A RETURN CALL PT WILL DC HOME TODAY WITH RESUMPTION OF SERVICES VIA FAMILY TRANSPORT
--- NOTE | 2023-06-17 09:55 | P.F2F_ITS ---
Service Date Service Date: 06/17/23 Encounter Date of encounter: 06/17/23 Reasons for Services Signs and symptoms assessed: pain, thoractomy and chest tube site, vital signs Reason for long-term: postoperative assessment and/or care Homebound: Leaving the home is medically contraindicated at this time without the asist of a device and/or another person due th the listed conditions above and below. Reason homebound: weakness related to hospital stay and unable to drive Certification: Based on the above findings, I certify that this patient is confined to the home and needs intermittent long-term care, physical therapy and/or speech therapy, or continues to need occupational therapy. The patient is under my care, and I have initiated the establishment of the plan of care. The patient will be followed by a physician who will periodically review the plan of care. Time Spent With Patient Time: Total time managing care of this patient today ____ minutes.
--- NOTE | 2023-06-17 09:56 | PM.DS ---
DS: Providers Provider Date of Service: 06/17/23 Date of admission: 06/12/23 10:50 Primary care physician: Elijah Aguilar MD Consults: 06/13/23 09:22 Consult to Hospitalist Routine Comment: Consulting Provider: Hospitalist Reason For Exam: s/p RLL segmentectomy, RLL PNA, bacteremia DS: Diagnosis Discharge Diagnosis (1) Pneumonia: Status: Acute DS: Summary Hospital Course Hospital Course: HPI AT ADMISSION: Ilir Vázquez is a 53 year old male with PMH schizoaffective disorder, LUDIN, hypothyroidism who is almost 2 weeks s/p right mini thoracotomy, right lower lobe superior segmentectomy for right lower lobe lung abscess with associated bronchiectasis. The surgery and recovery was uncomplicated; his chest tube was removed on POD #4. He was discharged to home on 06/06/23. He reports feeling overall well until 2-3 days ago when he developed low grade fevers, anorexia and malaise. He developed a fever of 100.4 last night and therefore presented to the ED at [facility] where he had a leukocytosis and imaging was consistent with RLL pneumonia. He was started on IV vanco and zosyn. Given his recent surgery, he was transferred to [facility]. He has not been very active at home and has not been using his incentive spirometer. He is still coughing up a little blood but this is overall improved. Sputum is now only blood tinged. He denies chest pain, shortness of breath. Patient reports a mild upper abdominal discomfort as well. He is a poor historian and unclear to give a timeline. He denies nausea, vomiting. HOSPITAL COURSE: He was admitted for further treatment of the RLL pneumonia. He was started on IV zosyn and vanco, chest percussion and IS use 10x/hr ordered. He was instructed to ambulate and increase his activity. Hospitalist was consulted for medical management. He had one blood culture from his [facility] ED visit grow staph epidermis which they thought was likely contaminant as repeat blood cultures were negative. He had elevated LFTs upon admission but US did not show any biliary ductal dilatation or signs of acute cholecystitis. Liver enzymes improved during his stay. He was tolerating a solid diet. He remained inpatient for IV abx treatment and completed 5 days of IV vanco/zosyn. His hemoptysis resolved. His WBC downtrended and he became afebrile >48h at time of discharge. He was discharged on 06/17/23 on a PO course of Augmentin. He is to follow up in the office in 1 week. He was encouraged to increase his activity daily, use his incentive spirometer. Status at Discharge Functional status at discharge: independent ambulation Overall status at discharge: patient is progressing back to baseline Time Spent with Patient Time attestation: Total time managing care of this patient today ____ minutes. Discharge coordination time: Less than 30 minutes Quality: Safe Use of Opioids Does Pt have an Active Cancer Diagnosis on the Problem List?: No Quality: Stroke Does the patient have a stroke diagnosis?: No Physical Exam Vital Signs: Vital Signs: Last Vital Signs Temp 97.0 F 06/17/23 07:34 Pulse 77 06/17/23 07:34 Resp 15 06/17/23 07:34 BP 119/62 06/17/23 07:34 Pulse Ox 94 06/17/23 07:34 O2 Del Method CPAP 06/17/23 07:34 BMI result Body Mass Index 24.3 Const: General: comfortable, no acute distress and alert Orientation/consciousness: patient oriented x3 Chest: Other: thoractomy incision and chest tube site clean, well healed Resp: Effort & Inspection: normal respiratory effort Skin: General skin exam: no rashes or lesions noted Neuro: General: patient oriented x3 and moves all extremities DS: Data Data Completed and Pending Completed studies during hospitalization [Text1]: Procedures Drainage of Right Pleural Cavity with Drainage Device, Percutaneous Approach (05/31/23) Excision of Right Lower Lung Lobe, Open Approach (05/31/23) Inspection of Tracheobronchial Tree, Via Natural or Artificial Opening Endoscopic (05/31/23) Labs on day of discharge: Laboratory Results - last 24 hr 06/17/23 06/17/23 06:00 09:06 Creatinine 0.96 Estim Creat Clear Calc 99.4 Estimated GFR > 60 Random Vancomycin 14.6 L Preliminary micro results at discharge 06/12/23 09:26 Blood Culture - Preliminary Blood - Venous No growth after 48 hours. 06/12/23 09:26 Blood Culture - Preliminary Blood - Venous No growth after 48 hours. Discharge Plan Discharge Anticipated Discharge Date/Time: 06/17/23 09:24 Patient Disposition: Home Health Service Discharge Diagnosis: RLL Pneumonia Referrals: [facility] [Outside] Elijah Aguilar MD [Primary Care Provider] - 1 Week Daniel Holt MD [Physician] - 1 Week Discharge Medications: New amoxicillin-pot clavulanate 875-125 mg tablet 1 tab PO BID Qty: 10 0RF (DME) walker Misc See Rx Instructions .Route Qty: 1 0RF Rx Instructions: As directed Continued polyethylene glycol 3350 [Miralax] 17 gram Powder In Packet 17 g PO BEDTIME PRN (Reason: Constipation) Fiber Gummies 1 tab PO BEDTIME PRN (Reason: Constipation) Patient Comments: Metamucil Fiber Gummies 5 grams 3 at bedtime hydrocodone-acetaminophen 5-325 mg tablet 1 tab PO Q4-6H PRN (Reason: pain) Qty: 30 0RF Rx Instructions: Partial Fill upon patient request. clozapine [Clozaril] 100 mg tablet 100 mg PO BEDTIME Patient Comments: M[employer] brand only levothyroxine 125 mcg capsule 125 mcg PO MOTUWETHFRSA montelukast 10 mg tablet 10 mg PO BEDTIME Discharge Orders: Discharge Order (Routine); Ordered 06/17/23 Ordered By: Agnes Mckeon Diet: Advance to usual diet Activity on Discharge: As tolerated Stand Alone Forms: Patient Portal Discharge page Activity Restrictions/Additional Instructions: Follow up in office in a week. ([phone]) Complete your antibiotic course. Ambulate at least 4x/day. Incentive spirometer 10x/hr. Call Your Doctor If: ? ? -Your temperature exceeds 101.5? F? ? ? -You experience excessive pain or swelling ? ? -You have an unexpected reaction to medication ? ? -You experience continued vomiting/nausea -You become short of breath Care Plan Goals: Return to baseline health and resume normal activities following recovery period. Health Concerns: s/p right thoractomy, segmentectomy RLL Pneumonia Plan of Treatment: IV transitioned to PO abx Ambulate at least 4x per day, incentive spirometer use 10x/hour Assessment: Improved Discharge Date/Time: 06/17/23 13:32
[2023-06-17] MEDS: Acetaminophen 325 MG TABLET 650 MG PO (12:01)
== END 2023-06-17 13:32 | disposition home health service (06) | DRG 871 ==
LOC: HO.ED 10:02 → HO.EDOVER 11:05 → HO.IMC 16:07 → HO.S3 06-14 19:27
PROVIDERS: Physician Assistant Medical; Student in an Organized Health Care Education/Training Program; Admitting Provider Physician Assistant Surgical; Emergency Provider Emergency Medicine; PCP Internal Medicine; Visit Provider Physician Assistant Surgical
DX: A41.9 Sepsis, unspecified organism (principal); J18.9 Pneumonia, unspecified organism; J47.0 Bronchiectasis with acute lower respiratory infection; R04.2 Hemoptysis; J43.9 Emphysema, unspecified; E03.9 Hypothyroidism, unspecified; G47.33 Obstructive sleep apnea (adult) (pediatric); F25.9 Schizoaffective disorder, unspecified; Z20.822 Contact with and (suspected) exposure to COVID-19; Z90.2 Acquired absence of lung [part of]; Z79.890 Hormone replacement therapy; Z79.899 Other long term (current) drug therapy
CPT/HCPCS: 36415; 71045; 76705; 80048; 80076; 80202; 81001; 82565; 83605; 83735; 84145; 85025; 85027; 87040; 87635; 93005; 99285; J2270; J2543; J3370; J3371

== ENCOUNTER → 2023-06-12 10:50 | Outpatient (BNV) | payer OTHER, SELFPAY | PROVIDERS: Admitting Provider Physician Assistant Surgical; Emergency Provider Emergency Medicine; PCP Internal Medicine; Visit Provider Physician Assistant Surgical | DX: J18.9 Pneumonia, unspecified organism (principal) | CPT/HCPCS: 99024; 99231; 99232; 99238; 99499; G0180 ==

== ENCOUNTER → 2023-06-12 10:50 | Outpatient (BNV) | payer OTHER, SELFPAY | PROVIDERS: Admitting Provider Physician Assistant Surgical; Emergency Provider Emergency Medicine; PCP Internal Medicine; Visit Provider Physician Assistant Medical | DX: J18.9 Pneumonia, unspecified organism (principal) | CPT/HCPCS: 99223; 99232 ==

== ENCOUNTER 2023-06-25 10:42 | Outpatient (AMB) | payer OTHER, SELFPAY ==
[2023-06-25 10:50] VITALS: BP 114/61; PULSE 80
--- NOTE | 2023-06-25 10:50 | MHC.OFFVIS ---
Intake Vital Signs 06/25/23 10:50 Weight 177 lb BP 114/61 Blood Pressure Location Lt brachial Position Sitting Pulse 80 Intake Visit Reasons: S/P bronchoscopy, thoracotomy, lobectomy Intake Note: Patient here s/p bronchoscopy, thoracotomy, lobeectomy. Reports incision healing well. Denies bleeding. C/o pressure on Lt flank. Finished amox course. 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 Allergies diphenhydramine [From Benadryl] Allergy (Intermediate, Verified 06/25/23 10:51) Shortness of Breath HPI HPI Comments History of Present Illness Details Patient presents with his sister and mother for follow-up. All these considered, is doing quite well. He has no respiratory issues or complaints. He is starting to increase his activity level. He has minimal incisional discomfort. He has complete resolution of his hemoptysis symptoms. O2 saturation was 99%. [facility]ology was [facility] Medical History Constipation Coughing up blood Dermatitis Hx of bacterial pneumonia Hx of thyroid cancer Low vitamin D level OCD (obsessive compulsive disorder) LUDIN on CPAP PONV (postoperative nausea and vomiting) Schizoaffective disorder Vertigo Surgical History (Updated 06/25/23 @ 11:12 by Daniel Holt MD) History of lung biopsy History of surgery on lower extremity History of thyroidectomy Hx of colonoscopy S/P thoracotomy Family History Maternal Grandfather Lung cancer Father Cancer of appendix Prostate cancer Paternal Uncle Prostate cancer Paternal Grandfather Prostate cancer Social History Household Members: None Housing: Apartment Are you a primary adult caregiver to a significant other at home: No Do you presently have visiting nurse or other home services: Yes Alcohol intake: never Patient Tobacco Use Status: Former Tobacco user Quit Date: 2009 Tobacco use type: Cigarette service: No Physical Exam Vital Signs: Last Vital Signs Pulse 80 06/25/23 10:50 BP 114/61 06/25/23 10:50 Chest Other: Excellent breath sounds bilaterally. Incision and chest tube site clean dry and intact healing uneventfully. Assessment & Plan Assessment & Plan (1) S/P thoracotomy: Comment: 05/31/23 right mini thoracotomy, right lower lobe superior segmentectomy, bronchoscopy Code(s): Z98.890 - Other specified postprocedural states Plan Patient and family have been given local instructions, and the patient will follow-up p.r.n.. Coding Level of Care Code Global (37120) Diagnoses S/P thoracotomy Z98.890
== END 2023-06-25 11:01 | disposition home or self-care (01) ==
PROVIDERS: PCP Internal Medicine; Visit Provider Surgery
DX: Z98.890 Other specified postprocedural states (principal)
CPT/HCPCS: 99024

== ENCOUNTER → 2023-06-25 10:42 | Outpatient (BNVA) | payer OTHER, SELFPAY | PROVIDERS: PCP Internal Medicine; Visit Provider Surgery ==

== ENCOUNTER 2025-08-10 17:54 | Emergency (ER) | payer OTHER, SELFPAY ==
--- NOTE | ~2025-08-10 | XR_ITS ---
CLINICAL HISTORY: hemoptysis 2 view chest x-ray Comparison: CR/SR - XR CHEST 2 VIEWS - 06/14/23 08:20 EDT Findings: The lungs are clear. Normal size heart. No acute fracture. Surgical clips are noted within the right upper lobe. IMPRESSION: 1. No acute findings. 2. Right upper lobe surgical clips are seen. This document has been electronically signed by: Ronal Lainez MD on 08/10/2025 19:15:26
--- NOTE | ~2025-08-10 | CT_ITS ---
CLINICAL HISTORY: Rule out PE? CT angiography chest with contrast. 3D Postprocessing. Comparison: CR - XR CHEST 2V - 08/10/25 18:[address]/REG/SR - CT CHEST ANGIOGRAPHY WITH IV CONTRAST - 06/05/23 09:04 EDT Findings: The heart is normal size. RV/LV ratio is normal. Unremarkable thoracic aorta and great vessels. No aneurysm. No pulmonary embolus. Thyroid is surgically absent. No enlarged mediastinal or hilar lymph nodes. Postsurgical changes in the right lower lobe with scarring and chronic atelectasis. Emphysema. Bronchiectasis in the right lower lobe. No acute consolidation, pleural effusion or pneumothorax. Partially visualized septated cysts in the left upper quadrant measuring 12.1 x 9.4 cm previously 13.1 x 10.8 cm. No acute findings in the visualized upper abdomen. Postsurgical changes in the right posterior 6th rib. No acute fracture or suspicious osseous lesions. IMPRESSION: 1. No pulmonary embolus. 2. No acute cardiopulmonary findings. Chronic findings as above. This document has been electronically signed by: Kerri Cuevas MD on 08/11/2025 02:04:16
[2025-08-10 18:36] VITALS: BP 121/62; PULSE 90; RESP 16; TEMP 37.2; O2SAT 95; BMI 24.2
--- NOTE | 2025-08-10 18:37 | ED.GENADULT ---
HPI - General Adult General Chief complaint: Upper Respiratory Symptoms Stated complaint: Coughing up blood, post Lung surgery, sent from Time Seen by Provider: 08/10/25 22:44 Source: patient Mode of arrival: ambulatory Limitations: no limitations History of Present Illness ED Provider: Moi Dodge HPI narrative: 55 yold male with pmh of pnueomnia, schizoaffective disorder presents to the ED for coughing for couple of days and than had two episodes of cough with specs of blood. patient states no chest pain, shortness of breath, abdominal pain, vomitting blood, rectal bleeding, blood in urine, or bleeding from other orifices. patient states no recent trauma. patient states no pmh of alcohol abuse. patient states no fever or chills. Related Data Home Medications ?Medication ?Instructions ?Recorded ?Confirmed clozapine 100 mg tablet (Clozaril) 100 mg PO BEDTIME 11/01/22 06/12/23 levothyroxine 125 mcg capsule 125 mcg PO MOTUWETHFRSA 11/01/22 06/12/23 montelukast 10 mg tablet 10 mg PO BEDTIME 11/01/22 06/12/23 Fiber Gummies 1 tab PO BEDTIME PRN Constipation 05/24/23 06/12/23 polyethylene glycol 3350 17 gram 17 g PO BEDTIME PRN Constipation 05/24/23 06/12/23 oral powder packet (Miralax) Previous Rx's ?Medication ?Instructions ?Recorded walker #1 ea 06/17/23 albuterol sulfate 90 mcg/actuation 2 puff inhalation Q6H PRN 08/11/25 aerosol inhaler (Ventolin HFA) shortness of breath or wheezing #8.5 grams azithromycin 250 mg tablet See Rx Instructions PO .COMPLEX #6 08/11/25 tabs Allergies Allergy/AdvReac Type Severity Reaction Status Date / Time diphenhydramine (From Allergy Intermediate Shortness Verified 08/10/25 18:39 Benadryl) of Breath Review of Systems Review of Systems: coughing up blood Yes all other systems are reviewed and are negative COUNTS INCLUDE 234 BEDS AT THE [facility] Past Medical History Medical History (Updated 08/11/25 @ 02:27 by HAYLIE Mcdaniels) OCD (obsessive compulsive disorder) Schizoaffective disorder Low vitamin D level Vertigo LUDIN on CPAP Constipation Hx of bacterial pneumonia Coughing up blood Dermatitis Hx of thyroid cancer PONV (postoperative nausea and vomiting) Surgical History (Updated 06/25/23 @ 11:12 by Daniel Holt MD) S/P thoracotomy History of lung biopsy Hx of colonoscopy History of surgery on lower extremity History of thyroidectomy Family History Family History Maternal Grandfather Lung cancer Father Cancer of appendix Prostate cancer Paternal Uncle Prostate cancer Paternal Grandfather Prostate cancer Social History Social History Household Members: None Housing: Apartment Are you a primary care manager to a significant other at home: No Do you presently have visiting nurse or other home services: Yes Alcohol intake: never Patient Tobacco Use Status: Former Tobacco user Tobacco use type: Cigarette service: No Physical Exam ED Vital Signs: Vital Signs - 24 hr 08/10/25 22:29 08/11/25 00:48 08/11/25 02:32 Temperature 97.9 F Pulse Rate 80 80 80 Respiratory Rate 16 18 18 Blood Pressure 109/59 L 106/56 L 106/56 L Pulse Oximetry 94 96 96 Oxygen Delivery Method Room Air Room Air Room Air BMI result Body Mass Index 24.2 Const General: cooperative, healthy appearing, comfortable, no acute distress, well developed, alert, awake and Physically active Orientation/consciousness: patient oriented x3 HENMT Head: Yes normal to inspection, Yes No palpable skull fracture present, Yes normocephalic and Yes atraumatic Ears: hearing grossly normal bilaterally, external ears normal, TM's normal bilaterally, TM normal on the right, TM normal on the left, EAC's normal, mastoids normal and no periauricular adenopathy Throat: Yes posterior oropharynx normal, Yes tonsils normal and Yes uvula midline Eyes General: appearance normal, both eyes and all related structures Neck Neck: Yes normal visual inspection, Yes full ROM, Yes no lymphadenopathy, Yes no meningeal signs, Yes trachea midline, Yes supple, No anterior neck swelling and No tender Chest Chest palpation & inspection: normal inspection of the chest and normal palpation of entire chest wall Resp Effort & Inspection: normal respiratory effort and able to speak in complete sentences Auscultation: clear to auscultation bilaterally Cardio Jugular venous distension: no JVD Heart sounds: S1 normal heart sound present and S2 normal heart sound present GI Inspection: Yes normal to inspection Palpation (GI): Soft to palpation, not firm, nontender, no guarding and not rigid General: Yes no CVA tenderness Back/Spine/Pelvis Back: no CVA tenderness and No back tenderness Skin General skin exam: no rashes or lesions noted, elasticity normal and turgor normal Neuro General: patient oriented x3, gait normal, tone normal, moves all extremities, Normal light touch and pain sensation, no meningeal signs, no focal motor deficits, CN's II-XI intact bilaterally and normal sensation to monofilament Extrem General: Yes normal to inspection, Yes full ROM and Yes capillary refill normal Psych Appearance: grossly normal, well kempt and not disheveled Course Course Course Narrative: This is a rapid medical exam performed by Judith Singh NP: Additional HPI, ROS, PE not included below will be deferred to primary provider. Patient is a 55y/o M with pmhx ?schizophrenia, asthma, DMII, h/o thyroid CA s/p lobectomy with subsequent hypothyroidism, HLD, R lung abscess s/p RLL superior segmentectomy 05/31/2023 at [facility] presenting wt complaint of two episodes of hemoptysis, last one today. Plan: viral serology, labs, CXR Medications Administered Discontinued Medications Generic Name Dose Route Start Last Admin Trade Name Freq PRN Reason Stop Dose Admin Iohexol 65 ml 08/11/25 01:23 08/11/25 01:23 Iohexol 350 Mg/Ml 100 Ml Infus..Btl IV 08/11/25 01:24 65 ml ONCE ONE Administration Medical Decision Making Medical Decision Making [facility] Narrative: 55 Yold male presents to ED for coughing past couple of days and while coughing you had 2 episodes of blood in his sputum. Patient denies any pleurisy calf pain recent long travel recent surgery. Case discussed with the Dr. Epps who recommend CTA which was negative. platelet is 87 and he denies any bleeding and has no petechiae. Dr. Rodas states patient can follow up outpatient for platelet of 87. NOt susectping GI bleedging, AR, CHF, or any other life threatening etiology. Differential Diagnosis Differential Diagnoses: The differential diagnosis associated with the presentation includes (PE, Pnuemonia, bronchititis, asthma) Admission/Observation Consideration of admission/observation: Escalation of care including admission/observation considered Lab Data MDM Lab Attestation statement: I reviewed the patient's lab results. 08/10/25 18:56 08/10/25 18:56 Labs: Lab Results 08/10/25 08/10/25 Range/Units 18:53 18:56 WBC 4.9 (4.8-10.8) X10*3/uL RBC 5.59 D (4.60-5.80) X10*6/uL Hgb 15.6 D (14.0-18.0) g/dl Hct 48.0 D (42.0-52.0) % MCV 85.9 (80.0-98.0) fL MCH 27.9 (27.0-33.0) pg MCHC 32.5 (31.0-36.0) g/dl RDW 13.6 (11.0-16.0) % Plt Count 87 L D (160-400) X10*3/uL MPV 11.5 (9.4-12.4) fL Immature Gran % (Auto) 0.2 (0.0-0.4) % Neut % (Auto) 76.0 H (45-73) % Lymph % (Auto) 12.2 L (20-40) % Carlisle % (Auto) 11.0 (2-11) % Eos % (Auto) 0.4 (0-4) % Baso % (Auto) 0.2 (0-2) % Lymph # (Auto) 0.6 L (1.2-4.9) X10*3/uL Carlisle # (Auto) 0.5 (0.1-1.2) X10*3/uL Eos # (Auto) 0.0 (0.0-0.4) X10*3/uL Baso # (Auto) 0.0 (0.0-0.2) X10*3/uL Abs Immat Gran (auto) 0.01 (0.00-0.03) X10*3/uL Absolute Neuts (auto) 3.7 (2.0-8.3) x10*3/uL Absolute Nucleated RBC 0.000 (0.0-0.012) X10*3/uL Nucleated RBC % (auto) 0.0 (0.0-0.2) /100WBC PT 12.8 H (10.9-12.4) SEC INR 1.1 (0.9-1.1) Sodium 142 (135-145) mmol/L Potassium 3.9 (3.3-5.1) mmol/L Chloride 106 (96-108) mmol/L Carbon Dioxide 28 (22-29) mmol/L Anion Gap 12 (12-20) BUN 20 H (9-16) mg/dL Creatinine 1.12 (0.5-1.4) mg/dL Estim Creat Clear Calc 83.2 Estimated GFR > 60 Random Glucose 137 H (60-115) mg/dL Calcium 8.8 (8.4-10.2) mg/dL Total Bilirubin 1.3 H (0.0-1.0) mg/dL AST 26 (5-37) U/L ALT 30 (0-40) U/L Alkaline Phosphatase 58 (39-117) U/L Total Protein 7.2 (6.5-8.0) g/dL Albumin 4.8 (3.5-5.0) g/dL COVID-19 (ELIDIA) Negative (Negative) COVID-19 Clin Com See Note Influenza Type A (ROBERT) Negative (Negative) Influenza Type B (ROBERT) Negative (Negative) Influenza A & B Note See Note Independent Historian Clinical information obtained from an independent historian. History obtained from or confirmed by: Other (patient) Prescription Management I considered prescription management with: Antibiotic Discharge Plan Discharge Clinical Impression: Bronchitis, Cough with hemoptysis Patient Disposition: Home, Self-Care Instructions: Acute Bronchitis (ED), Coughing Up Blood (Hemoptysis) (ED) Additional Instructions: Recommend follow-up with your primary care provider. Return to the ED immediately for any chest pain, shortness of breath, coughing up blood, rectal bleeding, blood from nose, vomiting blood, leg swelling, calf pain, or any other concerning symptoms. Your platelet was 87 recommend outpatient follow up. Prescriptions: New azithromycin 250 mg tablet See Rx Instructions .ROUTE .COMPLEX Qty: 6 0RF Rx Instructions: For 250 mg dose pack: take 500 mg today (day 1), then 250 mg for 4 days (days 2-5) albuterol sulfate [Ventolin HFA] 90 mcg/actuation HFA aerosol inhaler 2 puff inhalation Q6H PRN (Reason: shortness of breath or wheezing) Qty: 8.5 0RF No Action polyethylene glycol 3350 [Miralax] 17 gram Powder In Packet 17 g PO BEDTIME PRN (Reason: Constipation) Fiber Gummies 1 tab PO BEDTIME PRN (Reason: Constipation) Patient Comments: Metamucil Fiber Gummies 5 grams 3 at bedtime (DME) walker Misc See Rx Instructions .Route Qty: 1 0RF Rx Instructions: As directed clozapine [Clozaril] 100 mg tablet 100 mg PO BEDTIME Patient Comments: Mylan brand only levothyroxine 125 mcg capsule 125 mcg PO MOTUWETHFRSA montelukast 10 mg tablet 10 mg PO BEDTIME Referrals: Elijah Aguilar MD [Primary Care Provider, Internal Medicine] - 2 days Referral Note: Bronchitis, hemoptysis Clinical Impression: Cough with hemoptysis; Bronchitis Stand Alone Forms: Work/School Release Interventions: ED Discharge Assessment Last Done: 08/11/25 02:32 Discharge Date/Time: 08/11/25 02:45 Print Language: Welsh
[2025-08-10 19:03] LABS: MANUAL DIFF FLAG NO
[2025-08-10 19:21] LABS: COVID-19 Test Negative (Negative); IDNOW Serial# 55D5AD1C
[2025-08-10 19:22] LABS: IDNOW Serial# 58CA691E; Influenza B2 Negative (Negative)
[2025-08-10 19:22] LABS: Alanine Aminotransferase 30 U/L (0-40); Albumin Level 4.8 g/dL (3.5-5.0); Alkaline Phosphatase 58 U/L (39-117); Anion Gap 12 (12-20); Aspartate Amino Transferase 26 U/L (5-37); Blood Urea Nitrogen 20 mg/dL (9-16); Calcium 8.8 mg/dL (8.4-10.2); Carbon Dioxide 28 mmol/L (22-29); Chloride 106 mmol/L (96-108); Creatinine Clr Calc Pharmacy 83.2; Estimated Glomerular Filt Rate > 60; Potassium 3.9 mmol/L (3.3-5.1); Sodium 142 mmol/L (135-145); Total Protein 7.2 g/dL (6.5-8.0)
[2025-08-10 19:43] LABS: Hematocrit 48.0 % (42.0-52.0); Hemoglobin 15.6 g/dl (14.0-18.0); Imm Gran Abs Auto 0.01 X10*3/uL (0.00-0.03); Imm Gran Pct Auto 0.2 % (0.0-0.4); Lymphocytes Absolute Auto 0.6 X10*3/uL (1.2-4.9); Mean Corpuscular HGB Conc 32.5 g/dl (31.0-36.0); Mean Corpuscular Hemoglobin 27.9 pg (27.0-33.0); Mean Corpuscular Volume 85.9 fL (80.0-98.0); NRBC Abs Auto 0.000 X10*3/uL (0.0-0.012); NRBC Pct Auto 0.0 /100WBC (0.0-0.2); Red Blood Count 5.59 X10*6/uL (4.60-5.80); White Blood Count 4.9 X10*3/uL (4.8-10.8)
[2025-08-10 19:48] LABS: INTERNATIONAL NORM RATIO 1.1 (0.9-1.1); Prothrombin Time 12.8 SEC (10.9-12.4)
[2025-08-10 20:03] LABS: Platelet Count 87 X10*3/uL (160-400)
--- OUTSIDE RECORDS SUMMARY | 2025-08-10 22:10 | XMS_ITS | Encounter Summary ---
Author Organization [facility] Address [address] [place] [address] Care Team Providers Care Civil Clerk Name Role Phone Elijah Aguilar MD Primary Care Provider Unavail [facility], Pcp Primary Care Provider Unavailabl e Reason for Visit * Reason Onset Date Comments VNA Call 01/27/2018 Encounter Details Date Type Department Care Team Description 01/27/2018 Telephone Adult Medicine - [address] [id number] Elijah Aguilar MD VNA Call Social History Tobacco Use Types Packs/Day Years Used Date Smoking Tobacco: Former Cigarettes 3 Q uit: 08/28/2009 Smokeless Tobacco: Never Alcohol Use Standard Drinks/Week Comments No 0 (1 standard drink = 0.6 oz pur e alcohol) Sex Assigned at Date Recorded Not on file Job Start Date Occupation Industry Not on file Not on file Not on file documented as of this encounter Miscellaneous Notes * Telephone Encounter - Breanna Huang M.A. - 01/28/2018 8:43 AM EDT Informed VNA of the message below * Telephone Encounter - Elijah Aguilar MD - 01/27/2018 11:27 AM EDT If this is what he has been taking all along, then we will continue in this fashion. We will check a thyroid test with the next set of blood tests. He may continue on as is with the manner in which he is taking Advair. * Telephone Encounter - Jocelyne Wiggins L.P.N. - 01/27/2018 11:18 AM EDT Pt has a new renal case manager and she was reviewing his meds. States pt has been taking 150 mcg of Levothyroxine 1 daily except no med on Saturday since 08/08/2016. His med list and previous refills are 1 daily. Pt also told nurse he only does his Advair once a day not twice as ordered.She wants to straighten out his med list . Lab Results Component Value Date TSH 2.10 11/13/2016 Nurse has to attend a so message can be left on her cell phone [phone]. * Telephone Encounter - Nupur Tafoya - 01/27/2018 11:04 AM EDT VNA CALL Which VNA office is calling? [facility] Full name of caller: Tanika The caller is A nurse Is the caller at the patients home?: NO Reason for call: levothyroxine (SYNTHROID, LEVOTHROID) 150 MCG tablet Needs clerification on medication. Does caller need an urgent call back? NO Was CONTACT Telephone # obtained above?: YES Fax #: Na documented in this encounter Plan of Treatment Not on file documented as of this encounter Results * TSH (03/11/2018 9:45 AM EDT) TSH 3.14 0.40 - 4.00 mIU/ml 03/11/2018 2:24 PM EDT [facility] 03/11/2018 9:45 AM EDT 03/11/2018 9:46 AM EDT Elijah Aguilar MD LAB [facility] [address] [facility] documented in this encounter Visit Diagnoses Diagnosis Other specified hypothyroidism- Primary documented in this encounter Care Teams Civil Clerk Relationship Specialty Start Date End Date Elijah Aguilar MD PCP - General 03/17/09 01/02/23 [facility], Pcp PCP - General Internal Medicine 01/03/23 documented as of this encounter
--- OUTSIDE RECORDS SUMMARY | 2025-08-10 22:10 | XMS_ITS | Encounter Summary ---
Author Organization [facility] Address [address] [place] [address] Care Team Providers Care Electrogalvanizing Machine Operator Name Role Phone Elijah Aguilar MD Primary Care Provider Unavail able [facility], Pcp Primary Care Provider Unavailabl e Encounter Details Date Type Department Care Team Description 12/07/2010 Research Spec Report Medical Records [address] [place] [id number] Joe Taylor MD Social History Tobacco Use Types Packs/Day Years Used Date Smoking Tobacco: Former Cigarettes 3 Q uit: 08/28/2009 Alcohol Use Standard Drinks/Week Comments No 0 (1 standard drink = 0.6 oz pur e alcohol) Sex Assigned at Date Recorded Not on file Job Start Date Occupation Industry Not on file Not on file Not on file documented as of this encounter Plan of Treatment Not on file documented as of this encounter Visit Diagnoses Not on filedocumented in this encounter Care Teams Electrogalvanizing Machine Operator Relationship Specialty Start Date End Date Elijah Aguilar MD PCP - General 03/17/09 01/02/23 [facility], Pcp PCP - General Internal Medicine 01/03/23 documented as of this encounter
--- OUTSIDE RECORDS SUMMARY | 2025-08-10 22:10 | XMS_ITS | Encounter Summary ---
Author Organization [facility] Address [address] [place] [address] Care Team Providers Care Chief Of Staff Name Role Phone Elijah Aguilar MD Primary Care Provider Unavail able [facility], Pcp Primary Care Provider Unavailabl e Reason for Visit * Reason Onset Date Comments Error 03/14/2012 Encounter Details Date Type Department Care Team Description 03/14/2012 Refill Medicine/Pediatrics [address] [phone] Elijah Aguilar MD Error Social History Tobacco Use Types Packs/Day Years [...] on filedocumented in this encounter Care Teams Chief Of Staff Relationship Specialty Start Date End Date Elijah Aguilar MD PCP - General 03/17/09 01/02/23 [facility], Pcp PCP - General Internal Medicine 01/03/23 documented as of this encounter
--- OUTSIDE RECORDS SUMMARY | 2025-08-10 22:10 | XMS_ITS | Encounter Summary ---
Author Organization [facility] Address [address] [place] [address] Care Team Providers Care Legal Project Manager Name Role Phone Elijah Aguilar MD Primary Care Provider Unavail able [facility], Pcp Primary Care Provider Unavailabl e Encounter Details Date Type Department Care Team Description 07/04/2010 Caddy/Caddie Supervisor Report Medical Records [address] [place] [id number] Wilton Maloney MD Social History Tobacco Use Types Packs/Day [...] on filedocumented in this encounter Care Teams Legal Project Manager Relationship Specialty Start Date End Date Elijah Aguilar MD PCP - General 03/17/09 01/02/23 [facility], Pcp PCP - General Internal Medicine 01/03/23 documented as of this encounter
--- OUTSIDE RECORDS SUMMARY | 2025-08-10 22:10 | XMS_ITS | Encounter Summary ---
Author Organization [facility] Address [address] [place] [address] Care Team Providers Care Manager Field Name Role Phone Elijah Aguilar MD Primary Care Provider Unavail [facility], Pcp Primary Care Provider Unavailabl e Reason for Visit * Reason Onset Date Comments Form 05/18/2013 Encounter Details Date Type Department Care Team Description 05/18/2013 Telephone Medicine/Pediatrics - [address] [phone] Elijah Aguilar MD Form Social History Tobacco Use Types Packs/Day Years [...] encounter Miscellaneous Notes * Telephone Encounter - Tanvi Feldman M.A. - 05/18/2013 11:46 AM EDT Medical evaluation form for [employer] received, per Dr. Aguilar pt needs appointment. [phone] (home) LM on personal VM for pt to call back and schedule appt. Form at [facility] [employer] station. documented in this encounter Plan of Treatment Not on file documented as of this encounter Visit Diagnoses Not on filedocumented in this encounter Care Teams Manager Field Relationship Specialty Start Date End Date Elijah Aguilar MD PCP - General 03/17/09 01/02/23 [facility], Pcp PCP - General Internal Medicine 01/03/23 documented as of this encounter
--- OUTSIDE RECORDS SUMMARY | 2025-08-10 22:10 | XMS_ITS | Encounter Summary ---
Author Organization [facility] Address [address] [place] [address] Care Team Providers Care Manager Of Selection And Assessment Name Role Phone Elijah Aguilar MD Primary Care Provider Unavail able [facility], Pcp Primary Care Provider Unavailabl e Encounter Details Date Type Department Care Team Description 03/24/2010 [facility] Medical Records [address] [place] [address] Wilton Maloney MD Social History Tobacco Use [...] filedocumented in this encounter Care Teams Manager Of Selection And Assessment Relationship Specialty Start Date End Date Elijah Aguilar MD PCP - General 03/17/09 01/02/23 [facility], Pcp PCP - General Internal Medicine 01/03/23 documented as of this encounter
--- OUTSIDE RECORDS SUMMARY | 2025-08-10 22:10 | XMS_ITS | Encounter Summary ---
Author Organization [facility] Address [address] [place] [address] Care Team Providers Care Cyber Policy And Strategy Planner Name Role Phone Elijah Aguilar MD Primary Care Provider Unavail able [facility], Pcp Primary Care Provider Unavailabl e Encounter Details Date Type Department Care Team Description 12/03/2014 Transfer Records Medical Records [address] [place] [id number] Jimmy Hearn Social History Tobacco Use Types Packs/Day Years [...] on filedocumented in this encounter Care Teams Cyber Policy And Strategy Planner Relationship Specialty Start Date End Date Elijah Aguilar MD PCP - General 03/17/09 01/02/23 [facility], Pcp PCP - General Internal Medicine 01/03/23 documented as of this encounter
--- OUTSIDE RECORDS SUMMARY | 2025-08-10 22:10 | XMS_ITS | Encounter Summary ---
Author Organization [facility] Address [address] [place] [address] Care Team Providers Care Roto Gravure Press Operator Name Role Phone Elijah Aguilar MD Primary Care Provider Unavail [facility], Pcp Primary Care Provider Unavailabl e Reason for Visit * Reason Onset Date Comments nose bleed 02/05/2018 Encounter Details Date Type Department Care Team Description 02/05/2018 Telephone Adult Medicine [facility] [address] [place] [address] Elijah Aguilar MD nose bleed Social History Tobacco Use Types Packs/Day Years [...] encounter Miscellaneous Notes * Telephone Encounter - Nellie Ramos R.N. - 02/05/2018 3:53 PM EDT C/o scant amount of blood on tissue when picks nose with tissue. Denies any running bloody nose. Reports most recently in right nostril. Reports right nare is tender and sensitive. Denies any sores inside nose. Pt reports has noticed this to happen the last two weeks daily. Pt denies to be excessively picking at nose. Advised could be due to dryness. Pt states has been using Flonase nasal spray regularly. Pt would like to be seen for this. Offered appts for tomorrow. Pt states will have to check with mom and call back. * Telephone Encounter - Theresa Rodriguez - 02/05/2018 3:15 PM EDT Symptoms patient is presenting: nose bleed If pain or injury related was it due to an accident at work or from a motor vehicle accident? NO If yes, gather 3rd green party insurance information Date of accident/Injury: n/a How long has patient had these symptoms?: a couple of weeks, offered an appointment, patient keep saying his mother wants him to speak with Dr. Aguilar PCP: Elijah Aguilar [place] / [place] / Product Type: [place]ARE [id number] documented in this encounter Plan of Treatment Not on file documented as of this encounter Visit Diagnoses Not on filedocumented in this encounter Care Teams Roto Gravure Press Operator Relationship Specialty Start Date End Date Elijah Aguilar MD PCP - General 03/17/09 01/02/23 [facility], Pcp PCP - General Internal Medicine 01/03/23 documented as of this encounter
--- OUTSIDE RECORDS SUMMARY | 2025-08-10 22:10 | XMS_ITS | Encounter Summary ---
Author Organization [facility] Address [address] [place] [address] Care Team Providers Care Tap Out Operator Name Role Phone Elijah Aguilar MD Primary Care Provider Unavail able [facility], Pcp Primary Care Provider Unavailabl e Encounter Details Date Type Department Care Team Description 09/03/2012 Superintendent Geophysical Laboratory Report Medical Records [address] [place] [address] Jasbir Owens MD [address] [facility] [place] [address] Social History Tobacco Use Types Packs/Day Years [...] on filedocumented in this encounter Care Teams Tap Out Operator Relationship Specialty Start Date End Date Elijah Aguilar MD PCP - General 03/17/09 01/02/23 [facility], Pcp PCP - General Internal Medicine 01/03/23 documented as of this encounter
--- OUTSIDE RECORDS SUMMARY | 2025-08-10 22:10 | XMS_ITS | Encounter Summary ---
Author Organization [facility] Address [address] [place] [address] Care Team Providers Care Utility Porter Name Role Phone Elijah Aguilar MD Primary Care Provider [facility] Pcp Primary Care Provider Unavailabl e Reason for Visit * Reason Comments E-prescribe Rx Request Encounter Details Date Type Department Care Team Description 04/16/2015 Refill Medicine/Pediatrics - [address] [phone] Ke Mcwilliams MD E-prescribe Rx Request Social History Tobacco Use Types Packs/Day Years [...] encounter Miscellaneous Notes * Telephone Encounter - Yvonne Pascual M.A. - 04/18/2015 1:02 PM EDT Patient has refills remaining on this medication * Telephone Encounter - Pamela Xie - 04/18/2015 12:35 PM EDT Patient would like script to be: E-PRESCRIBED/FAXED TO PHARMACY WHEN WAS THE PATIENT'S LAST APPOINTMENT IN ADULT MEDICINE? 12/10/14 WHEN WAS THE LAST TIME THE PATIENT SAW THEIR PCP? Same as above Does patient have an upcoming appointment? No (THE MEDICATION REQUESTED IS ON THE MED LIST ABOVE) All of the medications requested were on the CURRENT MEDS list Did you check the Pharmacy information above?: YES Patient wants: 30 -day supply Is this a mail order prescription request ? NO Patients current insurance carrier is: [place] / [place] / Product Type: MEDICARE [id number] documented in this encounter Plan of Treatment Not on file documented as of this encounter Visit Diagnoses Not on filedocumented in this encounter Care Teams Utility Porter Relationship Specialty Start Date End Date Elijah Aguilar MD PCP - General 03/17/09 01/02/23 Federico Lucero PCP - General Internal Medicine 01/03/23 documented as of this encounter
--- OUTSIDE RECORDS SUMMARY | 2025-08-10 22:10 | XMS_ITS | Encounter Summary ---
Author Organization [facility] Address [address] [place] [address] Care Team Providers Care Firestopper Technician Name Role Phone Elijah Aguilar MD Primary Care Provider Unavail [facility], Pcp Primary Care Provider Unavailabl e Reason for Visit * Reason Onset Date Comments VNA Call 03/06/2018 Encounter Details Date Type Department Care Team Description 03/06/2018 Telephone Medicine/Pediatrics - [address] [phone] Elijah Aguilar MD VNA Call Social History [...] encounter Miscellaneous Notes * Telephone Encounter - Sima Crane L.P.N. - 03/06/2018 3:56 PM EDT I spoke with Felisa. States this is just an FYI. Pt is fine and knows what to do when blood sugar low. He drank OJ and is fine. Needed to report it. Noted. * Telephone Encounter - Imani Clayton - 03/06/2018 3:44 PM EDT Rock returned phone call. * Telephone Encounter - Sima Crane L.P.NTung - 03/06/2018 3:15 PM EDT Message left on voice mail to return call to triage. [phone] * Telephone Encounter - Marielle Jones - 03/06/2018 3:04 PM EDT VNA CALL Which VNA office is calling? [facility] Full name of caller: Tanika The caller is A nurse Is the caller at the patients home?: NO Reason for call: Patient had a lower blood sugar on 03/05/18. Patient's sugars 53 at 325 pm no symptoms,drank juice and at 330 it went to 79, 630 it was 125. FYI Does caller need an urgent call back? NO Was CONTACT Telephone # obtained above?: YES Fax #: NA documented in this encounter Plan of Treatment Not on file documented as of this encounter Visit Diagnoses Not on filedocumented in this encounter Care Teams Firestopper Technician Relationship Specialty Start Date End Date Elijah Aguilar MD PCP - General 03/17/09 01/02/23 [facility], Pcp PCP - General Internal Medicine 01/03/23 documented as of this encounter
--- OUTSIDE RECORDS SUMMARY | 2025-08-10 22:10 | XMS_ITS | Encounter Summary ---
Author Organization [facility] Address [address] [place] [address] Care Team Providers Care Machine Cementer Name Role Phone Elijah Aguilar MD Primary Care Provider Unavail able [facility], Pcp Primary Care Provider Unavailabl e Encounter Details Date Type Department Care Team Description 10/30/2011 Eye Satellite Specialist Report Medical Records [address] [place] [address] Social History Tobacco Use Types Packs/Day Years [...] on filedocumented in this encounter Care Teams Machine Cementer Relationship Specialty Start Date End Date Elijah Aguilar MD PCP - General 03/17/09 01/02/23 [facility], Pcp PCP - General Internal Medicine 01/03/23 documented as of this encounter
--- OUTSIDE RECORDS SUMMARY | 2025-08-10 22:10 | XMS_ITS | Encounter Summary ---
Author Organization [facility] Address [address] [place] [address] Care Team Providers Care Sort Manager Name Role Phone Elijah Aguilar MD Primary Care Provider Unavail able [facility], Pcp Primary Care Provider Unavailabl e Encounter Details Date Type Department Care Team Description 05/13/2014 Pharmacist Report Medical Records [address] [place] [address] Jasbir Owens MD [address] [facility] [place] [address] Social History Tobacco Use Types Packs/Day Years [...] on filedocumented in this encounter Care Teams Sort Manager Relationship Specialty Start Date End Date Elijah Aguilar MD PCP - General 03/17/09 01/02/23 [facility], Pcp PCP - General Internal Medicine 01/03/23 documented as of this encounter
--- OUTSIDE RECORDS SUMMARY | 2025-08-10 22:10 | XMS_ITS | Encounter Summary ---
Author Organization [facility] Address [address] [place] [address] Care Team Providers Care Malter Operator Name Role Phone Elijah Aguilar MD Primary Care Provider Unavail [facility], Pcp Primary Care Provider Unavailabl e Reason for Visit * Reason Onset Date Comments Form 06/24/2013 Encounter Details Date Type Department Care Team Description 06/24/2013 Telephone Medicine/Pediatrics - [address] [phone] Elijah Aguilar MD Form Social History Tobacco [...] Telephone Encounter - Tanvi Feldman M.A. - 07/15/2013 10:02 AM EDT Left message on cell, [phone] * Telephone Encounter - Pamela Rdz - 07/14/2013 12:34 PM EDT PT RETURNED CALL. * Telephone Encounter - Tanvi Feldman M.A. - 07/13/2013 11:20 AM EDT Left another message for pt to call back. [phone] * Telephone Encounter - Jannet Palumbo - 07/13/2013 9:24 AM EDT Pt returning call- please call either [phone] or [phone] Thank you * Telephone Encounter - Tanvi Feldman M.A. - 07/08/2013 10:32 AM EDT Telephone Information: Work Phone Not on file. Left another message for pt to call back. [phone] * Telephone Encounter - Tanvi Feldman M.A. - 06/24/2013 12:54 PM EDT Form for Medicare Diabetic Audit. Due to pt dx's I have to obtain pt authorization. LMOM for pt to call back. [phone] documented in this encounter Plan of Treatment Not on file documented as of this encounter Visit Diagnoses Not on filedocumented in this encounter Care Teams Malter Operator Relationship Specialty Start Date End Date Elijah Aguilar MD PCP - General 03/17/09 01/02/23 [facility], Pcp PCP - General Internal Medicine 01/03/23 documented as of this encounter
--- OUTSIDE RECORDS SUMMARY | 2025-08-10 22:10 | XMS_ITS | Encounter Summary ---
Author Organization [facility] Address [address] [place] [address] Care Team Providers Care Optical Model Maker And Tester Name Role Phone Elijah Aguilar MD Primary Care Provider Unavail [facility], Pcp Primary Care Provider Unavailabl e Reason for Visit * Reason Onset Date Comments other 06/22/2013 FYI of appointme nt for driving eval at [place] Encounter Details Date Type Department Care Team Description 06/22/2013 Telephone Adult Medicine B - [address] [address] Elijah Aguilar MD other (FYI of appointment for driving eval at [place]) Social History Tobacco Use Types Packs/Day Years [...] encounter Miscellaneous Notes * Telephone Encounter - Vipul Rodriguez - 06/22/2013 9:31 AM EDT FYI: Pt has an appointment with Dhruv at 09/10/13 for Driving evaluation. documented in this encounter Plan of Treatment Not on file documented as of this encounter Visit Diagnoses Not on filedocumented in this encounter Care Teams Optical Model Maker And Tester Relationship Specialty Start Date End Date Elijah Aguilar MD PCP - General 03/17/09 01/02/23 [facility], Pcp PCP - General Internal Medicine 01/03/23 documented as of this encounter
--- OUTSIDE RECORDS SUMMARY | 2025-08-10 22:10 | XMS_ITS | Encounter Summary ---
Author Organization [facility] Address [address] [place] [address] Care Team Providers Care Track Greaser Name Role Phone Elijah Aguilar MD Primary Care Provider Unavail able [facility], Pcp Primary Care Provider Unavailabl e Encounter Details Date Type Department Care Team Description 11/16/2009 Telephone Adult Medicine [facility] [address] [place] [address] Elijah Aguilar MD Social History Tobacco Use Types Packs/Day [...] on filedocumented in this encounter Care Teams Track Greaser Relationship Specialty Start Date End Date Elijah Augilar MD PCP - General 03/17/09 01/02/23 [facility], Pcp PCP - General Internal Medicine 01/03/23 documented as of this encounter
--- OUTSIDE RECORDS SUMMARY | 2025-08-10 22:10 | XMS_ITS | Encounter Summary ---
Author Organization [facility] Address [address] [place] [address] Care Team Providers Care Operations Clerk Name Role Phone Elijah Aguilar MD Primary Care Provider Unavail able [facility], Pcp Primary Care Provider Unavailabl e Encounter Details Date Type Department Care Team Description 10/14/2011 [facility] Medical Records [address] [place] [address] Social History Tobacco Use Types Packs/Day Years [...] on filedocumented in this encounter Care Teams Operations Clerk Relationship Specialty Start Date End Date Elijah Aguilar MD PCP - General 03/17/09 01/02/23 [facility], Pcp PCP - General Internal Medicine 01/03/23 documented as of this encounter
--- OUTSIDE RECORDS SUMMARY | 2025-08-10 22:10 | XMS_ITS | Encounter Summary ---
Author Organization [facility] Address [address] [place] [address] Care Team Providers Care Slip Dumper Name Role Phone Elijah Aguilar MD Primary Care Provider Unavail able [facility], Pcp Primary Care Provider Unavailabl e Encounter Details Date Type Department Care Team Description 11/05/2011 Release of Information Medical Records [address] [place] [id number] Abstract, Provider Social History Tobacco Use Types Packs/Day Years [...] on filedocumented in this encounter Care Teams Slip Dumper Relationship Specialty Start Date End Date Elijah Aguilar MD PCP - General 03/17/09 01/02/23 [facility], Pcp PCP - General Internal Medicine 01/03/23 documented as of this encounter
--- OUTSIDE RECORDS SUMMARY | 2025-08-10 22:10 | XMS_ITS | Encounter Summary ---
Author Organization [facility] Address [address] [place] [address] Care Team Providers Care Shactor Helper Name Role Phone Elijah Aguilar MD Primary Care Provider Unavail able [facility], Pcp Primary Care Provider Unavailabl e Encounter Details Date Type Department Care Team Description 10/22/2014 Officer Captain Report Medical Records [address] [place] [address] Radha Pagan PA-C Social History Tobacco Use Types Packs/Day Years [...] on filedocumented in this encounter Care Teams Shactor Helper Relationship Specialty Start Date End Date Elijah Aguilar MD PCP - General 03/17/09 01/02/23 [facility], Pcp PCP - General Internal Medicine 01/03/23 documented as of this encounter
--- OUTSIDE RECORDS SUMMARY | 2025-08-10 22:10 | XMS_ITS | Encounter Summary ---
Author Organization [facility] Address [address] [place] [address] Care Team Providers Care Black Oxide Operator Name Role Phone Elijah Aguilar MD Primary Care Provider Unavail able [facility], Pcp Primary Care Provider Unavailabl e Encounter Details Date Type Department Care Team Description 10/03/2011 Director Of Instrumental Music Report Medical Records [address] [place] [address] Aida Lott [address] [place] [address] Social History Tobacco Use Types Packs/Day Years [...] on filedocumented in this encounter Care Teams Black Oxide Operator Relationship Specialty Start Date End Date Elijah Aguilar MD PCP - General 03/17/09 01/02/23 [facility], Pcp PCP - General Internal Medicine 01/03/23 documented as of this encounter
--- OUTSIDE RECORDS SUMMARY | 2025-08-10 22:10 | XMS_ITS | Encounter Summary ---
Author Organization [facility] Address [address] [place] [address] Care Team Providers Care Commercial Tire Service Technician Name Role Phone Elijah Aguilar MD Primary Care Provider Unavail able [facility], Pcp Primary Care Provider Unavailabl e Encounter Details Date Type Department Care Team Description 12/16/2012 Transfer Records Medical Records [address] [place] [id number] Abstract, Provider Social History Tobacco Use Types [...] on filedocumented in this encounter Care Teams Commercial Tire Service Technician Relationship Specialty Start Date End Date Elijah Aguilar MD PCP - General 03/17/09 01/02/23 [facility], Pcp PCP - General Internal Medicine 01/03/23 documented as of this encounter
--- OUTSIDE RECORDS SUMMARY | 2025-08-10 22:10 | XMS_ITS | Encounter Summary ---
Author Organization [facility] Address [address] [place] [address] Care Team Providers Care Gm Mobile Name Role Phone Elijah Aguilar MD Primary Care Provider Unavail [facility], Pcp Primary Care Provider Unavailabl e Reason for Visit * Reason Onset Date Comments refill request 09/08/2015 Encounter Details Date Type Department Care Team Description 09/08/2015 Refill Adult Medicine [facility] [address] [place] [address] Elijah Aguilar MD refill request Social History Tobacco Use Types Packs/Day Years [...] encounter Miscellaneous Notes * Telephone Encounter - Domitila Gregory M.A. - 09/08/2015 10:07 AM EST Last office visit 08/22/15 Component Value Date HGBA1C 6.0 04/21/2015 MALBUR 94.5 04/21/2015 MALBCR 50.0 04/21/2015 CHOL 180 04/21/2015 LDL 115 04/21/2015 HDL 27 04/21/2015 TRIG 194 04/21/2015 GLU 99 04/21/2015 CREAT 1.0 04/21/2015 * Telephone Encounter - Lenka Ackerman - 09/08/2015 9:25 AM EST Patient would like script to be: E-PRESCRIBED/FAXED TO PHARMACY - [facility] requesting new diagnosis codewritten on Script. WHEN WAS THE PATIENT'S LAST APPOINTMENT IN ADULT MEDICINE? 08/22/15 WHEN WAS THE LAST TIME THE PATIENT SAW THEIR PCP? 12/10/14 Does patient have an upcoming appointment? Yes 10/31/15 (THE MEDICATION REQUESTED IS ON THE MED LIST ABOVE) All of the medications requested were on the CURRENT MEDS list Did you check the Pharmacy information above?: YES Patient wants: 30 -day supply Is this a mail order prescription request ? NO Patients current insurance carrier is: [place] / [place] / Product Type: MEDICARE [id number] documented in this encounter Plan of Treatment Not on file documented as of this encounter Visit Diagnoses Diagnosis Type 2 diabetes mellitus with diabetic nephropathy (HCC) Type II or unspecified type diabetes mellitus with renal manifestations, not stated as uncontrolled Abnormal blood sugar Other abnormal glucose documented in this encounter Care Teams Gm Mobile Relationship Specialty Start Date End Date Elijah Aguilar MD PCP - General 03/17/09 01/02/23 Federico Lucero PCP - General Internal Medicine 01/03/23 documented as of this encounter
--- OUTSIDE RECORDS SUMMARY | 2025-08-10 22:10 | XMS_ITS | Encounter Summary ---
Author Organization [facility] Address [address] [place] [address] Care Team Providers Care Business Development Coordinator Name Role Phone Elijah Aguilar MD Primary Care Provider Unavail able [facility], Pcp Primary Care Provider Unavailabl e Encounter Details Date Type Department Care Team Description 05/21/2018 Release of Information Medical Records [address] [place] [address] Abstract, Provider Social History Tobacco Use Types [...] on filedocumented in this encounter Care Teams Business Development Coordinator Relationship Specialty Start Date End Date Elijah Aguilar MD PCP - General 03/17/09 01/02/23 [facility], Pcp PCP - General Internal Medicine 01/03/23 documented as of this encounter
--- OUTSIDE RECORDS SUMMARY | 2025-08-10 22:10 | XMS_ITS | Encounter Summary ---
Author Organization [facility] Address [address] [place] [address] Care Team Providers Care Building Maintenance Supervisor Name Role Phone Elijah Aguilar MD Primary Care Provider Unavail able [facility], Pcp Primary Care Provider Unavailabl e Encounter Details Date Type Department Care Team Description 08/16/2010 [facility] Medical Records [address] [place] [address] An Maza MD Social History Tobacco Use Types Packs/Day [...] on filedocumented in this encounter Care Teams Building Maintenance Supervisor Relationship Specialty Start Date End Date Elijah Aguilar MD PCP - General 03/17/09 01/02/23 [facility], Pcp PCP - General Internal Medicine 01/03/23 documented as of this encounter
--- OUTSIDE RECORDS SUMMARY | 2025-08-10 22:11 | XMS_ITS | Encounter Summary ---
Author Organization [facility] Address [address] [place] [address] Care Team Providers Care Lining Baster Name Role Phone Elijah Aguilar MD Primary Care Provider Unavail [facility], Pcp Primary Care Provider Unavailabl e Encounter Details Date Type Department Care Team Description 12/25/2021 Orders Only Medical Records [address] [place] [address] Isaac Queen MD [address] [place] [address] Social History Tobacco Use Types Packs/Day Years Used Date Smoking Tobacco: Former Cigarettes 3 Q uit: 08/28/2009 Smokeless Tobacco: Never Alcohol Use Standard Drinks/Week Comments No 0 (1 standard drink = 0.6 oz pur e alcohol) Sex Assigned at Date Recorded Not on file Job Start Date Occupation Industry Not on file Not on file Not on file COVID-19 Exposure Response Date Recorded In the last month, have you been in contact with someone who was confirmed or suspected to have Coronavirus / COVID-19? No / Unsure 12/04/2021 11:24 AM EST documented as of this encounter Plan of Treatment Not on file documented as of this encounter Procedures Procedure Name Priority Date/Time Associated Diagnosis Comments OUTSIDE LAB Routine 12/24/2021 documented in this encounter Results * OUTSIDE LAB (12/24/2021) Isaac Queen MD LAB documented in this encounter Visit Diagnoses Not on filedocumented in this encounter Care Teams Lining Baster Relationship Specialty Start Date End Date Elijah Aguilar MD PCP - General 03/17/09 01/02/23 [facility], Pcp PCP - General Internal Medicine 01/03/23 documented as of this encounter
--- OUTSIDE RECORDS SUMMARY | 2025-08-10 22:11 | XMS_ITS | Encounter Summary ---
Author Organization [facility] Address [address] [place] [address] Care Team Providers Care Warehouse Order Puller Name Role Phone Elijah Aguilar MD Primary Care Provider Unavail able [facility], Pcp Primary Care Provider Unavailabl e Encounter Details Date Type Department Care Team Description 12/28/2010 Research Phlebotomist Report Medical Records [address] [place] [address] Wilton Maloney MD Social History Tobacco Use [...] on filedocumented in this encounter Care Teams Warehouse Order Puller Relationship Specialty Start Date End Date Elijah Aguilar MD PCP - General 03/17/09 01/02/23 [facility], Pcp PCP - General Internal Medicine 01/03/23 documented as of this encounter
--- OUTSIDE RECORDS SUMMARY | 2025-08-10 22:11 | XMS_ITS | Encounter Summary ---
Author Organization [facility] Address [address] [place] [address] Care Team Providers Care Lamp Stack Developer Name Role Phone Elijah Aguilar MD Primary Care Provider Unavail able [facility], Pcp Primary Care Provider Unavailabl e Encounter Details Date Type Department Care Team Description 12/13/2018 Release of Information Medical Records [address] [place] [id number] Abstract, Provider Social History Tobacco Use Types [...] on filedocumented in this encounter Care Teams Lamp Stack Developer Relationship Specialty Start Date End Date Elijah Aguilar MD PCP - General 03/17/09 01/02/23 [facility], Pcp PCP - General Internal Medicine 01/03/23 documented as of this encounter
--- OUTSIDE RECORDS SUMMARY | 2025-08-10 22:11 | XMS_ITS | Encounter Summary ---
Author Organization [facility] Address [address] [place] [address] Care Team Providers Care Shrinking Machine Operator Name Role Phone Elijah Aguilar MD Primary Care Provider Unavail [facility], Pcp Primary Care Provider Unavailabl e Reason for Visit * Reason Onset Date Comments VNA Call 02/18/2019 Encounter Details Date Type Department Care Team Description 02/18/2019 Telephone Adult Medicine [address] [address] Elijah Aguilar MD VNA Call Social History [...] encounter Miscellaneous Notes * Telephone Encounter - Shanna Gibson C.M.A. - 02/18/2019 11:16 AM EDT I spoke with Tanika, she said she will make the decision to discontinue the Westcort because the Betamethasone is working for him right now. She said he has a follow up in a few weeks, so he can be reevaluated for this. She said the pt will not understand the directions of holding off the Betamethasone for a few days. So she will continue that and discontinue the Westcort cream. She also said that many doctors have had extensive talks with him on taking ativan. * Telephone Encounter - Analy Davis PA-C - 02/18/2019 10:55 AM EDT I recommend taking a few days off of the betamethason to prevenet any side effects of prolonged useof topical steroids including skin thinning and scarring. If the betamethasone worked then this canbe used on his inner thigh rash as well. OR may stop betamethasone altogether and use Westcort as pr escribed. I would still take a holiday for the lower leg rash to prevent side effects. After 3-5 days of discontinuation you may restart the cream and see if this improves. I did NOT discontinue his ativan. I had an extended conversation with him encourging him to take the ativan. * Telephone Encounter - Yuliana Menchaca L.P.N. - 02/18/2019 10:30 AM EDT Nursing, ok to leave detailed message on Tanika's voicemail if she doesn't answer. Spoke with [facility] nurse, Tanika. Pt was seen yesterday for rash and Westcort cream was prescribed. He was also seen at an urgent care for this and Betamethasone 1% cream was prescribed to be applied twice daily. Tanika states the rash looks like herpes to her (it started as little blisters at first)and the Betamethasone cream was helping. Should they be applying both creams? If so, which should they apply first? Also, pt came away from the visit with the understanding that his Ativan was to be discontinued. (It may have been taken off the med list if pt reported that he's not taking it. Then it would have shown on the AVS that it was discontinued.) The Ativan is prescribed by psych. It has not been discontinued, pt is just refusing to take it. [facility] has been working on this with him and it's been a long [place] . Tanika just wants to verify that you are not intending for the Ativan to be discontinued, correct? * Telephone Encounter - Yvonne Pascual M.A. - 02/18/2019 10:11 AM EDT Routed VNA call to [facility] pool * Telephone Encounter - Amber Castaneda - 02/18/2019 10:07 AM EDT VNA CALL Which VNA office is calling? [facility] Full name of caller: Tanika The caller is A nurse Is the caller at the patients home?: NO Reason for call: Needs diagnosis of rash pt was seen for on 02/17/19 also questions on medication Does caller need an urgent call back? NO Was CONTACT Telephone # obtained above?: yes [phone] Fax #: n/a documented in this encounter Plan of Treatment Not on file documented as of this encounter Visit Diagnoses Not on filedocumented in this encounter Care Teams Shrinking Machine Operator Relationship Specialty Start Date End Date Elijah Aguilar MD PCP - General 03/17/09 01/02/23 [facility], Pcp PCP - General Internal Medicine 01/03/23 documented as of this encounter
--- OUTSIDE RECORDS SUMMARY | 2025-08-10 22:11 | XMS_ITS | Encounter Summary ---
Author Organization [facility] Address [address] [place] [address] Care Team Providers Care Cert Occupational Therapy Asst Name Role Phone Elijah Aguilar MD Primary Care Provider Unavail able [facility], Pcp Primary Care Provider Unavailabl e Encounter Details Date Type Department Care Team Description 07/02/2017 Bed Laster Report Medical Records [address] [place] [address] Black, Felicitas Social History Tobacco Use Types Packs/Day Years [...] on filedocumented in this encounter Care Teams Cert Occupational Therapy Asst Relationship Specialty Start Date End Date Elijah Aguilar MD PCP - General 03/17/09 01/02/23 [facility], Pcp PCP - General Internal Medicine 01/03/23 documented as of this encounter
--- OUTSIDE RECORDS SUMMARY | 2025-08-10 22:11 | XMS_ITS | Encounter Summary ---
Author Organization [facility] Address [address] [place] [address] Care Team Providers Care Chemist Enzymes Name Role Phone Elijah Aguilar MD Primary Care Provider Unavail able [facility], Pcp Primary Care Provider Unavailabl e Encounter Details Date Type Department Care Team Description 08/04/2020 Orders Only Medical Records [address] [place] [address] Elijah Aguilar MD Social History Tobacco Use [...] Name Priority Date/Time Associated Diagnosis Comments OUTSIDE SLEEP STUDY Routine 07/28/2020 documented in this encounter Results * OUTSIDE SLEEP STUDY (07/28/2020) Elijah Aguilar MD PULMONOLOGY documented in this encounter Visit Diagnoses Not on filedocumented in this encounter Care Teams Chemist Enzymes Relationship Specialty Start Date End Date Elijah Aguilar MD PCP - General 03/17/09 01/02/23 [facility], Pcp PCP - General Internal Medicine 01/03/23 documented as of this encounter
--- OUTSIDE RECORDS SUMMARY | 2025-08-10 22:11 | XMS_ITS | Encounter Summary ---
Author Organization [facility] Address [address] [place] [address] Care Team Providers Care Plate Keeper Name Role Phone Elijah Aguilar MD Primary Care Provider Unavail able [facility], Pcp Primary Care Provider Unavailabl e Encounter Details Date Type Department Care Team Description 12/20/2018 Release of Information Medical Records [address] [place] [id number] Abstract, Provider Social History Tobacco Use Types [...] on filedocumented in this encounter Care Teams Plate Keeper Relationship Specialty Start Date End Date Elijah Aguilar MD PCP - General 03/17/09 01/02/23 [facility], Pcp PCP - General Internal Medicine 01/03/23 documented as of this encounter
--- OUTSIDE RECORDS SUMMARY | 2025-08-10 22:11 | XMS_ITS | Encounter Summary ---
Author Organization [facility] Address [address] [place] [address] Care Team Providers Care Figure Refinisher And Repairer Name Role Phone Elijah Aguilar MD Primary Care Provider Unavail able [facility], Pcp Primary Care Provider Unavailabl e Encounter Details Date Type Department Care Team Description 05/17/2017 Wellness Visit Medical Records [address] [place] [address] Elijah Aguilar MD Social History Tobacco Use [...] on filedocumented in this encounter Care Teams Figure Refinisher And Repairer Relationship Specialty Start Date End Date Elijah Aguilar MD PCP - General 03/17/09 01/02/23 [facility], Pcp PCP - General Internal Medicine 01/03/23 documented as of this encounter
--- OUTSIDE RECORDS SUMMARY | 2025-08-10 22:11 | XMS_ITS | Encounter Summary ---
Author Organization [facility] Address [address] [place] [address] Care Team Providers Care Svp Name Role Phone Elijah Aguilar MD Primary Care Provider Unavail able [facility], Pcp Primary Care Provider Unavailabl e Encounter Details Date Type Department Care Team Description 12/26/2021 Hospital Medical Records [address] [place] [address] Isaac [place] MD [address] [place] [address] Social History Tobacco Use Types Packs/Day Years [...] on filedocumented in this encounter Care Teams Svp Relationship Specialty Start Date End Date Elijah Aguilar MD PCP - General 03/17/09 01/02/23 [facility], Pcp PCP - General Internal Medicine 01/03/23 documented as of this encounter
--- OUTSIDE RECORDS SUMMARY | 2025-08-10 22:11 | XMS_ITS | Encounter Summary ---
Author Organization [facility] Address [address] [place] [address] Care Team Providers Care Fire Chief'S Aide Name Role Phone Elijah Aguilar MD Primary Care Provider Unavail able [facility], Pcp Primary Care Provider Unavailabl e Encounter Details Date Type Department Care Team Description 06/03/2021 Release of Information Medical Records [address] [place] [id number] [place] [address] Social History Tobacco Use Types Packs/Day Years [...] have Coronavirus / COVID-19? No / Unsure 2021 8:38 AM EDT documented as of this encounter Plan of Treatment Not on file documented as of this encounter Visit Diagnoses Not on filedocumented in this encounter Care Teams Fire Chief'S Aide Relationship Specialty Start Date End Date Elijah Aguilar MD PCP - General 03/17/09 01/02/23 [facility], Pcp PCP - General Internal Medicine 01/03/23 documented as of this encounter
--- OUTSIDE RECORDS SUMMARY | 2025-08-10 22:11 | XMS_ITS | Encounter Summary ---
Author Organization [facility] Address [address] [place] [address] Care Team Providers Care Occupational Rehabilitation Aide Name Role Phone Elijah Aguilar MD Primary Care Provider [facility] Pcp Primary Care Provider Unavailabl e Reason for Visit * Reason Onset Date Comments Provider Call Back 04/05/2021 Encounter Details Date Type Department Care Team Description 04/05/2021 Telephone Gastroenterology - [place] [address] [place] [id number] Watson Simon PA-C Provider Call Back Social History Tobacco Use Types Packs/Day Years [...] have Coronavirus / COVID-19? No / Unsure 04/03/2021 10:59 AM EDT documented as of this encounter Miscellaneous Notes * Telephone Encounter - Watson Simon PA-C - 04/10/2021 8:48 AM EDT I was off the last 4 days and I am just seeing this message. I left a message for the patient to return my call. * Telephone Encounter - Jennifer Vidal - 04/05/2021 3:30 PM EDT Pt calling in asking for a call back to go over ov Please advise Call pt at [phone] Thanks documented in this encounter Plan of Treatment Not on file documented as of this encounter Visit Diagnoses Not on filedocumented in this encounter Care Teams Occupational Rehabilitation Aide Relationship Specialty Start Date End Date Elijah Aguilar MD PCP - General 03/17/09 01/02/23 [facility], Pcp PCP - General Internal Medicine 01/03/23 documented as of this encounter
--- OUTSIDE RECORDS SUMMARY | 2025-08-10 22:11 | XMS_ITS | Encounter Summary ---
Author Organization [facility] Address [address] [place] [address] Care Team Providers Care International Marketing Coordinator Name Role Phone Elijah Aguilar MD Primary Care Provider Unavail able [facility], Pcp Primary Care Provider Unavailabl e Encounter Details Date Type Department Care Team Description 01/16/2017 Release of Information Medical Records [address] [place] [address] Abstract, Provider Social History Tobacco Use Types [...] on filedocumented in this encounter Care Teams International Marketing Coordinator Relationship Specialty Start Date End Date Elijah Aguilar MD PCP - General 03/17/09 01/02/23 [facility], Pcp PCP - General Internal Medicine 01/03/23 documented as of this encounter
--- OUTSIDE RECORDS SUMMARY | 2025-08-10 22:11 | XMS_ITS | Encounter Summary ---
Author Organization [facility] Address [address] [place] [address] Care Team Providers Care Manager Data Warehouse Name Role Phone Elijah Aguilar MD Primary Care Provider Unavail able [facility], Pcp Primary Care Provider Unavailabl e Encounter Details Date Type Department Care Team Description 01/22/2019 Caramel Coloring Operator Report Medical Records [address] [place] [address] Devang Aiken, PABrentC Social History Tobacco Use Types Packs/Day Years [...] filedocumented in this encounter Care Teams Manager Data Warehouse Relationship Specialty Start Date End Date Elijah Aguilar MD PCP - General 03/17/09 01/02/23 [facility], Pcp PCP - General Internal Medicine 01/03/23 documented as of this encounter
--- OUTSIDE RECORDS SUMMARY | 2025-08-10 22:11 | XMS_ITS | Encounter Summary ---
Author Organization [facility] Address [address] [place] [address] Care Team Providers Care Heat Treater Head Name Role Phone Elijah Aguilar MD Primary Care Provider Unavail able [facility], Pcp Primary Care Provider Unavailabl e Encounter Details Date Type Department Care Team Description 09/02/2020 Orders Only Medical Records [address] [place] [address] Ld Ellison MD Social History Tobacco Use Types Packs/Day [...] have Coronavirus / COVID-19? No / Unsure 08/15/2020 3:23 PM EDT documented as of this encounter Plan of Treatment Not on file documented as of this encounter Procedures Procedure Name Priority Date/Time Associated Diagnosis Comments OUTSIDE PATHOLOGY Routine 08/30/2020 documented in this encounter Results * OUTSIDE PATHOLOGY (08/30/2020) Ld Ellison MD OUTSIDE LAB documented in this encounter Visit Diagnoses Not on filedocumented in this encounter Care Teams Heat Treater Head Relationship Specialty Start Date End Date Elijah Aguilar MD PCP - General 03/17/09 01/02/23 [facility], Pcp PCP - General Internal Medicine 01/03/23 documented as of this encounter
--- OUTSIDE RECORDS SUMMARY | 2025-08-10 22:11 | XMS_ITS | Encounter Summary ---
Author Organization [facility] Address [address] [place] [address] Care Team Providers Care Purchasing Specialist Name Role Phone Elijah Aguilar MD Primary Care Provider Unavail able [facility], Pcp Primary Care Provider Unavailabl e Encounter Details Date Type Department Care Team Description 01/03/2011 Living Manager Report Medical Records [address] [place] [address] Jasbir Owens MD [address] [facility] [place] [address] Social History Tobacco Use Types Packs/Day Years [...] on filedocumented in this encounter Care Teams Purchasing Specialist Relationship Specialty Start Date End Date Elijah Aguilar MD PCP - General 03/17/09 01/02/23 [facility], Pcp PCP - General Internal Medicine 01/03/23 documented as of this encounter
--- OUTSIDE RECORDS SUMMARY | 2025-08-10 22:11 | XMS_ITS | Encounter Summary ---
Author Organization [facility] Address [address] [place] [address] Care Team Providers Care Telemetry Tech Name Role Phone Elijah Aguilar MD Primary Care Provider Unavail able [facility], Pcp Primary Care Provider Unavailabl e Encounter Details Date Type Department Care Team Description 01/20/2016 Wellness Visit Medical Records [address] [place] [address] Elijah Aguilar MD Social History Tobacco Use [...] on filedocumented in this encounter Care Teams Telemetry Tech Relationship Specialty Start Date End Date Elijah Aguilar MD PCP - General 03/17/09 01/02/23 [facility], Pcp PCP - General Internal Medicine 01/03/23 documented as of this encounter
--- OUTSIDE RECORDS SUMMARY | 2025-08-10 22:11 | XMS_ITS | Encounter Summary ---
Author Organization [facility] Address [address] [place] [address] Care Team Providers Care Ve Teacher Name Role Phone Elijah Aguilar MD Primary Care Provider Unavail able [facility], Pcp Primary Care Provider Unavailabl e Encounter Details Date Type Department Care Team Description 09/03/2017 Release of Information Medical Records [address] [place] [address] Abstract, Provider Social History Tobacco Use Types [...] on filedocumented in this encounter Care Teams Ve Teacher Relationship Specialty Start Date End Date Elijah Aguilar MD PCP - General 03/17/09 01/02/23 [facility], Pcp PCP - General Internal Medicine 01/03/23 documented as of this encounter
--- OUTSIDE RECORDS SUMMARY | 2025-08-10 22:11 | XMS_ITS | Encounter Summary ---
Author Organization [facility] Address [address] [place] [address] Care Team Providers Care Climbing Guide Name Role Phone Elijah Aguilar MD Primary Care Provider Unavail able [facility], Pcp Primary Care Provider Unavailabl e Encounter Details Date Type Department Care Team Description 01/10/2012 Tv Technician Report Medical Records [address] [place] [address] Jazmine Velazco Social History Tobacco Use Types Packs/Day Years [...] on filedocumented in this encounter Care Teams Climbing Guide Relationship Specialty Start Date End Date Elijah Aguilar MD PCP - General 03/17/09 01/02/23 [facility], Pcp PCP - General Internal Medicine 01/03/23 documented as of this encounter
--- OUTSIDE RECORDS SUMMARY | 2025-08-10 22:11 | XMS_ITS | Encounter Summary ---
Author Organization [facility] Address [address] [place] [address] Care Team Providers Care Battery Filler Name Role Phone Elijah Aguilar MD Primary Care Provider Unavail able [facility], Pcp Primary Care Provider Unavailabl e Encounter Details Date Type Department Care Team Description 02/19/2012 Kiln Labourer Report Medical Records [address] [place] [address] Jazmine Velazco Social History Tobacco Use Types [...] on filedocumented in this encounter Care Teams Battery Filler Relationship Specialty Start Date End Date Elijah Aguilar MD PCP - General 03/17/09 01/02/23 [facility], Pcp PCP - General Internal Medicine 01/03/23 documented as of this encounter
--- OUTSIDE RECORDS SUMMARY | 2025-08-10 22:11 | XMS_ITS | Encounter Summary ---
Author Organization [facility] Address [address] [place] [address] Care Team Providers Care Subacute Nurse Name Role Phone Elijah Aguilar MD Primary Care Provider Unavail able [facility], Pcp Primary Care Provider Unavailabl e Encounter Details Date Type Department Care Team Description 01/03/2021 Telephone Adult Medicine [address] [address] Eliajh Aguilar MD Social History Tobacco Use Types [...] or suspected to have Coronavirus / COVID-19? Unable to assess 12/27/2020 12:06 PM EST documented as of this encounter Plan of Treatment Not on file documented as of this encounter Visit Diagnoses Not on filedocumented in this encounter Care Teams Subacute Nurse Relationship Specialty Start Date End Date Elijah Aguilar MD PCP - General 03/17/09 01/02/23 [facility], Pcp PCP - General Internal Medicine 01/03/23 documented as of this encounter
--- OUTSIDE RECORDS SUMMARY | 2025-08-10 22:11 | XMS_ITS | Encounter Summary ---
Author Organization [facility] Address [address] [place] [address] Care Team Providers Care Upper Shaper Name Role Phone Elijah Aguilar MD Primary Care Provider Unavail able [facility], Pcp Primary Care Provider Unavailabl e Encounter Details Date Type Department Care Team Description 07/04/2011 Hospital Medical Records [address] [place] [address] Jimmy Thorne [address] [place] [address] [place] [address] Social History Tobacco Use Types Packs/Day Years [...] on filedocumented in this encounter Care Teams Upper Shaper Relationship Specialty Start Date End Date Elijah Aguilar MD PCP - General 03/17/09 01/02/23 [facility], Pcp PCP - General Internal Medicine 01/03/23 documented as of this encounter
--- OUTSIDE RECORDS SUMMARY | 2025-08-10 22:11 | XMS_ITS | Clinical Summary ---
Author Organization [facility] Address [address] [place] [address] Care Team Providers Care Tea Room Manager Name Role Phone Elijah Aguilar MD Primary Care Provider Surgical History Surgery Date Site/Laterality Comments LEG SURGERY PROCEDURE: HISTORICAL LEG SURGERY; COMMENT: left femur OTHER SURGICAL HISTORY 02/2010 PROCEDURE: ---- OTHER ----; COMMENT: R thyroid lobectomy (Dr Maloney) OTHER SURGICAL HISTORY 04/21/2010 PROCEDURE: ---- OTHER ----; COMMENT: Completion thyroidectomy OTHER SURGICAL HISTORY 02/06/2019 PROCEDURE: ---- OTHER ----; COMMENT: dermatofibroma removal from [facility] COLONOSCOPY 08/30/2020 PROCEDURE: HISTORICAL COLONOSCOPY; COMMENT: Dr. Ellison -internal hemorrhoids, 7 mm sigmoid polyp, redundant colon, sigmoid tics, repeat 3 years. Medical History Medical History Date Comments Esophageal reflux DX:Esophageal reflux Gastritis and duodenitis DX:Chang ritis and duodenitis Cognitive attention deficit DX:C ognitive attention deficit Tubular adenoma of colon DX:Tubu lar adenoma of colon; COMMENT: Removed in August 2020 on colonoscopy Asthma DX:Asthma Depressive disorder DX:Depressiv e disorder Diabetes mellitus type 2, co ntrolled, with complications (CMS/HCC V24, CMS/HCC V28) DX:Diabetes mellitus type 2, controlled, with complications ([facility]) Hyperlipidemia DX:Hyperlipidemi a Family History Medical History Relation Name Comments Prostate cancer Father Lung cancer Maternal Grandfather Colon polyps Maternal Grandmother Other: atrial fibrillation Mother's side Colon cancer Other cousin (materna l) Prostate cancer Paternal Grandfather Stomach cancer Paternal Grandmother Prostate cancer Uncle 1 Other: atrial fibrillation Uncle 2 Coronary artery disease Neg Hx Diabetes Neg Hx Hypertension Neg Hx Relation Name Status Comments Brother 1 Alive Brother 2 Alive Father Alive Maternal Grandfather Maternal Grandmother Mother Alive shayna Mother's side Other Paternal Grandfather Paternal Grandmother Sister Alive Uncle 1 Uncle 2 Social History Tobacco Use Types Packs/Day Years Used Date Smoking Tobacco: Former Cigarettes Q uit: 08/28/2009 Smokeless Tobacco: Never Alcohol Use Standard Drinks/Week Comments No 0 (1 standard drink = 0.6 oz pur e alcohol) Sex and Gender Information Value Date Recorded Sex Assigned at Not on file Legal Sex Male 4:00 PM EST Gender Identity Not on file Sexual Orientation Not on file Obstetrics History Last Filed Vital Signs Vital Sign Reading Time Taken Comments Blood Pressure 110/86 02/09/2022 12:58 PM EDT Pulse 68 02/09/2022 12:58 PM EDT Temperature - - Respiratory Rate - - Oxygen Saturation - - Inhaled Oxygen Concentration - - Weight 87.1 kg (192 lb) 02/09/2022 12:58 PM EDT Height 185.4 cm (6' 1 ) 02/09/2022 12:58 PM EDT Body Mass Index 25.33 02/09/2022 12:58 PM EDT Plan of Treatment Health Maintenance Due Date Last Done Comments Hepatitis B Vaccines (1 of 3 - 19+ 3-dose series) 1988 Pneumococcal Vaccine: 50+ Years (2 of 2 - PCV) 2019 11/06/2010 Zoster Vaccines (1 of 2) 2019 DTaP,Tdap,and Td Vaccines (2 - Td or Tdap) 11/06/2020 11/06/2010 Depression Screening 10/28/2024 COVID-19 Vaccine ( - 2024- season) 2025 03/07/2021, 02/07/2021 Influenza Vaccine (#1) 2025 , 07/20/2020, 08/27/2019, Additional history exists RSV Immunization Adult Patients (1 - 1-dose 75+ series) 2044 Colorectal Cancer Screening: Colonoscopy Discontinued 08/30/2020 HIB Vaccines Aged Out No longer eligi ble based on patient's age to complete this topic HPV Vaccines Aged Out No longer eligi ble based on patient's age to complete this topic Hepatitis A Vaccines Aged Out No long er eligible based on patient's age to complete this topic IPV Vaccines Aged Out No longer eligi ble based on patient's age to complete this topic MMR Vaccines Aged Out No longer eligi ble based on patient's age to complete this topic Meningococcal ACWY Vaccine Aged Out N o longer eligible based on patient's age to complete this topic Meningococcal B Vaccine Aged Out No l onger eligible based on patient's age to complete this topic RSV Immunization Patients Under 20 months Aged Out No longer eligible based on patient's age to complete this topic Varicella Vaccines Aged Out No longer eligible based on patient's age to complete this topic Care Teams Tea Room Manager Relationship Specialty Start Date End Date Elijah Aguilar MD PCP - General 03/17/09
[2025-08-10 22:29] VITALS: BP 109/59; PULSE 80; RESP 16; O2SAT 94
[2025-08-11 00:48] VITALS: BP 106/56; PULSE 80; RESP 18; O2SAT 96
[2025-08-11] MEDS: iohexoL 350 MG/ML 100 ML INFUS..BTL 65 ML IV (01:23)
[2025-08-11 02:32] VITALS: BP 106/56; PULSE 80; RESP 18; TEMP 36.6; O2SAT 96
== END 2025-08-11 02:45 | disposition home or self-care (01) ==
PROVIDERS: Registered Nurse Emergency; Emergency Provider Emergency Medicine Emergency Medical Services; PCP Internal Medicine
DX: J20.9 Acute bronchitis, unspecified (principal); R04.2 Hemoptysis; Z87.891 Personal history of nicotine dependence; Z87.01 Personal history of pneumonia (recurrent); Z79.899 Other long term (current) drug therapy; Z98.890 Other specified postprocedural states; Z11.52 Encounter for screening for COVID-19
CPT/HCPCS: 71046; 71275; 80053; 85025; 85610; 87502; 87635; 99283; 99284; Q9967

== ENCOUNTER → 2025-08-10 18:38 | Outpatient (BNV) | payer OTHER, SELFPAY | PROVIDERS: PCP Internal Medicine; Visit Provider Student in an Organized Health Care Education/Training Program | DX: R04.2 Hemoptysis (principal); Z18.10 Retained metal fragments, unspecified | CPT/HCPCS: 71046 ==

== ENCOUNTER → 2025-08-11 00:02 | Outpatient (BNV) | payer OTHER, SELFPAY | PROVIDERS: Emergency Provider Emergency Medicine Emergency Medical Services; PCP Internal Medicine; Visit Provider Radiology Diagnostic Radiology | DX: J47.9 Bronchiectasis, uncomplicated (principal); J98.11 Atelectasis | CPT/HCPCS: 71275 ==